=== PATIENT | male | born 1950 | race Caucasian/White ===

== ENCOUNTER → 2016-05-02 | Outpatient (CLI) | payer MEDICARE ==
[2016-05-02 10:46] LABS: CH 28.4; CHCM 31.8; HDW 2.62; HGB 13.3 gm/dL (13.0-17.5); MCH 27.7 pg (25.0-35.0); MCHC 30.9 g/dL (31.0-37.0); MCV 89.7 fL (80.0-100.0); Mean Platelet Volume 7.4; RDW 13.1 % (11.5-15.5)
[2016-05-02 10:57] LABS: Anion Gap 12 mmol/L; Blood Urea Nitrogen 21 mg/dL (9-20); Carbon Dioxide 30 mmol/L (22-30); Chloride 101 mmol/L (98-107); Cholesterol 244 mg/dL (<200); HDL Cholesterol 49 mg/dL (40-60); Non-African American GFR(MDRD) >60 (>60 ml/min/1.73 sqM); Potassium 5.3 mmol/L (3.5-5.1); Sodium 143 mmol/L (137-145); Triglycerides 217 mg/dL (<150)
== END | disposition home or self-care (01) ==
LOC: LABPAT 10:11
PROVIDERS: ATTEND Internal Medicine Interventional Cardiology
DX: Z01.812 Encounter for preprocedural laboratory examination (principal); I73.9 Peripheral vascular disease, unspecified; E78.2 Mixed hyperlipidemia
CPT/HCPCS: 80051; 80061; 82565; 84520; 85027

== ENCOUNTER 2016-05-07 08:46 | Day surgery (SDC) | payer MEDICARE ==
[2016-05-05 14:40] VITALS: BMI 31.5
[~2016-05-07 08:46] MED LIST: ALPRAZolam 0.25 MG TAB PO PRN; ASPIRIN 325 MG TAB PO STA; SODIUM CHLORIDE 0.9% 1,000 ML in EMPTY BAG 1 BAG IV ONE
[2016-05-07 09:48] VITALS: RESP 16
[2016-05-07 10:21] LABS: Glucose,Whole Blood 156 mg/dL (75-99)
[2016-05-07] MEDS: LIDOCAINE 2% INJ 20 MG/ML SQ ONE ×2 (10:45→12:17)
[2016-05-07] MEDS: fentaNYL (PF) 50 MCG/ML 2 ML AMP IV ONE ×2 (10:47→12:59)
[2016-05-07] MEDS ORDERED: MIDAZOLAM 2 MG/2 ML VIAL IV ONE (10:47)
[2016-05-07] MEDS ORDERED: HEPARIN SODIUM 1,000 UNIT/ML VIAL IV ONE (10:50)
[2016-05-07] MEDS: HYDROmorphone 2 MG/ML 1 ML SYRINGE IV ONE ×2 (11:02→11:43)
[2016-05-07] MEDS: HEPARIN SODIUM 1,000 UNIT/ML VIAL IV ONE ×2 (11:23→12:24)
[2016-05-07] MEDS ORDERED: MIDAZOLAM 2 MG/2 ML VIAL IVP ONE (11:27)
[2016-05-07] MEDS ORDERED: SODIUM CHLORIDE 0.9% 500 ML with niCARdipine 6.25 MG, NITROGLYCERIN-D5W PMX 0.05 MG, HE... IV ONE ×4 (12:06)
[2016-05-07] MEDS ORDERED: SODIUM CHLORIDE 0.9% 1,000 ML IV SCH (13:30)
--- NOTE | 2016-05-07 14:00 | IR ---
EXAMINATION TYPE: IR mine captain femoral popliteal DATE OF EXAM: 05/07/2016 1:57 PM COMPARISON: NONE HISTORY: Peripheral vascular occlusive disease. Fluoroscopy was applied to the referring clinician. See dictated report from cardiology.
[2016-05-07 14:20] LABS: Glucose,Whole Blood 133 mg/dL (75-99)
[2016-05-07] MEDS ORDERED: HYDROcodone/APAP 10-325MG 1 EACH TAB PO PRN (16:13)
[2016-05-07 20:13] VITALS: BP 140/59; PULSE 69; TEMP 98.2
--- NOTE | 2016-05-08 05:45 | PCN ---
DATE OF PROCEDURE: 05/07/2016 PERFORMING PHYSICIAN: Umesh Timmons MD, chemistry specialist. PROCEDURE PERFORMED: 1. Selective right common femoral artery angiogram. 2. Selective right profunda femoris angiogram. 3. Selective right posterior tibial artery angiogram. 4. An attempted percutaneous peripheral intervention of the right superficial femoral artery. INDICATION: This is a pleasant 66-year-old gentleman who is known to have coronary artery disease and prior coronary artery bypass grafting, peripheral arterial disease and prior aortobifem surgery, as well as carotid disease who was experiencing severe right leg discomfort consistent with intermittent claudications with almost critical limb ischemia and resting right leg discomfort. He underwent a peripheral angiogram a few weeks ago and that showed occluded right SFA. He was brought today to undergo percutaneous peripheral intervention. APPROACH: 1. Right brachial artery. 2. Right posterior tibial artery. COMPLICATIONS: None. LEVEL OF SEDATION: Moderate with a length of sedation of 3 hours. PROCEDURE DESCRIPTION: After obtaining an informed consent, the patient was brought to the cardiac laborer electroplating. The right brachial artery was cannulated using micropuncture technique under ultrasound guidance. The micropuncture wire passed easily, then I placed an 11 cm 6-Scottish sheath in the right brachial artery. Subsequently anticoagulation was initiated using heparin and the patient initially given a bolus of 10,000 units of heparin IV and subsequently 3 boluses of 3000 during the procedure with continuous ACT measurement during the procedure. After that, I did exchange my 11 cm 6-Scottish sheath into 110 cm 6-Scottish sheath using an 0.035 advantage wire. The tip of the sheath was positioned in the right common femoral artery. After that, I did multiple peripheral angiogram where I did ( ). Subsequently, I tried to advance 0.035 an 0.014 wire in what seems to be stumped right superficial femoral artery, but the wire would not go through at that point. After multiple attempts of finding the true stumped SFA, I decided to come from below. At that point, I decided to approach the lesion in a retrograde fashion. Subsequently I did access the right posterior tibial artery using a micropuncture technique under ultrasound guidance and I placed a 4-Scottish sheath. At that point, continuous infusion of heparin was initiated along with nitroglycerin and verapamil. I did advance an 0.035 Glidewire with the back-up support of 0.035 CXI catheter. I get all my way in the SFA in the ( ) to the proximal portion by the profunda bifurcation. I was unable to enter the profunda using multiple kinds of wire including 0.014, 0.018, 0.035 wire. At that point, I decided to stop. I did exchange my 110 cm 6-Scottish sheath into 11 cm 6-Scottish sheath in the right radial artery. Then I pulled the right posterior tibial sheath. The procedure was completed without any complication. POSTPROCEDURE MANAGEMENT: 1. I will discuss with the patient the need for right fem to popliteal bypass. 2. Discharged home later on today. 3. Follow up with the patient.
== END 2016-05-07 21:10 | disposition home or self-care (01) ==
LOC: CATHCVL 08:46 → 3OBS 13:23 → CATHCVL 21:10
PROVIDERS: ATTEND Internal Medicine Interventional Cardiology
DX: I70.221 Atherosclerosis of native arteries of extremities with rest pain, right leg (principal); I25.10 Atherosclerotic heart disease of native coronary artery without angina pectoris; I10 Essential (primary) hypertension; Z87.891 Personal history of nicotine dependence; E78.5 Hyperlipidemia, unspecified; Z79.82 Long term (current) use of aspirin; Z79.899 Other long term (current) drug therapy; E11.9 Type 2 diabetes mellitus without complications; Z79.84 Long term (current) use of oral hypoglycemic drugs; Z79.02 Long term (current) use of antithrombotics/antiplatelets
CPT/HCPCS: 37224; 85347; 84132; 99152; 99153 ×9; C1769 ×9; C1894 ×3; C1887; J2001; J2250; J1170; J1644 ×2; J3010

== ENCOUNTER 2016-06-07 15:49 | Inpatient (IN) | payer MEDICARE ==
[2016-06-07] MEDS ORDERED: HYDROmorphone 1 MG/ML 1 ML SYRINGE IVP STA (16:18)
[2016-06-07] MEDS ORDERED: SODIUM CHLORIDE 0.9% 1,000 ML IV ONE (16:21)
[2016-06-07] MEDS ORDERED: ONDANSETRON 4 MG/2 ML VIAL IVP STA (16:21)
--- NOTE | 2016-06-07 16:43 | ED ---
Abdominal Pain HPI - General Chief Complaint: Abdominal Pain Stated Complaint: abd pain Time Seen by Provider: 06/07/16 16:12 Source: patient Mode of arrival: ambulatory Limitations: no limitations - History of Present Illness Initial Comments: 66-year-old male patient presents to emergency department today for complaints of abdominal distention, abdominal pain, and diarrhea. Patient states that symptoms started around 9 PM last evening. He had multiple episodes of diarrhea throughout the night. Patient states that his abdomen is becoming more firm and the pain is worsening. Patient has been nauseated but has not vomited. Patient states he also had an episode of chest tightness, and had some wheezing. Patient denies any dark, bloody, or black stools. Patient denies any dysuria, hematuria, urinary retention, urinary frequency, or urinary urgency. He denies any fever, chills, sweats, or back pain. Patient denies any history of bowel surgeries, but has had an abdominal aortic bypass. Patient is also has history significant for myocardial infarction and CABG procedure. - Related Data Home Medications Medication Instructions Recorded Confirmed Chlorzoxazone [Parafon Forte Dsc] 1,000 mg PO TID 07/05/14 06/07/16 Hydrocodone/Acetaminophen [Lortab 2 tab PO Q8H PRN 07/05/14 06/07/16 10-325 mg Tablet] Nitroglycerin Sl Tabs [Nitrostat] 0.4 mg SUBLINGUAL Q5M PRN 07/05/14 06/07/16 Temazepam [Restoril] 30 mg PO HS PRN 07/05/14 06/07/16 Amitriptyline HCl [Elavil] 100 mg PO HS 08/11/14 06/07/16 Multivit-Min/FA/Lycopene/Lut 1 tab PO DAILY 10/04/15 06/07/16 [Centrum Silver Tablet] Sertraline [Zoloft] 50 mg PO HS 10/04/15 06/07/16 Gabapentin 600 mg PO BID 10/08/15 06/07/16 PARoxetine HCL [Paxil] 20 mg PO DAILY 10/09/15 06/07/16 Aspirin 81 mg PO QAM 11/19/15 06/07/16 Fluticasone/Salmeterol [Advair 1 puff INHALATION RT-BID 12/19/15 06/07/16 250-50 Diskus] Spironolactone-Hctz 25-25Mg 1 tab PO DAILY 12/19/15 06/07/16 [Aldactazide 25-25 MG] Atorvastatin [Lipitor] 80 mg PO HS 06/07/16 06/07/16 Fenofibrate Nanocrystallized 145 mg PO DAILY 06/07/16 06/07/16 [Fenofibrate] Gabapentin [Neurontin] 300 mg PO DAILY@1200 06/07/16 06/07/16 Glimepiride [Amaryl] 2 mg PO BID 06/07/16 06/07/16 Insulin Glargine,Hum.rec.anlog 30 units SQ HS 06/07/16 06/07/16 [Toujeo Solostar] Metoprolol Tartrate [Lopressor] 50 mg PO BID 06/07/16 06/07/16 cloNIDine HCL [Catapres] 0.05 mg PO BID 06/07/16 06/07/16 predniSONE See Taper PO DAILY 06/07/16 06/07/16 sitaGLIPtin [Januvia] 50 mg PO DAILY 06/07/16 06/07/16 Previous Rx's Medication Instructions Recorded Clopidogrel [Plavix] 75 mg PO DAILY #30 tab 10/14/15 Lisinopril [Zestril] 10 mg PO BID #60 tab 10/14/15 Pantoprazole [Protonix] 40 mg PO DAILY #30 tablet. 10/14/15 amLODIPine [Norvasc] 5 mg PO BID #60 tab 10/14/15 Carvedilol [Coreg] 3.125 mg PO BID-W/MEALS #60 tab 12/20/15 Allergies Allergy/AdvReac Type Severity Reaction Status Date / Time atorvastatin calcium Allergy Unknown Verified 06/07/16 15:53 [From Lipitor] fenofibrate nanocrystallized Allergy Unknown Verified 06/07/16 15:53 [From Tricor] fenofibrate,micronized Allergy Unknown Verified 06/07/16 15:53 [From Tricor] rosuvastatin calcium Allergy Unknown Verified 06/07/16 15:53 [From Crestor] sulfamethoxazole Allergy Unknown Verified 06/07/16 15:53 [From Bactrim] metformin AdvReac Nausea & Verified 06/07/16 15:53 Vomiting trimethoprim [From Bactrim] AdvReac Unknown Verified 06/07/16 15:53 rynatan Allergy Unknown Uncoded 06/07/16 15:53 Review of Systems ROS Statement: Those systems with pertinent positive or pertinent negative responses have been documented in the HPI. ROS Other: All systems not noted in ROS Statement are negative. Past Medical History Past Medical History: Coronary Artery Disease (CAD), COPD, Diabetes Mellitus, Hyperlipidemia, Hypertension, Osteoarthritis (OA) Additional Past Medical History / Comment(s): no cpap,sores venkata legs-scrapes History of Any Multi-Drug Resistant Organisms: None Reported Past Surgical History: Back Surgery, Coronary Bypass/CABG, Heart Catheterization With Stent, Hernia Repair Additional Past Surgical History / Comment(s): aortic bypass, chronic back pain , back surgery x3 Past Anesthesia/Blood Transfusion Reactions: No Reported Reaction Additional Past Anesthesia/Blood Transfusion Reaction / Comment(s): states "feels like he has ants crawling on his face with anesthesia" Date of Last Stent Placement:: 1994 Past Psychological History: Anxiety, Depression Smoking Status: Former smoker Past Alcohol Use History: None Reported Additional Past Alcohol Use History / Comment(s): quit smoking 2009,smoked approx 30 yrs 2ppd Past Drug Use History: None Reported - Past Family History Father Additional Family Medical History / Comment(s): in MVA Sister(s) Family Medical History: Cancer Additional Family Medical History / Comment(s): BONE Mother Family Medical History: Myocardial Infarction ([place]) General Exam Limitations: no limitations General appearance: alert, in no apparent distress Head exam: Present: atraumatic, normocephalic, normal inspection Eye exam: Present: normal appearance, PERRL, EOMI. Absent: scleral icterus, conjunctival injection, periorbital swelling ENT exam: Present: normal exam, normal oropharynx, mucous membranes moist Neck exam: Present: normal inspection. Absent: tenderness, meningismus, lymphadenopathy Respiratory exam: Present: normal lung sounds bilaterally. Absent: respiratory distress, wheezes, rales, rhonchi, stridor Cardiovascular Exam: Present: regular rate, normal rhythm, normal heart sounds. Absent: systolic murmur, diastolic murmur, rubs, gallop, clicks GI/Abdominal exam: Present: soft, distended, tenderness (Mid epigastric, right lower quadrant), normal bowel sounds, hyperactive bowel sounds. Absent: guarding, rebound, rigid Back exam: Present: normal inspection. Absent: tenderness, CVA tenderness (R), CVA tenderness (L) Neurological exam: Present: alert, oriented X3, CN II-XII intact Psychiatric exam: Present: normal affect, normal mood Skin exam: Present: warm, dry, intact, normal color. Absent: rash Course Vital Signs 06/07/16 06/07/16 15:50 16:56 Temperature 98.0 F 98.0 F Pulse Rate 76 65 Respiratory 16 18 Rate Blood Pressure 121/58 167/76 O2 Sat by Pulse 96 98 Oximetry Medical Decision Making - Medical Decision Making 66-year-old male patient presented today for complaints of abdominal pain, distention, and diarrhea. X-ray and CT findings are consistent with ileus, with no evidence is obstruction. It is also a new pancreatic tail mass noted on CT. She's been discussed with Missael Hitchcock MANAGER [employer]. Patient will be admitted for further evaluation of ileus and abdominal pain. - Lab Data Result diagrams: 06/07/16 16:53 06/07/16 16:53 Lab Results 06/07/16 06/07/16 06/07/16 Range/Units 16:53 16:53 16:53 WBC 14.7 H (3.8-10.6) k/uL RBC 4.48 (4.30-5.90) m/uL Hgb 12.5 L (13.0-17.5) gm/dL Hct 39.5 (39.0-53.0) % MCV 88.1 (80.0-100.0) fL MCH 28.0 (25.0-35.0) pg MCHC 31.8 (31.0-37.0) g/dL RDW 13.2 (11.5-15.5) % Plt Count 317 (150-450) k/uL Neutrophils % 71 % Lymphocytes % 19 % Monocytes % 6 % Eosinophils % 1 % Basophils % 1 % Neutrophils # 10.4 H (1.3-7.7) k/uL Lymphocytes # 2.7 (1.0-4.8) k/uL Monocytes # 0.8 (0-1.0) k/uL Eosinophils # 0.1 (0-0.7) k/uL Basophils # 0.1 (0-0.2) k/uL PT (9.0-12.0) sec INR (<1.1) APTT (22.0-30.0) sec Sodium 137 (137-145) mmol/L Potassium 4.9 (3.5-5.1) mmol/L Chloride 103 (98-107) mmol/L Carbon Dioxide 21 L (22-30) mmol/L Anion Gap 13 mmol/L BUN 27 H (9-20) mg/dL Creatinine 0.88 (0.66-1.25) mg/dL Est GFR (MDRD) Af Amer >60 (>60 ml/min/1.73 sqM) Est GFR (MDRD) Non-Af >60 (>60 ml/min/1.73 sqM) Glucose 290 H (74-99) mg/dL Plasma Lactic Acid Sai 1.5 (0.7-2.0) mmol/L Calcium 10.2 (8.4-10.2) mg/dL Total Bilirubin 0.6 (0.2-1.3) mg/dL AST 41 (17-59) U/L ALT 65 (21-72) U/L Alkaline Phosphatase 47 (38-126) U/L Total Creatine Kinase (55-170) U/L CK-MB (CK-2) (0.0-2.4) ng/mL CK-MB (CK-2) Rel Index Troponin I (0.000-0.034) ng/mL Total Protein 6.8 (6.3-8.2) g/dL Albumin 4.1 (3.5-5.0) g/dL Amylase 36 (30-110) U/L Lipase 65 (23-300) U/L Urine Color Urine Appearance (Clear) Urine pH (5.0-8.0) Ur Specific [place] (1.001-1.035) Urine Protein (Negative) Urine Glucose (UA) (Negative) Urine Ketones (Negative) Urine Blood (Negative) Urine Nitrite (Negative) Urine Bilirubin (Negative) Urine Urobilinogen (<2.0) mg/dL Ur Leukocyte Esterase (Negative) 06/07/16 06/07/16 06/07/16 Range/Units 16:53 16:53 17:50 WBC (3.8-10.6) k/uL RBC (4.30-5.90) m/uL Hgb (13.0-17.5) gm/dL Hct (39.0-53.0) % MCV (80.0-100.0) fL MCH (25.0-35.0) pg MCHC (31.0-37.0) g/dL RDW (11.5-15.5) % Plt Count (150-450) k/uL Neutrophils % % Lymphocytes % % Monocytes % % Eosinophils % % Basophils % % Neutrophils # (1.3-7.7) k/uL Lymphocytes # (1.0-4.8) k/uL Monocytes # (0-1.0) k/uL Eosinophils # (0-0.7) k/uL Basophils # (0-0.2) k/uL PT 10.0 (9.0-12.0) sec INR 1.0 (<1.1) APTT 20.6 L (22.0-30.0) sec Sodium (137-145) mmol/L Potassium (3.5-5.1) mmol/L Chloride (98-107) mmol/L Carbon Dioxide (22-30) mmol/L Anion Gap mmol/L BUN (9-20) mg/dL Creatinine (0.66-1.25) mg/dL Est GFR (MDRD) Af Amer (>60 ml/min/1.73 sqM) Est GFR (MDRD) Non-Af (>60 ml/min/1.73 sqM) Glucose (74-99) mg/dL Plasma Lactic Acid Sai (0.7-2.0) mmol/L Calcium (8.4-10.2) mg/dL Total Bilirubin (0.2-1.3) mg/dL AST (17-59) U/L ALT (21-72) U/L Alkaline Phosphatase (38-126) U/L Total Creatine Kinase 102 (55-170) U/L CK-MB (CK-2) 2.8 H* (0.0-2.4) ng/mL CK-MB (CK-2) Rel Index 2.7 Troponin I <0.012 (0.000-0.034) ng/mL Total Protein (6.3-8.2) g/dL Albumin (3.5-5.0) g/dL Amylase (30-110) U/L Lipase (23-300) U/L Urine Color Yellow Urine Appearance Clear (Clear) Urine pH 5.5 (5.0-8.0) Ur Specific [place] 1.019 (1.001-1.035) Urine Protein Negative (Negative) Urine Glucose (UA) 4+ H (Negative) Urine Ketones Negative (Negative) Urine Blood Negative (Negative) Urine Nitrite Negative (Negative) Urine Bilirubin Negative (Negative) Urine Urobilinogen <2.0 (<2.0) mg/dL Ur Leukocyte Esterase Negative (Negative) - EKG Data -: EKG Interpreted by Nc 06/07/16 17:25 EKG obtained at 1716 reveals normal sinus rhythm with a ventricular rate of 60, CA interval 134, QRS duration 104, QT 426, QTC 426. ST elevation or depression noted. 06/07/16 18:58 - Radiology Data Radiology results: report reviewed, image reviewed X-ray KUB reveals single mildly dilated loop of small bowel on the mild midline abdomen. Otherwise air and stool are noted throughout the colon and the findings likely related to mild ileus. Dictated by Dr. Gonzales. CT abdomen and pelvis with IV contrast reveals previously noted mildly dilated loop of small bowel on the abdominal radiograph the same day. Has decreased in caliber. Scattered air-fluid levels are noted within nondilated small bowel. Again findings are likely related to ileus with no evidence of obstruction. Pancreatic tail mass incompletely characterized on this examination. No associated ductal dilation. Mild retrolisthesis of L5 on S1, likely degenerative in nature. Hepatic steatosis. Two-view chest x-ray reveals no acute cardiopulmonary process. Disposition Clinical Impression: Abdominal pain, Ileus, Pancreatic mass Disposition: ADMITTED IP TO THIS HOSP Condition: Stable Decision Date: 06/07/16 Decision Time: 18:59
[2016-06-07] MEDS ORDERED: RX INFO: IV CONTRAST WAS GIVEN 1 EACH MISC MISCELLANE PRN (16:54)
[2016-06-07 17:11] LABS: Basophils # (A) 0.1 k/uL (0-0.2); Basophils % (A) 1 %; CH 28.5; CHCM 32.5; Eosinophils # (A) 0.1 k/uL (0-0.7); Eosinophils % (A) 1 %; HCT 39.5 % (39.0-53.0); HGB 12.5 gm/dL (13.0-17.5); Luc % (Auto) 3; Lymphocytes # (A) 2.7 k/uL (1.0-4.8); Lymphocytes % (A) 19 %; MCHC 31.8 g/dL (31.0-37.0); MCV 88.1 fL (80.0-100.0); Mean Platelet Volume 8.1; Monocytes # (A) 0.8 k/uL (0-1.0); Monocytes % (A) 6 %; Neutrophils # (A) 10.4 k/uL (1.3-7.7); Neutrophils % (A) 71 %; RBC 4.48 m/uL (4.30-5.90); RDW 13.2 % (11.5-15.5); WBC 14.7 k/uL (3.8-10.6); WBC (Perox) 15.33
[2016-06-07 17:16] LABS: ALT 65 U/L (21-72); AST 41 U/L (17-59); Alkaline Phosphatase 47 U/L (38-126); Amylase 36 U/L (30-110); Anion Gap 13 mmol/L; Blood Urea Nitrogen 27 mg/dL (9-20); Calcium 10.2 mg/dL (8.4-10.2); Carbon Dioxide 21 mmol/L (22-30); Chloride 103 mmol/L (98-107); Glucose 290 mg/dL (74-99); Non-African American GFR(MDRD) >60 (>60 ml/min/1.73 sqM); Potassium 4.9 mmol/L (3.5-5.1); Sodium 137 mmol/L (137-145); Total Bilirubin 0.6 mg/dL (0.2-1.3); Total Protein 6.8 g/dL (6.3-8.2)
[2016-06-07 17:31] LABS: Creatine Kinase 102 U/L (55-170)
[2016-06-07 17:34] LABS: Partial Thromboplastin Time 20.6 sec (22.0-30.0)
[2016-06-07 17:45] LABS: Troponin I <0.012 ng/mL (0.000-0.034)
[2016-06-07 17:47] LABS: Creatine Kinase MB 2.8 ng/mL (0.0-2.4)
[2016-06-07 17:59] LABS: Appearance,Urine Clear (Clear); Bilirubin,Urine Negative (Negative); Glucose,Urine (UA) 4+ (Negative); Ketones,Urine Negative (Negative); Leukocyte Esterase,Urine Negative (Negative); Nitrite,Urine Negative (Negative); PH, Urine 5.5 (5.0-8.0); Protein,Urine Negative (Negative); Specific Gravity,Urine 1.019 (1.001-1.035); UA Billing (MACRO vs. MICRO) CHEM; Urobilinogen,Urine <2.0 mg/dL (<2.0)
--- NOTE | 2016-06-07 17:59 | XR ---
EXAMINATION TYPE: XR chest 2V DATE OF EXAM: 06/07/2016 4:46 PM COMPARISON: 12/19/2015 HISTORY: Abdominal pain and bloating with history of COPD. TECHNIQUE: Frontal and lateral views of the chest are obtained. FINDINGS: Intact midline sternotomy wires are evident with postsurgical clips of the mediastinum. Th ere is no evidence of focal consolidation, pleural effusion, or pneumothorax. Cardia mediastinal silh ouette is within normal limits. Chronic prominent interstitial lung markings are noted. Degenerative changes are seen of the visualized thoracic spine. No radiographic sequela of COPD. IMPRESSION: No acute cardiopulmonary process, unchanged from the prior exam.
--- NOTE | 2016-06-07 18:02 | XR ---
EXAMINATION TYPE: XR KUB DATE OF EXAM: 06/07/2016 4:46 PM COMPARISON: NONE HISTORY: Abdominal pain, bloating, and gaseous distention TECHNIQUE: Single view upright abdominal radiograph was obtained. FINDINGS: The bowel gas pattern is nonspecific. The colon contains air and fecal material scattered t hroughout. Few air-fluid levels are seen within the abdomen and a single loop of prominent small anuel l is present in the central upper abdomen. Postsurgical changes are seen in the left inguinal region and midline abdomen. Degenerative changes are present of the thoracolumbar spine and lumbosacral spin e. There is redemonstration of postsurgical changes of the mediastinum. No abnormal calcifications or organomegaly are appreciated. IMPRESSION: Single mildly dilated loop of small bowel in the midline abdomen. Otherwise air and stool are noted throughout the colon and thus findings likely relate to mild ileus.
--- NOTE | 2016-06-07 18:39 | CT ---
EXAMINATION TYPE: CT abdomen pelvis w con DATE OF EXAM: 06/07/2016 6:10 PM COMPARISON: NONE HISTORY: Generalized abdominal pain and bloating. CT DLP: 2126.00 mGycm Automated exposure control for dose reduction was used. TECHNIQUE: Helical acquisition of images was performed from the lung bases through the pelvis. CONTRAST: Performed without Oral Contrast and with IV Contrast, patient injected with 100 mL of Omnipaque 300. FINDINGS: LUNG BASES: Respiratory motion partially obscures visualization, however there is evidence of bilater al subsegmental atelectasis and no focal consolidation. LIVER/GB: There is diffuse hypoattenuation of the hepatic parenchyma related to underlying hepatic st eatosis, which limits evaluation for hepatic masses. There is focal fatty sparing near the gallbladde r fundus and segment IVb. A trace amount of perihepatic fluid lies at the inferior margin of the righ t hepatic lobe along the right lateral conal fascia. PANCREAS: There is a hypoattenuated pancreatic tail mass measuring 2.4 x 2.5 cm. There is no associat ed ductal dilatation. Mild pancreatic atrophy is noted. No evidence of chronic pancreatitis is identi fied. SPLEEN: Spleen is of normal size and morphology. ADRENALS: Normal morphology without adrenal lesion. KIDNEYS: No evidence of hydronephrosis or obstructive uropathy. The kidneys enhance symmetrically wit hout focal lesion RETROPERITONEAL ADENOPATHY: No evidence of retroperitoneal adenopathy. REPRODUCTIVE ORGANS: No significant abnormality is seen URINARY BLADDER: No significant abnormality is seen. PELVIC ADENOPATHY: None visualized. OSSEOUS STRUCTURES: Mild retrolisthesis is seen of L5 on S1, likely degenerative in nature as degene rative changes are seen of the visualized thoracolumbar and lumbosacral spine. BOWEL: The previously described single loop of prominent small bowel in the midline abdomen has decr eased in size in the interim and is nondilated. No evidence of bowel dilation is noted. Stool and air are seen within the nondistended large bowel. Appendix is visualized without periappendiceal fat str anding or enlargement. No evidence of pneumoperitoneum. No evidence of small bowel wall thickening. A gain few air-fluid levels are noted. OTHER: Postsurgical changes are seen of the abdominal aorta and common iliac vasculature with patency of the anterior vessels which contain minimal calcific atheromatous changes. IMPRESSION: 1. PREVIOUSLY NOTED MILDLY DILATED LOOP OF SMALL BOWEL ON THE ABDOMINAL RADIOGRAPH THE SAME DAY HAS D ECREASED IN CALIBER. SCATTERED AIR-FLUID LEVELS ARE NOTED WITHIN NONDILATED SMALL BOWEL. AGAIN FINDIN GS ARE LIKELY RELATE TO ILEUS WITH NO EVIDENCE OF OBSTRUCTION. 2. PANCREATIC TAIL MASS INCOMPLETELY CHARACTERIZED ON THIS EXAMINATION. THERE IS NO ASSOCIATED DUCTAL DILATATION. FURTHER CHARACTERIZATION WITH DEDICATED DYNAMIC ENHANCED ABDOMINAL CT (PANCREATIC MASS P ROTOCOL) OR MRI IS RECOMMENDED FOR FURTHER CHARACTERIZATION. 3. MILD RETROLISTHESIS OF L5 ON S1, LIKELY DEGENERATIVE IN NATURE. 4. HEPATIC STEATOSIS.
[2016-06-07] MEDS ORDERED: ONDANSETRON 4 MG/2 ML VIAL IVP PRN (18:59)
[2016-06-07] MEDS ORDERED: ACETAMINOPHEN TAB 325 MG TAB PO PRN (18:59)
[2016-06-07] MEDS ORDERED: NALOXONE 0.4 MG/ML 1 ML VIAL IV PRN (18:59)
[2016-06-07 19:00] VITALS: RESP 16
[2016-06-07] MEDS: HYDROmorphone 1 MG/ML 1 ML SYRINGE IV PRN ×2 (19:49→22:20)
[2016-06-07 20:15] LABS: Hemoglobin A1C 8.6 % (4.2-6.1)
[2016-06-07] MEDS ORDERED: TEMAZEPAM 30 MG CAP PO PRN (20:41)
[2016-06-07 21:42] LABS: Glucose,Whole Blood 233 mg/dL (75-99)
[2016-06-07] MEDS: amLODIPine 5 MG TAB PO SCH (22:14)
[2016-06-07] MEDS: ATORVASTATIN 80 MG TAB PO SCH (22:14)
[2016-06-07] MEDS: AMITRIPTYLINE HCL 50 MG TAB PO SCH (22:14)
[2016-06-07] MEDS: GLIMEPIRIDE 2 MG TAB PO SCH (22:15)
[2016-06-07] MEDS: GABAPENTIN 300 MG CAP PO SCH (22:15)
[2016-06-07] MEDS: INSULIN GLARGINE 100 UNIT/ML 10 ML VIAL SQ SCH (22:15)
[2016-06-07] MEDS: LISINOPRIL 10 MG TAB PO SCH (22:16)
[2016-06-07] MEDS: INSULIN LISPRO (humaLOG) 300 UNIT/3 ML VIAL SQ SCH (22:16)
[2016-06-07] MEDS: CYCLOBENZAPRINE 10 MG TAB PO SCH (22:17)
[2016-06-07] MEDS: METOPROLOL TARTRATE 50 MG TAB PO SCH (22:17)
[2016-06-07] MEDS: SERTRALINE 50 MG TAB PO SCH (22:17)
[2016-06-07] MEDS: SODIUM CHLORIDE 0.9% 1,000 ML IV SCH (22:20)
[2016-06-08] MEDS: cloNIDine HCL 0.1 MG TAB PO SCH ×2 (00:35→08:41)
[2016-06-08 05:18] VITALS: BMI 30.7
[2016-06-08] MEDS: SYMBICORT 80-4.5 MCG INHALER INHALATION SCH ×2 (07:07→19:33)
[2016-06-08] MEDS: HYDROmorphone 1 MG/ML 1 ML SYRINGE IV PRN ×5 (07:28→21:01)
[2016-06-08 07:30] LABS: Glucose,Whole Blood 98 mg/dL (75-99)
[2016-06-08] MEDS ORDERED: CARVEDILOL 3.125 MG TAB PO SCH (07:30)
[2016-06-08 08:24] LABS: Aty Lym Flag Slight; CH 28.2; CHCM 32.1; HCT 36.9 % (39.0-53.0); HDW 2.44; HGB 11.9 gm/dL (13.0-17.5); MCH 28.3 pg (25.0-35.0); MCHC 32.2 g/dL (31.0-37.0); MCV 88.1 fL (80.0-100.0); Mean Platelet Volume 7.2; RBC 4.19 m/uL (4.30-5.90); RDW 12.8 % (11.5-15.5); WBC 9.4 k/uL (3.8-10.6)
[2016-06-08 08:38] LABS: Anion Gap 8 mmol/L; Blood Urea Nitrogen 20 mg/dL (9-20); Calcium 9.8 mg/dL (8.4-10.2); Carbon Dioxide 31 mmol/L (22-30); Chloride 102 mmol/L (98-107); Glucose 96 mg/dL (74-99); Non-African American GFR(MDRD) >60 (>60 ml/min/1.73 sqM); Potassium 4.5 mmol/L (3.5-5.1); Sodium 141 mmol/L (137-145)
[2016-06-08] MEDS: PANTOPRAZOLE 40 MG/10 ML VIAL IVP SCH ×2 (08:39→21:02)
[2016-06-08] MEDS: PARoxetine 20 MG TAB PO SCH (08:39)
[2016-06-08] MEDS: METOPROLOL TARTRATE 50 MG TAB PO SCH (08:39)
[2016-06-08] MEDS: LISINOPRIL 10 MG TAB PO SCH ×2 (08:39→21:06)
[2016-06-08] MEDS: CLOPIDOGREL 75 MG TAB PO SCH (08:40)
[2016-06-08] MEDS: GABAPENTIN 300 MG CAP PO SCH ×3 (08:40→21:07)
[2016-06-08] MEDS: GLIMEPIRIDE 2 MG TAB PO SCH (08:40)
[2016-06-08] MEDS: CYCLOBENZAPRINE 10 MG TAB PO SCH ×3 (08:40→21:07)
[2016-06-08] MEDS: ASPIRIN 81 MG CHEW PO SCH (08:41)
[2016-06-08] MEDS: amLODIPine 5 MG TAB PO SCH (08:41)
[2016-06-08] MEDS: SODIUM CHLORIDE 0.9% 1,000 ML IV SCH (08:42)
[2016-06-08] MEDS: INSULIN LISPRO (humaLOG) 300 UNIT/3 ML VIAL SQ SCH ×4 (08:42→21:03)
[2016-06-08] MEDS ORDERED: LINAGLIPTIN 5 MG TABLET PO SCH (09:00)
[2016-06-08] MEDS ORDERED: SPIRONOLACTONE-HCTZ 25-25MG 1 EACH TAB PO SCH (09:00)
[2016-06-08 10:00] LABS: Add Differential Manual Differential
[2016-06-08 10:04] LABS: Nucleated Red Blood Cells 0 /100 WBC (0-0); Total Cells Counted 100
[2016-06-08 10:05] LABS: Manual Review Performed
[2016-06-08] MEDS ORDERED: CARVEDILOL 3.125 MG TAB PO ONE (11:15)
[2016-06-08 11:33] LABS: Glucose,Whole Blood 194 mg/dL (75-99)
--- NOTE | 2016-06-08 13:58 | P.PN ---
Progress Note - Text Patient seen and evaluated. Please see full dictated consult. At the time of my evaluation, the patient tolerated a regular diet with roast beef. He reports passing flatus. He denies any moderate abdominal pain at this time. He is long overdue for colonoscopy with history of polyps. His last was over 5 years ago. Agree with MRI with additional views of the pancreas. Otherwise, patient is stable from a surgical standpoint for discharge for follow -up in the office for additional surgical workup.
--- NOTE | 2016-06-08 14:30 | P.GSCN ---
History of Present Illness Consult date: 06/08/16 Reason for Consult: Abnormal computed tomography scan with history of abdominal pain Requesting physician: Myah Doherty History of present illness: The patient is a 66-year-old gentleman who presents with history of abdominal pain. He reports epigastric including right lower quadrant abdominal pain initially of moderate severity over the last 2 days. He denies any previous history of this type of pain before. He has a history of a colonoscopy done over 5 years ago and has history of polyps. Denies any family history of pancreatic cancer or colon cancer. He has a sister of questionable leukemia. At the time of my evaluation, he was tolerating a roast beef dinner. He is passing flatus. He does report some change in bowel habits. Otherwise his abdominal pain has improved. As a result of his abnormal computed tomography scan including pancreatic lesion, Gen. surgery is consulted Review of Systems CONSTITUTIONAL: Denies any fever or chills. HEENT: Denies any trouble with vision, hearing or nosebleeds. No difficulty swallowing. LYMPHATIC: The patient denies any lumps and bumps around the neck. ENDOCRINE: Denies any thyroid disorders. Has blood sugar glucose intolerance. RESPIRATORY: Has history of chronic structure pulmonary disease. Has mild dyspnea on exertion. CARDIOVASCULAR: Past history of heart attacks. None recent. History of prior chest pain. GASTROINTESTINAL: Has change in bowel habits. Last colonoscopy over 5 years ago multiple polyps removed. GENITOURINARY: Denies any blood in urine or increased urinary frequency. MUSCULOSKELETAL: Has back pain, stiffness, joint arthritis. NEUROLOGIC: Denies any numbness or tingling along the distal extremities. No seizure disorders or headaches. PSYCHIATRIC: Has anxiety. No suicidal ideation. HEMATOLOGIC: Denies any abnormal bleeding or bruising. BREASTS: Denies any breast lumps, pain or nipple discharge. Past Medical History Past Medical History: Coronary Artery Disease (CAD), COPD, Diabetes Mellitus, Hyperlipidemia, Hypertension, Osteoarthritis (OA) Additional Past Medical History / Comment(s): no cpap,sores venkata legs-scrapes History of Any Multi-Drug Resistant Organisms: None Reported Past Surgical History: Back Surgery, Coronary Bypass/CABG, Heart Catheterization With Stent, Hernia Repair Additional Past Surgical History / Comment(s): aortic bypass, chronic back pain , back surgery x3 Past Anesthesia/Blood Transfusion Reactions: No Reported Reaction Additional Past Anesthesia/Blood Transfusion Reaction / Comm: states " feels like he has ants crawling on his face with anesthesia" Date of Last Stent Placement:: 1994 Past Psychological History: Anxiety, Depression Smoking Status: Former smoker Past Alcohol Use History: None Reported Additional Past Alcohol Use History / Comment(s): quit smoking 2009,smoked approx 30 yrs 2ppd Past Drug Use History: None Reported - Past Family History Father Additional Family Medical History / Comment(s): in MVA Sister(s) Family Medical History: Cancer Additional Family Medical History / Comment(s): BONE Mother Family Medical History: Myocardial Infarction (ND) Medications and Allergies Home Medications Medication Instructions Recorded Confirmed Type Chlorzoxazone [Parafon Forte Dsc] 1,000 mg PO TID 07/05/14 06/07/16 History Hydrocodone/Acetaminophen [Lortab 2 tab PO Q8H PRN 07/05/14 06/07/16 History 10-325 mg Tablet] Nitroglycerin Sl Tabs [Nitrostat] 0.4 mg SUBLINGUAL Q5M PRN 07/05/14 06/07/16 History Temazepam [Restoril] 30 mg PO HS PRN 07/05/14 06/07/16 History Amitriptyline HCl [Elavil] 100 mg PO HS 08/11/14 06/07/16 History Multivit-Min/FA/Lycopene/Lut 1 tab PO DAILY 10/04/15 06/07/16 History [Centrum Silver Tablet] Sertraline [Zoloft] 50 mg PO HS 10/04/15 06/07/16 History Gabapentin 600 mg PO BID 10/08/15 06/07/16 History PARoxetine HCL [Paxil] 20 mg PO DAILY 10/09/15 06/07/16 History Aspirin 81 mg PO QAM 11/19/15 06/07/16 History Fluticasone/Salmeterol [Advair 1 puff INHALATION RT-BID 12/19/15 06/07/16 History 250-50 Diskus] Spironolactone-Hctz 25-25Mg 1 tab PO DAILY 12/19/15 06/07/16 History [Aldactazide 25-25 MG] Atorvastatin [Lipitor] 80 mg PO HS 06/07/16 06/07/16 History Fenofibrate Nanocrystallized 145 mg PO DAILY 06/07/16 06/07/16 History [Fenofibrate] Gabapentin [Neurontin] 300 mg PO DAILY@1200 06/07/16 06/07/16 History Glimepiride [Amaryl] 2 mg PO BID 06/07/16 06/07/16 History Insulin Glargine,Hum.rec.anlog 30 units SQ HS 06/07/16 06/07/16 History [Toujonao Solostar] predniSONE See Taper PO DAILY 06/07/16 06/07/16 History sitaGLIPtin [Januvia] 50 mg PO DAILY 06/07/16 06/07/16 History Allergies Allergy/AdvReac Type Severity Reaction Status Date / Time atorvastatin calcium Allergy Unknown Verified 06/07/16 15:53 [From Lipitor] fenofibrate nanocrystallized Allergy Unknown Verified 06/07/16 15:53 [From Tricor] fenofibrate,micronized Allergy Unknown Verified 06/07/16 15:53 [From Tricor] rosuvastatin calcium Allergy Unknown Verified 06/07/16 15:53 [From Crestor] sulfamethoxazole Allergy Unknown Verified 06/07/16 15:53 [From Bactrim] metformin AdvReac Nausea & Verified 06/07/16 15:53 Vomiting trimethoprim [From Bactrim] AdvReac Unknown Verified 06/07/16 15:53 rynatan Allergy Unknown Uncoded 06/07/16 15:53 Surgical - Exam Vital Signs Temp Pulse Resp BP Pulse Ox 98.0 F 76 16 121/58 96 06/07/16 15:50 06/07/16 15:50 06/07/16 15:50 06/07/16 15:50 06/07/16 15:50 GENERAL: Well developed and in no acute distress. Pleasant. HEENT: No sclera icterus. Extraocular movements grossly intact. Moist buccal mucosa. Head is atraumatic, normocephalic. Hears conversational speech. No nasal drainage. NECK: Supple without lymphadenopathy. CHEST: Non-labored respirations and equal bilateral excursions. CARDIOVASCULAR: Regular rate and rhythm. Palpable 2+ radial pulses. ABDOMEN: Soft. Nondistended. Minimal tenderness along the epigastrium and right lower quadrant. No peritonitis. MUSCULOSKELETAL: No clubbing, cyanosis or edema. NEUROLOGIC: No focal or lateralizing signs. PSYCH: Appropriate affect. Alert and oriented to person, place and time. Results - Labs 06/08/16 07:36 06/08/16 07:36 Abnormal Lab Results - Last 24 Hours (Table) 06/07/16 06/08/16 06/08/16 Range/Units 21:40 07:36 07:36 RBC 4.19 L (4.30-5.90) m/uL Hgb 11.9 L (13.0-17.5) gm/dL Hct 36.9 L (39.0-53.0) % Carbon Dioxide 31 H (22-30) mmol/L POC Glucose (mg/dL) 233 H (75-99) mg/dL 06/08/16 Range/Units 11:25 RBC (4.30-5.90) m/uL Hgb (13.0-17.5) gm/dL Hct (39.0-53.0) % Carbon Dioxide (22-30) mmol/L POC Glucose (mg/dL) 194 H (75-99) mg/dL Diabetes panel 06/08/16 Range/Units 07:36 Sodium 141 (137-145) mmol/L Potassium 4.5 (3.5-5.1) mmol/L Chloride 102 (98-107) mmol/L Carbon Dioxide 31 H (22-30) mmol/L BUN 20 (9-20) mg/dL Creatinine 0.85 (0.66-1.25) mg/dL Glucose 96 (74-99) mg/dL Calcium 9.8 (8.4-10.2) mg/dL Calcium panel 06/08/16 Range/Units 07:36 Calcium 9.8 (8.4-10.2) mg/dL Pituitary panel 06/08/16 Range/Units 07:36 Sodium 141 (137-145) mmol/L Potassium 4.5 (3.5-5.1) mmol/L Chloride 102 (98-107) mmol/L Carbon Dioxide 31 H (22-30) mmol/L BUN 20 (9-20) mg/dL Creatinine 0.85 (0.66-1.25) mg/dL Glucose 96 (74-99) mg/dL Calcium 9.8 (8.4-10.2) mg/dL Adrenal panel 06/08/16 Range/Units 07:36 Sodium 141 (137-145) mmol/L Potassium 4.5 (3.5-5.1) mmol/L Chloride 102 (98-107) mmol/L Carbon Dioxide 31 H (22-30) mmol/L BUN 20 (9-20) mg/dL Creatinine 0.85 (0.66-1.25) mg/dL Glucose 96 (74-99) mg/dL Calcium 9.8 (8.4-10.2) mg/dL - Imaging CT scan - abdomen: report reviewed, image reviewed CT scan - pelvis: report reviewed, image reviewed (No evidence of bowel obstruction identified. Small pancreatic mass along the tail identified. No metastatic lesions identified.) Assessment and Plan (1) Epigastric abdominal pain Status: Acute (2) Right lower quadrant pain Status: Acute (3) Anxiety Status: Acute (4) Family history of heart disease Status: Acute (5) Ileus Status: Acute (6) Pancreatic mass Status: Acute (7) COPD (chronic obstructive pulmonary disease) Status: Acute (8) Hx of CABG Status: Acute (9) Hyperlipidemia Status: Acute (10) Hypertension Status: Acute Plan: 1. At the time of my evaluation, the patient tolerated a regular diet with roast beef. He reports passing flatus. He denies any moderate abdominal pain at this time. He is long overdue for colonoscopy with history of polyps. His last was over 5 years ago. 2. Agree with MRI with additional views of the pancreas. 3. Will need outpatient colonoscopy. Recommend follow-up in the office. 4. Otherwise, patient is stable from a surgical standpoint for discharge for follow-up in the office for additional surgical workup.
--- NOTE | 2016-06-08 14:55 | HP ---
DATE OF ADMISSION: 06/07/2016 This dictation is both H&P and discharge summary. H&P/DISCHARGE SUMMARY: Patient is a 66-year-old gentleman came in with complaints of crampy abdominal pain 6/10 in severity in the epigastric area as well as the right lower quadrant area and multiple episodes of diarrhea started about 2 days ago, which everything started with flulike symptoms. Patient had a CT of the abdomen showed dilated bowels of fluid which is probably due to gastroenteritis. Patient is incidentally found to have a mass in the pancreatic tail for which was not characterized well for which we are obtaining an MRI. Patient denied any nausea, vomiting at this point of time. His symptoms of diarrhea resolved at this time. The patient denied any recent antibiotic use. The patient denied any fever or chills. The patient denied any cough, runny nose. Patient's chest x-ray did not show any significant abnormality. Abdominal CT as mentioned above. Abdominal x-ray and the patient had dilated bowel loops and patient had leukocytosis which resolved. Patient is getting IV fluids. The patient does have history of congestive heart failure because of which I discontinued the fluids. The patient's ejection fraction was 45%. Home medications include: 1. Hydrocodone. 2. Acetaminophen. 3. Nitroglycerine. 4. Temazepam. 5. Amitriptyline. 6. Multivitamins. 7. Sertraline. 8. Gabapentin. 9. Paroxetine. 10. Aspirin. 11. Fluoxetine. 12. Fluticasone. 13. Salmeterol. 14. Spironolactone. 15. Hydrochlorothiazide. 16. Atorvastatin. 17. Fenofibrate. 18. Gabapentin. 19. Glimepiride. 20. Insulin glargine. 21. Metoprolol. 22. Clonidine. 23. Prednisone. 24. Januvia. 25. Plavix. 26. Lisinopril. 27. Pantoprazole. 28. Amlodipine. 29. Coreg. We are awaiting for the patient to bring his cardiac cath stent data so that he can get an MRI. The patient is on two beta blockers, which is not recommended because of which metoprolol will be discontinued. PATIENT IS ALLERGIC TO ATORVASTATIN, BACTRIM AND NYSTATIN. PAST MEDICAL HISTORY: Coronary artery disease, congestive heart failure, systolic dysfunction; ejection fraction of around 40 to 45%, uncontrolled hypertension on multiple antihypertensive medications and dementia. SOCIAL HISTORY: Denied any smoking, alcohol abuse. FAMILY HISTORY: Father had myocardial infarction. Denied any premature coronary artery disease. REVIEW OF SYSTEMS: CONSTITUTIONAL: No fever, no malaise, no fatigue. HEENT: No recent visual problems or hearing problems. Denied any sore throat. CARDIOVASCULAR: No chest pain, orthopnea, PND, no palpitations, no syncope. PULMONARY: No shortness of breath, no cough, no hemoptysis. GASTROINTESTINAL: as mentioned earlier. NEUROLOGICAL: No headaches, no weakness, no numbness. HEMATOLOGICAL: Denies any bleeding or petechiae. GENITOURINARY: Denies any burning micturition, frequency, or urgency. MUSCULOSKELETAL/RHEUMATOLOGICAL: Denies any joint pain, swelling, or any muscle pain. ENDOCRINE: Denies any polyuria or polydipsia. The rest of the 14 point review of systems is negative. PHYSICAL EXAMINATION: VITAL SIGNS: Temperature 97.4, pulse of 64, respiratory rate of 16, blood pressure is 124/64, saturating at 93% on room air. GENERAL: The patient is alert and oriented x3, not in any acute distress. Well developed, well nourished. HEENT: Pupils are round and equally reacting to light. EOMI. No scleral icterus. No conjunctival pallor. Normocephalic, atraumatic. No pharyngeal erythema. No thyromegaly. CARDIOVASCULAR: S1 and S2 present. No murmurs, rubs, or gallops. PULMONARY: Chest is clear to auscultation, no wheezing or crackles. ABDOMEN: Distended. Bowel sounds are present. Very minimal abdominal tenderness in the epigastric area. MUSCULOSKELETAL: No joint swelling or deformity. EXTREMITIES: No cyanosis, clubbing, or pedal edema. NEUROLOGICAL: Gross neurological examination did not reveal any focal deficits. SKIN: No rashes. LABORATORY DATA: CBC, CMP abnormal for mildly elevated WBC count of 14,700 which has come down to 9400. ASSESSMENT AND PLAN: 1. Diarrhea, abdominal pain, related to gastroenteritis which is improving. 2. Incidental finding of the pancreatic mass. We are obtaining an MRI for that. Once we have a plan regarding the pancreatic mass, patient probably can discharged which can happen today or tomorrow morning. 3. Ischemic cardiomyopathy with ejection fraction of 40 to 50%. Continue with LALITA inhibitor. Discontinue IV fluids, continue beta makenzie. 4. Severe peripheral vascular disease. 5. Hypertension. 6. Hyperlipidemia. 7. Type 2 diabetes mellitus. Regarding Type 2 diabetes mellitus, oral hypoglycemics will be discontinued. The rest of the insulin regimen will be continued along with sliding scale. For the above mentioned, other chronic medical problems, patient will be continued on present medications. If we are able to get everything together today including plan for his incidental finding of pancreatic mass, patient can be discharged today. If patient is discharged today, following changes will be made: His Amlodipine dose will be decreased to 5 daily. At the same time, the patient is on two beta blockers, one of the beta blockers will be discontinued that is metoprolol and patient's Coreg dose will be increased to prevent tachycardia. This dictation is both H&P and discharge summary.
[2016-06-08 17:03] LABS: Glucose,Whole Blood 108 mg/dL (75-99)
[2016-06-08] MEDS: CARVEDILOL 6.25 MG TAB PO SCH (17:39)
[2016-06-08 20:18] LABS: Glucose,Whole Blood 219 mg/dL (75-99)
[2016-06-08] MEDS: INSULIN GLARGINE 100 UNIT/ML 10 ML VIAL SQ SCH (21:01)
[2016-06-08] MEDS ORDERED: TEMAZEPAM 15 MG CAP PO PRN (21:01)
[2016-06-08] MEDS: SERTRALINE 50 MG TAB PO SCH (21:06)
[2016-06-08] MEDS: ATORVASTATIN 80 MG TAB PO SCH (21:07)
[2016-06-08] MEDS: AMITRIPTYLINE HCL 50 MG TAB PO SCH (21:07)
[2016-06-09] MEDS: HYDROmorphone 1 MG/ML 1 ML SYRINGE IV PRN ×4 (06:01→17:20)
[2016-06-09 07:33] LABS: Glucose,Whole Blood 138 mg/dL (75-99)
[2016-06-09] MEDS: INSULIN LISPRO (humaLOG) 300 UNIT/3 ML VIAL SQ SCH ×3 (07:41→17:25)
[2016-06-09] MEDS: CARVEDILOL 6.25 MG TAB PO SCH ×2 (07:45→17:25)
[2016-06-09] MEDS: CLOPIDOGREL 75 MG TAB PO SCH (07:46)
[2016-06-09] MEDS: CYCLOBENZAPRINE 10 MG TAB PO SCH ×2 (07:46→17:25)
[2016-06-09] MEDS: LISINOPRIL 10 MG TAB PO SCH (07:46)
[2016-06-09] MEDS: GABAPENTIN 300 MG CAP PO SCH ×2 (07:46→12:27)
[2016-06-09] MEDS: ASPIRIN 81 MG CHEW PO SCH (07:46)
[2016-06-09] MEDS: PARoxetine 20 MG TAB PO SCH (07:46)
[2016-06-09] MEDS: PANTOPRAZOLE 40 MG/10 ML VIAL IVP SCH (07:47)
[2016-06-09] MEDS: SYMBICORT 80-4.5 MCG INHALER INHALATION SCH (07:54)
[2016-06-09] MEDS ORDERED: amLODIPine 5 MG TAB PO SCH (09:00)
[2016-06-09 11:55] LABS: Glucose,Whole Blood 151 mg/dL (75-99)
[2016-06-09] MEDS ORDERED: LORazepam 0.5 MG TAB PO STA (13:37)
[2016-06-09 15:50] VITALS: BP 111/54; PULSE 72; TEMP 97.6
[2016-06-09 17:07] LABS: Glucose,Whole Blood 175 mg/dL (75-99)
--- NOTE | 2016-06-09 17:32 | P.DS ---
Providers Date of admission: 06/07/16 19:27 Expected date of discharge: 06/09/16 Attending physician: Myah Baum. Consults: Dr. Barrera, general surgery Primary care physician: Nedra Leonard Hospital Course: Final Diagnoses: 1. [Abdominal pain, diarrhea that has subsided, related to gastroenteritis, improving]. 2. Pancreatic mass, incidental finding, outpatient open MRI pending 3. [Ischemic cardiomyopathy, EF 4045%]. 4. [Severe peripheral vascular disease]. 5. [Hypertension]. 6. [Hyperlipidemia]. 7. [Diabetes mellitus type 2]. Hospital course: This is a 66-year-old gentleman admitted with abdominal pain, diarrhea, gastroenteritis and multiple other medical issues. Received cautious IV fluid hydration secondary to patient's history of CHF. Diarrhea resolved. CT of the abdomen showed dilated bowels of fluid, and incidental find of mass in the pancreatic tail. Evaluated by surgery and oncology. Attempted MRI, patient unable to fit. Presented with leukocytosis, resolved. Chest x-ray without significant abnormality. Significant clinical improvement in GI symptoms, now complaining of mild constipation. Patient has been cleared for discharge by surgery, outpatient open MRI ordered, potential biopsy at [facility] pending results of MRI, CA 19-9 pending. Oncology follow-up also ordered. patient is being discharged home in a stable condition with guarded prognosis. The impression and plan of care has been dictated as directed. : I performed a H&P examination of this patient and discussed the same with the dictator. I agree with the dictator's note. Any additional findings/opinions/ etc. will be noted. Patient Condition at Discharge: Stable Plan - Discharge Summary New Discharge Prescriptions: Atorvastatin [Lipitor] 80 mg PO HS #1 tab Sennosides-Docusate Sodium [Senokot-S] 2 tab PO BID #30 tablet traMADol HCl [Ultram] 50 mg PO Q6H PRN #20 tab PRN Reason: Pain Discharge Medication List Chlorzoxazone [Parafon Forte Dsc] 1,000 mg PO TID 07/05/14 [History] Hydrocodone/Acetaminophen [Lortab 10-325 mg Tablet] 2 tab PO Q8H PRN 07/05/14 [ History] Nitroglycerin Sl Tabs [Nitrostat] 0.4 mg SUBLINGUAL Q5M PRN 07/05/14 [History] Temazepam [Restoril] 30 mg PO HS PRN 07/05/14 [History] Amitriptyline HCl [Elavil] 100 mg PO HS 08/11/14 [History] Multivit-Min/FA/Lycopene/Lut [Centrum Silver Tablet] 1 tab PO DAILY 10/04/15 [ History] Sertraline [Zoloft] 50 mg PO HS 10/04/15 [History] Gabapentin 600 mg PO BID 10/08/15 [History] PARoxetine HCL [Paxil] 20 mg PO DAILY 10/09/15 [History] Clopidogrel [Plavix] 75 mg PO DAILY #30 tab 10/14/15 [Rx] Lisinopril [Zestril] 10 mg PO BID #60 tab 10/14/15 [Rx] Pantoprazole [Protonix] 40 mg PO DAILY #30 tablet. 10/14/15 [Rx] amLODIPine [Norvasc] 5 mg PO BID #60 tab 10/14/15 [Rx] Aspirin 81 mg PO QAM 11/19/15 [History] Fluticasone/Salmeterol [Advair 250-50 Diskus] 1 puff INHALATION RT-BID 12/19/15 [History] Spironolactone-Hctz 25-25Mg [Aldactazide 25-25 MG] 1 tab PO DAILY 12/19/15 [ History] Carvedilol [Coreg] 3.125 mg PO BID-W/MEALS #60 tab 12/20/15 [Rx] Gabapentin [Neurontin] 300 mg PO DAILY@1200 06/07/16 [History] Insulin Glargine,Hum.rec.anlog [Toujeo Solostar] 30 units SQ HS 06/07/16 [ History] predniSONE See Taper PO DAILY 06/07/16 [History] Atorvastatin [Lipitor] 80 mg PO HS #1 tab 06/09/16 [Rx] Sennosides-Docusate Sodium [Senokot-S] 2 tab PO BID #30 tablet 06/09/16 [Rx] traMADol HCl [Ultram] 50 mg PO Q6H PRN #20 tab 06/09/16 [Rx] Follow up Appointment(s)/Referral(s): Kenyon Thorpe MD [STAFF PHYSICIAN] - 1 Week Nedra Leonard DO [Primary Care Provider] - 06/12/16 3:00 pm Leslie Forbes MD [STAFF PHYSICIAN] - 06/17/16 (Will need follow-up in the office after discharge from hospital) Activity/Diet/Wound Care/Special Instructions: Diet as tolerated Please call [facility] to arrange your outpatient open MRI #[phone] OP MRI with pancreatic protocol regarding pancreatic mass Outpatient colonoscopy recommended as per surgery Discharge Disposition: HOME WITH HOME HEALTH SERVICES
--- NOTE | 2016-06-09 17:43 | P.CONS ---
History of Present Illness - Reason for Consult Consult date: 06/09/16 pancreatic mass Requesting physician: Carly Hitchcock - Chief Complaint abd pain - History of Present Illness Mr. Alex is a very pleasant 66-year-old male patient of primary care physician Dr. Bowers. Patient states that about a month ago he noticed profuse sweating at night. He has had progressive abdominal distention and abdominal discomfort for the last week Patient has had some nausea but denies any vomiting, no early satiety or unintentional weight loss, patient states he is actually gaining some weight. He has had some new onset diarrhea, denies any bloody, mucoid, black stools. Patient has cardiac history including stenting, peripheral vascular disease and peripheral neuropathy. He states his father of pancreatic cancer when he was about 46 years old. Review of Systems All systems: negative Constitutional: Reports as per HPI Past Medical History Past Medical History: Coronary Artery Disease (CAD), COPD, Diabetes Mellitus, Hyperlipidemia, Hypertension, Osteoarthritis (OA) Additional Past Medical History / Comment(s): no cpap,sores venkata legs-scrapes History of Any Multi-Drug Resistant Organisms: None Reported Past Surgical History: Back Surgery, Coronary Bypass/CABG, Heart Catheterization With Stent, Hernia Repair Additional Past Surgical History / Comment(s): aortic bypass, chronic back pain , back surgery x3 Past Anesthesia/Blood Transfusion Reactions: No Reported Reaction Additional Past Anesthesia/Blood Transfusion Reaction / Comm: states " feels like he has ants crawling on his face with anesthesia" Date of Last Stent Placement:: 1994 Past Psychological History: Anxiety, Depression Smoking Status: Former smoker Past Alcohol Use History: None Reported Additional Past Alcohol Use History / Comment(s): quit smoking 2009,smoked approx 30 yrs 2ppd Past Drug Use History: None Reported - Past Family History Father Family Medical History: Cancer (pancreatic) Additional Family Medical History / Comment(s): in MVA Sister(s) Family Medical History: Cancer Additional Family Medical History / Comment(s): BONE Mother Family Medical History: Myocardial Infarction ([place]) Medications and Allergies Home Medications Medication Instructions Recorded Confirmed Type Chlorzoxazone [Parafon Forte Dsc] 1,000 mg PO TID 07/05/14 06/07/16 History Hydrocodone/Acetaminophen [Lortab 2 tab PO Q8H PRN 07/05/14 06/07/16 History 10-325 mg Tablet] Nitroglycerin Sl Tabs [Nitrostat] 0.4 mg SUBLINGUAL Q5M PRN 07/05/14 06/07/16 History Temazepam [Restoril] 30 mg PO HS PRN 07/05/14 06/07/16 History Amitriptyline HCl [Elavil] 100 mg PO HS 08/11/14 06/07/16 History Multivit-Min/FA/Lycopene/Lut 1 tab PO DAILY 10/04/15 06/07/16 History [Centrum Silver Tablet] Sertraline [Zoloft] 50 mg PO HS 10/04/15 06/07/16 History Gabapentin 600 mg PO BID 10/08/15 06/07/16 History PARoxetine HCL [Paxil] 20 mg PO DAILY 10/09/15 06/07/16 History Aspirin 81 mg PO QAM 11/19/15 06/07/16 History Fluticasone/Salmeterol [Advair 1 puff INHALATION RT-BID 12/19/15 06/07/16 History 250-50 Diskus] Spironolactone-Hctz 25-25Mg 1 tab PO DAILY 12/19/15 06/07/16 History [Aldactazide 25-25 MG] Gabapentin [Neurontin] 300 mg PO DAILY@1200 06/07/16 06/07/16 History Insulin Glargine,Hum.rec.anlog 30 units SQ HS 06/07/16 06/07/16 History [Tothierry Solostar] predniSONE See Taper PO DAILY 06/07/16 06/07/16 History Allergies Allergy/AdvReac Type Severity Reaction Status Date / Time atorvastatin calcium Allergy Unknown Verified 06/07/16 15:53 [From Lipitor] fenofibrate nanocrystallized Allergy Unknown Verified 06/07/16 15:53 [From Tricor] fenofibrate,micronized Allergy Unknown Verified 06/07/16 15:53 [From Tricor] rosuvastatin calcium Allergy Unknown Verified 06/07/16 15:53 [From Crestor] sulfamethoxazole Allergy Unknown Verified 06/07/16 15:53 [From Bactrim] metformin AdvReac Nausea & Verified 06/07/16 15:53 Vomiting trimethoprim [From Bactrim] AdvReac Unknown Verified 06/07/16 15:53 rynatan Allergy Unknown Uncoded 06/07/16 15:53 Physical Exam Vitals: Vital Signs Temp Pulse Resp BP Pulse Ox 06/09/16 15:00 97.6 F 72 16 111/54 93 L 06/09/16 07:00 97.9 F 65 16 127/56 93 L 06/09/16 00:00 16 06/08/16 23:00 98.0 F 63 16 117/53 94 L Intake and Output 06/09/16 06/09/16 06/09/16 06:59 14:59 22:59 Intake Total 240 Balance 240 Intake: Oral 240 Other: Voiding Method Toilet # Voids 1 Weight 105.687 kg - Constitutional General appearance: average body habitus, cooperative, no acute distress - EENT Eyes: anicteric sclerae, EOMI, PERRLA, normal appearance ENT: hearing grossly normal, normal oropharynx - Neck Neck: no lymphadenopathy - Respiratory Respiratory: bilateral: CTA - Cardiovascular Rhythm: regular Heart sounds: normal: S1, S2 leg Peripheral Edema: bilateral: Trace - Gastrointestinal General gastrointestinal: no absent bowel sounds, no decreased bowel sounds, distended, no hepatomegaly, no hyperactive bowel sounds, normal bowel sounds, no organomegaly, no rigid, no scaphoid, no soft, no splenomegaly, tenderness, no umbilical hernia, no ventral hernia Localized gastrointestinal: tender: epigastric periumbilical - Integumentary Integumentary: normal - Neurologic Neurologic: CNII-XII intact - Musculoskeletal uses cane Musculoskeletal: strength equal bilaterally - Psychiatric Psychiatric: A&O x's 3, appropriate affect, intact judgment & insight Results CBC & Chem 7: 06/08/16 07:36 06/08/16 07:36 Labs: Abnormal Lab Results - Last 24 Hours (Table) 06/08/16 06/09/16 06/09/16 Range/Units 20:17 07:24 11:42 POC Glucose (mg/dL) 219 H 138 H 151 H (75-99) mg/dL 06/09/16 Range/Units 16:47 POC Glucose (mg/dL) 175 H (75-99) mg/dL Chest x-ray: report reviewed CT scan - abdomen: report reviewed CT scan - pelvis: report reviewed Assessment and Plan (1) Pancreatic mass Narrative/Plan: patient was unable to fit in the MRI machine here so he is being scheduled for an open MRI at an outside location. We will wait results of MRI and if appropriate, additional testing will be ordered. Patient's contact information has been taken and verified. CA-[id number] has been requested Status: Acute
== END 2016-06-09 18:30 | disposition home health service (06) | DRG 392 ==
LOC: EC 15:49 → 5ONC 19:27
PROVIDERS: ADMIT Hospitalist; ATTEND Hospitalist
DX: K52.9 Noninfective gastroenteritis and colitis, unspecified (principal); I50.22 Chronic systolic (congestive) heart failure; K56.7 Ileus, unspecified; E11.42 Type 2 diabetes mellitus with diabetic polyneuropathy; I11.0 Hypertensive heart disease with heart failure; E11.51 Type 2 diabetes mellitus with diabetic peripheral angiopathy without gangrene; F03.90 Unspecified dementia, unspecified severity, without behavioral disturbance, psychotic disturbance, mood disturbance, and anxiety; K86.9 Disease of pancreas, unspecified; E78.5 Hyperlipidemia, unspecified; I25.10 Atherosclerotic heart disease of native coronary artery without angina pectoris; I25.5 Ischemic cardiomyopathy; F41.9 Anxiety disorder, unspecified; F32.9 Major depressive disorder, single episode, unspecified; G89.29 Other chronic pain; M54.9 Dorsalgia, unspecified; M19.91 Primary osteoarthritis, unspecified site; I25.2 Old myocardial infarction; Z95.1 Presence of aortocoronary bypass graft; Z95.5 Presence of coronary angioplasty implant and graft; Z88.1 Allergy status to other antibiotic agents; Z88.8 Allergy status to other drugs, medicaments and biological substances; Z79.82 Long term (current) use of aspirin; Z79.02 Long term (current) use of antithrombotics/antiplatelets; Z79.84 Long term (current) use of oral hypoglycemic drugs; Z79.51 Long term (current) use of inhaled steroids; Z79.52 Long term (current) use of systemic steroids; Z79.899 Other long term (current) drug therapy; J44.9 Chronic obstructive pulmonary disease, unspecified; Z86.010 Personal history of colon polyps; Z87.891 Personal history of nicotine dependence
CPT/HCPCS: 36415; 71020; 74000; 74177; 80048; 80053; 81003; 82150; 82550; 82553; 83036; 83605; 83690; 84484; 85025; 85610; 85730; 86301; 93005; 94640; 96361; 96374; 96375; 96376; 99285

== ENCOUNTER 2016-07-12 17:52 | Inpatient (IN) | payer MEDICARE ==
[2016-07-12] MEDS ORDERED: RX INFO: IV CONTRAST WAS GIVEN 1 EACH MISC MISCELLANE PRN (18:59)
[2016-07-12] MEDS ORDERED: MORPHINE SULFATE 4 MG/ML SYRINGE IVP STA (18:59)
[2016-07-12] MEDS ORDERED: SODIUM CHLORIDE 0.9% 1,000 ML IV ONE (18:59)
--- NOTE | 2016-07-12 19:10 | ED ---
GI Bleed HPI - General Chief complaint: GI Bleed Stated complaint: blood in stool Source: patient Mode of arrival: wheelchair Limitations: no limitations - History of Present Illness Initial comments: 66-year-old male with past medical history of CAD, COPD, DM, HIV, HTN , OA, CABG, heart cath with stent, and aortic bypass presented for evaluation of rectal bleeding that started this morning. Patient states that around 8:00 this morning he had an episode of bright red blood per rectum. He then had 2-3 more episodes after which he had no further bleeding. However he had associated nausea, lightheadedness, dizziness and abdominal discomfort. Nothing made his symptoms better and nothing made his symptoms worse. After discussing with his they decided that it would be best for him to come to the ED for further evaluation. He was diagnosed with a pancreatic mass about a month ago and there are plans for her to be reevaluated as an outpatient. His aortic bypass graft was found to be patent on the left side but already stenosing on the right. This is established and there is no right lower extremity symptoms. - Related Data Home Medications Medication Instructions Recorded Confirmed Chlorzoxazone [Parafon Forte Dsc] 1,000 mg PO TID 07/05/14 07/12/16 Hydrocodone/Acetaminophen [Lortab 2 tab PO Q8H PRN 07/05/14 07/12/16 10-325 mg Tablet] Nitroglycerin Sl Tabs [Nitrostat] 0.4 mg SUBLINGUAL Q5M PRN 07/05/14 07/12/16 Temazepam [Restoril] 30 mg PO HS PRN 07/05/14 07/12/16 Multivit-Min/FA/Lycopene/Lut 1 tab PO DAILY 10/04/15 07/12/16 [Centrum Silver Tablet] Gabapentin 600 mg PO BID 10/08/15 07/12/16 PARoxetine HCL [Paxil] 20 mg PO DAILY 10/09/15 07/12/16 Aspirin 81 mg PO QAM 11/19/15 07/12/16 Fluticasone/Salmeterol [Advair 1 puff INHALATION RT-BID 12/19/15 07/12/16 250-50 Diskus] Spironolactone-Hctz 25-25Mg 1 tab PO DAILY 12/19/15 07/12/16 [Aldactazide 25-25 MG] Gabapentin [Neurontin] 300 mg PO DAILY@1200 06/07/16 07/12/16 Fenofibrate Nanocrystallized 145 mg PO HS 07/12/16 07/12/16 [Fenofibrate] Glimepiride [Amaryl] 2 mg PO BID 07/12/16 07/12/16 sitaGLIPtin [Januvia] 50 mg PO DAILY 07/12/16 07/12/16 Previous Rx's Medication Instructions Recorded Clopidogrel [Plavix] 75 mg PO DAILY #30 tab 10/14/15 Lisinopril [Zestril] 10 mg PO BID #60 tab 10/14/15 Pantoprazole [Protonix] 40 mg PO DAILY #30 tablet. 10/14/15 amLODIPine [Norvasc] 5 mg PO BID #60 tab 10/14/15 Atorvastatin [Lipitor] 80 mg PO HS #1 tab 06/09/16 Allergies Allergy/AdvReac Type Severity Reaction Status Date / Time atorvastatin calcium Allergy Unknown Verified 07/12/16 18:38 [From Lipitor] fenofibrate nanocrystallized Allergy Unknown Verified 07/12/16 18:38 [From Tricor] fenofibrate,micronized Allergy Unknown Verified 07/12/16 18:38 [From Tricor] rosuvastatin calcium Allergy Unknown Verified 07/12/16 18:38 [From Crestor] sulfamethoxazole Allergy Unknown Verified 07/12/16 18:38 [From Bactrim] metformin AdvReac Nausea & Verified 07/12/16 18:38 Vomiting trimethoprim [From Bactrim] AdvReac Unknown Verified 07/12/16 18:38 rynatan Allergy Unknown Uncoded 07/12/16 18:01 Review of Systems ROS Statement: Those systems with pertinent positive or pertinent negative responses have been documented in the HPI. ROS Other: All systems not noted in ROS Statement are negative. Constitutional: Denies: fever, chills, weakness, weight change Eyes: Denies: eye pain, vision change ENT: Denies: ear pain, throat pain, dental pain, hearing loss Respiratory: Denies: cough, dyspnea Cardiovascular: Denies: chest pain, palpitations, dyspnea on exertion, orthopnea Endocrine: Denies: fatigue, polydipsia, polyuria Gastrointestinal: Reports: abdominal pain, nausea, hematochezia. Denies: diarrhea, constipation, hematemesis, melena Genitourinary: Denies: urgency, dysuria, frequency, hematuria, discharge Musculoskeletal: Reports: back pain (chronic). Denies: arthralgia, myalgia Skin: Denies: rash, lesions Neurological: Denies: headache, weakness, numbness, paresthesias Psychiatric: Denies: anxiety, depression Hematological/Lymphatic: Denies: easy bleeding, easy bruising Past Medical History Past Medical History: Coronary Artery Disease (CAD), Cancer, COPD, Diabetes Mellitus, Hyperlipidemia, Hypertension, Osteoarthritis (OA) Additional Past Medical History / Comment(s): no cpap,sores venkata legs-scrapes History of Any Multi-Drug Resistant Organisms: None Reported Past Surgical History: Back Surgery, Coronary Bypass/CABG, Heart Catheterization With Stent, Hernia Repair Additional Past Surgical History / Comment(s): aortic bypass, chronic back pain , back surgery x3 Past Anesthesia/Blood Transfusion Reactions: No Reported Reaction Additional Past Anesthesia/Blood Transfusion Reaction / Comment(s): states "feels like he has ants crawling on his face with anesthesia" Date of Last Stent Placement:: 1994 Past Psychological History: Anxiety, Depression Smoking Status: Former smoker Past Alcohol Use History: None Reported Additional Past Alcohol Use History / Comment(s): quit smoking 2009,smoked approx 30 yrs 2ppd Past Drug Use History: None Reported - Past Family History Father Family Medical History: Cancer (pancreatic) Additional Family Medical History / Comment(s): in MVA Sister(s) Family Medical History: Cancer Additional Family Medical History / Comment(s): BONE Mother Family Medical History: Myocardial Infarction ([place]) General Exam Limitations: no limitations General appearance: alert, in no apparent distress Head exam: Present: atraumatic, normocephalic, normal inspection Eye exam: Present: normal appearance, PERRL, EOMI. Absent: scleral icterus, conjunctival injection, periorbital swelling ENT exam: Present: normal exam, mucous membranes moist Neck exam: Present: normal inspection. Absent: tenderness, meningismus, lymphadenopathy Respiratory exam: Present: normal lung sounds bilaterally. Absent: respiratory distress, wheezes, rales, rhonchi, stridor Cardiovascular Exam: Present: regular rate, normal rhythm, normal heart sounds. Absent: systolic murmur, diastolic murmur, rubs, gallop, clicks GI/Abdominal exam: Present: soft, tenderness, normal bowel sounds. Absent: distended, guarding, rebound, rigid Rectal exam: Present: heme (+) stool. Absent: hemorrhoids Extremities exam: Present: normal inspection, full ROM, normal capillary refill. Absent: tenderness, pedal edema, joint swelling, calf tenderness Back exam: Present: normal inspection Neurological exam: Present: alert, oriented X3, CN II-XII intact Psychiatric exam: Present: normal affect, normal mood Skin exam: Present: warm, dry, intact, normal color. Absent: rash Course Vital Signs 07/12/16 07/12/16 07/12/16 17:57 20:02 21:29 Temperature 98.1 F Pulse Rate 70 60 62 Respiratory 20 20 18 Rate Blood Pressure 132/60 146/65 137/63 O2 Sat by Pulse 96 95 94 L Oximetry 07/12/16 07/13/16 22:23 01:04 Temperature 97.0 F L Pulse Rate 52 L 62 Respiratory 16 18 Rate Blood Pressure 112/57 154/71 O2 Sat by Pulse 93 L 95 Oximetry Medical Decision Making - Medical Decision Making 66-year-old male with past medical history of aortic bypass presented for evaluation of bright red blood per rectum states this started this morning at 8:00 and he has had associated dizziness and associated abdominal pain. He states there were a couple episodes of this bleeding after which it resolved without return. Due to the continued symptoms his convinced him to come to the ED. He further states that one month ago he had a mass on his pancreas diagnosed on CT. On PE he has mild abdominal tenderness without peritoneal signs of guarding, rigidity, rebound. His rectal exam was positive for gross hematochezia although was not active. He has bilateral palpable pedal pulses although his right groin pulses weaker than the left. There is no pulsatile abdominal mass. We'll obtain CT abdomen with IV contrast, labs, EKG, chest x- ray, and provide IV fluids and pain control. Labs significant for a mild leukocytosis of 13.8. Hemoccult is positive for blood however the remainder of his labs no significant abnormalities. Chest x- ray shows no acute process. CT abdomen with IV contrast shows a pancreatic tail mass with previous imaging. There is also moderate fatty infiltration of the enlarged liver and bypass aortoiliac graft appears patent without evidence of extravasation of contrast. Given this presentation of GI bleed will admit for further treatment and evaluation. Dr. Manjarrez accepted the admission and requested consult with general surgery. Dr. Kee is updated on the status of the patient and had no further requests. Admission order placed and bed request submitted. Patient reevaluated and continued to have pain and was given more pain control. - Lab Data Result diagrams: 07/12/16 18:21 07/12/16 18:21 Lab Results 07/12/16 07/12/16 07/12/16 Range/Units 18:21 18:21 18:21 WBC 13.8 H (3.8-10.6) k/uL RBC 4.02 L (4.30-5.90) m/uL Hgb 11.2 L (13.0-17.5) gm/dL Hct 35.0 L (39.0-53.0) % MCV 86.9 (80.0-100.0) fL MCH 28.0 (25.0-35.0) pg MCHC 32.2 (31.0-37.0) g/dL RDW 13.8 (11.5-15.5) % Plt Count 245 (150-450) k/uL Neutrophils % 75 % Lymphocytes % 16 % Monocytes % 4 % Eosinophils % 2 % Basophils % 1 % Neutrophils # 10.4 H (1.3-7.7) k/uL Lymphocytes # 2.2 (1.0-4.8) k/uL Monocytes # 0.6 (0-1.0) k/uL Eosinophils # 0.2 (0-0.7) k/uL Basophils # 0.1 (0-0.2) k/uL Sodium 142 (137-145) mmol/L Potassium 4.2 (3.5-5.1) mmol/L Chloride 107 (98-107) mmol/L Carbon Dioxide 27 (22-30) mmol/L Anion Gap 8 mmol/L BUN 19 (9-20) mg/dL Creatinine 0.77 (0.66-1.25) mg/dL Est GFR (MDRD) Af Amer >60 (>60 ml/min/1.73 sqM) Est GFR (MDRD) Non-Af >60 (>60 ml/min/1.73 sqM) Glucose 101 H (74-99) mg/dL Plasma Lactic Acid Sai (0.7-2.0) mmol/L Calcium 9.3 (8.4-10.2) mg/dL Total Bilirubin 0.4 (0.2-1.3) mg/dL AST 45 (17-59) U/L ALT 72 (21-72) U/L Alkaline Phosphatase 52 (38-126) U/L Troponin I (0.000-0.034) ng/mL NT-Pro-B Natriuret Pep pg/mL Total Protein 6.7 (6.3-8.2) g/dL Albumin 3.8 (3.5-5.0) g/dL Lipase 67 (23-300) U/L Stool Occult Blood (Negative) Blood Type A Positive Blood Type Recheck No Antibody Screen NEGATIVE Spec Expiration Date 07/15/2016232007/12/16 07/12/16 07/12/16 Range/Units 18:21 18:21 18:21 WBC (3.8-10.6) k/uL RBC (4.30-5.90) m/uL Hgb (13.0-17.5) gm/dL Hct (39.0-53.0) % MCV (80.0-100.0) fL MCH (25.0-35.0) pg MCHC (31.0-37.0) g/dL RDW (11.5-15.5) % Plt Count (150-450) k/uL Neutrophils % % Lymphocytes % % Monocytes % % Eosinophils % % Basophils % % Neutrophils # (1.3-7.7) k/uL Lymphocytes # (1.0-4.8) k/uL Monocytes # (0-1.0) k/uL Eosinophils # (0-0.7) k/uL Basophils # (0-0.2) k/uL Sodium (137-145) mmol/L Potassium (3.5-5.1) mmol/L Chloride (98-107) mmol/L Carbon Dioxide (22-30) mmol/L Anion Gap mmol/L BUN (9-20) mg/dL Creatinine (0.66-1.25) mg/dL Est GFR (MDRD) Af Amer (>60 ml/min/1.73 sqM) Est GFR (MDRD) Non-Af (>60 ml/min/1.73 sqM) Glucose (74-99) mg/dL Plasma Lactic Acid Sai 1.1 (0.7-2.0) mmol/L Calcium (8.4-10.2) mg/dL Total Bilirubin (0.2-1.3) mg/dL AST (17-59) U/L ALT (21-72) U/L Alkaline Phosphatase (38-126) U/L Troponin I <0.012 (0.000-0.034) ng/mL NT-Pro-B Natriuret Pep 273 pg/mL Total Protein (6.3-8.2) g/dL Albumin (3.5-5.0) g/dL Lipase (23-300) U/L Stool Occult Blood (Negative) Blood Type Blood Type Recheck Antibody Screen Spec Expiration Date 07/12/16 Range/Units 20:35 WBC (3.8-10.6) k/uL RBC (4.30-5.90) m/uL Hgb (13.0-17.5) gm/dL Hct (39.0-53.0) % MCV (80.0-100.0) fL MCH (25.0-35.0) pg MCHC (31.0-37.0) g/dL RDW (11.5-15.5) % Plt Count (150-450) k/uL Neutrophils % % Lymphocytes % % Monocytes % % Eosinophils % % Basophils % % Neutrophils # (1.3-7.7) k/uL Lymphocytes # (1.0-4.8) k/uL Monocytes # (0-1.0) k/uL Eosinophils # (0-0.7) k/uL Basophils # (0-0.2) k/uL Sodium (137-145) mmol/L Potassium (3.5-5.1) mmol/L Chloride (98-107) mmol/L Carbon Dioxide (22-30) mmol/L Anion Gap mmol/L BUN (9-20) mg/dL Creatinine (0.66-1.25) mg/dL Est GFR (MDRD) Af Amer (>60 ml/min/1.73 sqM) Est GFR (MDRD) Non-Af (>60 ml/min/1.73 sqM) Glucose (74-99) mg/dL Plasma Lactic Acid Sai (0.7-2.0) mmol/L Calcium (8.4-10.2) mg/dL Total Bilirubin (0.2-1.3) mg/dL AST (17-59) U/L ALT (21-72) U/L Alkaline Phosphatase (38-126) U/L Troponin I (0.000-0.034) ng/mL NT-Pro-B Natriuret Pep pg/mL Total Protein (6.3-8.2) g/dL Albumin (3.5-5.0) g/dL Lipase (23-300) U/L Stool Occult Blood Positive (Negative) Blood Type Blood Type Recheck Antibody Screen Spec Expiration Date 07/13/16 01:05 Sinus bradycardia with a rate of 58, FERNANDO 144, QRS 112, QT/QTc 462/453. Disposition Clinical Impression: GI bleed, Leukocytosis Disposition: ADMITTED IP TO THIS [facility] Decision to Admit Reason: Admit from EC Decision Date: 07/12/16 Decision Time: 23:35
[2016-07-12 19:38] LABS: Basophils # (A) 0.1 k/uL (0-0.2); Basophils % (A) 1 %; CH 28.1; CHCM 32.5; Eosinophils # (A) 0.2 k/uL (0-0.7); Eosinophils % (A) 2 %; HDW 2.57; HGB 11.2 gm/dL (13.0-17.5); Luc # (Auto) 0.35; Luc % (Auto) 3; Lymphocytes # (A) 2.2 k/uL (1.0-4.8); Lymphocytes % (A) 16 %; MCHC 32.2 g/dL (31.0-37.0); MCV 86.9 fL (80.0-100.0); Mean Platelet Volume 7.4; Monocytes # (A) 0.6 k/uL (0-1.0); Monocytes % (A) 4 %; Neutrophils # (A) 10.4 k/uL (1.3-7.7); Neutrophils % (A) 75 %; RBC 4.02 m/uL (4.30-5.90); RDW 13.8 % (11.5-15.5); WBC 13.8 k/uL (3.8-10.6); WBC (Perox) 13.89
[2016-07-12 19:53] LABS: ALT 72 U/L (21-72); AST 45 U/L (17-59); Alkaline Phosphatase 52 U/L (38-126); Anion Gap 8 mmol/L; Blood Urea Nitrogen 19 mg/dL (9-20); Calcium 9.3 mg/dL (8.4-10.2); Carbon Dioxide 27 mmol/L (22-30); Chloride 107 mmol/L (98-107); Glucose 101 mg/dL (74-99); Non-African American GFR(MDRD) >60 (>60 ml/min/1.73 sqM); Potassium 4.2 mmol/L (3.5-5.1); Sodium 142 mmol/L (137-145); Total Bilirubin 0.4 mg/dL (0.2-1.3); Total Protein 6.7 g/dL (6.3-8.2)
--- NOTE | 2016-07-12 20:42 | XR ---
EXAMINATION TYPE: XR chest 2V DATE OF EXAM: 07/12/2016 8:18 PM COMPARISON: NONE INDICATION: GI bleed lower abdominal pain altered mental status, severely short of breath TECHNIQUE: 2 view chest FINDINGS: The heart size is normal. The pulmonary vasculature is normal. The lungs are clear. Sternotomy wires are present. EKG leads overlie the chest. IMPRESSION: 1. No acute pulmonary process.
[2016-07-12] MEDS ORDERED: HYDROmorphone 1 MG/ML 1 ML SYRINGE IVP STA ×2 (20:57→23:51)
--- NOTE | 2016-07-12 21:13 | CT ---
EXAMINATION TYPE: CT abdomen pelvis w con DATE OF EXAM: 07/12/2016 9:00 PM COMPARISON: NONE INDICATION: Rectal bleeding and generalized pain DLP: 1724.1 mGycm, Automated exposure control for dose reduction was used. CONTRAST: 100 mL of Omnipaque 300. Study performed without Oral Contrast TECHNIQUE: Axial images were obtained from above the diaphragm to the pubic rami in the axial plane a t 5 mm thick sections. Reconstructed images are reviewed on the computer in the coronal plane. FINDINGS: Limited CT sections are obtained the lung bases. The lung bases are clear. Coronary artery calcific ation is present. CT ABDOMEN: Liver: Is moderate fatty infiltration liver. No discrete masses or cysts are evident. Hepatomegaly at 22.2 cm is present. Spleen: Normal Pancreas: There is a 1.8 cm hypodensity at the tail of the pancreas. Underlying mass should be consid ered. Neoplasm should be evaluated. MRI with contrast could further evaluate this finding. Adrenal glands: The adrenal glands are normal. Gallbladder: Normal Kidneys: No masses are evident. No hydronephrosis is present. No cysts are present. Delayed images were obtained through the kidneys, which remain unremarkable. Aorta: Vascular calcification is within the aorta. Iliac bypass grafts are evident. Inferior vena cava: Normal. CT PELVIS: Loops of bowel within the abdomen and pelvis are normal. Study is performed without oral contrast limiting the evaluation. Appendix: Normal as visualized. Urinary bladder: Normal. Genitourinary structures: Prostate is prominent. Osseous structures: No suspicious lytic or sclerotic lesions. There is disc bulging and facet hypertr ophy contributing to spinal canal stenosis L4-5. Facet hypertrophy is also present within the mid lum bar spine. IMPRESSIONS: 1. Pancreatic tail mass again evident. MRI recommended for additional evaluation. 2. Moderate fatty infiltration of the enlarged liver. 3. Bypass aortoiliac graft appears patent without evidence of extravasation of contrast
[2016-07-12] MEDS ORDERED: ONDANSETRON 4 MG/2 ML VIAL IVP PRN (23:35)
[2016-07-12] MEDS ORDERED: NALOXONE 0.4 MG/ML 1 ML VIAL IV PRN (23:35)
[2016-07-13] MEDS: SODIUM CHLORIDE 0.9% 1,000 ML IV SCH ×2 (01:05→23:39)
[2016-07-13] MEDS ORDERED: SODIUM CHLORIDE 0.9% 1,000 ML IV ONE (01:16)
[2016-07-13] MEDS ORDERED: HYDROmorphone 1 MG/ML 1 ML SYRINGE IVP STA (01:16)
[2016-07-13 02:16] LABS: Glucose,Whole Blood 95 mg/dL (75-99)
[2016-07-13 02:39] VITALS: BMI 32.3
[2016-07-13] MEDS: MORPHINE SULFATE 4 MG/ML SYRINGE IV PRN ×5 (06:39→22:36)
[2016-07-13 07:25] LABS: Glucose,Whole Blood 91 mg/dL (75-99)
[2016-07-13 09:37] LABS: Basophils # (A) 0.1 k/uL (0-0.2); Basophils % (A) 1 %; CH 27.7; CHCM 31.9; Eosinophils # (A) 0.3 k/uL (0-0.7); Eosinophils % (A) 4 %; HCT 34.8 % (39.0-53.0); HDW 2.54; HGB 11.1 gm/dL (13.0-17.5); Luc # (Auto) 0.32; Luc % (Auto) 3; Lymphocytes # (A) 2.2 k/uL (1.0-4.8); Lymphocytes % (A) 23 %; MCH 27.9 pg (25.0-35.0); MCV 87.3 fL (80.0-100.0); Mean Platelet Volume 7.4; Monocytes # (A) 0.5 k/uL (0-1.0); Monocytes % (A) 5 %; Neutrophils # (A) 6.4 k/uL (1.3-7.7); Neutrophils % (A) 65 %; RBC 3.99 m/uL (4.30-5.90); RDW 13.5 % (11.5-15.5); WBC 9.8 k/uL (3.8-10.6); WBC (Perox) 10.49
[2016-07-13 09:56] LABS: Anion Gap 8 mmol/L; Blood Urea Nitrogen 10 mg/dL (9-20); Calcium 9.3 mg/dL (8.4-10.2); Carbon Dioxide 28 mmol/L (22-30); Chloride 108 mmol/L (98-107); Glucose 97 mg/dL (74-99); Magnesium 1.7 mg/dL (1.6-2.3); Non-African American GFR(MDRD) >60 (>60 ml/min/1.73 sqM); Phosphorous 3.6 mg/dL (2.5-4.5); Potassium 4.6 mmol/L (3.5-5.1); Sodium 144 mmol/L (137-145)
[2016-07-13 11:53] LABS: Glucose,Whole Blood 118 mg/dL (75-99)
[2016-07-13 17:36] LABS: Glucose,Whole Blood 120 mg/dL (75-99)
[2016-07-13] MEDS: GLIMEPIRIDE 2 MG TAB PO SCH (17:37)
--- NOTE | 2016-07-13 17:44 | P.GSCN ---
History of Present Illness Consult date: 07/13/16 Reason for Consult: REctal bleed History of present illness: Patient has had an episode of bleding and after 2-3 bloody bowel movements, it has stopped. Had nausea and light headeness but hat has resolved. Extensive history of CAD, and peripheral vascualr disease with aortoilic bypass. No bloody bowel movements since admitted.reduced appetite. No fever sai h ills. No further diarrhea. Review of Systems - Constitutional Reports anorexia, Reports malaise, Denies chills, Denies fever, Denies lethargy - Cardiovascular Reports claudication, Denies chest pain - Respiratory Denies cough, Denies 7 - Gastrointestinal Reports as per HPI - Integumentary Denies rash, Denies unusual bruising Past Medical History Past Medical History: Coronary Artery Disease (CAD), COPD, Diabetes Mellitus, Hyperlipidemia, Hypertension, Osteoarthritis (OA) Additional Past Medical History / Comment(s): no cpap,sores venkata legs-scrapes History of Any Multi-Drug Resistant Organisms: None Reported Past Surgical History: Back Surgery, Coronary Bypass/CABG, Heart Catheterization With Stent, Hernia Repair Additional Past Surgical History / Comment(s): aortic bypass, chronic back pain , back surgery x3 Past Anesthesia/Blood Transfusion Reactions: No Reported Reaction Additional Past Anesthesia/Blood Transfusion Reaction / Comm: states " feels like he has ants crawling on his face with anesthesia" Date of Last Stent Placement:: 1994 Past Psychological History: Anxiety, Depression Smoking Status: Former smoker Past Alcohol Use History: None Reported Additional Past Alcohol Use History / Comment(s): quit smoking 2009 Past Drug Use History: None Reported - Past Family History Father Family Medical History: Cancer (pancreatic) Additional Family Medical History / Comment(s): in MVA Sister(s) Family Medical History: Cancer Additional Family Medical History / Comment(s): BONE Mother Family Medical History: Myocardial Infarction ([place]) Medications and Allergies Home Medications Medication Instructions Recorded Confirmed Type Chlorzoxazone [Parafon Forte Dsc] 1,000 mg PO TID 07/05/14 07/12/16 History Hydrocodone/Acetaminophen [Lortab 2 tab PO Q8H PRN 07/05/14 07/12/16 History 10-325 mg Tablet] Nitroglycerin Sl Tabs [Nitrostat] 0.4 mg SUBLINGUAL Q5M PRN 07/05/14 07/12/16 History Temazepam [Restoril] 30 mg PO HS PRN 07/05/14 07/12/16 History Multivit-Min/FA/Lycopene/Lut 1 tab PO DAILY 10/04/15 07/12/16 History [Centrum Silver Tablet] Gabapentin 600 mg PO BID 10/08/15 07/12/16 History PARoxetine HCL [Paxil] 20 mg PO DAILY 10/09/15 07/12/16 History Aspirin 81 mg PO QAM 11/19/15 07/12/16 History Fluticasone/Salmeterol [Advair 1 puff INHALATION RT-BID 12/19/15 07/12/16 History 250-50 Diskus] Spironolactone-Hctz 25-25Mg 1 tab PO DAILY 12/19/15 07/12/16 History [Aldactazide 25-25 MG] Gabapentin [Neurontin] 300 mg PO DAILY@1200 06/07/16 07/12/16 History Fenofibrate Nanocrystallized 145 mg PO HS 07/12/16 07/12/16 History [Fenofibrate] Glimepiride [Amaryl] 2 mg PO BID 07/12/16 07/12/16 History sitaGLIPtin [Januvia] 50 mg PO DAILY 07/12/16 07/12/16 History Pen Needle, Diabetic [Bd 07/13/16 History Ultra-Fine Pen Needle 8mm 31G] Allergies Allergy/AdvReac Type Severity Reaction Status Date / Time atorvastatin calcium Allergy Unknown Verified 07/12/16 18:38 [From Lipitor] fenofibrate nanocrystallized Allergy Unknown Verified 07/12/16 18:38 [From Tricor] fenofibrate,micronized Allergy Unknown Verified 07/12/16 18:38 [From Tricor] rosuvastatin calcium Allergy Unknown Verified 07/12/16 18:38 [From Crestor] sulfamethoxazole Allergy Unknown Verified 07/12/16 18:38 [From Bactrim] metformin AdvReac Nausea & Verified 07/12/16 18:38 Vomiting trimethoprim [From Bactrim] AdvReac Unknown Verified 07/12/16 18:38 rynatan Allergy Unknown Uncoded 07/12/16 18:01 Surgical - Exam Vital Signs Temp Pulse Resp BP Pulse Ox 98.1 F 70 20 132/60 96 07/12/16 17:57 07/12/16 17:57 07/12/16 17:57 07/12/16 17:57 07/12/16 17:57 - General well developed, well nourished, moderate pain - Eyes no icteric - ENT normal pinna, normal nares - Respiratory normal expansion, normal respiratory effort - Cardiovascular Rhythm: regular - Abdomen Abdomen: soft, non tender - Integumentary no rash, no growths Results - Labs 07/13/16 08:30 07/13/16 08:30 Abnormal Lab Results - Last 24 Hours (Table) 07/13/16 07/13/16 07/13/16 Range/Units 08:30 08:30 11:50 RBC 3.99 L (4.30-5.90) m/uL Hgb 11.1 L (13.0-17.5) gm/dL Hct 34.8 L (39.0-53.0) % Chloride 108 H (98-107) mmol/L POC Glucose (mg/dL) 118 H (75-99) mg/dL 07/13/16 Range/Units 17:31 RBC (4.30-5.90) m/uL Hgb (13.0-17.5) gm/dL Hct (39.0-53.0) % Chloride (98-107) mmol/L POC Glucose (mg/dL) 120 H (75-99) mg/dL Diabetes panel 07/13/16 Range/Units 08:30 Sodium 144 (137-145) mmol/L Potassium 4.6 (3.5-5.1) mmol/L Chloride 108 H (98-107) mmol/L Carbon Dioxide 28 (22-30) mmol/L BUN 10 (9-20) mg/dL Creatinine 0.68 (0.66-1.25) mg/dL Glucose 97 (74-99) mg/dL Calcium 9.3 (8.4-10.2) mg/dL Calcium panel 07/13/16 Range/Units 08:30 Calcium 9.3 (8.4-10.2) mg/dL Phosphorus 3.6 (2.5-4.5) mg/dL Pituitary panel 07/13/16 Range/Units 08:30 Sodium 144 (137-145) mmol/L Potassium 4.6 (3.5-5.1) mmol/L Chloride 108 H (98-107) mmol/L Carbon Dioxide 28 (22-30) mmol/L BUN 10 (9-20) mg/dL Creatinine 0.68 (0.66-1.25) mg/dL Glucose 97 (74-99) mg/dL Calcium 9.3 (8.4-10.2) mg/dL Adrenal panel 07/13/16 Range/Units 08:30 Sodium 144 (137-145) mmol/L Potassium 4.6 (3.5-5.1) mmol/L Chloride 108 H (98-107) mmol/L Carbon Dioxide 28 (22-30) mmol/L BUN 10 (9-20) mg/dL Creatinine 0.68 (0.66-1.25) mg/dL Glucose 97 (74-99) mg/dL Calcium 9.3 (8.4-10.2) mg/dL - Imaging CT scan - abdomen: image reviewed (normal aorotilica graft , no signs of infection or extrvasation) Assessment and Plan (1) GI bleed Status: Acute Plan: Patient has not had any bloody bowel movments. His last 2 hemoglobins are stable. No involvement of the graft. He is having an extesive GI workup for pancreatic mass and scaheduled for a colonosopy etc. At this time he is stable. REcommend restart diet. Colonscopy as an outpatient is scheduled.
--- NOTE | 2016-07-13 19:54 | PN ---
DATE OF SERVICE: 07/13/2016 CHIEF COMPLAINT: Lower GI bleed. HISTORY OF PRESENT ILLNESS: This gentleman is doing well and he is not having any pain. He feels stable. He has had no bleeding. PHYSICAL EXAMINATION: ABDOMEN: Soft, nontender. No masses. EXTREMITIES: Normal. NEUROLOGICALLY: He is intact. IMPRESSION: Lower gastrointestinal bleed, etiology unknown. PLAN: Continue to follow vital signs, hemoglobin and he should have an endoscopy.
--- NOTE | 2016-07-13 19:54 | HP ---
DATE OF ADMISSION: CHIEF COMPLAINT: Lower GI bleed. HISTORY OF PRESENT ILLNESS: This is the first known admission for this 66-year-old white male. He suddenly had some mild abdominal discomfort and then passed quite a bit of bright red blood. He came to the emergency room. He has had no history of diverticulosis. He apparently has had a work-up before and nothing was found. He did have an upper GI endoscopy at some time in the recent past. REVIEW OF SYSTEMS: He has had no syncope, chest pain, heart disease, indigestion, hematemesis, melena, jaundice, hematuria, frequency, urgency, arthralgias, diabetes, etc. Past medical history, family history, personal and social histories were unremarkable. He is ALLERGIC TO SULFA, METFORMIN AND LIPITOR. Surgically he has had a CABG and an aortic bypass, surgery for peripheral vascular occlusive disease and upper GI endoscopy. His medicines included aspirin, Lipitor (and he states he is allergic to it), clopidogrel, fenofibrate, Advair, gabapentin, Amaryl, Vicodin 10 mg 6 a day, lisinopril, Paxil, Protonix, Aldactazide and amlodipine. He denies drinking alcohol and smoking. PHYSICAL EXAMINATION: VITAL SIGNS: Blood pressure 144/70 with a pulse of 78, respirations 30, and he is afebrile. In general, he appeared to be well-developed, well-nourished and in no acute distress. Skin color is normal. Skin is warm and dry. Lymph nodes are not enlarged. Head, ears, eyes, nose, mouth, and throat are normal. Neck veins not distended. The carotids were normal. Chest is clear. Cardiac exam is normal sinus rhythm. The abdomen is soft and nontender without visceromegaly or masses. Bowel sounds present. Extremities are normal. Neurologically, he is intact. IMPRESSION: 1. Lower gastrointestinal bleed, source unknown. 2. Status post aortofemoral bypass. 3. Rule out vesicoenteric fistula. 4. Atherosclerotic cardiovascular disease. 5. Coronary artery disease. 6. Hyperlipidemia. 7. Type 2 noninsulin dependent diabetes mellitus. 8. Depression. 9. Hypertension. PLAN: 1. Bed rest. 2. IV fluids. 3. Serial hemoglobins. 4. Consult with Surgery for follow and endoscopy.
[2016-07-13 20:36] LABS: Glucose,Whole Blood 169 mg/dL (75-99)
[2016-07-13] MEDS: amLODIPine 5 MG TAB PO SCH (20:59)
[2016-07-13] MEDS: GABAPENTIN 300 MG CAP PO SCH (20:59)
[2016-07-13] MEDS ORDERED: FENOFIBRATE 160 MG TAB PO SCH (21:00)
[2016-07-13] MEDS: LISINOPRIL 10 MG TAB PO SCH (21:00)
[2016-07-14] MEDS: MORPHINE SULFATE 4 MG/ML SYRINGE IV PRN ×3 (02:34→11:08)
[2016-07-14] MEDS: GLIMEPIRIDE 2 MG TAB PO SCH (07:18)
[2016-07-14] MEDS ORDERED: PANTOPRAZOLE 40 MG TABLET PO SCH (07:30)
[2016-07-14 07:37] LABS: Glucose,Whole Blood 128 mg/dL (75-99)
[2016-07-14 08:02] VITALS: BP 151/70; PULSE 59; RESP 18; TEMP 97
[2016-07-14] MEDS: amLODIPine 5 MG TAB PO SCH (08:18)
[2016-07-14] MEDS: GABAPENTIN 300 MG CAP PO SCH (08:18)
[2016-07-14] MEDS: LISINOPRIL 10 MG TAB PO SCH (08:18)
[2016-07-14] MEDS ORDERED: PARoxetine 20 MG TAB PO SCH (09:00)
[2016-07-14] MEDS ORDERED: SPIRONOLACTONE-HCTZ 25-25MG 1 EACH TAB PO SCH (09:00)
--- NOTE | 2016-07-14 11:01 | P.DS ---
Providers Date of admission: 07/12/16 23:35 Expected date of discharge: 07/14/16 Attending physician: Gamal Manjarrez Consults: dr brar Primary care physician: Nedra Leonard [facility] Course: 66-year-old male admitted to the emergency room after the patient stated he had an episode of rectal bleeding 2-3 bloody stools painless bowel movements. Patient had nausea and lightheadedness. Patient was seen in the emergency room and admitted to the services of the attending. Patient states he follows up with a physician in [facility] patient was seen in the emergency room admitted to the services of the attending. Patient was seen by surgical service. Patient had no further episodes of rectal bleeding hemoglobin was stable and patient was anxious to be discharged home did been no bloody bowel movement since admission. The been no reduced appetite no fever chills. Third been no further dizziness or lightheadedness. Recommendations were the patient did have a colonoscopy done in the outpatient setting. Patient has an extensive GI workup for a pancreatic mass and has been scheduled in the outpatient setting with his primary GI doctor. Subsequent the patient was discharged home. Computed tomography scan of the abdomen pelvis shows a pancreatic tail mass Impression discharge diagnosis. Present on admission several episodes of bloody bowel movements suspect a GI bleed stabilized Known coronary artery disease Dyslipidemia Known pancreatic mass with the prior GI workup follows with the GI service at [facility] per patient report Hypertension Type 2 diabetes non-insulin controlled Depressive disorder Status post aortic femoral bypass surgery The above dictated assessment and findings were discussed with dr kristina Woo and the plan of care have been dictated as directed. Trista Egan nurse practitioner acting as a scribe for dr manjarrez Plan - Discharge Summary Discharge Medication List Chlorzoxazone [Parafon Forte Dsc] 1,000 mg PO TID 07/05/14 [History] Hydrocodone/Acetaminophen [Lortab 10-325 mg Tablet] 2 tab PO Q8H PRN 07/05/14 [ History] Nitroglycerin Sl Tabs [Nitrostat] 0.4 mg SUBLINGUAL Q5M PRN 07/05/14 [History] Temazepam [Restoril] 30 mg PO HS PRN 07/05/14 [History] Multivit-Min/FA/Lycopene/Lut [Centrum Silver Tablet] 1 tab PO DAILY 10/04/15 [ History] Gabapentin 600 mg PO BID 10/08/15 [History] PARoxetine HCL [Paxil] 20 mg PO DAILY 10/09/15 [History] Clopidogrel [Plavix] 75 mg PO DAILY #30 tab 10/14/15 [Rx] Lisinopril [Zestril] 10 mg PO BID #60 tab 10/14/15 [Rx] Pantoprazole [Protonix] 40 mg PO DAILY #30 tablet.dr 10/14/15 [Rx] amLODIPine [Norvasc] 5 mg PO BID #60 tab 10/14/15 [Rx] Aspirin 81 mg PO QAM 11/19/15 [History] Fluticasone/Salmeterol [Advair 250-50 Diskus] 1 puff INHALATION RT-BID 12/19/15 [History] Spironolactone-Hctz 25-25Mg [Aldactazide 25-25 MG] 1 tab PO DAILY 12/19/15 [ History] Gabapentin [Neurontin] 300 mg PO DAILY@1200 06/07/16 [History] Atorvastatin [Lipitor] 80 mg PO HS #1 tab 06/09/16 [Rx] Fenofibrate Nanocrystallized [Fenofibrate] 145 mg PO HS 07/12/16 [History] Glimepiride [Amaryl] 2 mg PO BID 07/12/16 [History] sitaGLIPtin [Januvia] 50 mg PO DAILY 07/12/16 [History] Pen Needle, Diabetic [Bd Ultra-Fine Pen Needle 8mm 31G] 07/13/16 [History] Follow up Appointment(s)/Referral(s): Nedra Leonard DO [Primary Care Provider] - 1-2 days Patient Instructions/Handouts: Gastrointestinal Bleeding (DC) Discharge Disposition: HOME SELF-CARE
[2016-07-14] MEDS ORDERED: GABAPENTIN 300 MG CAP PO SCH (12:00)
--- NOTE | 2016-07-15 18:33 | PN ---
CHIEF COMPLAINT: Lower GI bleed. HISTORY OF PRESENT ILLNESS: This gentleman is doing well and he has had no bleeding since admission. Hemoglobin has been stable. He is eating a regular diet, up and about. We will let him go home today. PHYSICAL EXAMINATION: ABDOMEN: Soft, nontender. CHEST: Clear. CARDIAC: Normal. IMPRESSION: Lower gastrointestinal bleed. PLAN: Home today. This will be arranged by the nurse practitioner.
== END 2016-07-14 12:02 | disposition home or self-care (01) | DRG 379 ==
LOC: EC 17:52 → 4MS4W 23:35
PROVIDERS: ADMIT Family Medicine; ATTEND Family Medicine
DX: K92.2 Gastrointestinal hemorrhage, unspecified (principal); E11.51 Type 2 diabetes mellitus with diabetic peripheral angiopathy without gangrene; K76.0 Fatty (change of) liver, not elsewhere classified; I10 Essential (primary) hypertension; I25.10 Atherosclerotic heart disease of native coronary artery without angina pectoris; K86.9 Disease of pancreas, unspecified; J44.9 Chronic obstructive pulmonary disease, unspecified; M54.9 Dorsalgia, unspecified; D72.829 Elevated white blood cell count, unspecified; E78.5 Hyperlipidemia, unspecified; R93.2 Abnormal findings on diagnostic imaging of liver and biliary tract; R00.1 Bradycardia, unspecified; R42 Dizziness and giddiness; G89.29 Other chronic pain; F41.9 Anxiety disorder, unspecified; M19.90 Unspecified osteoarthritis, unspecified site; F32.9 Major depressive disorder, single episode, unspecified; Z95.1 Presence of aortocoronary bypass graft; Z79.82 Long term (current) use of aspirin; Z79.02 Long term (current) use of antithrombotics/antiplatelets; Z79.899 Other long term (current) drug therapy; Z82.49 Family history of ischemic heart disease and other diseases of the circulatory system; Z87.891 Personal history of nicotine dependence; Z79.84 Long term (current) use of oral hypoglycemic drugs; Z79.891 Long term (current) use of opiate analgesic; Z79.51 Long term (current) use of inhaled steroids; Z88.2 Allergy status to sulfonamides; Z88.8 Allergy status to other drugs, medicaments and biological substances; Z80.8 Family history of malignant neoplasm of other organs or systems; Z80.0 Family history of malignant neoplasm of digestive organs; Z95.5 Presence of coronary angioplasty implant and graft
CPT/HCPCS: 36415; 71020; 74177; 80048; 80053; 82272; 83605; 83690; 83735; 83880; 84100; 84484; 85025; 86850; 86900; 86901; 87040; 93005; 96361; 96374; 96375; 96376; 99285

== ENCOUNTER 2016-07-17 08:51 | Day surgery (SDC) | payer MEDICARE ==
[2016-07-16 08:48] VITALS: BMI 29.7
[2016-07-17] MEDS ORDERED: LIDOCAINE 1% 20 ML VIAL (10MG/ML) FOR IV START INTRADERMA ONE (09:25)
[2016-07-17 09:26] VITALS: RESP 16; TEMP 97.8
[2016-07-17] MEDS ORDERED: LACTATED RINGERS 1,000 ML IV ONE (09:26)
[2016-07-17 09:48] LABS: Glucose,Whole Blood 157 mg/dL (75-99)
[2016-07-17] MEDS ORDERED: LIDOCAINE 1% INJ 10MG/ML (20 ML MDV) ONE (10:09)
[2016-07-17] MEDS ORDERED: PROPOFOL 10 MG/ML 20 ML VIAL IV ONE (10:09)
[2016-07-17] MEDS ORDERED: MIDAZOLAM 2 MG/2 ML VIAL ONE (10:09)
--- NOTE | 2016-07-17 10:58 | P.PCN ---
Date of Procedure: 07/17/16 Procedure(s) Performed: Procedure: 1. Esophagogastroduodenoscopy and biopsy. 2. Total colonoscopy and biopsy. Preoperative diagnosis: Abdominal pain and abnormal CT of the abdomen. Postoperative diagnosis: 1. Mild gastritis. 2. Small hiatal hernia. 3. Mild diverticulosis with mild nonspecific mucosal changes in the sigmoid, biopsy obtained. 4. No polyps, cancer or active bleeding. Preparation: HalfLytely prep. Sedation: Was provided by anesthesia. Brief clinical history: The patient is a 66-year-old male who has been having abdominal discomfort and bloating. He had a CT of the abdomen that showed pancreatic tail mass and fatty infiltration of the liver. Since the patient was scheduled for this evaluation, he had to be hospitalized for a few days last week and for lower GI bleeding. This spontaneously resolved. He dropped his hemoglobin by around 2.5 mg. The patient has extensive atherosclerotic heart and peripheral vascular disease. Procedure: With the patient on his left lateral decubitus position and after informed consent and adequate sedation, I passed the Olympus-GIF 160 video upper endoscope cricopharyngeus down the esophagus. GE junction was around 43- 44 cm from the incisors and there was a small sliding hiatal hernia. The esophagus did not show any obvious abnormalities. The stomach was insufflated with air and inspected in detail including the retroflex view in the cardia. There was some mottling and erythema in the antrum but no ulcers or erosions. Pyloric channel did not show any ulcers. Duodenal bulb, post bulbar area and descending duodenum showed minimal erythema but no ulcers or erosions. I obtained biopsies from the the antrum then the endoscope was withdrawn and I proceeded to do colonoscopy. Perianal area did not show any fissures or fistulas. There were no masses felt on digital rectal examination. The Olympus CFQ 160L video colonoscope was then inserted in the rectum in the usual fashion and advanced to the cecum. There was occasional small diverticular orifices noted, and in the sigmoid, there was nonspecific faint mucosal changes that raises the possibility of recent resolving colitis. One biopsy was obtained. Low-grade internal hemorrhoids were noted but there was no bleeding. The patient tolerated the procedure well. Plan: The patient was reassured. Will await biopsy results. Further workup for his pancreatic mass as planned including MRI and possible endoscopic ultrasound.
[2016-07-17 11:01] LABS: Glucose,Whole Blood 135 mg/dL (75-99)
[2016-07-17 11:13] VITALS: PULSE 56
[2016-07-17 11:27] VITALS: BP 171/76
== END 2016-07-17 11:39 | disposition home or self-care (01) ==
LOC: ORWHC2ENDO 08:51
DX: K29.50 Unspecified chronic gastritis without bleeding (principal); K44.9 Diaphragmatic hernia without obstruction or gangrene; K57.30 Diverticulosis of large intestine without perforation or abscess without bleeding; K64.8 Other hemorrhoids; K86.9 Disease of pancreas, unspecified; I25.10 Atherosclerotic heart disease of native coronary artery without angina pectoris; I10 Essential (primary) hypertension; E78.5 Hyperlipidemia, unspecified; Z95.1 Presence of aortocoronary bypass graft; J44.9 Chronic obstructive pulmonary disease, unspecified; Z87.891 Personal history of nicotine dependence; G47.33 Obstructive sleep apnea (adult) (pediatric); E11.9 Type 2 diabetes mellitus without complications; Z79.4 Long term (current) use of insulin; Z79.84 Long term (current) use of oral hypoglycemic drugs; Z79.02 Long term (current) use of antithrombotics/antiplatelets; Z79.82 Long term (current) use of aspirin; Z79.899 Other long term (current) drug therapy; Z88.2 Allergy status to sulfonamides; Z88.8 Allergy status to other drugs, medicaments and biological substances
CPT/HCPCS: 88305; 88342; 45380; 43239; J2250; J2001; J2704

== ENCOUNTER 2016-08-14 16:10 | Emergency (ER) | payer MEDICARE ==
[2016-08-14] MEDS ORDERED: PANTOPRAZOLE 40 MG/10 ML VIAL IVP STA (17:00)
[2016-08-14] MEDS ORDERED: SODIUM CHLORIDE 0.9% 1,000 ML IV STA (17:00)
[2016-08-14] MEDS ORDERED: RX INFO: IV CONTRAST WAS GIVEN 1 EACH MISC MISCELLANE PRN (17:00)
[2016-08-14] MEDS ORDERED: HYDROmorphone 1 MG/ML 1 ML SYRINGE IVP STA ×2 (17:00→18:59)
--- NOTE | 2016-08-14 17:03 | ED ---
General Adult HPI - General Source: patient, family, RN notes reviewed Mode of arrival: wheelchair Limitations: no limitations <Armando Moya - Last Filed: 08/14/16 17:01> <Leonidas Hamm - Last Filed: 08/14/16 20:57> - General Chief complaint: Abdominal Pain Stated complaint: swollen stomach Time Seen by Provider: 08/14/16 16:50 - History of Present Illness Initial comments: Patient is a pleasant 66-year-old male presenting to the emergency department with abdominal pain and distention. 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 Patient had a recent biopsy. Patient has not started any treatment for this. Patient has been having intermittent abdominal symptoms for a few months. Patient has pain. Occasionally he has nausea, none at this time. No constipation or diarrhea. Patient feels his abdomen is distended from baseline. (Armando Moya) - Related Data Home Medications Medication Instructions Recorded Confirmed Chlorzoxazone [Parafon Forte Dsc] 1,000 mg PO TID 07/05/14 08/14/16 Hydrocodone/Acetaminophen [Lortab 2 tab PO Q8H PRN 07/05/14 08/14/16 10-325 mg Tablet] Nitroglycerin Sl Tabs [Nitrostat] 0.4 mg SUBLINGUAL Q5M PRN 07/05/14 08/14/16 Temazepam [Restoril] 30 mg PO HS PRN 07/05/14 08/14/16 Multivit-Min/FA/Lycopen/Lutein 1 tab PO DAILY 10/04/15 08/14/16 [Centrum Silver Tablet] Gabapentin 600 mg PO BID 10/08/15 08/14/16 PARoxetine HCL [Paxil] 20 mg PO DAILY 10/09/15 08/14/16 Fluticasone/Salmeterol [Advair 1 puff INHALATION BID PRN 12/19/15 08/14/16 250-50 Diskus] Spironolactone-Hctz 25-25Mg 1 tab PO DAILY 12/19/15 08/14/16 [Aldactazide 25-25 MG] Gabapentin [Neurontin] 300 mg PO DAILY@1200 06/07/16 08/14/16 Glimepiride [Amaryl] 2 mg PO BID 07/12/16 08/14/16 Insulin Glargine,Hum.rec.anlog 30 units SQ HS 07/16/16 08/14/16 [Tothierry Villagomez] traMADol HCL [Ultram] 50 - 100 mg PO Q8H PRN 08/14/16 08/14/16 Previous Rx's Medication Instructions Recorded Lisinopril [Zestril] 10 mg PO BID #60 tab 10/14/15 Pantoprazole [Protonix] 40 mg PO DAILY #30 tablet. 10/14/15 amLODIPine [Norvasc] 5 mg PO BID #60 tab 10/14/15 Atorvastatin [Lipitor] 80 mg PO HS #1 tab 06/09/16 Allergies Allergy/AdvReac Type Severity Reaction Status Date / Time atorvastatin calcium Allergy Unknown Verified 08/14/16 17:49 [From Lipitor] fenofibrate nanocrystallized Allergy Unknown Verified 08/14/16 17:49 [From Tricor] fenofibrate,micronized Allergy Unknown Verified 08/14/16 17:49 [From Tricor] rosuvastatin calcium Allergy Unknown Verified 08/14/16 17:49 [From Crestor] sulfamethoxazole Allergy Unknown Verified 08/14/16 17:49 [From Bactrim] metformin AdvReac Nausea & Verified 08/14/16 17:49 Vomiting trimethoprim [From Bactrim] AdvReac Unknown Verified 08/14/16 17:49 rynatan Allergy Unknown Uncoded 08/14/16 16:18 Review of Systems ROS Other: All systems not noted in ROS Statement are negative. Constitutional: Denies: fever Eyes: Denies: eye pain ENT: Denies: ear pain Respiratory: Denies: cough Cardiovascular: Denies: chest pain Endocrine: Denies: fatigue Gastrointestinal: Reports: abdominal pain, nausea Genitourinary: Denies: urgency Musculoskeletal: Denies: back pain Skin: Denies: rash Neurological: Denies: headache <Armando Moya - Last Filed: 08/14/16 17:01> ROS Other: All systems not noted in ROS Statement are negative. <Leonidas Hamm - Last Filed: 08/14/16 20:57> ROS Statement: Those systems with pertinent positive or pertinent negative responses have been documented in the HPI. Past Medical History Past Medical History: Coronary Artery Disease (CAD), Cancer, COPD, Diabetes Mellitus, Hyperlipidemia, Hypertension, Osteoarthritis (OA), Sleep Apnea/CPAP/ BIPAP, Vascular Disorder Additional Past Medical History / Comment(s): chronic back pain, no cpap, recent episodes of bloody stools-now resolved, pancreatic mass-dr monitoring History of Any Multi-Drug Resistant Organisms: None Reported Past Surgical History: Back Surgery, Coronary Bypass/CABG, Heart Catheterization With Stent, Hernia Repair Additional Past Surgical History / Comment(s): aortic bypass, CABG x3, back surgery x3 Past Anesthesia/Blood Transfusion Reactions: No Reported Reaction Additional Past Anesthesia/Blood Transfusion Reaction / Comment(s): states "feels like he has ants crawling on his face with anesthesia" Date of Last Stent Placement:: 1994 Past Psychological History: Anxiety, Depression Smoking Status: Former smoker Past Alcohol Use History: None Reported Additional Past Alcohol Use History / Comment(s): quit smoking 2009 Past Drug Use History: None Reported - Past Family History Father Family Medical History: Cancer (pancreatic) Additional Family Medical History / Comment(s): in MVA Sister(s) Family Medical History: Cancer Additional Family Medical History / Comment(s): BONE Mother Family Medical History: Myocardial Infarction ([place]) <Armando Moya - Last Filed: 08/14/16 17:01> General Exam Limitations: no limitations General appearance: alert, in no apparent distress Head exam: Present: atraumatic Eye exam: Present: normal appearance Neck exam: Present: normal inspection Respiratory exam: Present: normal lung sounds bilaterally Cardiovascular Exam: Present: regular rate, normal rhythm GI/Abdominal exam: Present: soft, distended, tenderness (Umbilical), normal bowel sounds. Absent: guarding, rebound, rigid, pulsatile mass Extremities exam: Present: normal inspection. Absent: pedal edema, calf tenderness Neurological exam: Present: alert Psychiatric exam: Present: normal affect, normal mood Skin exam: Present: normal color <Armando Moya - Last Filed: 08/14/16 17:01> Medical Decision Making <Armando Moya - Last Filed: 08/14/16 17:01> - Lab Data Result diagrams: 08/14/16 17:20 08/14/16 17:20 <Leonidas Hamm - Last Filed: 08/14/16 20:57> - Medical Decision Making Computed tomography scan shows no acute abnormality. I went back into the room to reevaluate the patient patient stated his pain was gone at this time. He will follow up as previously scheduled. (Leonidas Hamm) - Lab Data Lab Results 08/14/16 08/14/16 08/14/16 Range/Units 17:20 17:20 17:20 WBC 11.2 H (3.8-10.6) k/uL RBC 4.61 (4.30-5.90) m/uL Hgb 12.9 L (13.0-17.5) gm/dL Hct 40.7 (39.0-53.0) % MCV 88.3 (80.0-100.0) fL MCH 27.9 (25.0-35.0) pg MCHC 31.7 (31.0-37.0) g/dL RDW 14.1 (11.5-15.5) % Plt Count 247 (150-450) k/uL Neutrophils % 70 % Lymphocytes % 21 % Monocytes % 5 % Eosinophils % 1 % Basophils % 1 % Neutrophils # 7.9 H (1.3-7.7) k/uL Lymphocytes # 2.3 (1.0-4.8) k/uL Monocytes # 0.5 (0-1.0) k/uL Eosinophils # 0.2 (0-0.7) k/uL Basophils # 0.1 (0-0.2) k/uL PT 10.0 (9.0-12.0) sec INR 1.0 (<1.1) APTT 19.9 L (22.0-30.0) sec Sodium 139 (137-145) mmol/L Potassium 4.7 (3.5-5.1) mmol/L Chloride 101 (98-107) mmol/L Carbon Dioxide 28 (22-30) mmol/L Anion Gap 10 mmol/L BUN 20 (9-20) mg/dL Creatinine 0.69 (0.66-1.25) mg/dL Est GFR (MDRD) Af Amer >60 (>60 ml/min/1.73 sqM) Est GFR (MDRD) Non-Af >60 (>60 ml/min/1.73 sqM) Glucose 301 H (74-99) mg/dL Calcium 10.1 (8.4-10.2) mg/dL Total Bilirubin 0.7 (0.2-1.3) mg/dL AST 34 (17-59) U/L ALT 43 (21-72) U/L Alkaline Phosphatase 69 (38-126) U/L Total Protein 6.9 (6.3-8.2) g/dL Albumin 4.1 (3.5-5.0) g/dL Amylase 46 (30-110) U/L Lipase 82 (23-300) U/L Urine Color Urine Appearance (Clear) Urine pH (5.0-8.0) Ur Specific [place] (1.001-1.035) Urine Protein (Negative) Urine Glucose (UA) (Negative) Urine Ketones (Negative) Urine Blood (Negative) Urine Nitrite (Negative) Urine Bilirubin (Negative) Urine Urobilinogen (<2.0) mg/dL Ur Leukocyte Esterase (Negative) 08/14/16 Range/Units 17:20 WBC (3.8-10.6) k/uL RBC (4.30-5.90) m/uL Hgb (13.0-17.5) gm/dL Hct (39.0-53.0) % MCV (80.0-100.0) fL MCH (25.0-35.0) pg MCHC (31.0-37.0) g/dL RDW (11.5-15.5) % Plt Count (150-450) k/uL Neutrophils % % Lymphocytes % % Monocytes % % Eosinophils % % Basophils % % Neutrophils # (1.3-7.7) k/uL Lymphocytes # (1.0-4.8) k/uL Monocytes # (0-1.0) k/uL Eosinophils # (0-0.7) k/uL Basophils # (0-0.2) k/uL PT (9.0-12.0) sec INR (<1.1) APTT (22.0-30.0) sec Sodium (137-145) mmol/L Potassium (3.5-5.1) mmol/L Chloride (98-107) mmol/L Carbon Dioxide (22-30) mmol/L Anion Gap mmol/L BUN (9-20) mg/dL Creatinine (0.66-1.25) mg/dL Est GFR (MDRD) Af Amer (>60 ml/min/1.73 sqM) Est GFR (MDRD) Non-Af (>60 ml/min/1.73 sqM) Glucose (74-99) mg/dL Calcium (8.4-10.2) mg/dL Total Bilirubin (0.2-1.3) mg/dL AST (17-59) U/L ALT (21-72) U/L Alkaline Phosphatase (38-126) U/L Total Protein (6.3-8.2) g/dL Albumin (3.5-5.0) g/dL Amylase (30-110) U/L Lipase (23-300) U/L Urine Color Yellow Urine Appearance Clear (Clear) Urine pH 5.5 (5.0-8.0) Ur Specific [place] 1.025 (1.001-1.035) Urine Protein Negative (Negative) Urine Glucose (UA) 3+ H (Negative) Urine Ketones Negative (Negative) Urine Blood Negative (Negative) Urine Nitrite Negative (Negative) Urine Bilirubin Negative (Negative) Urine Urobilinogen <2.0 (<2.0) mg/dL Ur Leukocyte Esterase Negative (Negative) Disposition <Armando Moya - Last Filed: 08/14/16 17:01> Time of Disposition: 20:57 <Leonidas Hamm - Last Filed: 08/14/16 20:57> Clinical Impression: Abdominal pain Disposition: HOME SELF-CARE Instructions: Abdominal Pain (ED) Referrals: Nedra Leonard DO [Primary Care Provider] - 1-2 days
[2016-08-14 17:43] LABS: Basophils # (A) 0.1 k/uL (0-0.2); Basophils % (A) 1 %; CH 28.1; Eosinophils # (A) 0.2 k/uL (0-0.7); Eosinophils % (A) 1 %; HCT 40.7 % (39.0-53.0); HDW 2.59; HGB 12.9 gm/dL (13.0-17.5); Luc # (Auto) 0.27; Luc % (Auto) 2; Lymphocytes # (A) 2.3 k/uL (1.0-4.8); Lymphocytes % (A) 21 %; MCH 27.9 pg (25.0-35.0); MCHC 31.7 g/dL (31.0-37.0); MCV 88.3 fL (80.0-100.0); Monocytes # (A) 0.5 k/uL (0-1.0); Monocytes % (A) 5 %; Neutrophils # (A) 7.9 k/uL (1.3-7.7); Neutrophils % (A) 70 %; RBC 4.61 m/uL (4.30-5.90); RDW 14.1 % (11.5-15.5); WBC 11.2 k/uL (3.8-10.6)
[2016-08-14 17:44] LABS: Appearance,Urine Clear (Clear); Bilirubin,Urine Negative (Negative); Glucose,Urine (UA) 3+ (Negative); Ketones,Urine Negative (Negative); Leukocyte Esterase,Urine Negative (Negative); Nitrite,Urine Negative (Negative); PH, Urine 5.5 (5.0-8.0); Protein,Urine Negative (Negative); Specific Gravity,Urine 1.025 (1.001-1.035); UA Billing (MACRO vs. MICRO) CHEM; Urobilinogen,Urine <2.0 mg/dL (<2.0)
[2016-08-14 17:52] LABS: Partial Thromboplastin Time 19.9 sec (22.0-30.0)
[2016-08-14 17:55] LABS: ALT 43 U/L (21-72); AST 34 U/L (17-59); Alkaline Phosphatase 69 U/L (38-126); Amylase 46 U/L (30-110); Anion Gap 10 mmol/L; Blood Urea Nitrogen 20 mg/dL (9-20); Calcium 10.1 mg/dL (8.4-10.2); Carbon Dioxide 28 mmol/L (22-30); Chloride 101 mmol/L (98-107); Glucose 301 mg/dL (74-99); Non-African American GFR(MDRD) >60 (>60 ml/min/1.73 sqM); Potassium 4.7 mmol/L (3.5-5.1); Sodium 139 mmol/L (137-145); Total Bilirubin 0.7 mg/dL (0.2-1.3); Total Protein 6.9 g/dL (6.3-8.2)
--- NOTE | 2016-08-14 19:53 | CT ---
EXAMINATION TYPE: CT abdomen pelvis w con DATE OF EXAM: 08/14/2016 COMPARISON: NONE HISTORY: Abdominal pain and bloating CT DLP: 1563.6 mGycm Automated exposure control for dose reduction was used. TECHNIQUE: Helical acquisition of images was performed from the lung bases through the pelvis. CONTRAST: Performed without Oral Contrast and with IV Contrast, patient injected with 100 mL of Omnipaque 300. FINDINGS: Lung bases are clear of consolidation. There is no pleural effusion. Liver shows no focal defect. Gume e ducts are not dilated. Gallbladder is contracted. Spleen appears normal. There is a 2.4 cm relative ly low density area in the tail of the pancreas. There is no adrenal mass. Kidneys show satisfactory contrast opacification. There is no hydronephrosi s. Abdominal aorta is atheromatous. There is no retroperitoneal adenopathy. There is significant athe rosclerotic plaque at the aortic bifurcation in the common iliac arteries. There is aortoiliac bypass graft noted. There is no ascites. Appendix appears normal. Bladder distends smoothly. There is no sign of a pelvic mass. I see no intestinal wall thickening. There are no dilated loops. I see no bony destructive pro cess. There is degenerative disc space narrowing at L5-S1. There is some spinal stenosis at multiple levels in the lumbar spine. IMPRESSION: THERE IS A 2.4 CM SOMEWHAT ROUNDED MASS IN THE TAIL OF THE PANCREAS. THIS IS UNCHANGED COMPARED TO CT SCAN OF 06/07/2016. THIS IS ALSO PRESENT ON OLD CT SCAN OF 08/12/2014 AND APPEARS NOT SIGNIFICANTLY CLARK GED IN SIZE. THIS SUGGESTS A MORE BENIGN ETIOLOGY. ATHEROSCLEROTIC VASCULAR DISEASE. NO SIGN OF ACUTE ABDOMEN AND PELVIS. I DO NOT SEE A CAUSE FOR THE P ATIENT'S SYMPTOMS. MULTILEVEL LUMBAR SPINAL STENOSIS..
[2016-08-14 21:18] VITALS: BP 115/68; PULSE 106; RESP 18; TEMP 97.8
== END 2016-08-14 21:18 | disposition home or self-care (01) ==
LOC: EC 16:10
DX: R10.9 Unspecified abdominal pain (principal); R19.00 Intra-abdominal and pelvic swelling, mass and lump, unspecified site; R14.0 Abdominal distension (gaseous); I10 Essential (primary) hypertension; E11.9 Type 2 diabetes mellitus without complications; F32.9 Major depressive disorder, single episode, unspecified; G89.29 Other chronic pain; F41.9 Anxiety disorder, unspecified; Z87.891 Personal history of nicotine dependence; Z79.4 Long term (current) use of insulin; Z79.84 Long term (current) use of oral hypoglycemic drugs; Z79.899 Other long term (current) drug therapy; Z88.1 Allergy status to other antibiotic agents; Z88.8 Allergy status to other drugs, medicaments and biological substances
CPT/HCPCS: 36415; 80053; 82150; 83690; 85025; 85610; 85730; 81003; 74177; 99284; 96374; 96375 ×2; 96361 ×4; J1170; Q9967; C9113

== ENCOUNTER → 2016-09-24 | Outpatient (CLI) | payer MEDICARE ==
[2016-09-24 18:23] LABS: Blood Urea Nitrogen 20 mg/dL (9-20); Non-African American GFR(MDRD) >60 (>60 ml/min/1.73 sqM)
--- NOTE | 2016-09-24 19:24 | CT ---
EXAMINATION TYPE: CT angio abd aorta wo/w con DATE OF EXAM: 09/24/2016 COMPARISON: 08/12/2014 and 08/14/2016 HISTORY: Per patient abdominal mass and pain CT DLP: 1718.5 mGycm, Automated Exposure Control for Dose Reduction was Utilized. CONTRAST: CT scan of the abdomen and pelvis is performed with oral and with IV Contrast, patient injected with 100 mL of Omnipaque 350. There are 3-D post processed images. FINDINGS: There is subsegmental atelectasis at the lung bases. There is no pleural effusion. Heart is enlarged. Liver spleen pancreas gallbladder appear normal. Bile ducts are not dilated. There is no adrenal mass . Kidneys show satisfactory contrast opacification. There is no hydronephrosis. Abdominal aorta is at heromatous. There is no evidence of aneurysm. There is aorto iliac bypass graft that is patent. There is no evidence of dissection. There is no contrast extravasation. Bladder distends smoothly. There i s no ascites. Appendix appears normal. There is significant stenosis of the tangirnaq common iliac arter ies. There are multiple small bilateral renal calculi that measure up to 3 mm. There is no evidence o f obstruction. There is patency of the superior mesenteric artery and the celiac artery. There is bilateral patency of the renal arteries. IMPRESSION: Aortoiliac bypass graft is patent and unchanged compared to 08/14/2016. Atherosclerotic vas cular disease. There is probably stenosis at the anastomosis of the right iliac artery graft with the right femoral artery. No evidence of aneurysm or dissection.
== END | disposition home or self-care (01) ==
LOC: RADCTMAIN 17:48
PROVIDERS: ATTEND Internal Medicine Interventional Cardiology
DX: I70.90 Unspecified atherosclerosis (principal); I73.9 Peripheral vascular disease, unspecified
CPT/HCPCS: 82565; 84520; 75635; 36415; Q9967

== ENCOUNTER 2016-10-14 07:48 | Day surgery (SDC) | payer MEDICARE ==
[2016-10-13 10:20] VITALS: BMI 32.3
[~2016-10-14 07:48] MED LIST changes: -ALPRAZolam 0.25 MG TAB PO PRN; -ASPIRIN 325 MG TAB PO STA
[2016-10-14 08:35] VITALS: TEMP 97.7
[2016-10-14 08:35] LABS: Glucose,Whole Blood 174 mg/dL (75-99)
[2016-10-14 08:35] LABS: Basophils # (A) 0.1 k/uL (0-0.2); Basophils % (A) 1 %; CH 27.6; Eosinophils # (A) 0.2 k/uL (0-0.7); Eosinophils % (A) 2 %; HCT 40.2 % (39.0-53.0); HDW 2.77; HGB 13.3 gm/dL (13.0-17.5); Luc # (Auto) 0.28; Luc % (Auto) 4; Lymphocytes # (A) 2.3 k/uL (1.0-4.8); Lymphocytes % (A) 28 %; MCH 27.8 pg (25.0-35.0); MCHC 33.1 g/dL (31.0-37.0); Mean Platelet Volume 7.8; Monocytes # (A) 0.5 k/uL (0-1.0); Monocytes % (A) 6 %; Neutrophils # (A) 4.8 k/uL (1.3-7.7); Neutrophils % (A) 60 %; RBC 4.79 m/uL (4.30-5.90); RDW 13.3 % (11.5-15.5); WBC (Perox) 8.32
[2016-10-14 08:53] LABS: Anion Gap 10 mmol/L; Blood Urea Nitrogen 20 mg/dL (9-20); Calcium 9.5 mg/dL (8.4-10.2); Carbon Dioxide 27 mmol/L (22-30); Chloride 104 mmol/L (98-107); Glucose 179 mg/dL (74-99); Non-African American GFR(MDRD) >60 (>60 ml/min/1.73 sqM); Potassium 4.3 mmol/L (3.5-5.1); Sodium 141 mmol/L (137-145)
[2016-10-14] MEDS ORDERED: HYDROmorphone 1 MG/ML 1 ML SYRINGE IVP STA (09:04)
[2016-10-14] MEDS ORDERED: HYDROmorphone 1 MG/ML 1 ML SYRINGE ONE (09:06)
[2016-10-14] MEDS ORDERED: MIDAZOLAM 2 MG/2 ML VIAL IV ONE (09:58)
[2016-10-14] MEDS ORDERED: LIDOCAINE 2% INJ 20 MG/ML SQ ONE ×2 (10:02)
[2016-10-14] MEDS: VERAPAMIL SYRINGE (5 MG/10 ML) INTRAARTER ONE ×2 (10:02→10:25)
[2016-10-14] MEDS ORDERED: HYDROmorphone 2 MG/ML 1 ML SYRINGE IV ONE (10:10)
[2016-10-14] MEDS ORDERED: IODIXANOL 320 MG/ML 100 ML INTRAARTER ONE (10:26)
[2016-10-14] MEDS ORDERED: SODIUM CHLORIDE 0.9% 1,000 ML IV SCH (10:30)
[2016-10-14 10:47] VITALS: RESP 16
--- NOTE | 2016-10-14 10:53 | IR ---
Fluoroscopy HISTORY: Aortic vascular disease, mesenteric vascular disease 2.8 minutes fluoroscopy time supplied to the referring clinician. 41 intraoperative C-arm images doc ument the procedure. See dictated report from cardiology.
[2016-10-14] MEDS ORDERED: HYDROcodone/APAP 10-325MG 1 EACH TAB ONE (12:15)
[2016-10-14 12:31] VITALS: BP 133/63; PULSE 60
--- NOTE | 2016-10-16 08:18 | AN ---
DATE OF SERVICE: October 14, 2016 PERFORMING PHYSICIAN: MICHELLE DAY MD, NEUROPHYSIOLOGY TECH. PROCEDURE PERFORMED: 1. An abdominal aortogram. 2. Selective mesenteric artery angiogram. INDICATION; This is a pleasant 66-year-old gentleman who is known to have severe underlying peripheral arterial disease who was diagnosed recently with mesenteric ischemia. APPROACH: Right radial artery. COMPLICATIONS: None. LEVEL OF SEDATION: Moderate with a sedation length of about 20 minutes. PROCEDURE DESCRIPTION: After obtaining an informed consent, the patient was brought to the [facility]. His right radial artery was cannulated using micropuncture technique. The micropuncture wire passed easily, then I placed a 5 [place] sheath in the right radial artery. At that point, the patient was given 6000 units of heparin IV. I did after that give the patient 2 mg of Verapamil IA. After that, I did an abdominal aortogram and nonselective mesenteric artery angiogram using 5 [place] Pigtail catheter which was placed just below the renal arteries. The procedure was completed without any complication. SELECTIVE PERIPHERAL ANGIOGRAM: 1. The abdominal aorta appears to have mild to moderate disease only. 2. The celiac trunk appeared to have mild disease only. 3. The superior mesenteric artery appeared to have intermediate lesion, seems to be in the range of 60% only. CONCLUSION: 1. Mild to moderate occlusive disease involving the infrarenal aorta. 2. Intermediate disease involving the superior mesenteric artery. [facility]
== END 2016-10-14 15:27 | disposition home or self-care (01) ==
LOC: CATHCVL 07:48
PROVIDERS: ATTEND Internal Medicine Interventional Cardiology
DX: I77.89 Other specified disorders of arteries and arterioles (principal); I77.9 Disorder of arteries and arterioles, unspecified; I25.10 Atherosclerotic heart disease of native coronary artery without angina pectoris; I73.9 Peripheral vascular disease, unspecified; K55.059 Acute (reversible) ischemia of intestine, part and extent unspecified; E78.5 Hyperlipidemia, unspecified; I10 Essential (primary) hypertension; Z95.1 Presence of aortocoronary bypass graft; E11.9 Type 2 diabetes mellitus without complications; Z79.899 Other long term (current) drug therapy; Z79.84 Long term (current) use of oral hypoglycemic drugs; Z88.1 Allergy status to other antibiotic agents; Z88.2 Allergy status to sulfonamides; Z88.8 Allergy status to other drugs, medicaments and biological substances; Z87.891 Personal history of nicotine dependence
CPT/HCPCS: 36200; 75625; 80048; 85025; 99152; 99153; C1769; C1894; J2001; J2250; J1170 ×2; Q9967; J1644

== ENCOUNTER 2016-12-03 17:55 | Emergency (ER) | payer MEDICARE ==
[2016-12-03] MEDS ORDERED: SODIUM CHLORIDE 0.9% 500 ML IV STA (18:22)
[2016-12-03] MEDS ORDERED: SODIUM CHLORIDE 0.9% 1,000 ML IV STA (18:22)
[2016-12-03 18:57] LABS: Basophils # (A) 0.1 k/uL (0-0.2); Basophils % (A) 0 %; CH 27.8; Eosinophils # (A) 0.2 k/uL (0-0.7); Eosinophils % (A) 1 %; HDW 2.44; HGB 11.6 gm/dL (13.0-17.5); Luc # (Auto) 0.27; Luc % (Auto) 2; Lymphocytes # (A) 1.5 k/uL (1.0-4.8); Lymphocytes % (A) 13 %; MCH 27.3 pg (25.0-35.0); MCHC 31.2 g/dL (31.0-37.0); MCV 87.3 fL (80.0-100.0); Mean Platelet Volume 8.1; Monocytes # (A) 0.8 k/uL (0-1.0); Monocytes % (A) 7 %; Neutrophils # (A) 8.6 k/uL (1.3-7.7); Neutrophils % (A) 76 %; RBC 4.24 m/uL (4.30-5.90); RDW 14.4 % (11.5-15.5); WBC 11.4 k/uL (3.8-10.6); WBC (Perox) 12.13
[2016-12-03 19:06] LABS: Partial Thromboplastin Time 22.8 sec (22.0-30.0); Prothrombin Time 9.8 sec (9.0-12.0)
[2016-12-03 19:09] LABS: Calcium 9.4 mg/dL (8.4-10.2); Magnesium 1.7 mg/dL (1.6-2.3); Phosphorous 3.3 mg/dL (2.5-4.5); Potassium 4.1 mmol/L (3.5-5.1); Total Bilirubin 0.3 mg/dL (0.2-1.3); Total Protein 6.1 g/dL (6.3-8.2)
--- NOTE | 2016-12-03 19:16 | CT ---
EXAMINATION TYPE: CT brain wo con DATE OF EXAM: 12/03/2016 COMPARISON: NONE HISTORY: DIZZINESS AND WEAKNESS. CT DLP: 1016.1 mGycm Automated exposure control for dose reduction was used. FINDINGS: Ventricles have normal size. There is no mass effect nor midline shift. There is no sign of intracran ial hemorrhage. The calvarium is intact. IMPRESSION: NEGATIVE CT SCAN OF THE BRAIN.
[2016-12-03 19:17] LABS: Creatine Kinase 183 U/L (55-170)
[2016-12-03 19:30] LABS: Creatine Kinase MB 1.8 ng/mL (0.0-2.4); Troponin I <0.012 ng/mL (0.000-0.034)
[2016-12-03] MEDS ORDERED: HYDROmorphone 0.5 MG/0.5 ML SYRINGE IVP STA (20:12)
--- NOTE | 2016-12-03 20:54 | ED ---
General Adult HPI - General Chief complaint: Neuro Symptoms/Deficit Stated complaint: Poss CVA Time Seen by Provider: 12/03/16 18:11 Source: patient, RN notes reviewed, old records reviewed Mode of arrival: wheelchair Limitations: no limitations - History of Present Illness Initial comments: This is a 66-year-old male to the ER for evaluation. Patient presents today for evaluation regarding neurological complaints dizziness, not feeling well weakness. Patient is of severe vessel past with multiple complaints. Patient has chest pain abdominal pain leg pain neck pain and headache. Patient continues to complain of pain. He had episode of ataxia and numbness, seems to be improved at this time. Patient denies any other complaints, no fevers. - Related Data Home Medications Medication Instructions Recorded Confirmed Chlorzoxazone [Parafon Forte Dsc] 1,000 mg PO TID 07/05/14 12/03/16 Hydrocodone/Acetaminophen [Lortab 2 tab PO Q8H PRN 07/05/14 12/03/16 10-325 mg Tablet] Nitroglycerin Sl Tabs [Nitrostat] 0.4 mg SUBLINGUAL Q5M PRN 07/05/14 12/03/16 Multivit-Min/FA/Lycopen/Lutein 1 tab PO DAILY 10/04/15 12/03/16 [Centrum Silver Tablet] Fluticasone/Salmeterol [Advair 1 puff INHALATION RT-BID PRN 12/19/15 12/03/16 250-50 Diskus] Gabapentin [Neurontin] 900 mg PO AC-BRKFST 06/07/16 12/03/16 Glimepiride [Amaryl] 2 mg PO BID 07/12/16 12/03/16 traMADol HCL [Ultram] 100 mg PO Q8H PRN 08/14/16 12/03/16 Aspirin [Adult Low Dose Aspirin EC] 81 mg PO DAILY 10/13/16 12/03/16 Gabapentin 600 mg PO DAILY@1200 10/13/16 12/03/16 Insulin NPL/Insulin Lispro 15 unit PO BID 10/13/16 12/03/16 [humaLOG MIX 75-25 VIAL] Albuterol Nebulized [Ventolin 2.5 mg INHALATION RT-TID 10/14/16 12/03/16 Nebulized] Fluticasone Nasal [place] [Flonase 2 spr EA NOSTRIL DAILY 12/03/16 12/03/16 Nasal [place]] Gabapentin [Neurontin] 900 mg PO HS 12/03/16 12/03/16 PARoxetine HCL [Paxil] 40 mg PO DAILY 12/03/16 12/03/16 Previous Rx's Medication Instructions Recorded Lisinopril [Zestril] 10 mg PO BID #60 tab 10/14/15 Pantoprazole [Protonix] 40 mg PO DAILY #30 tablet. 10/14/15 amLODIPine [Norvasc] 5 mg PO BID #60 tab 10/14/15 Atorvastatin [Lipitor] 80 mg PO HS #1 tab 06/09/16 Allergies Allergy/AdvReac Type Severity Reaction Status Date / Time atorvastatin calcium Allergy muscle pain Verified 12/03/16 19:31 [From Lipitor] fenofibrate nanocrystallized Allergy muscle pain Verified 12/03/16 19:31 [From Tricor] fenofibrate,micronized Allergy Unknown Verified 12/03/16 19:31 [From Tricor] rosuvastatin calcium Allergy muscle pain Verified 12/03/16 19:31 [From Crestor] sulfamethoxazole Allergy gi upset Verified 12/03/16 19:31 [From Bactrim] metformin AdvReac Nausea & Verified 12/03/16 19:31 Vomiting trimethoprim [From Bactrim] AdvReac Unknown Verified 12/03/16 19:31 [email or web address] Allergy Unknown Uncoded 12/03/16 17:58 Review of Systems ROS Statement: Those systems with pertinent positive or pertinent negative responses have been documented in the HPI. ROS Other: All systems not noted in ROS Statement are negative. Past Medical History Past Medical History: Coronary Artery Disease (CAD), COPD, Diabetes Mellitus, Hyperlipidemia, Hypertension, Myocardial Infarction ([place]), Osteoarthritis (OA), Sleep Apnea/CPAP/BIPAP, Vascular Disorder Additional Past Medical History / Comment(s): chronic back pain, no cpap, HX OF episodes of bloody stools-now resolved, pancreatic mass, was told benign, dr rodriguez, states [place] post carotid sx Last Myocardial Infarction Date:: 2016 History of Any Multi-Drug Resistant Organisms: None Reported Past Surgical History: Back Surgery, Coronary Bypass/CABG, Heart Catheterization With Stent, Hernia Repair Additional Past Surgical History / Comment(s): rt carotid endartectomy, aortic VALVE replacement, CABG x3, back surgery x3, stent x1 Past Anesthesia/Blood Transfusion Reactions: Previous Problems w/ Anesthesia Additional Past Anesthesia/Blood Transfusion Reaction / Comment(s): states "feels like he has ants crawling on his face with anesthesia" Date of Last Stent Placement:: 1994 Past Psychological History: Anxiety, Depression Smoking Status: Former smoker - Past Family History Father Family Medical History: Cancer (pancreatic) Additional Family Medical History / Comment(s): in MVA Sister(s) Family Medical History: Cancer Additional Family Medical History / Comment(s): BONE Mother Family Medical History: Myocardial Infarction ([place]) General Exam Limitations: no limitations General appearance: alert, in no apparent distress Head exam: Present: atraumatic, normocephalic, normal inspection Eye exam: Present: normal appearance, PERRL, EOMI. Absent: scleral icterus, conjunctival injection, periorbital swelling ENT exam: Present: normal exam, mucous membranes moist Neck exam: Present: normal inspection. Absent: tenderness, meningismus, lymphadenopathy Respiratory exam: Present: normal lung sounds bilaterally. Absent: respiratory distress, wheezes, rales, rhonchi, stridor Cardiovascular Exam: Present: regular rate, normal rhythm, normal heart sounds. Absent: systolic murmur, diastolic murmur, rubs, gallop, clicks GI/Abdominal exam: Present: soft, normal bowel sounds. Absent: distended, tenderness, guarding, rebound, rigid Extremities exam: Present: normal inspection, full ROM, normal capillary refill. Absent: tenderness, pedal edema, joint swelling, calf tenderness Back exam: Present: normal inspection Neurological exam: Present: alert, oriented X3, CN II-XII intact Psychiatric exam: Present: normal affect, normal mood Skin exam: Present: warm, dry, intact, normal color. Absent: rash Course Vital Signs 12/03/16 12/03/16 17:58 20:03 Temperature 98.4 F Pulse Rate 76 73 Respiratory 18 20 Rate Blood Pressure 125/63 145/64 O2 Sat by Pulse 96 94 L Oximetry - Reevaluation(s) Reevaluation #1: 12/03/16 20:53 Spoke with patient his pain is now controlled. Patient states he feels improved , would like to coffee, like to be discharged home EKG Findings - EKG Comments: EKG Findings:: EKG shows normal sinus rhythm at 66, HI 140, QRS 106, QTC 425 Medical Decision Making - Medical Decision Making 66-year-old ER for evaluation. Patient's severe vasculopath coming in for neurologic complaints. Patient is taking All medication, has had multiple CEAs no real help. Patient does take Plavix and aspirin. At this time patient states his pain is controlled and he would like to be discharged home he will continue to follow [place] for further treatment - Lab Data Result diagrams: 12/03/16 18:45 12/03/16 18:45 Lab Results 12/03/16 12/03/16 12/03/16 Range/Units 18:45 18:45 18:45 WBC 11.4 H (3.8-10.6) k/uL RBC 4.24 L (4.30-5.90) m/uL Hgb 11.6 L (13.0-17.5) gm/dL Hct 37.0 L (39.0-53.0) % MCV 87.3 (80.0-100.0) fL MCH 27.3 (25.0-35.0) pg MCHC 31.2 (31.0-37.0) g/dL RDW 14.4 (11.5-15.5) % Plt Count 254 (150-450) k/uL Neutrophils % 76 % Lymphocytes % 13 % Monocytes % 7 % Eosinophils % 1 % Basophils % 0 % Neutrophils # 8.6 H (1.3-7.7) k/uL Lymphocytes # 1.5 (1.0-4.8) k/uL Monocytes # 0.8 (0-1.0) k/uL Eosinophils # 0.2 (0-0.7) k/uL Basophils # 0.1 (0-0.2) k/uL PT (9.0-12.0) sec INR (<1.2) APTT (22.0-30.0) sec Sodium 138 (137-145) mmol/L Potassium 4.1 (3.5-5.1) mmol/L Chloride 104 (98-107) mmol/L Carbon Dioxide 23 (22-30) mmol/L Anion Gap 11 mmol/L BUN 24 H (9-20) mg/dL Creatinine 1.45 H (0.66-1.25) mg/dL Est GFR (MDRD) Af Amer 59 (>60 ml/min/1.73 sqM) Est GFR (MDRD) Non-Af 49 (>60 ml/min/1.73 sqM) Glucose 297 H (74-99) mg/dL Calcium 9.4 (8.4-10.2) mg/dL Phosphorus 3.3 (2.5-4.5) mg/dL Magnesium 1.7 (1.6-2.3) mg/dL Total Bilirubin 0.3 (0.2-1.3) mg/dL AST 23 (17-59) U/L ALT 40 (21-72) U/L Alkaline Phosphatase 50 (38-126) U/L Total Creatine Kinase 183 H (55-170) U/L CK-MB (CK-2) 1.8 (0.0-2.4) ng/mL CK-MB (CK-2) Rel Index 1.0 Troponin I <0.012 (0.000-0.034) ng/mL Total Protein 6.1 L (6.3-8.2) g/dL Albumin 3.5 (3.5-5.0) g/dL 12/03/16 Range/Units 18:45 WBC (3.8-10.6) k/uL RBC (4.30-5.90) m/uL Hgb (13.0-17.5) gm/dL Hct (39.0-53.0) % MCV (80.0-100.0) fL MCH (25.0-35.0) pg MCHC (31.0-37.0) g/dL RDW (11.5-15.5) % Plt Count (150-450) k/uL Neutrophils % % Lymphocytes % % Monocytes % % Eosinophils % % Basophils % % Neutrophils # (1.3-7.7) k/uL Lymphocytes # (1.0-4.8) k/uL Monocytes # (0-1.0) k/uL Eosinophils # (0-0.7) k/uL Basophils # (0-0.2) k/uL PT 9.8 (9.0-12.0) sec INR 1.0 (<1.2) APTT 22.8 (22.0-30.0) sec Sodium (137-145) mmol/L Potassium (3.5-5.1) mmol/L Chloride (98-107) mmol/L Carbon Dioxide (22-30) mmol/L Anion Gap mmol/L BUN (9-20) mg/dL Creatinine (0.66-1.25) mg/dL Est GFR (MDRD) Af Amer (>60 ml/min/1.73 sqM) Est GFR (MDRD) Non-Af (>60 ml/min/1.73 sqM) Glucose (74-99) mg/dL Calcium (8.4-10.2) mg/dL Phosphorus (2.5-4.5) mg/dL Magnesium (1.6-2.3) mg/dL Total Bilirubin (0.2-1.3) mg/dL AST (17-59) U/L ALT (21-72) U/L Alkaline Phosphatase (38-126) U/L Total Creatine Kinase (55-170) U/L CK-MB (CK-2) (0.0-2.4) ng/mL CK-MB (CK-2) Rel Index Troponin I (0.000-0.034) ng/mL Total Protein (6.3-8.2) g/dL Albumin (3.5-5.0) g/dL - Radiology Data Radiology results: report reviewed (CT brain is negative), image reviewed Disposition Clinical Impression: Hypertension, Pancreatic mass, Abdominal pain Disposition: HOME SELF-CARE Condition: Good Instructions: Dizziness (ED) Referrals: Nedra Leonard DO [Primary Care Provider] - 1-2 days
[2016-12-03 21:04] VITALS: BP 122/56; PULSE 67; RESP 18; TEMP 98
== END 2016-12-03 21:05 | disposition home or self-care (01) ==
LOC: EC 17:55
DX: I10 Essential (primary) hypertension (principal); K86.9 Disease of pancreas, unspecified; I25.10 Atherosclerotic heart disease of native coronary artery without angina pectoris; J44.9 Chronic obstructive pulmonary disease, unspecified; E11.9 Type 2 diabetes mellitus without complications; I25.2 Old myocardial infarction; F41.9 Anxiety disorder, unspecified; F32.9 Major depressive disorder, single episode, unspecified; G47.30 Sleep apnea, unspecified; Z99.89 Dependence on other enabling machines and devices; Z95.5 Presence of coronary angioplasty implant and graft; Z95.1 Presence of aortocoronary bypass graft; Z87.891 Personal history of nicotine dependence; Z79.4 Long term (current) use of insulin; Z79.82 Long term (current) use of aspirin; Z79.51 Long term (current) use of inhaled steroids; Z79.899 Other long term (current) drug therapy; Z88.2 Allergy status to sulfonamides; Z88.8 Allergy status to other drugs, medicaments and biological substances
CPT/HCPCS: 36415; 93005; 80053; 82550; 82553; 83735; 84100; 84484; 85025; 85610; 85730; 70450; 99285; 96374; 96361 ×2; J1170

== ENCOUNTER 2017-01-12 13:17 | Observation (INO) | payer MEDICARE ==
[2017-01-12] MEDS ORDERED: ASPIRIN 81 MG PO STA (13:41)
[2017-01-12] MEDS ORDERED: NITROGLYCERIN OINT 1 INCH/GM PACKET TOPICAL STA (13:41)
--- NOTE | 2017-01-12 13:45 | ED ---
General Adult HPI - General Chief complaint: Chest Pain Stated complaint: chest pain/high BP Time Seen by Provider: 01/12/17 13:26 Source: patient, family, RN notes reviewed Mode of arrival: wheelchair Limitations: no limitations - History of Present Illness Initial comments: Patient is a pleasant 66-year-old male presenting to the emergency department with concerns for blood pressure and chest discomfort. Patient did check his blood pressure and it was high at 180/80. Chest discomfort started around 3 AM and has been mild and persistent. Discomfort feels like an ache. Discomfort is more the right-sided chest and there is some radiation to the back as well. Symptoms do feel similar to his previous heart attack. Patient did have some mild dyspnea earlier. Patient was also somewhat sweaty earlier. Patient was also somewhat nauseated earlier. 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 No new neurological symptoms. - Related Data Home Medications Medication Instructions Recorded Confirmed Nitroglycerin Sl Tabs [Nitrostat] 0.4 mg SUBLINGUAL Q5M PRN 07/05/14 01/12/17 Multivit-Min/FA/Lycopen/Lutein 1 tab PO DAILY 10/04/15 01/12/17 [Centrum Silver Tablet] Gabapentin [Neurontin] 900 mg PO TID 06/07/16 01/12/17 Glimepiride [Amaryl] 2 mg PO BID 07/12/16 01/12/17 traMADol HCL [Ultram] 50 mg PO DAILY PRN 08/14/16 01/12/17 Aspirin [Adult Low Dose Aspirin EC] 81 mg PO DAILY 10/13/16 01/12/17 Amitriptyline HCl [Elavil] 100 mg PO HS 01/12/17 01/12/17 Carvedilol [Coreg] 3.125 mg PO BID 01/12/17 01/12/17 Chlorzoxazone [Parafon Forte Dsc] 500 mg PO TID 01/12/17 01/12/17 Clopidogrel [Plavix] 75 mg PO DAILY 01/12/17 01/12/17 Fenofibrate Nanocrystallized 145 mg PO DAILY 01/12/17 01/12/17 [Tricor] Insulin Glargine,Hum.rec.anlog 30 units SQ HS 01/12/17 01/12/17 [Toujeo Solostar] Metoprolol Tartrate [Lopressor] 50 mg PO BID 01/12/17 01/12/17 PARoxetine [Paxil] 20 mg PO DAILY 01/12/17 01/12/17 Sennosides [Senna] 8.6 mg PO DAILY 01/12/17 01/12/17 Spironolact/Hydrochlorothiazid 1 tab PO DAILY 01/12/17 01/12/17 [Aldactazide 25-25 MG] Temazepam [Restoril] 30 mg PO HS PRN 01/12/17 01/12/17 cloNIDine HCL [Catapres] 0.05 mg PO BID 01/12/17 01/12/17 Previous Rx's Medication Instructions Recorded Lisinopril [Zestril] 10 mg PO BID #60 tab 10/14/15 Pantoprazole [Protonix] 40 mg PO DAILY #30 tablet. 10/14/15 amLODIPine [Norvasc] 5 mg PO BID #60 tab 10/14/15 Atorvastatin [Lipitor] 80 mg PO HS #1 tab 06/09/16 Allergies Allergy/AdvReac Type Severity Reaction Status Date / Time atorvastatin calcium Allergy muscle pain Verified 01/12/17 15:01 [From Lipitor] fenofibrate nanocrystallized Allergy muscle pain Verified 01/12/17 15:01 [From Tricor] fenofibrate,micronized Allergy Unknown Verified 01/12/17 15:01 [From Tricor] rosuvastatin calcium Allergy muscle pain Verified 01/12/17 15:01 [From Crestor] sulfamethoxazole Allergy gi upset Verified 01/12/17 15:01 [From Bactrim] metformin AdvReac Nausea & Verified 01/12/17 15:01 Vomiting trimethoprim [From Bactrim] AdvReac Unknown Verified 01/12/17 15:01 rynatan Allergy Unknown Uncoded 01/12/17 13:22 Review of Systems ROS Statement: Those systems with pertinent positive or pertinent negative responses have been documented in the HPI. ROS Other: All systems not noted in ROS Statement are negative. Constitutional: Denies: fever Eyes: Denies: eye pain ENT: Denies: ear pain Respiratory: Reports: dyspnea. Denies: cough Cardiovascular: Reports: chest pain Endocrine: Denies: fatigue Gastrointestinal: Denies: abdominal pain Genitourinary: Denies: dysuria Musculoskeletal: Denies: back pain Skin: Denies: rash Neurological: Denies: headache Past Medical History Past Medical History: Coronary Artery Disease (CAD), COPD, Diabetes Mellitus, Hyperlipidemia, Hypertension, Myocardial Infarction ([place]), Osteoarthritis ([place]), Sleep Apnea/CPAP/BIPAP, Vascular Disorder Additional Past Medical History / Comment(s): chronic back pain, no cpap, HX OF episodes of bloody stools-now resolved, pancreatic mass, was told benign, dr rodriguez, states [place] post carotid sx Last Myocardial Infarction Date:: 2016 History of Any Multi-Drug Resistant Organisms: None Reported Past Surgical History: Back Surgery, Coronary Bypass/CABG, Heart Catheterization With Stent, Hernia Repair Additional Past Surgical History / Comment(s): rt carotid endartectomy, aortic VALVE replacement, CABG x3, back surgery x3, stent x1 Past Anesthesia/Blood Transfusion Reactions: Previous Problems w/ Anesthesia Additional Past Anesthesia/Blood Transfusion Reaction / Comment(s): states "feels like he has ants crawling on his face with anesthesia" Date of Last Stent Placement:: 1994 Past Psychological History: Anxiety, Depression Smoking Status: Former smoker Past Alcohol Use History: None Reported Past Drug Use History: None Reported - Past Family History Father Family Medical History: Cancer (pancreatic) Additional Family Medical History / Comment(s): in MVA Sister(s) Family Medical History: Cancer Additional Family Medical History / Comment(s): BONE Mother Family Medical History: Myocardial Infarction ([place]) General Exam Limitations: no limitations General appearance: alert, in no apparent distress Head exam: Present: atraumatic Eye exam: Present: normal appearance, PERRL ENT exam: Present: normal oropharynx Neck exam: Present: normal inspection Respiratory exam: Present: normal lung sounds bilaterally Cardiovascular Exam: Present: regular rate, normal rhythm Expanded Peripheral pulses: 2+: Radial (R), Radial (L), Posterior Tibialis (R), Posterior Tibialis (L) GI/Abdominal exam: Present: soft. Absent: tenderness Extremities exam: Present: normal inspection. Absent: pedal edema, calf tenderness Neurological exam: Present: alert, oriented X3, motor sensory deficit (Minimal left facial droop. No extremity weakness.) Psychiatric exam: Present: normal affect, normal mood Skin exam: Present: normal color Course Vital Signs 01/12/17 01/12/17 13:20 14:30 Temperature 97 F L Pulse Rate 84 68 Respiratory 18 16 Rate Blood Pressure 198/84 135/63 O2 Sat by Pulse 95 96 Oximetry EKG Findings - EKG Comments: EKG Findings:: Normal sinus rhythm 71. GA 134. QRS 100. QT 412. QTC 447. Normal axis. Normal QRS. Nonspecific T waves. Medical Decision Making - Medical Decision Making Patient reexamined and still having some discomfort in his chest. Patient also requests pain medication for his chronic pain. Patient and family updated on results and plan. Case was discussed in detail with Dr. Baum, who will admit for hospital call. - Lab Data Result diagrams: 01/12/17 13:25 01/12/17 13:25 Lab Results 01/12/17 01/12/17 01/12/17 Range/Units 13:25 13:25 13:25 WBC 9.7 (3.8-10.6) k/uL RBC 4.68 (4.30-5.90) m/uL Hgb 12.7 L (13.0-17.5) gm/dL Hct 39.3 (39.0-53.0) % MCV 84.0 (80.0-100.0) fL MCH 27.2 (25.0-35.0) pg MCHC 32.4 (31.0-37.0) g/dL RDW 15.3 (11.5-15.5) % Plt Count 284 (150-450) k/uL Neutrophils % 70 % Lymphocytes % 21 % Monocytes % 6 % Eosinophils % 1 % Basophils % 1 % Neutrophils # 6.8 (1.3-7.7) k/uL Lymphocytes # 2.0 (1.0-4.8) k/uL Monocytes # 0.5 (0-1.0) k/uL Eosinophils # 0.1 (0-0.7) k/uL Basophils # 0.1 (0-0.2) k/uL PT (9.0-12.0) sec INR (<1.2) APTT (22.0-30.0) sec D-Dimer (<0.60) mg/L FEU Sodium 139 (137-145) mmol/L Potassium 4.2 (3.5-5.1) mmol/L Chloride 104 (98-107) mmol/L Carbon Dioxide 27 (22-30) mmol/L Anion Gap 8 mmol/L BUN 14 (9-20) mg/dL Creatinine 0.77 (0.66-1.25) mg/dL Est GFR (MDRD) Af Amer >60 (>60 ml/min/1.73 sqM) Est GFR (MDRD) Non-Af >60 (>60 ml/min/1.73 sqM) Glucose 233 H (74-99) mg/dL Calcium 9.5 (8.4-10.2) mg/dL Magnesium 1.4 L (1.6-2.3) mg/dL Total Bilirubin 0.3 (0.2-1.3) mg/dL AST 60 H (17-59) U/L ALT 104 H (21-72) U/L Alkaline Phosphatase 74 (38-126) U/L Total Creatine Kinase 70 (55-170) U/L CK-MB (CK-2) 1.5 (0.0-2.4) ng/mL CK-MB (CK-2) Rel Index 2.1 Troponin I <0.012 (0.000-0.034) ng/mL NT-Pro-B Natriuret Pep pg/mL Total Protein 6.7 (6.3-8.2) g/dL Albumin 4.0 (3.5-5.0) g/dL 01/12/17 01/12/17 Range/Units 13:25 13:25 WBC (3.8-10.6) k/uL RBC (4.30-5.90) m/uL Hgb (13.0-17.5) gm/dL Hct (39.0-53.0) % MCV (80.0-100.0) fL MCH (25.0-35.0) pg MCHC (31.0-37.0) g/dL RDW (11.5-15.5) % Plt Count (150-450) k/uL Neutrophils % % Lymphocytes % % Monocytes % % Eosinophils % % Basophils % % Neutrophils # (1.3-7.7) k/uL Lymphocytes # (1.0-4.8) k/uL Monocytes # (0-1.0) k/uL Eosinophils # (0-0.7) k/uL Basophils # (0-0.2) k/uL PT 9.7 (9.0-12.0) sec INR 0.9 (<1.2) APTT 22.0 (22.0-30.0) sec D-Dimer 0.66 H (<0.60) mg/L FEU Sodium (137-145) mmol/L Potassium (3.5-5.1) mmol/L Chloride (98-107) mmol/L Carbon Dioxide (22-30) mmol/L Anion Gap mmol/L BUN (9-20) mg/dL Creatinine (0.66-1.25) mg/dL Est GFR (MDRD) Af Amer (>60 ml/min/1.73 sqM) Est GFR (MDRD) Non-Af (>60 ml/min/1.73 sqM) Glucose (74-99) mg/dL Calcium (8.4-10.2) mg/dL Magnesium (1.6-2.3) mg/dL Total Bilirubin (0.2-1.3) mg/dL AST (17-59) U/L ALT (21-72) U/L Alkaline Phosphatase (38-126) U/L Total Creatine Kinase (55-170) U/L CK-MB (CK-2) (0.0-2.4) ng/mL CK-MB (CK-2) Rel Index Troponin I (0.000-0.034) ng/mL NT-Pro-B Natriuret Pep 295 pg/mL Total Protein (6.3-8.2) g/dL Albumin (3.5-5.0) g/dL - Radiology Data Radiology results: report reviewed (Computed tomography scan of the chest shows no pulmonary embolism. Possible pulmonary artery hypertension. Aorta without significant abnormality.), image reviewed (Chest x-ray shows no acute process.) Critical Care Time Critical Care Time: Yes Total Critical Care Time: 31 Disposition Clinical Impression: Unstable angina pectoris Disposition: ADMITTED IP TO THIS HOSP Condition: Serious Referrals: Nedra Leonard DO [Primary Care Provider] - 1-2 days
[2017-01-12 13:57] LABS: Basophils # (A) 0.1 k/uL (0-0.2); Basophils % (A) 1 %; CH 26.3; CHCM 31.5; Eosinophils # (A) 0.1 k/uL (0-0.7); Eosinophils % (A) 1 %; HCT 39.3 % (39.0-53.0); HGB 12.7 gm/dL (13.0-17.5); Luc # (Auto) 0.22; Luc % (Auto) 2; Lymphocytes % (A) 21 %; MCH 27.2 pg (25.0-35.0); MCHC 32.4 g/dL (31.0-37.0); Mean Platelet Volume 8.3; Monocytes # (A) 0.5 k/uL (0-1.0); Monocytes % (A) 6 %; Neutrophils # (A) 6.8 k/uL (1.3-7.7); Neutrophils % (A) 70 %; RBC 4.68 m/uL (4.30-5.90); RDW 15.3 % (11.5-15.5); WBC 9.7 k/uL (3.8-10.6)
[2017-01-12 14:06] LABS: ALT 104 U/L (21-72); AST 60 U/L (17-59); Alkaline Phosphatase 74 U/L (38-126); Anion Gap 8 mmol/L; Blood Urea Nitrogen 14 mg/dL (9-20); Calcium 9.5 mg/dL (8.4-10.2); Carbon Dioxide 27 mmol/L (22-30); Chloride 104 mmol/L (98-107); Glucose 233 mg/dL (74-99); Magnesium 1.4 mg/dL (1.6-2.3); Non-African American GFR(MDRD) >60 (>60 ml/min/1.73 sqM); Potassium 4.2 mmol/L (3.5-5.1); Sodium 139 mmol/L (137-145); Total Bilirubin 0.3 mg/dL (0.2-1.3); Total Protein 6.7 g/dL (6.3-8.2)
[2017-01-12 14:08] LABS: Creatine Kinase 70 U/L (55-170)
[2017-01-12 14:09] LABS: INR 0.9 (<1.2); Prothrombin Time 9.7 sec (9.0-12.0)
--- NOTE | 2017-01-12 14:15 | XR ---
EXAMINATION TYPE: XR chest 2V DATE OF EXAM: 01/12/2017 COMPARISON: Prior chest x-ray 07/12/2016 HISTORY: Chest pain, COPD TECHNIQUE: Frontal and lateral views of the chest are obtained. FINDINGS: There is no focal air space opacity, pleural effusion, or pneumothorax seen. The lungs are stable. There are overlying cardiac leads. Patient is post median sternotomy. The cardiac silhouett e size is stable. The osseous structures are intact. IMPRESSION: No acute cardiopulmonary process.
[2017-01-12 14:19] LABS: Creatine Kinase MB 1.5 ng/mL (0.0-2.4); Troponin I <0.012 ng/mL (0.000-0.034)
[2017-01-12] MEDS ORDERED: RX INFO: IV CONTRAST WAS GIVEN 1 EACH MISC MISCELLANE PRN (14:23)
[2017-01-12] MEDS ORDERED: MAGNESIUM SULFATE-D5W PMX 1 GM in DEXTROSE/WATER 1 100ML.BAG IVPB ONE (14:23)
--- NOTE | 2017-01-12 15:18 | CT ---
EXAMINATION TYPE: CT angio chest DATE OF EXAM: 01/12/2017 COMPARISON: Prior CTA chest 12/19/2015 HISTORY: Chest pain and SOB. CT DLP: 513.9 mGycm Automated exposure control for dose reduction was used. CONTRAST: CTA scan of the thorax is performed with IV Contrast, patient injected with 70 mL of Omnipaque 350, p ulmonary embolism protocol. MIP images are created and reviewed. 3D reconstructed images are create d on an independent workstation and reviewed. FINDINGS: LUNGS: The lungs are grossly clear, there is no concerning parenchymal mass or nodule identified. T here is no pleural effusion or pneumothorax seen. The tracheobronchial tree is patent. AORTA: No additional significant abnormality is seen. MEDIASTINUM: There is satisfactory enhancement of the pulmonary artery and its branches, there is no CT evidence for pulmonary embolism. There are no greater than 1 cm hilar or mediastinal lymph nodes. Coronary artery calcifications are again noted. No pericardial effusion is seen. Pulmonary artery a ppears somewhat prominently, correlate for possible pulmonary artery hypertension, heart size is stab le OTHER: The spleen is stable and enlarged. Findings of hepatomegaly and hepatic steatosis again noted . Posterior extension of endplate disc complex resulting in spinal stenosis again noted in the lower thoracic spine. Patient is post median sternotomy. Nodularity of the thyroid again seen. IMPRESSION: NO EVIDENT PULMONARY EMBOLISM. POSSIBLE PULMONARY ARTERY HYPERTENSION.
[2017-01-12] MEDS ORDERED: NITROGLYCERIN SL TABS 0.4 MG TAB SUBLINGUAL STA (15:45)
[2017-01-12] MEDS ORDERED: HYDROcodone/APAP 5-325MG 1 EACH TAB PO STA (15:45)
[2017-01-12] MEDS ORDERED: NITROGLYCERIN SL TABS 0.4 MG TAB SUBLINGUAL PRN ×2 (15:49→16:09)
[2017-01-12] MEDS ORDERED: HEPARIN SODIUM,PORCINE 5,000 UNIT/ML 1 ML VIAL IV ONE (15:49)
[2017-01-12] MEDS ORDERED: HEPARIN SODIUM,PORCINE 5,000 UNIT/ML 1 ML VIAL IV PRN (15:49)
[2017-01-12] MEDS ORDERED: HEPARIN SODIUM,PORCINE/D5W PMX 25,000 UNIT in DEXTROSE/WATER 1 500ML.BAG IV SCH (16:00)
[2017-01-12] MEDS ORDERED: TEMAZEPAM 30 MG CAP PO PRN (16:09)
[2017-01-12] MEDS ORDERED: traMADol 50 MG TAB PO PRN (16:09)
--- NOTE | 2017-01-12 16:09 | P.HPIM ---
History of Present Illness She is a pleasant 61-year-old gentleman with known history of severe peripheral vascular disease could not disease CABG in the past and a pancreatic mass came in with complaints of chest been restarted at a morning pressure-like sensation about 9 x 10 in severity lasted for 45 minutes radiating to the left arm not associated with the nausea or diaphoresis patient is also complaining of some pain in the right axillary region which is sharp in nature patient had a CT angios the chest which did not show any pulmonary embolism patient's chest pain is in not associated shortness of breath patient is also complaining of generalized body aches and flulike symptoms, patient denied any fever chills cough runny nose, patient has mildly elevated liver enzymes I'll obtain not some of the liver as well as the gallbladder although patient does not have any tenderness in the right upper quadrant will also obtain hepatitis panel. Patient's chest pain is nonpleuritic not associated with food Review of Systems REVIEW OF SYSTEMS: CONSTITUTIONAL: No fever, no malaise, no fatigue. HEENT: No recent visual problems or hearing problems. Denied any sore throat. CARDIOVASCULAR: No orthopnea, PND, no palpitations, no syncope. PULMONARY: No shortness of breath, no cough, no hemoptysis. GASTROINTESTINAL: No diarrhea, no nausea, no vomiting, no abdominal pain. Normoactive bowel sounds. NEUROLOGICAL: No headaches, no weakness, no numbness. HEMATOLOGICAL: Denies any bleeding or petechiae. GENITOURINARY: Denies any burning micturition, frequency, or urgency. MUSCULOSKELETAL/RHEUMATOLOGICAL: Denies any joint pain, swelling, or any muscle pain. ENDOCRINE: Denies any polyuria or polydipsia. The rest of the 14-point review of systems is negative. Past Medical History Past Medical History: Coronary Artery Disease (CAD), COPD, Diabetes Mellitus, Hyperlipidemia, Hypertension, Myocardial Infarction ([place]), Osteoarthritis (OA), Sleep Apnea/CPAP/BIPAP, Vascular Disorder Additional Past Medical History / Comment(s): chronic back pain, no cpap, HX OF episodes of bloody stools-now resolved, pancreatic mass, was told benign, dr rodriguez, states [place] post carotid sx Last Myocardial Infarction Date:: 2016 History of Any Multi-Drug Resistant Organisms: None Reported Past Surgical History: Back Surgery, Coronary Bypass/CABG, Heart Catheterization With Stent, Hernia Repair Additional Past Surgical History / Comment(s): rt carotid endartectomy, aortic VALVE replacement, CABG x3, back surgery x3, stent x1 Past Anesthesia/Blood Transfusion Reactions: Previous Problems w/ Anesthesia Additional Past Anesthesia/Blood Transfusion Reaction / Comment(s): states "feels like he has ants crawling on his face with anesthesia" Date of Last Stent Placement:: 1994 Past Psychological History: Anxiety, Depression Smoking Status: Former smoker Past Alcohol Use History: None Reported Past Drug Use History: None Reported - Past Family History Father Family Medical History: Cancer (pancreatic) Additional Family Medical History / Comment(s): in MVA Sister(s) Family Medical History: Cancer Additional Family Medical History / Comment(s): BONE Mother Family Medical History: Myocardial Infarction ([place]) Medications and Allergies Home Medications Medication Instructions Recorded Confirmed Type Nitroglycerin Sl Tabs [Nitrostat] 0.4 mg SUBLINGUAL Q5M PRN 07/05/14 01/12/17 History Multivit-Min/FA/Lycopen/Lutein 1 tab PO DAILY 10/04/15 01/12/17 History [Centrum Silver Tablet] Lisinopril [Zestril] 10 mg PO BID #60 tab 10/14/15 01/12/17 Rx Pantoprazole [Protonix] 40 mg PO DAILY #30 tablet.dr 10/14/15 01/12/17 Rx amLODIPine [Norvasc] 5 mg PO BID #60 tab 10/14/15 01/12/17 Rx Gabapentin [Neurontin] 900 mg PO TID 06/07/16 01/12/17 History Atorvastatin [Lipitor] 80 mg PO HS #1 tab 06/09/16 01/12/17 Rx Glimepiride [Amaryl] 2 mg PO BID 07/12/16 01/12/17 History traMADol HCL [Ultram] 50 mg PO DAILY PRN 08/14/16 01/12/17 History Aspirin [Adult Low Dose Aspirin EC] 81 mg PO DAILY 10/13/16 01/12/17 History Amitriptyline HCl [Elavil] 100 mg PO HS 01/12/17 01/12/17 History Carvedilol [Coreg] 3.125 mg PO BID 01/12/17 01/12/17 History Chlorzoxazone [Parafon Forte Dsc] 500 mg PO TID 01/12/17 01/12/17 History Clopidogrel [Plavix] 75 mg PO DAILY 01/12/17 01/12/17 History Fenofibrate Nanocrystallized 145 mg PO DAILY 01/12/17 01/12/17 History [Tricor] Insulin Glargine,Hum.rec.anlog 30 units SQ HS 01/12/17 01/12/17 History [Toujeo Solostar] Metoprolol Tartrate [Lopressor] 50 mg PO BID 01/12/17 01/12/17 History PARoxetine [Paxil] 20 mg PO DAILY 01/12/17 01/12/17 History Sennosides [Senna] 8.6 mg PO DAILY 01/12/17 01/12/17 History Spironolact/Hydrochlorothiazid 1 tab PO DAILY 01/12/17 01/12/17 History [Aldactazide 25-25 MG] Temazepam [Restoril] 30 mg PO HS PRN 01/12/17 01/12/17 History cloNIDine HCL [Catapres] 0.05 mg PO BID 01/12/17 01/12/17 History Allergies Allergy/AdvReac Type Severity Reaction Status Date / Time atorvastatin calcium Allergy muscle pain Verified 01/12/17 15:01 [From Lipitor] fenofibrate nanocrystallized Allergy muscle pain Verified 01/12/17 15:01 [From Tricor] fenofibrate,micronized Allergy Unknown Verified 01/12/17 15:01 [From Tricor] rosuvastatin calcium Allergy muscle pain Verified 01/12/17 15:01 [From Crestor] sulfamethoxazole Allergy gi upset Verified 01/12/17 15:01 [From Bactrim] metformin AdvReac Nausea & Verified 01/12/17 15:01 Vomiting trimethoprim [From Bactrim] AdvReac Unknown Verified 01/12/17 15:01 rynatan Allergy Unknown Uncoded 01/12/17 13:22 Physical Exam Vitals: Vital Signs Temp Pulse Resp BP Pulse Ox 01/12/17 14:30 68 16 135/63 96 01/12/17 13:20 97 F L 84 18 198/84 95 Intake and Output 01/12/17 01/12/17 01/12/17 06:59 14:59 22:59 Other: Weight 105.687 kg Patient Weight 01/13/17 06:59 Weight 105.687 kg PHYSICAL EXAMINATION: GENERAL: The patient is alert and oriented x3, not in any acute distress. Obese HEENT: Pupils are round and equally reacting to light. EOMI. No scleral icterus. No conjunctival pallor. Normocephalic, atraumatic. No pharyngeal erythema. No thyromegaly. CARDIOVASCULAR: S1 and S2 present. No murmurs, rubs, or gallops. PULMONARY: Chest is clear to auscultation, no wheezing or crackles. ABDOMEN: Soft, nontender, nondistended, normoactive bowel sounds. No palpable organomegaly. MUSCULOSKELETAL: No joint swelling or deformity. EXTREMITIES: No cyanosis, clubbing, or pedal edema. NEUROLOGICAL: Gross neurological examination did not reveal any focal deficits. SKIN: No rashes. Results CBC & Chem 7: 01/12/17 13:25 01/12/17 13:25 Labs: Abnormal Lab Results - Last 24 Hours (Table) 01/12/17 01/12/17 01/12/17 Range/Units 13:25 13:25 13:25 Hgb 12.7 L (13.0-17.5) gm/dL D-Dimer 0.66 H (<0.60) mg/L FEU Glucose 233 H (74-99) mg/dL Magnesium 1.4 L (1.6-2.3) mg/dL AST 60 H (17-59) U/L ALT 104 H (21-72) U/L Assessment and Plan Plan: 1 chest pain: Atypical chest pain, patient does have significant history of coronary artery disease we'll rule out acute coronary syndromes and unstable angina. EKG showed some flattening of T waves I did not compare the present EKG with older ones troponin is negative #2 carotid disease and CABG in the past. #3 COPD without any acute exacerbation #4 type 2 diabetes mellitus patient will be started on his home regimen patient blood sugars are bit elevated. #5 osteoarthritis #6 sleep apnea uses CPAP machine at home. #7 osteoarthritis #8 hypertension #9 hyperlipidemia #10 severe peripheral vascular disease #11 history of pancreatic mass which was removed #12 elevated liver enzymes further management as mentioned above For above-mentioned chronic medical problems patient will be continued on home medications
--- NOTE | 2017-01-12 17:09 | US ---
EXAMINATION TYPE: US gallbladder DATE OF EXAM: 01/12/2017 COMPARISON: CT 2017 CLINICAL HISTORY: elevated liver enzymes. Chest pain EXAM MEASUREMENTS: Liver Length: 20.1 cm Gallbladder Wall: 0.2 cm CBD: 0.5 cm Right Kidney: 10.9 x 5.7 x 5.8 cm Mild hepatomegaly. Pancreas: obscured by overlying bowel gas Liver: enlarged, increased attenuation, increased echogenicity throughout with 1.9cm hypoechoic area anterior to gallbladder Gallbladder: wnl Evidence for sonographic Edwards's sign: no CBD: visualized portions wnl, limited by overlying bowel gas Right Kidney: 1.8 x 1.5 x 1.6cm hypoechoic area mid pole, inferior pole limited by overlying bowel g as IMPRESSION: No gallstones or dilated ducts. Hypoechoic area in the interpolar right kidney is probabl y related to a column of Tony. No focal liver defect. Mild hepatomegaly.
[2017-01-12 18:09] LABS: Glucose,Whole Blood 153 mg/dL (75-99)
[2017-01-12] MEDS: NITROGLYCERIN OINT 1 INCH/GM PACKET TOPICAL SCH ×2 (19:50→23:28)
[2017-01-12 20:15] LABS: Creatine Kinase 63 U/L (55-170)
[2017-01-12 20:29] LABS: Creatine Kinase MB 1.3 ng/mL (0.0-2.4); Troponin I <0.012 ng/mL (0.000-0.034)
[2017-01-12] MEDS: cloNIDine HCL 0.1 MG TAB PO SCH (20:37)
[2017-01-12] MEDS: CYCLOBENZAPRINE 5 MG TAB PO SCH (20:38)
[2017-01-12] MEDS: GABAPENTIN 300 MG CAP PO SCH (20:38)
[2017-01-12] MEDS: amLODIPine 5 MG TAB PO SCH (20:41)
[2017-01-12] MEDS: LISINOPRIL 10 MG TAB PO SCH (20:41)
[2017-01-12] MEDS: CARVEDILOL 3.125 MG TAB PO SCH (20:42)
[2017-01-12] MEDS: GLIMEPIRIDE 2 MG TAB PO SCH (20:42)
[2017-01-12] MEDS ORDERED: ATORVASTATIN 80 MG TAB PO SCH (21:00)
[2017-01-12] MEDS ORDERED: INSULIN GLARGINE 100 UNIT/ML 10 ML VIAL SQ SCH (21:00)
[2017-01-12] MEDS ORDERED: AMITRIPTYLINE HCL 50 MG TAB PO SCH (21:00)
[2017-01-12 21:05] LABS: Glucose,Whole Blood 189 mg/dL (75-99)
[2017-01-12] MEDS: HYDROcodone/APAP 10-325MG 1 EACH TAB PO PRN (23:30)
[2017-01-13 01:22] LABS: Creatine Kinase 58 U/L (55-170)
[2017-01-13 01:35] LABS: Creatine Kinase MB 1.2 ng/mL (0.0-2.4); Troponin I <0.012 ng/mL (0.000-0.034)
[2017-01-13 04:24] LABS: CH 26.5; HCT 37.7 % (39.0-53.0); HDW 2.46; Hypochromasia Slight; MCH 27.4 pg (25.0-35.0); MCHC 31.9 g/dL (31.0-37.0); MCV 86.1 fL (80.0-100.0); Mean Platelet Volume 8.3; RBC 4.38 m/uL (4.30-5.90); RDW 15.6 % (11.5-15.5); WBC 7.6 k/uL (3.8-10.6)
[2017-01-13 04:40] LABS: ALT 87 U/L (21-72); AST 39 U/L (17-59); Alkaline Phosphatase 73 U/L (38-126); Anion Gap 7 mmol/L; Blood Urea Nitrogen 13 mg/dL (9-20); Calcium 9.5 mg/dL (8.4-10.2); Carbon Dioxide 28 mmol/L (22-30); Chloride 105 mmol/L (98-107); Cholesterol 185 mg/dL (<200); Glucose 202 mg/dL (74-99); HDL Cholesterol 33 mg/dL (40-60); Non-African American GFR(MDRD) >60 (>60 ml/min/1.73 sqM); Potassium 4.5 mmol/L (3.5-5.1); Sodium 140 mmol/L (137-145); Total Bilirubin 0.3 mg/dL (0.2-1.3); Total Protein 5.7 g/dL (6.3-8.2)
[2017-01-13] MEDS: NITROGLYCERIN OINT 1 INCH/GM PACKET TOPICAL SCH (06:05)
[2017-01-13] MEDS ORDERED: PANTOPRAZOLE 40 MG TABLET PO SCH (07:30)
[2017-01-13 07:38] LABS: Glucose,Whole Blood 198 mg/dL (75-99)
[2017-01-13] MEDS: HYDROcodone/APAP 10-325MG 1 EACH TAB PO PRN ×2 (08:32→17:26)
[2017-01-13] MEDS ORDERED: FENOFIBRATE 160 MG TAB PO SCH (09:00)
[2017-01-13] MEDS ORDERED: SPIRONOLACTONE-HCTZ 25-25MG 1 EACH TAB PO SCH (09:00)
[2017-01-13] MEDS ORDERED: ASPIRIN 325 MG TAB PO SCH (09:00)
[2017-01-13] MEDS ORDERED: PARoxetine 20 MG TAB PO SCH (09:00)
[2017-01-13] MEDS ORDERED: CLOPIDOGREL 75 MG TAB PO SCH (09:00)
[2017-01-13] MEDS ORDERED: SENNOSIDES 8.6 MG TAB PO SCH (09:00)
[2017-01-13] MEDS ORDERED: ASPIRIN 81 MG PO SCH (09:57)
[2017-01-13] MEDS: CARVEDILOL 3.125 MG TAB PO SCH (10:34)
[2017-01-13] MEDS: cloNIDine HCL 0.1 MG TAB PO SCH (10:34)
[2017-01-13] MEDS: amLODIPine 5 MG TAB PO SCH (10:34)
[2017-01-13] MEDS: CYCLOBENZAPRINE 5 MG TAB PO SCH ×2 (10:35→15:29)
[2017-01-13] MEDS: GABAPENTIN 300 MG CAP PO SCH ×2 (10:35→15:29)
[2017-01-13] MEDS: LISINOPRIL 10 MG TAB PO SCH (10:36)
[2017-01-13] MEDS: GLIMEPIRIDE 2 MG TAB PO SCH (10:36)
[2017-01-13 12:14] LABS: Glucose,Whole Blood 171 mg/dL (75-99)
--- NOTE | 2017-01-13 13:10 | P.CRDCN ---
History of Present Illness Consult date: 01/13/17 History of present illness: This is a 66-year-old male with past medical history significant for CAD with CABG, diabetes mellitus, hypertension, hyperlipidemia, peripheral vascular disease, sleep apnea, carotid artery disease, COPD and ischemic mesenteric artery. He is also a former smoker. His most recent cath was October 2015 reveals patent ALAN to LAD, SVG to ramus and SVG to RCA. He follows regularly with Dr. Timmons as an outpatient. We have been asked to see Mr. Alex in consultation for complaints of right sided chest pain. He states he woke up around 0300 with generalized body aches and noticed a discomfort in the right axilla and right chest with some radiation to the right upper back and shoulder. He complains of associated nausea and mild shortness of breath. He states the pain subsided on its own but he still feels generalized achiness. He denies palpitations, dizziness or vomiting. He is in no acute distress at the time of my exam. EKG reveals sinus mechanism with nonspecific T-wave abnormality not consistent with an acute coronary event. This is consistent with previous EKG's. Blood pressure 107/55 with a heart rate is 62. Hemoglobin 12.0, platelets 254, potassium 4.5, magnesium 1.4, cardiac enzymes negative 3, BUS and 13, creatinine 0.8. Triglycerides severely elevated at 644. Current cardiac medications include Lipitor 80 mg, fenofibrate, Catapres 0.05 mg twice a day, Norvasc 5 mg twice a day, spironolactone 25 mg daily, hydrochlorothiazide 25 mg daily, Lopressor 50 mg twice a day, lisinopril 10 mg twice a day, Plavix 75 mg daily, carvedilol 3.125 mg twice a day and aspirin 81 mg daily. Review of Systems CONSTITUTIONAL: Denies fever. Denies chills. EYES: Denies blurred vision. Denies vision changes. Denies eye pain. EARS, NOSE, MOUTH & THROAT: Denies headache. Denies sore throat. Denies ear pain. CARDIOVASCULAR: Signs of right-sided chest pain with associated shortness of breath. Denies orthopnea. Denies PND. Denies palpitations. RESPIRATORY: Denies cough. GASTROINTESTINAL: Complains of abdominal pain. Denies diarrhea. Denies constipation. Denies nausea. Denies vomiting. MUSCULOSKELETAL: Denies myalgias. INTEGUMENTARY: Denies pruitis. Denies rash. NEUROLOGIC: Denies numbness. Denies tingling. Denies weakness. PSYCHIATRIC: Denies anxiety. Denies depression. ENDOCRINE: Denies fatigue. Denies weight change. Denies polydipsia. Denies polyurina. GENITOURINARY: Denies burning, hematuria or urgency with micturation. HEMATOLOGIC: Denies history of anemia. Denies bleeding. Past Medical History Past Medical History: Coronary Artery Disease (CAD), COPD, Diabetes Mellitus, Hyperlipidemia, Hypertension, Myocardial Infarction ([place]), Osteoarthritis ([place]), Sleep Apnea/CPAP/BIPAP, Vascular Disorder Additional Past Medical History / Comment(s): chronic back pain, no cpap, HX OF episodes of bloody stools-now resolved, pancreatic mass, was told benign, dr rodriguez, states [place] post carotid sx,"lt carotid artery bkg 85%" Last Myocardial Infarction Date:: 2016 History of Any Multi-Drug Resistant Organisms: None Reported Past Surgical History: Back Surgery, Coronary Bypass/CABG, Heart Catheterization With Stent, Hernia Repair Additional Past Surgical History / Comment(s): rt carotid endartectomy,pt stated hadx2 cabg surguries: first one was 1 vessel and 2nd sx 2 vessels-denies any valve repalcements, , back surgery x3, heart cath stent x1 (1994) Past Anesthesia/Blood Transfusion Reactions: Previous Problems w/ Anesthesia Additional Past Anesthesia/Blood Transfusion Reaction / Comment(s): states "feels like he has ants crawling on his face with anesthesia" Date of Last Stent Placement:: 1994 Smoking Status: Former smoker - Past Family History Father Family Medical History: Cancer (pancreatic) Additional Family Medical History / Comment(s): in MVA Sister(s) Family Medical History: Cancer Additional Family Medical History / Comment(s): BONE Mother Family Medical History: Myocardial Infarction ([place]) Medications and Allergies Home Medications Medication Instructions Recorded Confirmed Type Nitroglycerin Sl Tabs [Nitrostat] 0.4 mg SUBLINGUAL Q5M PRN 07/05/14 01/12/17 History Multivit-Min/FA/Lycopen/Lutein 1 tab PO DAILY 10/04/15 01/12/17 History [Centrum Silver Tablet] Lisinopril [Zestril] 10 mg PO BID #60 tab 10/14/15 01/12/17 Rx Pantoprazole [Protonix] 40 mg PO DAILY #30 tablet. 10/14/15 01/12/17 Rx amLODIPine [Norvasc] 5 mg PO BID #60 tab 10/14/15 01/12/17 Rx Gabapentin [Neurontin] 900 mg PO TID 06/07/16 01/12/17 History Atorvastatin [Lipitor] 80 mg PO HS #1 tab 06/09/16 01/12/17 Rx Glimepiride [Amaryl] 2 mg PO BID 07/12/16 01/12/17 History traMADol HCL [Ultram] 50 mg PO DAILY PRN 08/14/16 01/12/17 History Aspirin [Adult Low Dose Aspirin EC] 81 mg PO DAILY 10/13/16 01/12/17 History Amitriptyline HCl [Elavil] 100 mg PO HS 01/12/17 01/12/17 History Carvedilol [Coreg] 3.125 mg PO BID 01/12/17 01/12/17 History Chlorzoxazone [Parafon Forte Dsc] 500 mg PO TID 01/12/17 01/12/17 History Clopidogrel [Plavix] 75 mg PO DAILY 01/12/17 01/12/17 History Fenofibrate Nanocrystallized 145 mg PO DAILY 01/12/17 01/12/17 History [Tricor] Hydrocodone/Acetaminophen [[place] 2 tab PO Q6H PRN 01/12/17 01/12/17 History 10-325] Insulin Glargine,Hum.rec.anlog 30 units SQ HS 01/12/17 01/12/17 History [Toujeo Solostar] Metoprolol Tartrate [Lopressor] 50 mg PO BID 01/12/17 01/12/17 History PARoxetine [Paxil] 20 mg PO DAILY 01/12/17 01/12/17 History Sennosides [Senna] 8.6 mg PO DAILY 01/12/17 01/12/17 History Spironolact/Hydrochlorothiazid 1 tab PO DAILY 01/12/17 01/12/17 History [Aldactazide 25-25 MG] Temazepam [Restoril] 30 mg PO HS PRN 01/12/17 01/12/17 History cloNIDine HCL [Catapres] 0.05 mg PO BID 01/12/17 01/12/17 History Allergies Allergy/AdvReac Type Severity Reaction Status Date / Time atorvastatin calcium Allergy muscle pain Verified 01/12/17 15:01 [From Lipitor] fenofibrate nanocrystallized Allergy muscle pain Verified 01/12/17 15:01 [From Tricor] fenofibrate,micronized Allergy Unknown Verified 01/12/17 15:01 [From Tricor] rosuvastatin calcium Allergy muscle pain Verified 01/12/17 15:01 [From Crestor] sulfamethoxazole Allergy gi upset Verified 01/12/17 15:01 [From Bactrim] metformin AdvReac Nausea & Verified 01/12/17 15:01 Vomiting trimethoprim [From Bactrim] AdvReac Unknown Verified 01/12/17 15:01 rynatan Allergy Unknown Uncoded 01/12/17 13:22 Physical Exam Vitals: Vital Signs Temp Pulse Pulse Resp BP BP Pulse Ox 01/13/17 08:00 97.6 F 59 L 18 116/59 93 L 01/13/17 04:00 97.6 F 64 16 131/58 94 L 01/12/17 23:44 16 01/12/17 23:37 62 16 120/51 95 01/12/17 20:00 97.7 F 67 18 132/61 95 01/12/17 16:50 64 17 152/67 94 L 01/12/17 15:49 97 01/12/17 14:30 68 16 135/63 96 01/12/17 13:20 97 F L 84 18 198/84 95 Intake and Output 01/12/17 01/13/17 01/13/17 22:59 06:59 14:59 Intake Total 360 194.667 Output Total 600 Balance 360 -405.333 Intake: Intake, IV Titration 194.667 Amount Heparin Sodium,Porcine/ 194.667 D5w Pmx 25,000 unit In Dextrose/Water 1 500ml. bag @ 20 mls/hr IV .Q24H [facility] Rx#:[id number] Oral 360 Output: Urine 600 Other: Weight 105.687 kg GENERAL: This is a 66-year-old -year-old male in no apparent distress at the time of my examination. HEENT: Head is atraumatic, normocephalic. Pupils are equal, round. Sclerae anicteric. Conjunctivae are clear. Mucous membranes of the mouth are moist. Neck is supple. There is no jugular venous distention. Positive bilateral carotid bruit is heard. LUNGS: Clear to auscultation no wheezes, rales or rhonchi. No chest wall tenderness is noted on palpation or with deep breathing. HEART: Regular rate and rhythm without murmurs, rubs or gallops. S1 and S2 heard. ABDOMEN: Soft, tender right upper quadrant, positive Edwards's. Bowel sounds are heard. No organomegaly noted. EXTREMITIES: Faint peripheral pulses with no evidence of peripheral edema and no calf tenderness noted. NEUROLOGIC: Patient is awake, alert and oriented x3. Results 01/13/17 03:29 01/13/17 03:29 Cardiac Enzymes 01/12/17 01/12/17 01/12/17 Range/Units 13:25 13:25 19:30 AST 60 H (17-59) U/L CK-MB (CK-2) 1.5 1.3 (0.0-2.4) ng/mL Troponin I <0.012 <0.012 (0.000-0.034) ng/mL 01/13/17 01/13/17 Range/Units 00:45 03:29 AST 39 (17-59) U/L CK-MB (CK-2) 1.2 (0.0-2.4) ng/mL Troponin I <0.012 (0.000-0.034) ng/mL Coagulation 01/12/17 01/13/17 01/13/17 Range/Units 13:25 00:45 03:29 PT 9.7 (9.0-12.0) sec APTT 22.0 24.8 24.7 (22.0-30.0) sec Lipids 01/13/17 Range/Units 03:29 Triglycerides 644 H (<150) mg/dL Cholesterol 185 (<200) mg/dL HDL Cholesterol 33 L (40-60) mg/dL CBC 01/12/17 01/13/17 Range/Units 13:25 03:29 WBC 9.7 7.6 (3.8-10.6) k/uL RBC 4.68 4.38 (4.30-5.90) m/uL Hgb 12.7 L 12.0 L (13.0-17.5) gm/dL Hct 39.3 37.7 L (39.0-53.0) % Plt Count 284 254 (150-450) k/uL Comprehensive Metabolic Panel 01/12/17 01/13/17 Range/Units 13:25 03:29 Sodium 139 140 (137-145) mmol/L Potassium 4.2 4.5 (3.5-5.1) mmol/L Chloride 104 105 (98-107) mmol/L Carbon Dioxide 27 28 (22-30) mmol/L BUN 14 13 (9-20) mg/dL Creatinine 0.77 0.80 (0.66-1.25) mg/dL Glucose 233 H 202 H (74-99) mg/dL Calcium 9.5 9.5 (8.4-10.2) mg/dL AST 60 H 39 (17-59) U/L ALT 104 H 87 H (21-72) U/L Alkaline Phosphatase 74 73 (38-126) U/L Total Protein 6.7 5.7 L (6.3-8.2) g/dL Albumin 4.0 3.4 L (3.5-5.0) g/dL Current Medications Generic Name Dose Route Start Last Admin Trade Name Freq PRN Reason Stop Dose Admin Hydrocodone Bitart/Acetaminophen 2 each 01/12/17 23:23 01/13/17 08:32 [place] 10 PO 2 each Q8H PRN Administration Pain Amitriptyline HCl 100 mg 01/12/17 21:00 01/12/17 20:41 Elavil PO 100 mg HS [facility] Administration Amlodipine Besylate 5 mg 01/12/17 21:00 01/13/17 10:34 Norvasc PO 5 mg BID [facility] Administration Aspirin 81 mg 01/13/17 09:57 Aspirin PO DAILY [facility] Atorvastatin Calcium 80 mg 01/12/17 21:00 01/12/17 20:38 Lipitor PO 80 mg HS [facility] Administration Carvedilol 3.125 mg 01/12/17 21:00 01/13/17 10:34 Coreg PO 3.125 mg BID [facility] Administration Clonidine 0.05 mg 01/12/17 21:00 01/13/17 10:34 Catapres PO 0.05 mg BID [facility] Administration Clopidogrel Bisulfate 75 mg 01/13/17 09:00 01/13/17 10:35 Plavix PO 75 mg DAILY [facility] Administration Cyclobenzaprine HCl 5 mg 01/12/17 22:00 01/13/17 10:35 Flexeril PO 5 mg TID [facility] Administration Fenofibrate 160 mg 01/13/17 09:00 01/13/17 10:35 Lofibra PO 160 mg DAILY [facility] Administration Gabapentin 900 mg 01/12/17 22:00 01/13/17 10:35 Neurontin PO 900 mg TID [facility] Administration Glimepiride 2 mg 01/12/17 21:00 01/13/17 10:36 Amaryl PO 2 mg BID [facility] Administration HCTZ/Spironolactone 1 each 01/13/17 09:00 01/13/17 10:37 Aldactazide 25-25mg PO 1 each DAILY [facility] Administration Insulin Glargine 30 unit 01/12/17 21:00 01/12/17 21:22 Lantus SQ 30 unit HS [facility] Administration Lisinopril 10 mg 01/12/17 21:00 01/13/17 10:36 Zestril PO 10 mg BID [facility] Administration Miscellaneous Information 1 each 01/12/17 14:23 01/12/17 15:10 Rx Info: Iv Contrast Was Given MISCELLANE 01/14/17 14:23 1 each DAILY PRN Administration Per Protocol Nitroglycerin 0.4 mg 01/12/17 15:49 Nitrostat SUBLINGUAL Q5M PRN Chest Pain Pantoprazole Sodium 40 mg 01/13/17 07:30 01/13/17 10:34 Protonix PO 40 mg [id number] [facility] Administration Paroxetine HCl 20 mg 01/13/17 09:00 01/13/17 10:37 Paxil PO 20 mg DAILY [facility] Administration Senna 8.6 mg 01/13/17 09:00 01/13/17 10:36 Senokot PO 8.6 mg DAILY [facility] Administration Temazepam 30 mg 01/12/17 16:09 Restoril PO HS PRN Insomnia Tramadol HCl 50 mg 01/12/17 16:09 Ultram PO DAILY PRN Pain Intake and Output 01/12/17 01/13/17 01/13/17 22:59 06:59 14:59 Intake Total 360 194.667 Output Total 600 Balance 360 -405.333 Intake: Intake, IV Titration 194.667 Amount Heparin Sodium,Porcine/ 194.667 D5w Pmx 25,000 unit In Dextrose/Water 1 500ml. bag @ 20 mls/hr IV .Q24H [facility] Rx#:[id number] Oral 360 Output: Urine 600 Other: Weight 105.687 kg 01/13/17 03:29 01/13/17 03:29 Assessment and Plan Assessment: ASSESSMENT 1. Right sided chest pain with shortness of breath 2. History of CAD with triple vessel CABG 3. Peripheral vascular disease 4. Carotid artery disease 5. Hypertension 6. Hyperlipidemia 7. Diabetes mellitus PLAN From cardiac perspective we will not pursue further cardiac workup at this time. His presentation is more related to abdominal etiology and may require further evaluation. Fenofibrate was added by Dr. Timmons as an outpatient in October and this should be continued. Nurse Practitioner note has been reviewed, I agree with a documented findings and plan of care. Patient was seen and examined.
[2017-01-13 16:04] VITALS: BP 140/70; PULSE 61; RESP 15; TEMP 98
[2017-01-13 16:52] LABS: Glucose,Whole Blood 196 mg/dL (75-99)
--- NOTE | 2017-01-13 17:32 | P.DS ---
Providers Date of admission: 01/12/17 15:49 01/12/17 15:49 Expected date of discharge: 01/13/17 Attending physician: Vesna Baum Consults: 01/12/17 15:49 Consult Physician Urgent Consulting Provider: Umesh Timmons Consult Reason/Comments: ua Do you want consulting provider notified?: Yes Primary care physician: Nedra Leonard Hospital Course: This is a 66-year-old male with past medical history significant for CAD with CABG, diabetes mellitus, hypertension, hyperlipidemia, peripheral vascular disease, sleep apnea, carotid artery disease, COPD and ischemic mesenteric artery. He is also a former smoker. His most recent cath was October 2015 reveals patent ALAN to LAD, SVG to ramus and SVG to RCA. He presented to the [facility] chief complaint of right-sided chest pain he said he woke up at 3 AM on 11/12/2016 with generalized body aches and discomfort with right-sided chest pain radiating to his back and shoulder associated with nausea and mild shortness of breath he presented to the emergency room where his blood pressures monthly 107/55 with a heart rate of 62 EKG showed nonspecific T-wave abnormalities not consistent with any ACS patient is admitted as observation unit for chest pain ACS workup patient was seen and evaluated by cardiology and which they pursued medical management and no further cardiac workup that his chest pain is actually abdominal etiology in origin as his pain subsided with PPIs. On day of discharge patient's symptoms of all resolved 1 chest pain: Atypical chest pain, patient does have significant history of coronary artery disease clear from cardiac standpoint no further neurological workup at this time patient treated for GERD and which is #2 carotid disease and CABG in the past. #3 COPD without any acute exacerbation #4 type 2 diabetes mellitus patient will be started on his home regimen patient blood sugars are bit elevated. #5 osteoarthritis #6 sleep apnea uses CPAP machine at home. #7 osteoarthritis #8 hypertension #9 hyperlipidemia #10 severe peripheral vascular disease #11 history of pancreatic mass which was removed #12 elevated liver enzymes further management as mentioned above For above-mentioned chronic medical problems patient will be continued on home medications Patient Condition at Discharge: Stable Plan - Discharge Summary Discharge Rx Participant: No New Discharge Prescriptions: New HYDROcodone/APAP 10-325MG [Rozel 10-325] 2 each PO Q8H PRN tab PRN Reason: Pain Continue Nitroglycerin Sl Tabs [Nitrostat] 0.4 mg SUBLINGUAL Q5M PRN PRN Reason: Chest Pain Multivit-Min/FA/Lycopen/Lutein [Centrum Silver Tablet] 1 tab PO DAILY Lisinopril [Zestril] 10 mg PO BID #60 tab Pantoprazole [Protonix] 40 mg PO DAILY #30 tablet. amLODIPine [Norvasc] 5 mg PO BID #60 tab Gabapentin [Neurontin] 900 mg PO TID Atorvastatin [Lipitor] 80 mg PO HS #1 tab Glimepiride [Amaryl] 2 mg PO BID traMADol HCL [Ultram] 50 mg PO DAILY PRN PRN Reason: Pain Aspirin [Adult Low Dose Aspirin EC] 81 mg PO DAILY Sennosides [Senna] 8.6 mg PO DAILY Carvedilol [Coreg] 3.125 mg PO BID cloNIDine HCL [Catapres] 0.05 mg PO BID Insulin Glargine,Hum.rec.anlog [Toujeo Solostar] 30 units SQ HS Temazepam [Restoril] 30 mg PO HS PRN PRN Reason: Insomnia PARoxetine [Paxil] 20 mg PO DAILY Fenofibrate Nanocrystallized [Tricor] 145 mg PO DAILY Chlorzoxazone [Parafon Forte Dsc] 500 mg PO TID Spironolact/Hydrochlorothiazid [Aldactazide 25-25 MG] 1 tab PO DAILY Amitriptyline HCl [Elavil] 100 mg PO HS Metoprolol Tartrate [Lopressor] 50 mg PO BID Clopidogrel [Plavix] 75 mg PO DAILY Hydrocodone/Acetaminophen [Rozel 10-325] 2 tab PO Q6H PRN PRN Reason: Pain Discharge Medication List Nitroglycerin Sl Tabs [Nitrostat] 0.4 mg SUBLINGUAL Q5M PRN 07/05/14 [History] Multivit-Min/FA/Lycopen/Lutein [Centrum Silver Tablet] 1 tab PO DAILY 10/04/15 [ History] Lisinopril [Zestril] 10 mg PO BID #60 tab 10/14/15 [Rx] Pantoprazole [Protonix] 40 mg PO DAILY #30 tablet. 10/14/15 [Rx] amLODIPine [Norvasc] 5 mg PO BID #60 tab 10/14/15 [Rx] Gabapentin [Neurontin] 900 mg PO TID 06/07/16 [History] Atorvastatin [Lipitor] 80 mg PO HS #1 tab 06/09/16 [Rx] Glimepiride [Amaryl] 2 mg PO BID 07/12/16 [History] traMADol HCL [Ultram] 50 mg PO DAILY PRN 08/14/16 [History] Aspirin [Adult Low Dose Aspirin EC] 81 mg PO DAILY 10/13/16 [History] Amitriptyline HCl [Elavil] 100 mg PO HS 01/12/17 [History] Carvedilol [Coreg] 3.125 mg PO BID 01/12/17 [History] Chlorzoxazone [Parafon Forte Dsc] 500 mg PO TID 01/12/17 [History] Clopidogrel [Plavix] 75 mg PO DAILY 01/12/17 [History] Fenofibrate Nanocrystallized [Tricor] 145 mg PO DAILY 01/12/17 [History] Hydrocodone/Acetaminophen [Rozel 10-325] 2 tab PO Q6H PRN 01/12/17 [History] Insulin Glargine,Hum.rec.anlog [Toujeo Solostar] 30 units SQ HS 01/12/17 [ History] Metoprolol Tartrate [Lopressor] 50 mg PO BID 01/12/17 [History] PARoxetine [Paxil] 20 mg PO DAILY 01/12/17 [History] Sennosides [Senna] 8.6 mg PO DAILY 01/12/17 [History] Spironolact/Hydrochlorothiazid [Aldactazide 25-25 MG] 1 tab PO DAILY 01/12/17 [ History] Temazepam [Restoril] 30 mg PO HS PRN 01/12/17 [History] cloNIDine HCL [Catapres] 0.05 mg PO BID 01/12/17 [History] HYDROcodone/APAP 10-325MG [Rozel 10-325] 2 each PO Q8H PRN tab 01/13/17 [Rx] Follow up Appointment(s)/Referral(s): Nedra Leonard DO [Primary Care Provider] - 1-2 days Activity/Diet/Wound Care/Special Instructions: Patient be placed on a low-sodium diet as he is placed on a heart healthy diet as well patient educated on increasing exercise tolerance and left some modification patient was to follow-up with primary care physician for further recommendations and suggestions Discharge Disposition: HOME SELF-CARE
== END 2017-01-13 19:08 | disposition home or self-care (01) ==
LOC: EC 13:17 → 3OBS 15:49
PROVIDERS: ADMIT Internal Medicine; ATTEND Internal Medicine
DX: R07.89 Other chest pain (principal); J44.9 Chronic obstructive pulmonary disease, unspecified; I25.10 Atherosclerotic heart disease of native coronary artery without angina pectoris; I10 Essential (primary) hypertension; E78.5 Hyperlipidemia, unspecified; E11.51 Type 2 diabetes mellitus with diabetic peripheral angiopathy without gangrene; R74.8 Abnormal levels of other serum enzymes; I65.29 Occlusion and stenosis of unspecified carotid artery; F41.9 Anxiety disorder, unspecified; F32.9 Major depressive disorder, single episode, unspecified; M19.90 Unspecified osteoarthritis, unspecified site; I69.392 Facial weakness following cerebral infarction; G47.30 Sleep apnea, unspecified; Z99.89 Dependence on other enabling machines and devices; Z95.5 Presence of coronary angioplasty implant and graft; Z95.2 Presence of prosthetic heart valve; Z95.1 Presence of aortocoronary bypass graft; Z79.84 Long term (current) use of oral hypoglycemic drugs; Z79.4 Long term (current) use of insulin; Z79.899 Other long term (current) drug therapy; Z79.02 Long term (current) use of antithrombotics/antiplatelets; Z79.82 Long term (current) use of aspirin; Z87.891 Personal history of nicotine dependence; Z88.1 Allergy status to other antibiotic agents; Z88.2 Allergy status to sulfonamides; Z88.8 Allergy status to other drugs, medicaments and biological substances
CPT/HCPCS: 99291 ×2; 96365 ×2; 96376 ×2; 96366 ×2; 96367; 36415; 93005; 85379; 83880; 80061; 80053 ×2; 80074; 82550 ×2; 82553 ×2; 83735; 84484 ×2; 85025; 85027; 85049; 85610; 85730 ×2; 83036; 71020; 76705; 71275; G0378 ×2; J1644 ×2; Q9967; J3475

== ENCOUNTER → 2017-11-26 | Outpatient (CLI) | payer MEDICARE ==
[2017-11-26 14:40] LABS: HCT 42.4 % (39.0-53.0); HGB 13.6 gm/dL (13.0-17.5); MCH 27.9 pg (25.0-35.0); MCHC 32.1 g/dL (31.0-37.0); MCV 86.9 fL (80.0-100.0); Mean Platelet Volume 7.6; Platelet Count 271 k/uL (150-450); RBC 4.88 m/uL (4.30-5.90); RDW 13.8 % (11.5-15.5); WBC 13.6 k/uL (3.8-10.6)
[2017-11-26 14:53] LABS: Anion Gap 7 mmol/L; Blood Urea Nitrogen 24 mg/dL (9-20); Carbon Dioxide 30 mmol/L (22-30); Chloride 101 mmol/L (98-107); Sodium 138 mmol/L (137-145)
== END | disposition home or self-care (01) ==
LOC: LABPAT 14:15
PROVIDERS: ATTEND Internal Medicine Interventional Cardiology
DX: Z01.812 Encounter for preprocedural laboratory examination (principal); I25.10 Atherosclerotic heart disease of native coronary artery without angina pectoris; I10 Essential (primary) hypertension; E78.1 Pure hyperglyceridemia; R07.9 Chest pain, unspecified
CPT/HCPCS: 36415; 80051; 82565; 84520; 85027

== ENCOUNTER 2017-12-10 06:05 | Day surgery (SDC) | payer MEDICARE ==
[2017-12-04 15:18] VITALS: BMI 30.9
[2017-12-10] MEDS ORDERED: ALPRAZolam 0.5 MG TAB PO PRN (06:19)
[2017-12-10] MEDS ORDERED: ASPIRIN 325 MG TAB PO ONE (06:19)
[2017-12-10] MEDS ORDERED: SODIUM CHLORIDE 0.9% 1,000 ML in EMPTY BAG 1 BAG IV ONE (06:19)
[2017-12-10] MEDS ORDERED: ALPRAZolam 0.25 MG TAB PO PRN (06:19)
[2017-12-10] MEDS ORDERED: NITROGLYCERIN SL TABS 0.4 MG TAB SUBLINGUAL PRN (06:19)
[2017-12-10] MEDS ORDERED: LIDOCAINE 1% INJ 10MG/ML (20 ML MDV) ONE (07:14)
[2017-12-10] MEDS ORDERED: MIDAZOLAM 2 MG/2 ML VIAL ONE (07:17)
[2017-12-10 07:22] VITALS: PULSE 57; TEMP 98.3
[2017-12-10 07:30] LABS: Glucose,Whole Blood 159 mg/dL (75-99)
[2017-12-10 07:36] LABS: Basophils % (A) 0 %; Eosinophils # (A) 0.2 k/uL (0-0.7); Eosinophils % (A) 2 %; HCT 36.3 % (39.0-53.0); HGB 11.6 gm/dL (13.0-17.5); Lymphocytes # (A) 2.3 k/uL (1.0-4.8); Lymphocytes % (A) 29 %; MCH 27.2 pg (25.0-35.0); Mean Platelet Volume 7.7; Monocytes # (A) 0.4 k/uL (0-1.0); Monocytes % (A) 5 %; Neutrophils # (A) 4.9 k/uL (1.3-7.7); Neutrophils % (A) 62 %; Platelet Count 219 k/uL (150-450); RBC 4.28 m/uL (4.30-5.90); RDW 13.8 % (11.5-15.5); WBC 7.9 k/uL (3.8-10.6)
[2017-12-10] MEDS ORDERED: fentaNYL (PF) 50 MCG/ML 2 ML AMP ONE (07:56)
[2017-12-10] MEDS ORDERED: HEPARIN SODIUM 1,000 UN/ML (10ML VL) ONE (08:03)
[2017-12-10] MEDS ORDERED: VERAPAMIL 2.5 MG/ML 2 ML AMP ONE (08:03)
[2017-12-10] MEDS ORDERED: IV FLUID CONTINUATION 900 ML IV ONE (08:10)
[2017-12-10] MEDS ORDERED: MIDAZOLAM 2 MG/2 ML VIAL IVP ONE (08:10)
[2017-12-10] MEDS: fentaNYL (PF) 50 MCG/ML 2 ML AMP IV ONE ×2 (08:10→08:57)
[2017-12-10] MEDS ORDERED: LIDOCAINE 1% INJ 10MG/ML (20 ML MDV) SQ ONE (08:28)
[2017-12-10] MEDS ORDERED: ENALAPRILAT 1.25 MG/ML 1 ML VIAL ONE (08:39)
[2017-12-10] MEDS ORDERED: hydrALAZINE HCL 20 MG/ML 1 ML VIAL ONE (08:39)
[2017-12-10] MEDS ORDERED: ENALAPRILAT 1.25 MG/ML 1 ML VIAL IVP ONE (08:41)
[2017-12-10] MEDS: hydrALAZINE HCL 20 MG/ML 1 ML VIAL IVP ONE ×2 (08:42→08:49)
[2017-12-10] MEDS ORDERED: IOPAMIDOL-370 125ML BTL INJ ONE (08:49)
[2017-12-10] MEDS ORDERED: RX INFO: IV CONTRAST WAS GIVEN 1 EACH MISC MISCELLANE PRN (08:52)
[2017-12-10] MEDS ORDERED: SODIUM CHLORIDE 0.9% 1,000 ML IV SCH (09:00)
[2017-12-10] MEDS ORDERED: MORPHINE SULFATE ER 30 MG TABLET PO STA (09:31)
--- NOTE | 2017-12-10 10:06 | CC ---
CARDIAC CATHETERIZATION REPORT DATE OF SERVICE: 12/10/2017 PERFORMING PHYSICIAN: Umesh Timmons MD, [employer]. PROCEDURE PERFORMED: 1. Selective left and right coronary angiogram. 2. SVG to RCA angiogram. 3. SVG to left circumflex angiogram. 4. Left internal mammary artery to LAD angiogram. 5. Left heart catheterization. INDICATION: This is a pleasant 67-year-old gentleman with history of coronary artery disease and prior coronary artery bypass grafting with a known ALAN to LAD, SVG to left circumflex, and SVG to RCA, as well as known peripheral arterial disease as well as carotid disease, was experiencing chest discomfort. He underwent a myocardial perfusion imaging stress test and that revealed ischemia. Because of that, a heart catheterization was advised. APPROACH: Right common femoral artery. COMPLICATION: None. LEVEL OF SEDATION: Moderate with sedation length of 21 minutes. PROCEDURE DESCRIPTION: After obtaining an informed consent, the patient was brought to the cardiac dye lab technician. The right common femoral artery was cannulated using micropuncture technique. The micropuncture wire passed easily, then I placed a 6-Faroese sheath in the right common femoral artery. After that, I did selective left and right coronary angiogram using JL4 and JR4 catheters. SVG to RCA angiogram, SVG to left circumflex angiogram, and ALAN to LAD angiogram were performed using the JR4 catheter. Left heart catheterization was performed using JR4 catheter which flipped into the LV, then we did a pullback across the aortic valve. The procedure was completed without any complication. FINDINGS: 1. The left main is a medium to large caliber vessel. Distally appeared to be diseased in the range of 40%. It bifurcates into the circumflex and left anterior descending artery. 2. The left circumflex,. the proximal circumflex appeared to have mild disease only. The mid circumflex appeared to have intermediate disease only. The left circumflex gives rise into an OM branch in the midportion which seems to be occluded. Distally appeared to have mild disease only. 3. The LAD is 100% occluded in the proximal portion. 4. The right coronary artery is 100% occluded in the midportion. CORONARY BYPASS ANGIOGRAM: 1. The ALAN to LAD is patent. 2. The SVG to left circumflex or ramus intermedius is patent. 3. The SVG to right coronary artery is patent as well. HEMODYNAMICS: The left ventricular end-diastolic pressure was 12 mmHg without significant gradient across the aortic valve. CONCLUSION: 1. Severe triple-vessel coronary artery disease. 2. Patent ALAN to LAD. 3. Patent SVG to left circumflex. 4. Patent SVG to right coronary artery. POSTPROCEDURE MANAGEMENT: 1. Giving the patency of all grafts, I did recommend maximized medical treatment. The anatomy seems to be the same and unchanged compared to before. 2. I will continue following up with the patient and the patient is going to be discharged home later on today. MMODL / IJN: [id number] /
--- NOTE | 2017-12-10 10:07 | LTR ---
December 10, 2017 Re: Carroll Alex Dear Dr. Leonard: Mr. Carroll Alex was seen in my office a couple of weeks ago complaining of chest discomfort. He underwent a myocardial perfusion imaging stress test and that revealed ischemia. Because of that, a heart catheterization was advised. Mr. Alex underwent a heart catheterization and that revealed the patency of all grafts. I did recommend maximized medical treatment and follow up with him. I want to thank you for allowing us to participate in his care and please do not hesitate to call if you have any question or concern. Sincerely, MD ADAN King / KANDI: [id number] /
[2017-12-10] MEDS ORDERED: INSULIN ASPART 100 UNIT/ML 1 ML 10 ML VIAL SQ ONE (12:41)
[2017-12-10 13:21] LABS: Glucose,Whole Blood 243 mg/dL (75-99)
[2017-12-10] MEDS ORDERED: CYCLOBENZAPRINE 10 MG TAB PO STA (15:06)
[2017-12-10 15:41] VITALS: RESP 18
[2017-12-10 16:35] VITALS: BP 149/70
[2017-12-10] MEDS ORDERED: HYDROcodone/APAP 10-325MG 1 EACH TAB PO SCH (21:00)
== END 2017-12-10 16:15 | disposition home or self-care (01) ==
LOC: CATHCVL 06:05
PROVIDERS: ATTEND Internal Medicine Interventional Cardiology
DX: I25.110 Atherosclerotic heart disease of native coronary artery with unstable angina pectoris (principal); R94.39 Abnormal result of other cardiovascular function study; Z95.1 Presence of aortocoronary bypass graft; R94.31 Abnormal electrocardiogram [ECG] [EKG]; E11.9 Type 2 diabetes mellitus without complications; I10 Essential (primary) hypertension; E78.00 Pure hypercholesterolemia, unspecified; I77.9 Disorder of arteries and arterioles, unspecified; I70.213 Atherosclerosis of native arteries of extremities with intermittent claudication, bilateral legs; Z79.84 Long term (current) use of oral hypoglycemic drugs; Z79.82 Long term (current) use of aspirin; Z79.891 Long term (current) use of opiate analgesic; Z79.51 Long term (current) use of inhaled steroids; Z79.02 Long term (current) use of antithrombotics/antiplatelets; Z79.899 Other long term (current) drug therapy; Z88.1 Allergy status to other antibiotic agents; Z88.2 Allergy status to sulfonamides; Z88.8 Allergy status to other drugs, medicaments and biological substances
CPT/HCPCS: 93459; 85025; C1769 ×3; C1894 ×2; J2250; J0360; J2001; J3010; Q9967

== ENCOUNTER 2018-03-13 03:26 | Observation (INO) | payer MEDICARE ==
[2018-03-13 04:08] LABS: Basophils # (A) 0.1 k/uL (0-0.2); Basophils % (A) 1 %; Eosinophils # (A) 0.2 k/uL (0-0.7); Eosinophils % (A) 2 %; HCT 36.8 % (39.0-53.0); HGB 11.9 gm/dL (13.0-17.5); Lymphocytes # (A) 2.7 k/uL (1.0-4.8); Lymphocytes % (A) 27 %; MCH 28.1 pg (25.0-35.0); MCHC 32.3 g/dL (31.0-37.0); MCV 86.9 fL (80.0-100.0); Mean Platelet Volume 8.3; Monocytes # (A) 0.5 k/uL (0-1.0); Monocytes % (A) 5 %; Neutrophils # (A) 6.3 k/uL (1.3-7.7); Neutrophils % (A) 62 %; Platelet Count 225 k/uL (150-450); RBC 4.23 m/uL (4.30-5.90); RDW 14.7 % (11.5-15.5); WBC 10.2 k/uL (3.8-10.6)
[2018-03-13 04:13] LABS: Potassium 4.7 mmol/L (3.5-5.1)
[2018-03-13 04:14] LABS: ALT 41 U/L (21-72); AST 29 U/L (17-59); Albumin 3.7 g/dL (3.5-5.0); Alkaline Phosphatase 50 U/L (38-126); Anion Gap 5 mmol/L; Blood Urea Nitrogen 36 mg/dL (9-20); Calcium 10.1 mg/dL (8.4-10.2); Carbon Dioxide 26 mmol/L (22-30); Chloride 111 mmol/L (98-107); Glucose 132 mg/dL (74-99); Magnesium 1.9 mg/dL (1.6-2.3); Sodium 142 mmol/L (137-145); Total Bilirubin 0.4 mg/dL (0.2-1.3); Total Protein 6.3 g/dL (6.3-8.2)
[2018-03-13 04:17] LABS: Creatine Kinase 86 U/L (55-170)
--- NOTE | 2018-03-13 04:27 | ED ---
Chest Pain HPI - General Chief Complaint: Chest Pain Stated Complaint: Chest Pain Source: patient Mode of arrival: EMS - History of Present Illness Initial Comments: Carroll is a 68 yo male with extensive PMH who presents to the ED today via EMS for evaluation of chest pain. Patient reports he developed sudden onset chest pain. Patient reports he was relaxing when he developed severe chest pain. He called 911 and was given ASA the lingual nitro in route to the hospital. Patient reports that his pain resolved after the nitro however began to make him feel somewhat lightheaded and sweaty. She denies any associated cough, shortness of breath recent fevers, chills, nausea or vomiting. - Related Data Home Medications Medication Instructions Recorded Confirmed Nitroglycerin Sl Tabs [Nitrostat] 0.4 mg SUBLINGUAL Q5M PRN 07/05/14 12/04/17 Multivit-Min/FA/Lycopen/Lutein 1 tab PO DAILY 10/04/15 12/04/17 [Centrum Silver Tablet] Gabapentin [Neurontin] 900 mg PO TID 06/07/16 12/04/17 Glimepiride [Amaryl] 2 mg PO BID 07/12/16 12/10/17 Aspirin [Adult Low Dose Aspirin EC] 81 mg PO DAILY 10/13/16 12/10/17 Carvedilol [Coreg] 3.125 mg PO BID 01/12/17 12/04/17 Chlorzoxazone [Parafon Forte Dsc] 500 mg PO TID 01/12/17 12/10/17 Clopidogrel [Plavix] 75 mg PO DAILY 01/12/17 12/04/17 Fenofibrate Nanocrystallized 145 mg PO DAILY 01/12/17 12/10/17 [Tricor] PARoxetine [Paxil] 20 mg PO DAILY 01/12/17 12/04/17 Temazepam [Restoril] 30 mg PO HS PRN 01/12/17 12/10/17 cloNIDine HCL [Catapres] 0.05 mg PO BID 01/12/17 12/04/17 Fluticasone/Salmeterol [Advair 1 each IH DAILY 12/04/17 12/04/17 500-50 Diskus] Fluticasone/Vilanterol [Breo 1 inhalation INHALATION DAILY 12/04/17 12/04/17 Ellipta 200-25 Mcg INH] HYDROcodone/APAP 10-325MG [Avenue 2 each PO BID 12/04/17 12/10/17 10-325] Insulin Lispro Protamin/Lispro 15 unit SQ BID 12/04/17 12/04/17 [humaLOG Mix 75-25 Kwikpen] Morphine Sulfate [Morphine Sulfate 30 mg PO Q12H 12/04/17 12/10/17 ER] Pioglitazone [Actos] 30 mg PO DAILY 12/04/17 12/04/17 Previous Rx's Medication Instructions Recorded Lisinopril [Zestril] 10 mg PO BID #60 tab 10/14/15 Pantoprazole [Protonix] 40 mg PO DAILY #30 tablet. 10/14/15 amLODIPine [Norvasc] 5 mg PO BID #60 tab 10/14/15 Atorvastatin [Lipitor] 80 mg PO HS #1 tab 06/09/16 Allergies Allergy/AdvReac Type Severity Reaction Status Date / Time atorvastatin calcium Allergy muscle pain Verified 12/04/17 15:06 [From Lipitor] fenofibrate nanocrystallized Allergy muscle pain Verified 12/04/17 15:06 [From Tricor] fenofibrate,micronized Allergy Unknown Verified 12/04/17 15:06 [From Tricor] rosuvastatin calcium Allergy muscle pain Verified 12/04/17 15:06 [From Crestor] sulfamethoxazole Allergy gi upset Verified 12/04/17 15:06 [From Bactrim] metformin AdvReac Nausea & Verified 12/04/17 15:06 Vomiting trimethoprim [From Bactrim] AdvReac Unknown Verified 12/04/17 15:06 rynatan Allergy Unknown Uncoded 12/04/17 15:06 Review of Systems ROS Statement: Those systems with pertinent positive or pertinent negative responses have been documented in the HPI. ROS Other: All systems not noted in ROS Statement are negative. EKG Findings - EKG Comments: EKG Findings:: EKG obtained at 3:40 AM, rate is 69 rhythm is sinus there is a noted PVC. There is a normal axis, there are normal intervals, WA 140, QRS 102 , QTc is 452. There is no acute ST elevations or depressions there is no obvious ischemia or infarction. Past Medical History Past Medical History: Coronary Artery Disease (CAD), COPD, Diabetes Mellitus, Hyperlipidemia, Hypertension, Myocardial Infarction ([place]), Osteoarthritis (OA), Sleep Apnea/CPAP/BIPAP, Vascular Disorder Additional Past Medical History / Comment(s): chronic back pain, no cpap, HX OF episodes of bloody stools-now resolved, pancreatic mass, was told benign, dr rodriguez, states [place] post carotid sx,"lt carotid artery bkg 85%" Last Myocardial Infarction Date:: 2016 History of Any Multi-Drug Resistant Organisms: None Reported Past Surgical History: Back Surgery, Coronary Bypass/CABG, Heart Catheterization With Stent, Hernia Repair Additional Past Surgical History / Comment(s): rt carotid endartectomy,pt stated hadx2 cabg surguries: first one was 1 vessel and 2nd sx 2 vessels-denies any valve repalcements, , back surgery x3, heart cath stent x1 (1994) Past Anesthesia/Blood Transfusion Reactions: Previous Problems w/ Anesthesia Additional Past Anesthesia/Blood Transfusion Reaction / Comment(s): states "feels like he has ants crawling on his face with anesthesia" Date of Last Stent Placement:: 1994 Past Psychological History: Anxiety, Depression Smoking Status: Former smoker - Past Family History Father Family Medical History: Cancer (pancreatic) Additional Family Medical History / Comment(s): in MVA Sister(s) Family Medical History: Cancer Additional Family Medical History / Comment(s): BONE Mother Family Medical History: Myocardial Infarction ([place]) General Exam - General Exam Comments Initial Comments: Physical Exam GENERAL: Patient is well-developed and well-nourished. Patient is diaphoretic HENT: Normocephalic, Atraumatic. EYES: PERRL, EOMI PULMONARY: Unlabored respirations. No audible rales rhonchi or wheezing was noted. CARDIOVASCULAR: There is a regular rate and rhythm without any murmurs gallops or rubs. Well healed mid sternal incision consistent with patient's history of CABG Pulses are present and equal in the bilateral upper extremities ABDOMEN: Soft and nontender with normal bowel sounds. SKIN: Skin is clear with no lesions or rashes and otherwise unremarkable. Diaphoretic : Deferred NEUROLOGIC: Patient is alert and oriented x3. Moving all extremities spontaneously MUSCULOSKELETAL: Normal extremities with adequate strength and full range of motion. No lower extremity swelling or edema. No calf tenderness. PSYCHIATRIC: Normal psychiatric evaluation. Limitations: no limitations Course Vital Signs 03/13/18 03:28 Temperature 97.6 F Pulse Rate 71 Respiratory 23 Rate Blood Pressure 158/83 O2 Sat by Pulse 97 Oximetry Chest Pain MDM - MDM She was seen and evaluated history was obtained from patient This is a very high risk cardiac patient presenting with chest pain which was relieved with nitro after nitro patient is feeling lightheaded and is diaphoretic Repeat blood pressure is stable 139/75 however patient's presenting blood pressure was 195/90 for EMS this is a significant drop which is likely contributing to his lightheadedness diaphoresis Cardiac workup was ordered EKG appears nonischemic Labs are unremarkable Chest x-ray with no acute findings no widened mediastinum and no evidence of pneumonia or pneumothorax Considering the patient's significant history multiple risk factors for cardiac etiology and the resolution of his pain with nitro I do feel he warrants further evaluation by cardiology. Patient's primary care physician Dr. Bowers does not have admitting preference here. Patient will be admitted to the on- call team. Patient care was discussed with [facility] [place] physician Dr. Velasquez who accepts the patient to their service with a consult to cardiology. Disposition Clinical Impression: Chest pain Disposition: ADMITTED IP TO THIS HOSP Referrals: Nedra Leonard DO [Primary Care Provider] - 1-2 days
[2018-03-13 04:30] LABS: Creatine Kinase MB 1.3 ng/mL (0.0-2.4); Troponin I <0.012 ng/mL (0.000-0.034)
[2018-03-13 04:32] LABS: INR 0.9 (<1.2); Partial Thromboplastin Time 21.6 sec (22.0-30.0)
--- NOTE | 2018-03-13 04:56 | XR ---
EXAM: XR Chest, 2 Views CLINICAL HISTORY: ITS.REASON XR Reason: Chest Pain TECHNIQUE: Frontal and lateral views of the chest. COMPARISON: No relevant prior studies available. FINDINGS: Lungs: Unremarkable. No consolidation. Pleural space: Unremarkable. No pneumothorax. Heart: Unremarkable. No cardiomegaly. Mediastinum: Unremarkable. Bones/joints: No acute fracture. IMPRESSION: No acute findings.
[2018-03-13] MEDS ORDERED: NITROGLYCERIN OINT 1 INCH/GM PACKET TOPICAL STA (05:15)
[2018-03-13] MEDS ORDERED: NITROGLYCERIN OINT 1 INCH/GM PACKET TOPICAL SCH (06:00)
[2018-03-13 06:09] VITALS: BMI 30.8
[2018-03-13 06:42] LABS: Glucose,Whole Blood 106 mg/dL (75-99)
[2018-03-13] MEDS ORDERED: ATORVASTATIN 80 MG TAB PO STA (06:51)
[2018-03-13] MEDS ORDERED: HEPARIN SODIUM,PORCINE 5,000 UNIT/ML 1 ML VIAL IV PRN (06:52)
[2018-03-13] MEDS ORDERED: IPRATROPIUM-ALBUTEROL 3 ML NEB INHALATION PRN (06:53)
--- NOTE | 2018-03-13 06:58 | P.HPIM ---
History of Present Illness H&P Date: 03/13/18 The patient is a 68 yo M with a PMH of CAD s/p CABG (most recent LHC [address] Timmons), DM, HTN, HLD, COPD, and PAD was BIBEMS due to sudden onset of chest pain that woke the patient up from sleep. The patient notes that he hasn' t had pain like this for a long time. The pain was 10/10, substernal, burning/ aching in nature, relieved only partially with SL Nitro x 2 self administered by patient. Due to the persistent pain, the patient activated EMS. His pain improved en-route to the ED though he notes he had another episode of chest pain after transfer to the obs unit which resolved spontaneously. At the time of history-taking, the patient denied any active chest pain. He further denied any associated SOB, palpitations, dizziness, cough, fever, chills, recent travel , or sick contacts. The patient had a comprehensive w/u in the ED. CXR was unremarkable. Troponin < 0.02, WBC 10.2, Na 142, K 4.7, BUN 36, and Cr 0.93. Review of Systems Pertinent positives and negatives as discussed in HPI, a complete review of systems was performed and all other systems are negative. Past Medical History Past Medical History: Coronary Artery Disease (CAD), COPD, Diabetes Mellitus, Hyperlipidemia, Hypertension, Myocardial Infarction (CT), Osteoarthritis (OA), Sleep Apnea/CPAP/BIPAP, Vascular Disorder Additional Past Medical History / Comment(s): chronic back pain, no cpap, HX OF episodes of bloody stools-now resolved, pancreatic mass, was told benign, dr rodriguez, states CT post carotid sx,"lt carotid artery bkg 85%" Last Myocardial Infarction Date:: 2016 History of Any Multi-Drug Resistant Organisms: None Reported Past Surgical History: Back Surgery, Coronary Bypass/CABG, Heart Catheterization With Stent, Hernia Repair Additional Past Surgical History / Comment(s): rt carotid endartectomy,pt stated hadx3 cabg surguries: first one was 1 vessel 1999 and 2nd sx 2 2010 3rd bypass in 2014 -denies any valve repalcements, , back surgery x3, heart cath stent x1 (1994) Past Anesthesia/Blood Transfusion Reactions: Previous Problems w/ Anesthesia Additional Past Anesthesia/Blood Transfusion Reaction / Comment(s): states "feels like he has ants crawling on his face with anesthesia" Date of Last Stent Placement:: 1994 Past Psychological History: Anxiety, Depression Smoking Status: Former smoker Past Alcohol Use History: None Reported Additional Past Alcohol Use History / Comment(s): quit smoking 2009, smoked 2- 3ppd from 1964 Past Drug Use History: None Reported - Past Family History Father Family Medical History: Cancer (pancreatic) Additional Family Medical History / Comment(s): in MVA Sister(s) Family Medical History: Cancer Additional Family Medical History / Comment(s): BONE Mother Family Medical History: Myocardial Infarction (CT) Medications and Allergies Home Medications Medication Instructions Recorded Confirmed Type Nitroglycerin Sl Tabs [Nitrostat] 0.4 mg SUBLINGUAL Q5M PRN 07/05/14 12/04/17 History Multivit-Min/FA/Lycopen/Lutein 1 tab PO DAILY 10/04/15 12/04/17 History [Centrum Silver Tablet] Lisinopril [Zestril] 10 mg PO BID #60 tab 10/14/15 12/04/17 Rx Pantoprazole [Protonix] 40 mg PO DAILY #30 tablet. 10/14/15 12/10/17 Rx amLODIPine [Norvasc] 5 mg PO BID #60 tab 10/14/15 12/04/17 Rx Gabapentin [Neurontin] 900 mg PO TID 06/07/16 12/04/17 History Atorvastatin [Lipitor] 80 mg PO HS #1 tab 06/09/16 12/04/17 Rx Glimepiride [Amaryl] 2 mg PO BID 07/12/16 12/10/17 History Aspirin [Adult Low Dose Aspirin EC] 81 mg PO DAILY 10/13/16 12/10/17 History Carvedilol [Coreg] 3.125 mg PO BID 01/12/17 12/04/17 History Chlorzoxazone [Parafon Forte Dsc] 500 mg PO TID 01/12/17 12/10/17 History Clopidogrel [Plavix] 75 mg PO DAILY 01/12/17 12/04/17 History Fenofibrate Nanocrystallized 145 mg PO DAILY 01/12/17 12/10/17 History [Tricor] PARoxetine [Paxil] 20 mg PO DAILY 01/12/17 12/04/17 History Temazepam [Restoril] 30 mg PO HS PRN 01/12/17 12/10/17 History cloNIDine HCL [Catapres] 0.05 mg PO BID 01/12/17 12/04/17 History Fluticasone/Salmeterol [Advair 1 each IH DAILY 12/04/17 12/04/17 History 500-50 Diskus] Fluticasone/Vilanterol [Breo 1 inhalation INHALATION DAILY 12/04/17 12/04/17 History Ellipta 200-25 Mcg INH] HYDROcodone/APAP 10-325MG [[place] 2 each PO BID 12/04/17 12/10/17 History 10-325] Insulin Lispro Protamin/Lispro 15 unit SQ BID 12/04/17 12/04/17 History [humaLOG Mix 75-25 Kwikpen] Morphine Sulfate [Morphine Sulfate 30 mg PO Q12H 12/04/17 12/10/17 History ER] Pioglitazone [Actos] 30 mg PO DAILY 12/04/17 12/04/17 History Allergies Allergy/AdvReac Type Severity Reaction Status Date / Time atorvastatin calcium Allergy muscle pain Verified 12/04/17 15:06 [From Lipitor] fenofibrate nanocrystallized Allergy muscle pain Verified 12/04/17 15:06 [From Tricor] fenofibrate,micronized Allergy Unknown Verified 12/04/17 15:06 [From Tricor] rosuvastatin calcium Allergy muscle pain Verified 12/04/17 15:06 [From Crestor] sulfamethoxazole Allergy gi upset Verified 12/04/17 15:06 [From Bactrim] metformin AdvReac Nausea & Verified 12/04/17 15:06 Vomiting trimethoprim [From Bactrim] AdvReac Unknown Verified 12/04/17 15:06 [email or web address] Allergy Unknown Uncoded 12/04/17 15:06 Physical Exam Vitals: Vital Signs Temp Pulse Pulse Pulse Resp BP BP 03/13/18 06:16 18 03/13/18 06:01 97.7 F 59 L 18 173/79 03/13/18 05:29 65 20 176/80 03/13/18 04:10 75 03/13/18 03:28 97.6 F 71 23 158/83 Pulse Ox 03/13/18 06:16 03/13/18 06:01 94 L 03/13/18 05:29 96 03/13/18 04:10 03/13/18 03:28 97 Intake and Output 03/12/18 03/12/18 03/13/18 14:59 22:59 06:59 Other: Voiding Method Toilet # Voids 1 Weight 106.1 kg General: [non toxic], [no distress], [appears at stated age], [normal weight] Derm: [no unusual rashes/lesions] [no unusual ecchymoses], [warm], [dry] Head: [atraumatic], [normocephalic], [symmetric] Eyes: [EOMI], [no lid lag], [anicteric sclera], [pupils equal round reactive to light] ENT: [Nose and ears atraumatic], [no thrush], [no pharyngeal erythema] Neck: [No thyromegaly], [no cervical lymphadenopathy], [trachea midline], [ supple] Mouth: [no lip lesion], [mucus membranes moist] Cardiovascular: [S1S2 reg], [no murmur], [positive posterior tibial pulse bilateral], [no edema], [capillary refill less than 2 seconds] Lungs: [CTA bilateral], [no rhonchi, no rales] , [no accessory muscle use] Abdominal: [soft], [ nontender to palpation], [no guarding], [no appreciable organomegaly], [normal bowel sounds] Ext: [no gross muscle atrophy], [muscle strength 5 out of 5 in all 4 extremities grossly], [no contractures], Neuro: [ CN II-XI grossly intact], [light touch intact all 4 extremities], [ finger to nose within normal limits], Psych: [Alert], [oriented], [appropriate affect] Results CBC & Chem 7: 03/13/18 03:44 03/13/18 03:44 Labs: Abnormal Lab Results - Last 24 Hours (Table) 03/13/18 03/13/18 03/13/18 Range/Units 03:44 03:44 03:44 RBC 4.23 L (4.30-5.90) m/uL Hgb 11.9 L (13.0-17.5) gm/dL Hct 36.8 L (39.0-53.0) % APTT 21.6 L (22.0-30.0) sec Chloride 111 H (98-107) mmol/L BUN 36 H (9-20) mg/dL Glucose 132 H (74-99) mg/dL Thrombosis Risk Factor Assmnt - Choose All That Apply Each Factor Represents 1 point: Abnormal pulmonary function (COPD), Obesity ( BMI >25) Each Risk Factor Represents 2 Points: Age 61-74 years Thrombosis Risk Factor Assessment Total Risk Factor Score: 4 Thrombosis Risk Factor Assessment Level: Moderate Risk Assessment and Plan Plan: Unstable angina -Heparin infusion -Aspirin, Plavix, Lipitor -Cardiology consult -Telemetry monitoring -Trend troponin and EKG DM -MANUEL with FS HTN/HLD/COPD -Resume home meds DVT//GI prophylaxis - Heparin infusion - No indication for GI prophylaxis The patient is admitted with an anticipated less than 2 midnight stay for evaluation of chest pain CODE STATUS:Full-code Discussed with: Patient Anticipated discharge date: 03/15/[address]: Home A total of 60 minutes was spent on the care of this complex patient more than 50 % of the time was spent in counseling and care coordination.
[2018-03-13] MEDS ORDERED: HEPARIN SOD,PORK IN 0.45% NACL 25,000 UNIT in 0.45% NACL 1 250ML.BAG IV SCH (07:00)
[2018-03-13] MEDS ORDERED: INSULIN ASPART 100 UNIT/ML 1 ML 10 ML VIAL SQ SCH (07:30)
[2018-03-13] MEDS ORDERED: MORPHINE SULFATE ER 30 MG TABLET PO SCH (08:00)
[2018-03-13] MEDS ORDERED: SYMBICORT 160-4.5 MCG INHALER INHALATION SCH (08:00)
[2018-03-13] MEDS: HYDROcodone/APAP 5-325MG 1 EACH TAB PO PRN ×2 (08:38→12:34)
[2018-03-13] MEDS ORDERED: LISINOPRIL 10 MG TAB PO SCH (09:00)
[2018-03-13] MEDS ORDERED: CLOPIDOGREL 75 MG TAB PO SCH (09:00)
[2018-03-13] MEDS ORDERED: PARoxetine 20 MG TAB PO SCH (09:00)
[2018-03-13] MEDS ORDERED: amLODIPine 5 MG TAB PO SCH (09:00)
[2018-03-13] MEDS ORDERED: PANTOPRAZOLE 40 MG TABLET PO SCH (09:00)
[2018-03-13] MEDS ORDERED: NON-FORMULARY DRUG (Fluticasone/Vilanterol [Breo Ellipta 200-25 Mcg Inh] 1 INHALATION) INHALATION SCH (09:00)
[2018-03-13 10:06] LABS: Basophils # (A) 0.1 k/uL (0-0.2); Basophils % (A) 1 %; Eosinophils # (A) 0.2 k/uL (0-0.7); Eosinophils % (A) 2 %; HCT 34.4 % (39.0-53.0); HGB 10.9 gm/dL (13.0-17.5); Lymphocytes # (A) 2.1 k/uL (1.0-4.8); Lymphocytes % (A) 24 %; MCH 27.8 pg (25.0-35.0); MCHC 31.5 g/dL (31.0-37.0); MCV 88.3 fL (80.0-100.0); Mean Platelet Volume 7.8; Monocytes # (A) 0.5 k/uL (0-1.0); Monocytes % (A) 5 %; Neutrophils # (A) 5.4 k/uL (1.3-7.7); Neutrophils % (A) 64 %; Platelet Count 231 k/uL (150-450); RDW 14.4 % (11.5-15.5); WBC 8.4 k/uL (3.8-10.6)
[2018-03-13 10:47] LABS: Creatine Kinase MB 1.1 ng/mL (0.0-2.4); Troponin I 0.013 ng/mL (0.000-0.034)
--- NOTE | 2018-03-13 11:16 | P.CRDCN ---
History of Present Illness Consult date: 03/13/18 Consult reason: chest pain History of present illness: Mr. Alex is a 68-year-old gentleman who is seen for cardiac evaluation. Patient's medical records are reviewed. Patient was having intermittent of back pain yesterday the pain was not related to exertion. Was not associated with any nausea vomiting or sweating. And did not complain of any chest pain. Patient has a past history of coronary artery bypass surgery 2. He had a recent cardiac catheterization done in December which showed patent grafts and the patient has been advised medical treatment is moderately active physically latencies taking his medications regularly patient's EKG does not show any acute ischemic changes BX enzymes are negative. Past Medical History Past Medical History: Coronary Artery Disease (CAD), COPD, Diabetes Mellitus, Hyperlipidemia, Hypertension, Myocardial Infarction (IA), Osteoarthritis (OA), Sleep Apnea/CPAP/BIPAP, Vascular Disorder Additional Past Medical History / Comment(s): chronic back pain, no cpap, HX OF episodes of bloody stools-now resolved, pancreatic mass, was told benign, dr rodriguez, states [place] post carotid sx,"lt carotid artery bkg 85%" Last Myocardial Infarction Date:: 2016 History of Any Multi-Drug Resistant Organisms: None Reported Past Surgical History: Back Surgery, Coronary Bypass/CABG, Heart Catheterization With Stent, Hernia Repair Additional Past Surgical History / Comment(s): rt carotid endartectomy,pt stated hadx3 cabg surguries: first one was 1 vessel 1999 and 2nd sx 2 2010 3rd bypass in 2014 -denies any valve repalcements, , back surgery x3, heart cath stent x1 (1994) Past Anesthesia/Blood Transfusion Reactions: Previous Problems w/ Anesthesia Additional Past Anesthesia/Blood Transfusion Reaction / Comment(s): states "feels like he has ants crawling on his face with anesthesia" Date of Last Stent Placement:: 1994 Past Psychological History: Anxiety, Depression Smoking Status: Former smoker Past Alcohol Use History: None Reported Additional Past Alcohol Use History / Comment(s): quit smoking 2009, smoked 2- 3ppd from 1964 Past Drug Use History: None Reported - Past Family History Father Family Medical History: Cancer (pancreatic) Additional Family Medical History / Comment(s): in MVA Sister(s) Family Medical History: Cancer Additional Family Medical History / Comment(s): BONE Mother Family Medical History: Myocardial Infarction (IA) Medications and Allergies Home Medications Medication Instructions Recorded Confirmed Type Nitroglycerin Sl Tabs [Nitrostat] 0.4 mg SUBLINGUAL Q5M PRN 07/05/14 03/13/18 History Multivit-Min/FA/Lycopen/Lutein 1 tab PO DAILY 10/04/15 03/13/18 History [Centrum Silver Tablet] Lisinopril [Zestril] 10 mg PO BID #60 tab 10/14/15 03/13/18 Rx Pantoprazole [Protonix] 40 mg PO DAILY #30 tablet. 10/14/15 03/13/18 Rx Gabapentin [Neurontin] 900 mg PO TID 06/07/16 03/13/18 History Atorvastatin [Lipitor] 80 mg PO HS #1 tab 06/09/16 03/13/18 Rx Glimepiride [Amaryl] 2 mg PO BID 07/12/16 03/13/18 History Aspirin [Adult Low Dose Aspirin EC] 81 mg PO DAILY 10/13/16 03/13/18 History Carvedilol [Coreg] 3.125 mg PO BID 01/12/17 03/13/18 History Chlorzoxazone [Parafon Forte Dsc] 2 tab PO TID 01/12/17 03/13/18 History Clopidogrel [Plavix] 75 mg PO DAILY 01/12/17 03/13/18 History Fenofibrate Nanocrystallized 145 mg PO DAILY 01/12/17 03/13/18 History [Tricor] PARoxetine [Paxil] 20 mg PO DAILY 01/12/17 03/13/18 History Temazepam [Restoril] 30 mg PO HS PRN 01/12/17 03/13/18 History Fluticasone/Salmeterol [Advair 1 each IH DAILY 12/04/17 03/13/18 History 500-50 Diskus] Insulin Lispro Protamin/Lispro 15 unit SQ BID 12/04/17 03/13/18 History [humaLOG Mix 75-25 Kwikpen] Morphine Sulfate [Morphine Sulfate 30 mg PO Q12H 12/04/17 03/13/18 History ER] Pioglitazone [Actos] 30 mg PO DAILY 12/04/17 03/13/18 History Ipratropium-Albuterol Nebulize 1 dose INHALATION RT-Q4H PRN 03/13/18 03/13/18 History [Duoneb 0.5 mg-3 mg/3 ml Soln] amLODIPine [Norvasc] 1 tab PO BID 03/13/18 03/13/18 History Allergies Allergy/AdvReac Type Severity Reaction Status Date / Time atorvastatin calcium Allergy muscle pain Verified 03/13/18 09:33 [From Lipitor] fenofibrate nanocrystallized Allergy muscle pain Verified 03/13/18 09:33 [From Tricor] fenofibrate,micronized Allergy Unknown Verified 03/13/18 09:33 [From Tricor] rosuvastatin calcium Allergy muscle pain Verified 03/13/18 09:33 [From Crestor] sulfamethoxazole Allergy gi upset Verified 03/13/18 09:33 [From Bactrim] metformin AdvReac Nausea & Verified 03/13/18 09:33 Vomiting trimethoprim [From Bactrim] AdvReac Unknown Verified 03/13/18 09:33 [email or web address] Allergy Unknown Uncoded 12/04/17 15:06 Physical Exam Vitals: Vital Signs Temp Pulse Pulse Pulse Resp BP BP 03/13/18 08:00 59 L 18 03/13/18 06:16 18 03/13/18 06:01 97.7 F 59 L 18 173/79 03/13/18 05:29 65 20 176/80 03/13/18 04:10 75 03/13/18 03:28 97.6 F 71 23 158/83 Pulse Ox 03/13/18 08:00 03/13/18 06:16 03/13/18 06:01 94 L 03/13/18 05:29 96 03/13/18 04:10 03/13/18 03:28 97 Intake and Output 03/12/18 03/13/18 03/13/18 22:59 06:59 14:59 Other: Voiding Method Toilet Toilet # Voids 1 Weight 106.1 kg His since vital signs are reviewed. Patient is sitting comfortably in bed at present Patient's vital signs are reviewed. The patient is alert awake and in no acute distress. HEENT negative. Neck-supple no increase in JVP noted no carotid bruits noted. Chest-symmetrical. Heart-first and second heart sounds are normal. No S3 or S4 is noted. No significant murmurs are noted. Lungs bilateral good at entry is noted. No rales or rhonchi are noted Abdomen-soft. Liver and spleen are not enlarged. The bowel sounds are normal. No tenderness noted Extremities-peripheral pulses since are 2+. No significant leg edema noted. Neuro-no significant gross abnormality noted. Results 03/13/18 09:39 03/13/18 03:44 Cardiac Enzymes 03/13/18 03/13/18 03/13/18 Range/Units 03:44 03:44 09:39 AST 29 (17-59) U/L CK-MB (CK-2) 1.3 1.1 (0.0-2.4) ng/mL Troponin I <0.012 0.013 (0.000-0.034) ng/mL Coagulation 03/13/18 Range/Units 03:44 PT 10.0 (9.0-12.0) sec APTT 21.6 L (22.0-30.0) sec CBC 03/13/18 03/13/18 Range/Units 03:44 09:39 WBC 10.2 8.4 (3.8-10.6) k/uL RBC 4.23 L 3.90 L (4.30-5.90) m/uL Hgb 11.9 L 10.9 L (13.0-17.5) gm/dL Hct 36.8 L 34.4 L (39.0-53.0) % Plt Count 225 231 (150-450) k/uL Comprehensive Metabolic Panel 03/13/18 Range/Units 03:44 Sodium 142 (137-145) mmol/L Potassium 4.7 (3.5-5.1) mmol/L Chloride 111 H (98-107) mmol/L Carbon Dioxide 26 (22-30) mmol/L BUN 36 H (9-20) mg/dL Creatinine 0.93 (0.66-1.25) mg/dL Glucose 132 H (74-99) mg/dL Calcium 10.1 (8.4-10.2) mg/dL AST 29 (17-59) U/L ALT 41 (21-72) U/L Alkaline Phosphatase 50 (38-126) U/L Total Protein 6.3 (6.3-8.2) g/dL Albumin 3.7 (3.5-5.0) g/dL Current Medications Generic Name Dose Route Start Last Admin Trade Name Freq PRN Reason Stop Dose Admin Hydrocodone Bitart/Acetaminophen 1 each 03/13/18 07:40 03/13/18 08:38 [place] 5-325 PO 1 each Q6HR PRN Administration Pain Albuterol/Ipratropium 3 ml 03/13/18 06:53 Duoneb 0.5 Mg-3 Mg/3 Ml Soln INHALATION RT-Q4H PRN Shortness Of Breath Or Wheezing Amlodipine Besylate 5 mg 03/13/18 09:00 03/13/18 08:28 Norvasc PO 5 mg BID [facility] Administration Aspirin 325 mg 03/14/18 09:00 Aspirin PO DAILY [facility] Atorvastatin Calcium 80 mg 03/13/18 23:00 Lipitor PO [facility] Budesonide/Formoterol Fumarate 2 puff 03/13/18 08:00 03/13/18 09:45 Symbicort 160-4.5 Mcg Inhaler INHALATION Not Given RT-BID [facility] Clopidogrel Bisulfate 75 mg 03/13/18 09:00 03/13/18 08:28 Plavix PO 75 mg DAILY [facility] Administration Heparin Sodium (Porcine) 0 unit 03/13/18 06:52 Heparin IV PER PROTOCOL PRN Low PTT Protocol Insulin Aspart 0 unit 03/13/18 07:30 03/13/18 08:18 Novolog SQ Not Given AC-TID [facility] Protocol Lisinopril 10 mg 03/13/18 09:00 03/13/18 08:28 Zestril PO 10 mg BID [facility] Administration Morphine Sulfate 30 mg 03/13/18 08:00 03/13/18 07:45 Ms Contin PO 30 mg Q12H [facility] Administration Multivitamins 1 each 03/13/18 12:00 03/13/18 08:28 Theragran PO 1 each DAILY@1200 [facility] Administration Nitroglycerin 1 inch 03/13/18 06:00 03/13/18 06:16 Nitro-Bid Oint TOPICAL Not Given Q6HR [facility] Pantoprazole Sodium 40 mg 03/13/18 09:00 03/13/18 08:28 Protonix PO 40 mg DAILY [facility] Administration Paroxetine HCl 20 mg 03/13/18 09:00 03/13/18 08:28 Paxil PO 20 mg DAILY [facility] Administration Intake and Output 03/12/18 03/13/18 03/13/18 22:59 06:59 14:59 Other: Voiding Method Toilet Toilet # Voids 1 Weight 106.1 kg 03/13/18 09:39 03/13/18 03:44 EKG Interpretations (text) EKG shows a normal sinus rhythm without any acute ischemic changes. Assessment and Plan Assessment: This patient is primarily having the back pain. EKG and cardiac enzymes are normal. Patient's a recent cardiac catheterization revealed a patent grafts. Would recommend to continue the patient on medical treatment. Patient can be discharged home.
[2018-03-13 11:32] LABS: Glucose,Whole Blood 113 mg/dL (75-99)
[2018-03-13] MEDS ORDERED: MULTIVITAMINS, THERA 1 EACH TAB PO SCH (12:00)
[2018-03-13 12:21] VITALS: BP 171/84; PULSE 53; RESP 16; TEMP 98
--- NOTE | 2018-03-13 19:24 | P.DS ---
Providers Date of admission: 03/13/18 05:16 Expected date of discharge: 03/13/18 Attending physician: Melina Velasquez MD Consults: 03/13/18 05:17 Consult Physician Urgent Consulting Provider: Umesh Timmons Consult Reason/Comments: chest pain, established patient Do you want consulting provider notified?: Yes, Notify in am Primary care physician: Nedra Leonard Hospital Course: Discharge Diagnosis: Acute on chronic back pain DM 2 HTN HLD COPD PAD Hospital Course: Patient is a 68-year-old male past medical history of coronary artery disease status post coronary artery bypass grafting with most recent left heart cath 12/24, diabetes mellitus type 2, hypertension, dyslipidemia, COPD, and chronic back pain who was brought in by EMS due to sudden onset chest pain. On further investigation the patient actually states that he awoke with back pain and then sat forward and the pain transferred to his chest. In the ER he underwent an extensive evaluation. His initial chest x-ray was unremarkable, troponin was normal, and EKG did not show any acute ischemic changes. He was admitted as observation. His troponin remained negative. He was evaluated by cardiology who felt that he was safe for discharge with follow-up in outpatient clinic. He did not have any additional episodes of chest pain and felt that his back pain was consistent with his chronic back pain. He feels that all of this was coming from his back pain. We discussed that should his back pain worsen or change in quality he should read present to the ER for specialized testing of his aorta. I also informed him that if he develops chest pain, shortness of breath, diaphoresis, lightheadedness, or numbness in the arms to re -presented to the hospital. He has no known history of thoracic aortic aneurysm. He was determined stable for discharge. Patient seen and examined at bedside. Chest pain-free. Back pain best baseline. No shortness of breath. No nausea or vomiting. Asking to be discharged as cardiology cleared him. Vital signs reviewed and stable. General: non toxic, no distress, appears at stated age Derm: warm, dry Head: atraumatic, normocephalic, symmetric Eyes: EOMI, no lid lag, anicteric sclera Mouth: no lip lesion, mucus membranes moist Cardiovascular: S1S2 reg, no murmur, positive posterior tibial pulse bilateral, Lungs: decreased bs b/l bases, no rhonchi, no rales , no accessory muscle use Abdominal: soft, nontender to palpation, no guarding, no appreciable organomegaly Ext: no gross muscle atrophy, no edema, no contractures Neuro: CN II-XI grossly intact, no focal neuro deficits Psych: Alert, oriented, appropriate affect A total of 25 minutes of time were spent preparing this complex discharge summary . Pertinent Studies: Chest x-ray-no acute findings Patient Condition at Discharge: Good Plan - Discharge Summary New Discharge Prescriptions: Continue Nitroglycerin Sl Tabs [Nitrostat] 0.4 mg SUBLINGUAL Q5M PRN PRN Reason: Chest Pain Multivit-Min/FA/Lycopen/Lutein [Centrum Silver Tablet] 1 tab PO DAILY Lisinopril [Zestril] 10 mg PO BID #60 tab Pantoprazole [Protonix] 40 mg PO DAILY #30 tablet. Gabapentin [Neurontin] 900 mg PO TID Atorvastatin [Lipitor] 80 mg PO HS #1 tab Glimepiride [Amaryl] 2 mg PO BID Aspirin [Adult Low Dose Aspirin EC] 81 mg PO DAILY Carvedilol [Coreg] 3.125 mg PO BID Temazepam [Restoril] 30 mg PO HS PRN PRN Reason: Insomnia PARoxetine [Paxil] 20 mg PO DAILY Fenofibrate Nanocrystallized [Tricor] 145 mg PO DAILY Chlorzoxazone [Parafon Forte Dsc] 2 tab PO TID Clopidogrel [Plavix] 75 mg PO DAILY Pioglitazone [Actos] 30 mg PO DAILY Morphine Sulfate [Morphine Sulfate ER] 30 mg PO Q12H Insulin Lispro Protamin/Lispro [humaLOG Mix 75-25 Kwikpen] 15 unit SQ BID Fluticasone/Salmeterol [Advair 500-50 Diskus] 1 each IH DAILY Ipratropium-Albuterol Nebulize [Duoneb 0.5 mg-3 mg/3 ml Soln] 1 dose INHALATION RT-Q4H PRN PRN Reason: Shortness Of Breath Or Wheezing amLODIPine [Norvasc] 1 tab PO BID Discharge Medication List Nitroglycerin Sl Tabs [Nitrostat] 0.4 mg SUBLINGUAL Q5M PRN 07/05/14 [History] Multivit-Min/FA/Lycopen/Lutein [Centrum Silver Tablet] 1 tab PO DAILY 10/04/15 [ History] Lisinopril [Zestril] 10 mg PO BID #60 tab 10/14/15 [Rx] Pantoprazole [Protonix] 40 mg PO DAILY #30 tablet. 10/14/15 [Rx] Gabapentin [Neurontin] 900 mg PO TID 06/07/16 [History] Atorvastatin [Lipitor] 80 mg PO HS #1 tab 06/09/16 [Rx] Glimepiride [Amaryl] 2 mg PO BID 07/12/16 [History] Aspirin [Adult Low Dose Aspirin EC] 81 mg PO DAILY 10/13/16 [History] Carvedilol [Coreg] 3.125 mg PO BID 01/12/17 [History] Chlorzoxazone [Parafon Forte Dsc] 2 tab PO TID 01/12/17 [History] Clopidogrel [Plavix] 75 mg PO DAILY 01/12/17 [History] Fenofibrate Nanocrystallized [Tricor] 145 mg PO DAILY 01/12/17 [History] PARoxetine [Paxil] 20 mg PO DAILY 01/12/17 [History] Temazepam [Restoril] 30 mg PO HS PRN 01/12/17 [History] Fluticasone/Salmeterol [Advair 500-50 Diskus] 1 each IH DAILY 12/04/17 [History] Insulin Lispro Protamin/Lispro [humaLOG Mix 75-25 Kwikpen] 15 unit SQ BID [History] Morphine Sulfate [Morphine Sulfate ER] 30 mg PO Q12H 12/04/17 [History] Pioglitazone [Actos] 30 mg PO DAILY 12/04/17 [History] Ipratropium-Albuterol Nebulize [Duoneb 0.5 mg-3 mg/3 ml Soln] 1 dose INHALATION RT-Q4H PRN 03/13/18 [History] amLODIPine [Norvasc] 1 tab PO BID 03/13/18 [History] Follow up Appointment(s)/Referral(s): Umesh Timmons MD [STAFF PHYSICIAN] - 2 Weeks Nedra Leonard DO [Primary Care Provider] - 1-2 days Activity/Diet/Wound Care/Special Instructions: heart healthy, carb consistent acitivity as tolerated Discharge Disposition: HOME SELF-CARE
[2018-03-13] MEDS ORDERED: ATORVASTATIN 80 MG TAB PO SCH (23:00)
[2018-03-14] MEDS ORDERED: ASPIRIN 325 MG TAB PO SCH (09:00)
== END 2018-03-13 13:18 | disposition home or self-care (01) ==
LOC: EC 03:26 → 1SOBS 05:16
PROVIDERS: ADMIT Internal Medicine; ATTEND Internal Medicine
DX: M54.9 Dorsalgia, unspecified (principal); G89.29 Other chronic pain; R07.89 Other chest pain; R42 Dizziness and giddiness; R61 Generalized hyperhidrosis; J44.9 Chronic obstructive pulmonary disease, unspecified; I10 Essential (primary) hypertension; G47.30 Sleep apnea, unspecified; Z99.89 Dependence on other enabling machines and devices; E78.5 Hyperlipidemia, unspecified; I73.9 Peripheral vascular disease, unspecified; E11.9 Type 2 diabetes mellitus without complications; M19.90 Unspecified osteoarthritis, unspecified site; K86.9 Disease of pancreas, unspecified; F41.9 Anxiety disorder, unspecified; E66.9 Obesity, unspecified; Z68.30 Body mass index [BMI] 30.0-30.9, adult; F32.9 Major depressive disorder, single episode, unspecified; Z79.82 Long term (current) use of aspirin; Z79.4 Long term (current) use of insulin; Z79.02 Long term (current) use of antithrombotics/antiplatelets; Z79.891 Long term (current) use of opiate analgesic; Z79.51 Long term (current) use of inhaled steroids; Z79.899 Other long term (current) drug therapy; Z88.1 Allergy status to other antibiotic agents; Z88.2 Allergy status to sulfonamides; Z88.8 Allergy status to other drugs, medicaments and biological substances; I25.2 Old myocardial infarction; Z95.1 Presence of aortocoronary bypass graft; Z95.5 Presence of coronary angioplasty implant and graft; Z87.891 Personal history of nicotine dependence; Z80.0 Family history of malignant neoplasm of digestive organs; Z80.8 Family history of malignant neoplasm of other organs or systems; Z82.49 Family history of ischemic heart disease and other diseases of the circulatory system
CPT/HCPCS: 99285; 36415; 93005; 80053; 82550; 82553; 83735; 84484; 85025; 85610; 85730; 71046; G0378; J1644

== ENCOUNTER → 2018-05-04 | Outpatient (CLI) | payer OTHER ==
[2018-05-04 14:22] LABS: Blood Urea Nitrogen 28 mg/dL (9-20)
--- NOTE | 2018-05-04 15:59 | CT ---
EXAMINATION TYPE: CT abdomen w con DATE OF EXAM: 05/04/2018 COMPARISON: 09/24/2016 and 08/12/2014 HISTORY: 68-year-old male abnormal findings on diagnostic imaging, pancreatic mass TECHNIQUE: Contiguous axial scanning of the abdomen following administration of 100 ml Isovue 300 IV contrast. Delayed images through the kidneys and coronal/sagittal reconstructions performed. CT DLP: 1306.2 mGycm Automated exposure control for dose reduction was used. FINDINGS: Median sternotomy wires. Heart upper limits of normal in size without pericardial effusion. Strandy a telectasis left base without pleural effusion. Mild circumferential wall thickening of the lower esophagus is unchanged and could be secondary to no ndistention or inflammatory process like esophagitis. No focal liver lesion or biliary ductal dilatation. Portal venous system is patent. Gallbladder, adrenal glands, kidneys, and spleen appear within normal limits. Redemonstrated heterogeneous lobulated mass of the pancreatic tail measuring 2.6 x 2.6 cm. This is un changed from 09/24/2016 and even back to 08/12/2014. Lesion may be multilocular cystic lesion with some associated soft tissue component. Continued surveillance is recommended. No dilated small bowel, free fluid, or free air. No mesenteric or retroperitoneal lymphadenopathy. Sc attered mild to moderate stool. No pericolonic inflammatory change. Aorta bifemoral bypass is demonstrated. The visualized portion remains patent. Bones: Degenerative changes mid to lower lumbar spine. Degenerative disc disease lower thoracic spine . Vascular disease lower lumbar spine with facet arthropathy. IMPRESSION: 1. 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 A CYSTIC PANCREATIC NEOPLASM IS IN THE DIFFERENTIAL. CONTINUED ANNUAL SURVEILLANCE I S RECOMMENDED. 2. MILD CIRCUMFERENCE OF WALL THICKENING OF THE DISTAL ESOPHAGUS COULD BE DUE TO NONDISTENTION OR ESO PHAGITIS. CLINICALLY CORRELATE.
== END | disposition home or self-care (01) ==
LOC: RADCTMAIN 13:25
DX: K22.8 Other specified diseases of esophagus (principal); Z88.2 Allergy status to sulfonamides; Z88.8 Allergy status to other drugs, medicaments and biological substances
CPT/HCPCS: 82565; 84520; 74160; 36415; Q9967

== ENCOUNTER 2018-06-21 17:55 | Emergency (ER) | payer OTHER ==
[2018-06-21] MEDS ORDERED: ONDANSETRON 4 MG/2 ML VIAL IVP STA (18:30)
[2018-06-21] MEDS ORDERED: MORPHINE SULFATE 4 MG/ML SYRINGE IV STA (18:30)
[2018-06-21] MEDS ORDERED: SODIUM CHLORIDE 0.9% 500 ML 500 ML IV STA (18:30)
[2018-06-21 18:57] LABS: Basophils # (A) 0.1 k/uL (0-0.2); Basophils % (A) 1 %; Eosinophils # (A) 0.2 k/uL (0-0.7); Eosinophils % (A) 2 %; HCT 37.6 % (39.0-53.0); HGB 12.5 gm/dL (13.0-17.5); Lymphocytes # (A) 2.3 k/uL (1.0-4.8); Lymphocytes % (A) 24 %; MCH 28.1 pg (25.0-35.0); MCHC 33.2 g/dL (31.0-37.0); MCV 84.7 fL (80.0-100.0); Mean Platelet Volume 8.2; Monocytes # (A) 0.5 k/uL (0-1.0); Monocytes % (A) 5 %; Neutrophils # (A) 6.2 k/uL (1.3-7.7); Neutrophils % (A) 65 %; Platelet Count 214 k/uL (150-450); RBC 4.44 m/uL (4.30-5.90); RDW 13.4 % (11.5-15.5); WBC 9.5 k/uL (3.8-10.6)
--- NOTE | 2018-06-21 19:00 | ED ---
General Adult HPI - General Chief complaint: Urogenital Stated complaint: groin pain Time Seen by Provider: 06/21/18 18:11 Source: patient Mode of arrival: wheelchair Limitations: no limitations - History of Present Illness Initial comments: 68-year-old male patient presents to the emergency department today for evaluation of right groin pain. Patient states this is also radiating into his back. Patient states this started around 11:00 this morning. Patient states the pain has been constant but does wax and wane. Worsens with movement. Patient does have chronic back issues. Denies any difficulty with urination or bowel movements. Denies any fevers or chills. States he is tolerating oral intake without difficulty. Patient states he did have right inguinal hernia repair 2 years ago. Patient denies any recent rash, shortness breath, chest pain, nausea, vomiting, diarrhea, constipation, numbness, tingling, dizziness, weakness, hematuria, dysuria, urinary urgency, urinary frequency, headache, visual changes, or any other complaints. - Related Data Home Medications Medication Instructions Recorded Confirmed Nitroglycerin Sl Tabs [Nitrostat] 0.4 mg SUBLINGUAL Q5M PRN 07/05/14 03/13/18 Multivit-Min/FA/Lycopen/Lutein 1 tab PO DAILY 10/04/15 03/13/18 [Centrum Silver Tablet] Gabapentin [Neurontin] 900 mg PO TID 06/07/16 03/13/18 Glimepiride [Amaryl] 2 mg PO BID 07/12/16 03/13/18 Aspirin [Adult Low Dose Aspirin EC] 81 mg PO DAILY 10/13/16 03/13/18 Carvedilol [Coreg] 3.125 mg PO BID 01/12/17 03/13/18 Chlorzoxazone [Parafon Forte Dsc] 2 tab PO TID 01/12/17 03/13/18 Clopidogrel [Plavix] 75 mg PO DAILY 01/12/17 03/13/18 Fenofibrate Nanocrystallized 145 mg PO DAILY 01/12/17 03/13/18 [Tricor] PARoxetine [Paxil] 20 mg PO DAILY 01/12/17 03/13/18 Temazepam [Restoril] 30 mg PO HS PRN 01/12/17 03/13/18 Fluticasone/Salmeterol [Advair 1 each IH DAILY 12/04/17 03/13/18 500-50 Diskus] Insulin Lispro Protamin/Lispro 15 unit SQ BID 12/04/17 03/13/18 [humaLOG Mix 75-25 Kwikpen] Morphine Sulfate [Morphine Sulfate 30 mg PO Q12H 12/04/17 03/13/18 ER] Pioglitazone [Actos] 30 mg PO DAILY 12/04/17 03/13/18 Ipratropium-Albuterol Nebulize 1 dose INHALATION RT-Q4H PRN 03/13/18 03/13/18 [Duoneb 0.5 mg-3 mg/3 ml Soln] amLODIPine [Norvasc] 1 tab PO BID 03/13/18 03/13/18 Previous Rx's Medication Instructions Recorded Lisinopril [Zestril] 10 mg PO BID #60 tab 10/14/15 Pantoprazole [Protonix] 40 mg PO DAILY #30 tablet. 10/14/15 Atorvastatin [Lipitor] 80 mg PO HS #1 tab 06/09/16 Ibuprofen [Motrin] 600 mg PO Q8HR PRN #30 tab 06/21/18 Allergies Allergy/AdvReac Type Severity Reaction Status Date / Time atorvastatin calcium Allergy muscle pain Verified 06/21/18 18:08 [From Lipitor] fenofibrate nanocrystallized Allergy muscle pain Verified 06/21/18 18:08 [From Tricor] fenofibrate,micronized Allergy Unknown Verified 06/21/18 18:08 [From Tricor] rosuvastatin calcium Allergy muscle pain Verified 06/21/18 18:08 [From Crestor] sulfamethoxazole Allergy gi upset Verified 06/21/18 18:08 [From Bactrim] metformin AdvReac Nausea & Verified 06/21/18 18:08 Vomiting trimethoprim [From Bactrim] AdvReac Unknown Verified 06/21/18 18:08 rynatan Allergy Unknown Uncoded 06/21/18 18:08 Review of Systems ROS Statement: Those systems with pertinent positive or pertinent negative responses have been documented in the HPI. ROS Other: All systems not noted in ROS Statement are negative. Past Medical History Past Medical History: Coronary Artery Disease (CAD), COPD, Diabetes Mellitus, Hyperlipidemia, Hypertension, Myocardial Infarction ([place]), Osteoarthritis (OA), Sleep Apnea/CPAP/BIPAP, Vascular Disorder Additional Past Medical History / Comment(s): chronic back pain, no cpap, HX OF episodes of bloody stools-now resolved, pancreatic mass, was told benign, dr rodriguez, states [place] post carotid sx,"lt carotid artery bkg 85%" Last Myocardial Infarction Date:: 2016 History of Any Multi-Drug Resistant Organisms: None Reported Past Surgical History: Back Surgery, Coronary Bypass/CABG, Heart Catheterization With Stent, Hernia Repair Additional Past Surgical History / Comment(s): rt carotid endartectomy,pt stated hadx3 cabg surguries: first one was 1 vessel 1999 and 2nd sx 2 2010 3rd bypass in 2014 -denies any valve repalcements, , back surgery x3, heart cath stent x1 (1994) Past Anesthesia/Blood Transfusion Reactions: Previous Problems w/ Anesthesia Additional Past Anesthesia/Blood Transfusion Reaction / Comment(s): states "feels like he has ants crawling on his face with anesthesia" Date of Last Stent Placement:: 1994 Past Psychological History: Anxiety, Depression Smoking Status: Former smoker Past Alcohol Use History: None Reported Past Drug Use History: None Reported - Past Family History Father Family Medical History: Cancer (pancreatic) Additional Family Medical History / Comment(s): in MVA Sister(s) Family Medical History: Cancer Additional Family Medical History / Comment(s): BONE Mother Family Medical History: Myocardial Infarction ([place]) General Exam Limitations: no limitations General appearance: alert, in no apparent distress, other (Physical well- developed, well-nourished adult male patient in no acute distress. Vital signs upon presentation are temperature 98.3F, pulse 66, respirations 18, blood pressure 196/82, pulse ox 99% on room air.) Eye exam: Present: normal appearance, PERRL, EOMI. Absent: scleral icterus, conjunctival injection, periorbital swelling ENT exam: Present: normal exam, normal oropharynx, mucous membranes moist Respiratory exam: Present: normal lung sounds bilaterally. Absent: respiratory distress, wheezes, rales, rhonchi, stridor Cardiovascular Exam: Present: regular rate, normal rhythm, normal heart sounds. Absent: systolic murmur, diastolic murmur, rubs, gallop, clicks GI/Abdominal exam: Present: soft, tenderness (Right groin tenderness), normal bowel sounds. Absent: distended, guarding, rebound, rigid Neurological exam: Present: alert, oriented X3, CN II-XII intact Psychiatric exam: Present: normal affect, normal mood Skin exam: Present: warm, dry, intact, normal color. Absent: rash Course Vital Signs 06/21/18 06/21/18 06/21/18 18:05 20:08 21:53 Temperature 98.3 F 98 F 97.8 F Pulse Rate 66 63 59 L Respiratory 18 16 16 Rate Blood Pressure 196/82 152/87 149/80 O2 Sat by Pulse 99 94 L 95 Oximetry Medical Decision Making - Medical Decision Making 68-year-old male patient presents to the emergency department today for evaluation of right groin pain. Patient is also reporting right low back pain. Physical examination did reveal some tenderness over the right groin. Skin to the lower extremities is pink, warm, dry. Cap refills less than 3 seconds. Remainder of abdomen is nontender and soft. Labs reviewed and were unremarkable. Urinalysis negative for any evidence of infection or hematuria. CT abdomen and pelvis was obtained with contrast and showed no acute abnormalities to account for right groin pain. Patient does have history of chronic low back pain, symptoms could be related to a lumbar radiculopathy so we will treat for this. He is instructed to follow-up with his primary care physician for recheck however and his surgeon if necessary. Return parameters were discussed in detail. He verbalizes understanding and agrees this plan. - Lab Data Result diagrams: 06/21/18 18:45 06/21/18 18:45 Lab Results 06/21/18 06/21/18 06/21/18 Range/Units 18:45 18:45 18:45 WBC 9.5 (3.8-10.6) k/uL RBC 4.44 (4.30-5.90) m/uL Hgb 12.5 L (13.0-17.5) gm/dL Hct 37.6 L (39.0-53.0) % MCV 84.7 (80.0-100.0) fL MCH 28.1 (25.0-35.0) pg MCHC 33.2 (31.0-37.0) g/dL RDW 13.4 (11.5-15.5) % Plt Count 214 (150-450) k/uL Neutrophils % 65 % Lymphocytes % 24 % Monocytes % 5 % Eosinophils % 2 % Basophils % 1 % Neutrophils # 6.2 (1.3-7.7) k/uL Lymphocytes # 2.3 (1.0-4.8) k/uL Monocytes # 0.5 (0-1.0) k/uL Eosinophils # 0.2 (0-0.7) k/uL Basophils # 0.1 (0-0.2) k/uL Sodium 137 (137-145) mmol/L Potassium 3.7 (3.5-5.1) mmol/L Chloride 103 (98-107) mmol/L Carbon Dioxide 27 (22-30) mmol/L Anion Gap 7 mmol/L BUN 14 (9-20) mg/dL Creatinine 0.61 L (0.66-1.25) mg/dL Est GFR (CKD-EPI)AfAm >90 (>60 ml/min/1.73 sqM) Est GFR (CKD-EPI)NonAf >90 (>60 ml/min/1.73 sqM) Glucose 261 H (74-99) mg/dL Plasma Lactic Acid Sai 1.5 (0.7-2.0) mmol/L Calcium 9.2 (8.4-10.2) mg/dL Total Bilirubin 0.5 (0.2-1.3) mg/dL AST 28 (17-59) U/L ALT 36 (21-72) U/L Alkaline Phosphatase 76 (38-126) U/L Total Protein 6.2 L (6.3-8.2) g/dL Albumin 3.8 (3.5-5.0) g/dL Amylase <30 L (30-110) U/L Lipase 72 (23-300) U/L Urine Color Urine Appearance (Clear) Urine pH (5.0-8.0) Ur Specific Hiram (1.001-1.035) Urine Protein (Negative) Urine Glucose (UA) (Negative) Urine Ketones (Negative) Urine Blood (Negative) Urine Nitrite (Negative) Urine Bilirubin (Negative) Urine Urobilinogen (<2.0) mg/dL Ur Leukocyte Esterase (Negative) 06/21/18 Range/Units 19:30 WBC (3.8-10.6) k/uL RBC (4.30-5.90) m/uL Hgb (13.0-17.5) gm/dL Hct (39.0-53.0) % MCV (80.0-100.0) fL MCH (25.0-35.0) pg MCHC (31.0-37.0) g/dL RDW (11.5-15.5) % Plt Count (150-450) k/uL Neutrophils % % Lymphocytes % % Monocytes % % Eosinophils % % Basophils % % Neutrophils # (1.3-7.7) k/uL Lymphocytes # (1.0-4.8) k/uL Monocytes # (0-1.0) k/uL Eosinophils # (0-0.7) k/uL Basophils # (0-0.2) k/uL Sodium (137-145) mmol/L Potassium (3.5-5.1) mmol/L Chloride (98-107) mmol/L Carbon Dioxide (22-30) mmol/L Anion Gap mmol/L BUN (9-20) mg/dL Creatinine (0.66-1.25) mg/dL Est GFR (CKD-EPI)AfAm (>60 ml/min/1.73 sqM) Est GFR (CKD-EPI)NonAf (>60 ml/min/1.73 sqM) Glucose (74-99) mg/dL Plasma Lactic Acid Sai (0.7-2.0) mmol/L Calcium (8.4-10.2) mg/dL Total Bilirubin (0.2-1.3) mg/dL AST (17-59) U/L ALT (21-72) U/L Alkaline Phosphatase (38-126) U/L Total Protein (6.3-8.2) g/dL Albumin (3.5-5.0) g/dL Amylase (30-110) U/L Lipase (23-300) U/L Urine Color Yellow Urine Appearance Clear (Clear) Urine pH 6.5 (5.0-8.0) Ur Specific Hiram 1.031 (1.001-1.035) Urine Protein Trace H (Negative) Urine Glucose (UA) 4+ H (Negative) Urine Ketones Negative (Negative) Urine Blood Negative (Negative) Urine Nitrite Negative (Negative) Urine Bilirubin Negative (Negative) Urine Urobilinogen <2.0 (<2.0) mg/dL Ur Leukocyte Esterase Negative (Negative) - Radiology Data Radiology results: report reviewed, image reviewed CT abdomen and pelvis with contrast was obtained. Report was reviewed in its entirety. Impression by Dr. Holt shows no significant acute findings seen 2, patient's clinical symptoms of right groin pain. Disposition Clinical Impression: Right groin pain, Lumbar radiculopathy Disposition: HOME SELF-CARE Condition: Good Instructions (If sedation given, give patient instructions): Lumbar Radiculopathy (ED), Groin Pain (ED) Additional Instructions: Follow-up with your primary care physician or surgeon for recheck as soon as possible. Return to the emergency department immediately for any new, worsening, or concerning symptoms. Prescriptions: Ibuprofen [Motrin] 600 mg PO Q8HR PRN #30 tab PRN Reason: Pain Is patient prescribed a controlled substance at d/c from ED?: No Referrals: [facility],Clinic [Primary Care Provider] - 1-2 days Time of Disposition: 21:28
[2018-06-21 19:05] LABS: ALT 36 U/L (21-72); AST 28 U/L (17-59); Albumin 3.8 g/dL (3.5-5.0); Alkaline Phosphatase 76 U/L (38-126); Amylase <30 U/L (30-110); Anion Gap 7 mmol/L; Blood Urea Nitrogen 14 mg/dL (9-20); Calcium 9.2 mg/dL (8.4-10.2); Carbon Dioxide 27 mmol/L (22-30); Chloride 103 mmol/L (98-107); Glucose 261 mg/dL (74-99); Lipase 72 U/L (23-300); Potassium 3.7 mmol/L (3.5-5.1); Sodium 137 mmol/L (137-145); Total Bilirubin 0.5 mg/dL (0.2-1.3); Total Protein 6.2 g/dL (6.3-8.2)
[2018-06-21 19:42] LABS: Appearance,Urine Clear (Clear); Bilirubin,Urine Negative (Negative); Blood,Urine Negative (Negative); Color,Urine Yellow; Glucose,Urine (UA) 4+ (Negative); Ketones,Urine Negative (Negative); Leukocyte Esterase,Urine Negative (Negative); Nitrite,Urine Negative (Negative); PH, Urine 6.5 (5.0-8.0); Protein,Urine Trace (Negative); Specific Gravity,Urine 1.031 (1.001-1.035); Urobilinogen,Urine <2.0 mg/dL (<2.0)
[2018-06-21 20:58] VITALS: RESP 16
--- NOTE | 2018-06-21 21:21 | CT ---
EXAMINATION TYPE: CT abdomen pelvis w con DATE OF EXAM: 06/21/2018 COMPARISON: CT abdomen May 04, 2018. CT abdomen and pelvis August 14, 2016 HISTORY: Rt side groin pain, sx one year ago CT DLP: 1306.8 mGycm, Automated Exposure Control for Dose Reduction was Utilized. CONTRAST: CT scan of the abdomen and pelvis is performed with oral and with IV Contrast, patient injected with 100 mL of Isovue 300. FINDINGS: LUNG BASES: Patchy bibasilar scarring and/or atelectasis is seen. Partial visualization of sternal wi res. LIVER/GB: The liver is diffusely low-density consistent with fatty infiltration. PANCREAS: Stable suspicious hypodense oval pancreatic tail mass measuring 2.8 x 1.7 cm image 24. SPLEEN: No significant abnormality is seen. ADRENALS: No significant abnormality is seen. KIDNEYS: No significant abnormality is seen. BOWEL: Normal appearing appendix is seen from cecum in the right lower quadrant. No suspicious small or large bowel dilatation. PROSTATE/SEMINAL VESICLES: Heterogeneous enlarged prostate gland consistent with BPH. LYMPH NODES: No greater than 1cm abdominal or pelvic lymph nodes are appreciated. OSSEOUS STRUCTURES: Advanced disc space narrowing lumbosacral junction with vacuum disc phenomenon is redemonstrated. Calcified disc herniation effaces the anterior thecal sac T11-T12 level sagittal hasmukh ge 72 is present. OTHER: No suspicious right groin fat or bowel containing hernia. No suspicious groin adenopathy. Pat ent Aortobifemoral graft is redemonstrated. Overlying vertical scar is seen. IMPRESSION: No significant new or acute finding is seen to account for patient's clinical symptoms o f right groin pain.
[2018-06-21] MEDS ORDERED: DEXAMETHASONE SOD PHOSPHATE 10 MG/ML 1 ML VIAL IV STA (21:46)
[2018-06-21 21:54] VITALS: BP 149/80; PULSE 59; TEMP 97.8
== END 2018-06-21 22:12 | disposition home or self-care (01) ==
LOC: EC 17:55
DX: M54.16 Radiculopathy, lumbar region (principal); R10.31 Right lower quadrant pain; I25.10 Atherosclerotic heart disease of native coronary artery without angina pectoris; J44.9 Chronic obstructive pulmonary disease, unspecified; E11.9 Type 2 diabetes mellitus without complications; E78.5 Hyperlipidemia, unspecified; I10 Essential (primary) hypertension; I25.2 Old myocardial infarction; M19.90 Unspecified osteoarthritis, unspecified site; F32.9 Major depressive disorder, single episode, unspecified; F41.9 Anxiety disorder, unspecified; Z87.891 Personal history of nicotine dependence; Z88.2 Allergy status to sulfonamides; Z88.8 Allergy status to other drugs, medicaments and biological substances; Z79.4 Long term (current) use of insulin; Z79.02 Long term (current) use of antithrombotics/antiplatelets; Z79.82 Long term (current) use of aspirin; Z79.891 Long term (current) use of opiate analgesic; Z79.899 Other long term (current) drug therapy; Z95.1 Presence of aortocoronary bypass graft; Z95.5 Presence of coronary angioplasty implant and graft; Z98.890 Other specified postprocedural states; Z80.8 Family history of malignant neoplasm of other organs or systems; Z80.0 Family history of malignant neoplasm of digestive organs
CPT/HCPCS: 36415; 80053; 82150; 83605; 83690; 85025; 81003; 74177; 99284; 96374; 96375 ×2; 96361 ×3; J2270; J1100; J2405; Q9967

== ENCOUNTER 2018-06-22 13:26 | Observation (INO) | payer OTHER, MEDICARE ==
[2018-06-22] MEDS ORDERED: NITROGLYCERIN OINT 1 INCH/GM PACKET TOPICAL STA (13:48)
[2018-06-22] MEDS ORDERED: HEPARIN SODIUM,PORCINE 5,000 UNIT/ML 1 ML VIAL IV STA (13:48)
--- NOTE | 2018-06-22 13:53 | ED ---
Chest Pain HPI - General Chief Complaint: Chest Pain Stated Complaint: Chest pain Time Seen by Provider: 06/22/18 13:26 Source: patient, EMS, RN notes reviewed Mode of arrival: EMS Limitations: no limitations - History of Present Illness Initial Comments: This a 68-year-old male with history of coronary artery disease bypass surgery who had the onset of chest pain this afternoon of a partially 12:15 PM 10 severity sharp in nature midsternal nonradiating. He took a nitroglycerin with resolution of the pain was shortly returned. EMS was called he was given 324 of aspirin and other nitroglycerin the pain had gone away. Also does blood glucose was 553. His blood pressure got from 220 systolic and 153 systolic after treatment. He currently is asymptomatic at this time. Of note patient was seen here yesterday for abdominal pain. MD Complaint: chest pain - Related Data Home Medications Medication Instructions Recorded Confirmed Nitroglycerin Sl Tabs [Nitrostat] 0.4 mg SUBLINGUAL Q5M PRN 07/05/14 03/13/18 Multivit-Min/FA/Lycopen/Lutein 1 tab PO DAILY 10/04/15 03/13/18 [Centrum Silver Tablet] Gabapentin [Neurontin] 900 mg PO TID 06/07/16 03/13/18 Glimepiride [Amaryl] 2 mg PO BID 07/12/16 03/13/18 Aspirin [Adult Low Dose Aspirin EC] 81 mg PO DAILY 10/13/16 03/13/18 Carvedilol [Coreg] 3.125 mg PO BID 01/12/17 03/13/18 Chlorzoxazone [Parafon Forte Dsc] 2 tab PO TID 01/12/17 03/13/18 Clopidogrel [Plavix] 75 mg PO DAILY 01/12/17 03/13/18 Fenofibrate Nanocrystallized 145 mg PO DAILY 01/12/17 03/13/18 [Tricor] PARoxetine [Paxil] 20 mg PO DAILY 01/12/17 03/13/18 Temazepam [Restoril] 30 mg PO HS PRN 01/12/17 03/13/18 Fluticasone/Salmeterol [Advair 1 each IH DAILY 12/04/17 03/13/18 500-50 Diskus] Insulin Lispro Protamin/Lispro 15 unit SQ BID 12/04/17 03/13/18 [humaLOG Mix 75-25 Kwikpen] Morphine Sulfate [Morphine Sulfate 30 mg PO Q12H 12/04/17 03/13/18 ER] Pioglitazone [Actos] 30 mg PO DAILY 12/04/17 03/13/18 Ipratropium-Albuterol Nebulize 1 dose INHALATION RT-Q4H PRN 03/13/18 03/13/18 [Duoneb 0.5 mg-3 mg/3 ml Soln] amLODIPine [Norvasc] 1 tab PO BID 03/13/18 03/13/18 Previous Rx's Medication Instructions Recorded Lisinopril [Zestril] 10 mg PO BID #60 tab 10/14/15 Pantoprazole [Protonix] 40 mg PO DAILY #30 tablet. 10/14/15 Atorvastatin [Lipitor] 80 mg PO HS #1 tab 06/09/16 Ibuprofen [Motrin] 600 mg PO Q8HR PRN #30 tab 06/21/18 Allergies Allergy/AdvReac Type Severity Reaction Status Date / Time atorvastatin calcium Allergy muscle pain Verified 06/22/18 13:39 [From Lipitor] fenofibrate nanocrystallized Allergy muscle pain Verified 06/22/18 13:39 [From Tricor] fenofibrate,micronized Allergy Unknown Verified 06/22/18 13:39 [From Tricor] rosuvastatin calcium Allergy muscle pain Verified 06/22/18 13:39 [From Crestor] sulfamethoxazole Allergy gi upset Verified 06/22/18 13:39 [From Bactrim] metformin AdvReac Nausea & Verified 06/22/18 13:39 Vomiting trimethoprim [From Bactrim] AdvReac Unknown Verified 06/22/18 13:39 rynatan Allergy Unknown Uncoded 06/22/18 13:39 Review of Systems ROS Statement: Those systems with pertinent positive or pertinent negative responses have been documented in the HPI. ROS Other: All systems not noted in ROS Statement are negative. EKG Findings - EKG Results: EKG: interpreted by LARON, sinus rhythm (Sinus rhythm with occasional PVCs rate was 86. Interval 138 QRS duration 102 QT since QTC 380/454 nonspecific T-wave configuration) Past Medical History Past Medical History: Coronary Artery Disease (CAD), COPD, Diabetes Mellitus, Hyperlipidemia, Hypertension, Myocardial Infarction ([place]), Osteoarthritis ([place]), Sleep Apnea/CPAP/BIPAP, Vascular Disorder Additional Past Medical History / Comment(s): chronic back pain, no cpap, HX OF episodes of bloody stools-now resolved, pancreatic mass, was told benign, dr rodriguez, states [place] post carotid sx,"lt carotid artery bkg 85%" Last Myocardial Infarction Date:: 2016 History of Any Multi-Drug Resistant Organisms: None Reported Past Surgical History: Back Surgery, Coronary Bypass/CABG, Heart Catheterization With Stent, Hernia Repair Additional Past Surgical History / Comment(s): rt carotid endartectomy,pt stated hadx3 cabg surguries: first one was 1 vessel 1999 and 2nd sx 2 2010 3rd bypass in 2014 -denies any valve repalcements, , back surgery x3, heart cath stent x1 (1994) Past Anesthesia/Blood Transfusion Reactions: Previous Problems w/ Anesthesia Additional Past Anesthesia/Blood Transfusion Reaction / Comment(s): states "feels like he has ants crawling on his face with anesthesia" Date of Last Stent Placement:: 1994 Past Psychological History: Anxiety, Depression Smoking Status: Former smoker Past Alcohol Use History: None Reported Past Drug Use History: None Reported - Past Family History Father Family Medical History: Cancer (pancreatic) Additional Family Medical History / Comment(s): in MVA Sister(s) Family Medical History: Cancer Additional Family Medical History / Comment(s): BONE Mother Family Medical History: Myocardial Infarction ([place]) General Exam - General Exam Comments Initial Comments: This is a well-developed well-nourished awake alert oriented 3 male Limitations: no limitations General appearance: alert, in no apparent distress Head exam: Present: atraumatic, normocephalic, normal inspection Eye exam: Present: normal appearance, PERRL, EOMI. Absent: scleral icterus, conjunctival injection, periorbital swelling ENT exam: Present: normal exam, mucous membranes moist Neck exam: Present: normal inspection. Absent: tenderness, meningismus, lymphadenopathy Respiratory exam: Present: normal lung sounds bilaterally. Absent: respiratory distress, wheezes, rales, rhonchi, stridor Cardiovascular Exam: Present: regular rate, normal rhythm, normal heart sounds. Absent: systolic murmur, diastolic murmur, rubs, gallop, clicks GI/Abdominal exam: Present: soft, normal bowel sounds. Absent: distended, tenderness, guarding, rebound, rigid Extremities exam: Present: normal inspection, full ROM, normal capillary refill. Absent: tenderness, pedal edema, joint swelling, calf tenderness Back exam: Present: normal inspection Neurological exam: Present: alert, oriented X3, CN II-XII intact Psychiatric exam: Present: normal affect, normal mood Skin exam: Present: warm, dry, intact, normal color. Absent: rash Course Vital Signs 06/22/18 06/22/18 06/22/18 13:35 14:13 15:23 Temperature 98.6 F Pulse Rate 91 90 84 Respiratory 20 18 18 Rate Blood Pressure 154/82 125/73 143/70 O2 Sat by Pulse 97 96 98 Oximetry - Reevaluation(s) Reevaluation #1: 06/22/18 15:13 Patient is a recurrence of his chest pain in spite of the treatment that was rendered thus far. Repeat EKG showed ventricular rate of 90 PA interval 132 QRS duration 100 daily since QTC 386/472 occasional PVCs no change from the previous EKG however Reevaluation #2: 06/22/18 15:46 CT imaging shows no definitive evidence of pulmonary embolism. I did contact Dr. Esquivel regarding this. Patient is still demonstrated intermittent episodes of chest pain Chest Pain [facility] Patient did have recurrence of chest pain he was seen by Dr. Esquivel in the emergency department. EKG showed no acute changes. Due to the elevated d-dimer a CT angios chest was ordered. Critical Care Time Critical Care Time: Yes Critical Care Time: 47 minutes of critical care time which includes initial presenting with history physical labs x-rays reevaluation patient responsive therapy discuss with Dr. Esquivel. Patient will be going to the [facility]. Patient is normal for recurrences of chest pain. This also included review of old charting discussed with the paramedics brought the patient discussed with family members on several occasions documentation above and orders. Disposition Clinical Impression: Acute coronary syndrome, Unstable angina, Chest pain Disposition: ADMITTED IP TO THIS HOSP Condition: Serious Referrals: [facility],Clinic [Primary Care Provider] - 1-2 days
[2018-06-22] MEDS ORDERED: HEPARIN SOD,PORK IN 0.45% NACL 25,000 UNIT in 0.45% NACL 1 250ML.BAG IV SCH (14:00)
[2018-06-22 14:10] LABS: Basophils % (A) 0 %; Eosinophils % (A) 0 %; HCT 39.2 % (39.0-53.0); HGB 12.7 gm/dL (13.0-17.5); Lymphocytes # (A) 1.2 k/uL (1.0-4.8); Lymphocytes % (A) 9 %; MCH 28.3 pg (25.0-35.0); MCHC 32.4 g/dL (31.0-37.0); MCV 87.3 fL (80.0-100.0); Monocytes # (A) 0.5 k/uL (0-1.0); Monocytes % (A) 4 %; Neutrophils # (A) 11.9 k/uL (1.3-7.7); Neutrophils % (A) 87 %; Platelet Count 235 k/uL (150-450); RBC 4.49 m/uL (4.30-5.90); RDW 13.4 % (11.5-15.5); WBC 13.7 k/uL (3.8-10.6)
[2018-06-22 14:12] LABS: Glucose,Whole Blood 514 mg/dL (75-99)
[2018-06-22 14:14] VITALS: RESP 18
[2018-06-22 14:18] LABS: ALT 35 U/L (21-72); AST 23 U/L (17-59); Alkaline Phosphatase 80 U/L (38-126); Amylase <30 U/L (30-110); Anion Gap 11 mmol/L; Blood Urea Nitrogen 16 mg/dL (9-20); Carbon Dioxide 23 mmol/L (22-30); Chloride 102 mmol/L (98-107); Creatine Kinase 73 U/L (55-170); Lipase 57 U/L (23-300); Magnesium 1.3 mg/dL (1.6-2.3); Potassium 4.3 mmol/L (3.5-5.1); Sodium 136 mmol/L (137-145); Total Bilirubin 0.5 mg/dL (0.2-1.3); Total Protein 6.3 g/dL (6.3-8.2)
--- NOTE | 2018-06-22 14:20 | XR ---
EXAMINATION TYPE: XR chest 2V DATE OF EXAM: 06/22/2018 COMPARISON: 03/13/2018 TECHNIQUE: PA and lateral views submitted. HISTORY: Chest pain FINDINGS: The lungs are clear and there is no pneumothorax, pleural effusion, or focal pneumonia. Postsurgica l changes and mild cardiomegaly. Biapical pleural thickening. Hypertrophic and degenerative changes. Subsegmental changes at both lung bases. Sternotomy wires are noted with a couple of which appear to be disrupted. Appears to be chronic. IMPRESSION: 1. Basilar atelectasis favored over pneumonia correlate clinically for confirmation..
[2018-06-22 14:29] LABS: INR 0.9 (<1.2)
[2018-06-22 14:40] LABS: D-Dimer 0.81 mg/L FEU (<0.60)
[2018-06-22 14:41] LABS: Partial Thromboplastin Time 20.2 sec (22.0-30.0)
[2018-06-22] MEDS ORDERED: INSULIN REGULAR 100 UNIT/ML VIAL IV ONE (14:43)
[2018-06-22 14:44] LABS: Glucose 505 mg/dL (74-99)
[2018-06-22] MEDS ORDERED: NITROGLYCERIN SL TABS 0.4 MG TAB SUBLINGUAL PRN ×2 (14:50→20:50)
[2018-06-22 15:23] LABS: Glucose,Whole Blood 422 mg/dL (75-99)
--- NOTE | 2018-06-22 15:39 | CT ---
EXAMINATION TYPE: CT angio chest DATE OF EXAM: 06/22/2018 COMPARISON: 01/12/2017 HISTORY: Chest pain CT DLP: 462.7 mGycm. Automated Exposure Control for Dose Reduction was Utilized. CONTRAST: CTA scan of the thorax is performed with IV Contrast, patient injected with 100 mL of Isovue 370, pul monary embolism protocol. MIP Images are created on CT scanner and reviewed. FINDINGS: LUNGS: Multifocal subsegmental atelectasis is seen. Some subpleural reticulation is noted of the lung bases. The lungs are grossly clear, there is no concerning parenchymal mass or nodule identified. There is no pleural effusion or pneumothorax seen. The tracheobronchial tree is patent. MEDIASTINUM: There is suboptimal enhancement of the pulmonary artery and its branches, there is no CT evidence for pulmonary embolism. There are no greater than 1 cm hilar or mediastinal lymph nodes. T he heart is enlarged with post CABG changes. No pericardial effusion The right thyroid nodules incide ntally noted measuring 1.3 cm. Thyroid ultrasound could further assess this finding. Main pulmonary a rtery is slightly enlarged and may clinically correlate with underlying pulmonary hypertension. This measures 3.2 cm. OTHER: Moderate multilevel degenerative changes of the spine are noted. IMPRESSION: 1. Although there is slightly suboptimal bolus timing there is no evidence of central or segmental pu lmonary embolus and no findings to suspect subsegmental pulmonary embolus. 2. Again the main pulmonary artery is slightly enlarged and may clinically correlate with pulmonary a rtery hypertension.
[2018-06-22] MEDS ORDERED: SODIUM CHLORIDE 0.9% 1,000 ML IV STA (15:50)
--- NOTE | 2018-06-22 15:50 | ED ---
Medical Decision Making - Lab Data Result diagrams: 06/22/18 13:12 06/22/18 13:12 Lab Results 06/22/18 06/22/18 06/22/18 Range/Units 13:12 13:12 13:12 WBC 13.7 H (3.8-10.6) k/uL RBC 4.49 (4.30-5.90) m/uL Hgb 12.7 L (13.0-17.5) gm/dL Hct 39.2 (39.0-53.0) % MCV 87.3 (80.0-100.0) fL MCH 28.3 (25.0-35.0) pg MCHC 32.4 (31.0-37.0) g/dL RDW 13.4 (11.5-15.5) % Plt Count 235 (150-450) k/uL Neutrophils % 87 % Lymphocytes % 9 % Monocytes % 4 % Eosinophils % 0 % Basophils % 0 % Neutrophils # 11.9 H (1.3-7.7) k/uL Lymphocytes # 1.2 (1.0-4.8) k/uL Monocytes # 0.5 (0-1.0) k/uL Eosinophils # 0.0 (0-0.7) k/uL Basophils # 0.0 (0-0.2) k/uL PT 10.0 (9.0-12.0) sec INR 0.9 (<1.2) APTT 20.2 L (22.0-30.0) sec D-Dimer 0.81 H (<0.60) mg/L FEU Sodium 136 L (137-145) mmol/L Potassium 4.3 (3.5-5.1) mmol/L Chloride 102 (98-107) mmol/L Carbon Dioxide 23 (22-30) mmol/L Anion Gap 11 mmol/L BUN 16 (9-20) mg/dL Creatinine 0.65 L (0.66-1.25) mg/dL Est GFR (CKD-EPI)AfAm >90 (>60 ml/min/1.73 sqM) Est GFR (CKD-EPI)NonAf >90 (>60 ml/min/1.73 sqM) Glucose 505 H* (74-99) mg/dL POC Glucose (mg/dL) (75-99) mg/dL POC Glu Tax Form Preparer ID Calcium 10.0 (8.4-10.2) mg/dL Magnesium 1.3 L (1.6-2.3) mg/dL Total Bilirubin 0.5 (0.2-1.3) mg/dL AST 23 (17-59) U/L ALT 35 (21-72) U/L Alkaline Phosphatase 80 (38-126) U/L Creatine Kinase 73 (55-170) U/L Troponin I (0.000-0.034) ng/mL NT-Pro-B Natriuret Pep pg/mL Total Protein 6.3 (6.3-8.2) g/dL Albumin 4.0 (3.5-5.0) g/dL Amylase <30 L (30-110) U/L Lipase 57 (23-300) U/L Acetone, Qual (Negative) 06/22/18 06/22/18 06/22/18 Range/Units 13:12 13:12 13:12 WBC (3.8-10.6) k/uL RBC (4.30-5.90) m/uL Hgb (13.0-17.5) gm/dL Hct (39.0-53.0) % MCV (80.0-100.0) fL MCH (25.0-35.0) pg MCHC (31.0-37.0) g/dL RDW (11.5-15.5) % Plt Count (150-450) k/uL Neutrophils % % Lymphocytes % % Monocytes % % Eosinophils % % Basophils % % Neutrophils # (1.3-7.7) k/uL Lymphocytes # (1.0-4.8) k/uL Monocytes # (0-1.0) k/uL Eosinophils # (0-0.7) k/uL Basophils # (0-0.2) k/uL PT (9.0-12.0) sec INR (<1.2) APTT (22.0-30.0) sec D-Dimer (<0.60) mg/L FEU Sodium (137-145) mmol/L Potassium (3.5-5.1) mmol/L Chloride (98-107) mmol/L Carbon Dioxide (22-30) mmol/L Anion Gap mmol/L BUN (9-20) mg/dL Creatinine (0.66-1.25) mg/dL Est GFR (CKD-EPI)AfAm (>60 ml/min/1.73 sqM) Est GFR (CKD-EPI)NonAf (>60 ml/min/1.73 sqM) Glucose (74-99) mg/dL POC Glucose (mg/dL) (75-99) mg/dL POC Glu Tax Form Preparer ID Calcium (8.4-10.2) mg/dL Magnesium (1.6-2.3) mg/dL Total Bilirubin (0.2-1.3) mg/dL AST (17-59) U/L ALT (21-72) U/L Alkaline Phosphatase (38-126) U/L Creatine Kinase (55-170) U/L Troponin I <0.012 (0.000-0.034) ng/mL NT-Pro-B Natriuret Pep 814 pg/mL Total Protein (6.3-8.2) g/dL Albumin (3.5-5.0) g/dL Amylase (30-110) U/L Lipase (23-300) U/L Acetone, Qual Negative (Negative) 06/22/18 06/22/18 Range/Units 13:52 15:21 WBC (3.8-10.6) k/uL RBC (4.30-5.90) m/uL Hgb (13.0-17.5) gm/dL Hct (39.0-53.0) % MCV (80.0-100.0) fL MCH (25.0-35.0) pg MCHC (31.0-37.0) g/dL RDW (11.5-15.5) % Plt Count (150-450) k/uL Neutrophils % % Lymphocytes % % Monocytes % % Eosinophils % % Basophils % % Neutrophils # (1.3-7.7) k/uL Lymphocytes # (1.0-4.8) k/uL Monocytes # (0-1.0) k/uL Eosinophils # (0-0.7) k/uL Basophils # (0-0.2) k/uL PT (9.0-12.0) sec INR (<1.2) APTT (22.0-30.0) sec D-Dimer (<0.60) mg/L FEU Sodium (137-145) mmol/L Potassium (3.5-5.1) mmol/L Chloride (98-107) mmol/L Carbon Dioxide (22-30) mmol/L Anion Gap mmol/L BUN (9-20) mg/dL Creatinine (0.66-1.25) mg/dL Est GFR (CKD-EPI)AfAm (>60 ml/min/1.73 sqM) Est GFR (CKD-EPI)NonAf (>60 ml/min/1.73 sqM) Glucose (74-99) mg/dL POC Glucose (mg/dL) 514 H 422 H (75-99) mg/dL POC Glu Tax Form Preparer ID Sanjeev Rodriguez Calcium (8.4-10.2) mg/dL Magnesium (1.6-2.3) mg/dL Total Bilirubin (0.2-1.3) mg/dL AST (17-59) U/L ALT (21-72) U/L Alkaline Phosphatase (38-126) U/L Creatine Kinase (55-170) U/L Troponin I (0.000-0.034) ng/mL NT-Pro-B Natriuret Pep pg/mL Total Protein (6.3-8.2) g/dL Albumin (3.5-5.0) g/dL Amylase (30-110) U/L Lipase (23-300) U/L Acetone, Qual (Negative) Disposition Clinical Impression: Acute coronary syndrome, Unstable angina, Chest pain, Hyperglycemia Disposition: ADMITTED IP TO THIS HOSP Condition: Serious Referrals: [facility],Clinic [Primary Care Provider] - 1-2 days
[2018-06-22 15:59] LABS: Glucose,Whole Blood 313 mg/dL (75-99)
[2018-06-22] MEDS ORDERED: IV FLUID CONTINUATION 450 ML IV ONE (16:40)
[2018-06-22] MEDS ORDERED: IV FLUID CONTINUATION 600 ML IV ONE (16:40)
[2018-06-22] MEDS ORDERED: fentaNYL (PF) 50 MCG/ML 2 ML AMP ONE (16:56)
[2018-06-22] MEDS ORDERED: fentaNYL (PF) 50 MCG/ML 2 ML AMP IV ONE (17:13)
[2018-06-22] MEDS ORDERED: MIDAZOLAM 2 MG/2 ML VIAL IV ONE (17:14)
[2018-06-22] MEDS ORDERED: LIDOCAINE 1% INJ 10MG/ML (20 ML MDV) SQ ONE (17:14)
[2018-06-22] MEDS ORDERED: RX INFO: IV CONTRAST WAS GIVEN 1 EACH MISC MISCELLANE PRN (17:37)
[2018-06-22] MEDS ORDERED: HYDROmorphone 2 MG/ML 1 ML SYRINGE IVP ONE (17:42)
[2018-06-22] MEDS ORDERED: IOPAMIDOL-370 100ML BTL INJ ONE (17:42)
[2018-06-22] MEDS ORDERED: SODIUM CHLORIDE 0.9% 1,000 ML IV SCH (17:45)
--- NOTE | 2018-06-22 17:57 | CONS ---
CONSULTATION CHIEF COMPLAINT: Chest pain. Carroll Alex is a 68-year-old gentleman with history of coronary artery disease, status post CABG x2, aortic aneurysm, status post aortobifemoral surgery, hypertension, dyslipidemia, insulin-requiring diabetes, who presented to the hospital complaining of chest pain. He describes it as a precordial chest pressure, mild to moderate intensity associated with diaphoresis with some radiation to left arm. He describes it as a pressure-like sensation, moderate intensity. At the time of my evaluation, patient is having chest discomfort. His D-dimer had come back elevated. The emergency room doctor is in the process of getting a CTA of the pulmonary artery. If the CT angiogram is negative, he may need emergent cardiac catheterization. His blood sugars are elevated at 505. Hemoglobin is normal at 12.7. He is being treated with intravenous heparin and nitro paste. PAST MEDICAL HISTORY: Significant for coronary artery disease, status post CABG, diabetes, hypertension, dyslipidemia, sleep apnea, and peripheral vascular disease. PAST SURGICAL HISTORY: Significant for right carotid endarterectomy, bypass surgery x2, stent in his coronary, hernia surgery, it is unclear if the patient had an abdominal aortic aneurysm surgery or had surgery for peripheral vascular disease. The details are unclear to me at this time. FAMILY HISTORY: Negative for premature coronary artery disease. SOCIAL HISTORY: Negative for smoking, history of ETOH or drug abuse. REVIEW OF SYSTEMS: HEENT is unremarkable. Cardiac as described above. Respiratory as described above. GI negative. negative. Allergy: Negative. Skin negative. Musculoskeletal: Significant for arthritis. Psychosocial negative. Endocrine: None. Derm negative. Constitutional negative. Oncological negative. CARBIDE DIE MAKER negative. Rest of the system review is not relevant. EXAM: Patient is comfortable at rest. Afebrile. Heart rate is 90 with a blood pressure 120/70, respiratory rate is 18, O2 sat is 96% on 2 L. There is no jugular venous distention. Carotid upstroke is normal. There is no bruit. Chest exam reveals good air entry bilaterally. Heart exam reveals first and second heart sounds. No gallop. No murmur. Abdomen is soft, nontender. Exam of extremities did not reveal any edema. Peripheral pulses are felt. CARBIDE DIE MAKER exam did not reveal focal neurological deficits. LABS: Show a hemoglobin of 12.7, creatinine is 0.6, AST ALT are within normal limits. EKG shows sinus rhythm with PVCs without acute ST-T wave changes. Patient had a cardiac catheterization in December of last year that revealed [place] 3-vessel coronary artery disease with patent ALAN to LAD, venous graft to the circumflex and RCA. ASSESSMENT: 1. Unstable angina. 2. Coronary artery disease, status post coronary artery bypass grafting. 3. History of peripheral vascular disease. 4. Hypertension. 5. Diabetes. 6. Dyslipidemia. 7. Elevated D-dimer. PLAN: Patient is going to have a CT of the pulmonary arteries. If this is negative, he needs to undergo cardiac catheterization with a view to performing angioplasty. Dr. Quijano is going to call me once the CTA is done. MMODL / IJN: [id number] /
--- NOTE | 2018-06-22 18:05 | CC ---
CARDIAC CATHETERIZATION REPORT DATE OF SERVICE: June 22, 2018 PERFORMING PHYSICIAN: Umesh Timmons MD, facilities director. PROCEDURE PERFORMED: 1. Selective left and right coronary angiogram. 2. ALAN to LAD angiogram. 3. SVG to OM angiogram. 4. SVG to left circumflex angiogram. 5. Left heart catheterization. 6. Selective right common femoral artery angiogram. INDICATION: This is a pleasant 68-year-old gentleman with known history of coronary artery disease and peripheral arterial disease who underwent in the past coronary artery bypass grafting with ALAN to LAD, SVG to OM, and SVG to RCA. He presented to the emergency room with chest discomfort concerning for angina. He was seen and evaluated by Dr. Esquivel who recommended proceeding with a heart catheterization. APPROACH: Right common femoral artery. COMPLICATION: None. LEVEL OF SEDATION: Moderate with sedation length of 20 minutes. PROCEDURE DESCRIPTION: After obtaining an informed consent, the patient was brought to cardiac nitriles lab technician. The right common femoral artery was cannulated using micropuncture technique, the micropuncture wire passed easily. Then I placed a 6-Japanese sheath in the right common femoral artery. I did after that 2 selective left and right coronary angiogram using JL4 and JR4 catheters. Left heart catheterization was performed using 6-Japanese pigtail catheter. ALAN to LAD angiogram, SVG to RCA and SVG to left circumflex angiogram was performed using the JR4 catheter. The procedure was completed without any complication. SELECTIVE CORONARY ANGIOGRAM: LEFT MAIN: The left main appeared to have disease in the range of 50%. It bifurcates into the circumflex and left anterior descending artery. LEFT CIRCUMFLEX: The left circumflex appeared to have mild to moderate diffuse disease only. LEFT ANTERIOR DESCENDING CORONARY ARTERY: The LAD is occluded by the proximal portion by the ostium. RIGHT CORONARY ARTERY: The RCA is occluded in the midportion. CORONARY BYPASS ANGIOGRAM: 1. The ALAN to LAD is patent. 2. The SVG to the left circumflex is patent. 3. The SVG to RCA is patent as well. CONCLUSION: 1. Severe triple-vessel coronary artery disease. 2. Patent ALAN to LAD. 3. Patent SVG to left circumflex. 4. Patent SVG to RCA. POSTPROCEDURE MANAGEMENT: Given the above anatomy, I did recommend maximize medical treatment and follow up with the patient. MMODL / IJN: [id number] /
[2018-06-22] MEDS ORDERED: IPRATROPIUM-ALBUTEROL 3 ML NEB INHALATION PRN (20:50)
[2018-06-22] MEDS ORDERED: ATORVASTATIN 80 MG TAB PO SCH (21:00)
[2018-06-22] MEDS ORDERED: HYDROmorphone 0.5 MG/0.5 ML SYRINGE IVP ONE (21:30)
[2018-06-22 22:22] LABS: Glucose,Whole Blood 274 mg/dL (75-99)
[2018-06-22] MEDS: GABAPENTIN 300 MG CAP PO SCH (22:23)
[2018-06-22] MEDS: LISINOPRIL 10 MG TAB PO SCH (22:23)
[2018-06-22] MEDS: METHOCARBAMOL 500 MG TAB PO SCH (22:23)
[2018-06-22] MEDS: INSULIN ASPART (NovoLOG) 100 UNIT/ML VIAL SQ SCH (22:26)
[2018-06-22] MEDS ORDERED: Magnesium Replacement Protocol 1 EACH MISC MISCELLANE PRN (22:36)
[2018-06-22 23:04] VITALS: BMI 31.1
[2018-06-22] MEDS: HYDROcodone/APAP 10-325MG 1 EACH TAB PO PRN (23:33)
[2018-06-23] MEDS: MAGNESIUM SULFATE-D5W PMX 1 GM in DEXTROSE/WATER 1 100ML.BAG IVPB SCH ×3 (01:13→04:06)
[2018-06-23 04:57] VITALS: TEMP 97.4
[2018-06-23] MEDS: HYDROcodone/APAP 10-325MG 1 EACH TAB PO PRN ×2 (05:40→11:38)
[2018-06-23 06:10] LABS: Glucose,Whole Blood 161 mg/dL (75-99)
[2018-06-23] MEDS: INSULIN ASPART (NovoLOG) 100 UNIT/ML VIAL SQ SCH ×2 (06:47→11:38)
[2018-06-23 07:14] LABS: Magnesium 2.1 mg/dL (1.6-2.3)
[2018-06-23] MEDS ORDERED: PANTOPRAZOLE 40 MG TABLET PO SCH (07:30)
[2018-06-23] MEDS ORDERED: CARVEDILOL 3.125 MG TAB PO SCH (07:30)
[2018-06-23] MEDS ORDERED: SYMBICORT 160-4.5 MCG INHALER INHALATION SCH (08:00)
[2018-06-23] MEDS: METHOCARBAMOL 500 MG TAB PO SCH (08:23)
[2018-06-23] MEDS: GABAPENTIN 300 MG CAP PO SCH (08:23)
[2018-06-23] MEDS: LISINOPRIL 10 MG TAB PO SCH (08:23)
[2018-06-23] MEDS ORDERED: PARoxetine 10 MG TAB PO SCH (09:00)
[2018-06-23] MEDS ORDERED: amLODIPine 5 MG TAB PO SCH (09:00)
[2018-06-23] MEDS ORDERED: FUROSEMIDE 20 MG TAB PO SCH (09:00)
[2018-06-23] MEDS ORDERED: INSULIN DETEMIR (LEVEMIR) 100 UNIT/ML SYR SQ SCH (09:00)
[2018-06-23] MEDS ORDERED: LIDOCAINE 5% PATCH TOPICAL PRN (09:00)
[2018-06-23] MEDS ORDERED: CLOPIDOGREL 75 MG TAB PO SCH (09:00)
[2018-06-23] MEDS ORDERED: ASPIRIN 325 MG TAB PO SCH (09:00)
[2018-06-23 10:25] LABS: Anion Gap 5 mmol/L; Blood Urea Nitrogen 15 mg/dL (9-20); Calcium 9.6 mg/dL (8.4-10.2); Carbon Dioxide 31 mmol/L (22-30); Chloride 106 mmol/L (98-107); Glucose 165 mg/dL (74-99); Potassium 4.2 mmol/L (3.5-5.1); Sodium 142 mmol/L (137-145)
[2018-06-23 11:34] LABS: Glucose,Whole Blood 215 mg/dL (75-99)
--- NOTE | 2018-06-23 14:55 | P.HPIM ---
History of Present Illness Chief Complaint: Chest pain This very pleasant 68-year-old gentleman with a past medical history significant for CABG 2, cardiac aneurysm, status post hard of bifemoral surgery, hypertension, diabetes, dyslipidemia comes in with chest pain. Patient was complaining of precordial chest pain radiating to his left arm with pressure- like sensation. He was not complaining of any shortness of breath no cough, he otherwise did not complain of any abdominal pain, nausea and vomiting, or diarrhea constipation, no tingling numbness of his extremities, no itch or rash ER course. Patient had workup in the ER which showed WBC 13.7 hemoglobin 12.7 sodium 142 potassium 4.2 B1 15 creatinine 0.60. His troponins were normal Patient had a CT of the chest done which showed no PE. Patient was taken for a cardiac cath which showed no significant blockage. And medical therapy was recommended. 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, dr rodriguez, states CA post carotid sx,"lt carotid artery bkg 85%" Last Myocardial Infarction Date:: 2016 History of Any Multi-Drug Resistant Organisms: None Reported Past Surgical History: Back Surgery, Coronary Bypass/CABG, Heart Catheterization With Stent, Hernia Repair Additional Past Surgical History / Comment(s): rt carotid endartectomy,pt stated hadx3 cabg surguries: first one was 1 vessel 1999 and 2nd sx 2 2010 3rd bypass in 2014 -denies any valve repalcements, , back surgery x3, heart cath stent x1 (1994) Past Anesthesia/Blood Transfusion Reactions: Previous Problems w/ Anesthesia Additional Past Anesthesia/Blood Transfusion Reaction / Comment(s): states "feels like he has ants crawling on his face with anesthesia" Date of Last Stent Placement:: 1994 Past Psychological History: Anxiety, Depression Smoking Status: Former smoker Past Alcohol Use History: None Reported Additional Past Alcohol Use History / Comment(s): quit smoking 2009, smoked 2- 3ppd from 1964 Past Drug Use History: None Reported - Past Family History Father Family Medical History: Cancer (pancreatic) Additional Family Medical History / Comment(s): in MVA Sister(s) Family Medical History: Cancer Additional Family Medical History / Comment(s): BONE Mother Family Medical History: Myocardial Infarction (CA) Medications and Allergies Home Medications Medication Instructions Recorded Confirmed Type Nitroglycerin Sl Tabs [Nitrostat] 0.4 mg SUBLINGUAL Q5M PRN 07/05/14 06/22/18 History Lisinopril [Zestril] 10 mg PO BID #60 tab 10/14/15 06/22/18 Rx Pantoprazole [Protonix] 40 mg PO DAILY #30 tablet. 10/14/15 06/22/18 Rx Gabapentin [Neurontin] 900 mg PO TID 06/07/16 06/22/18 History Atorvastatin [Lipitor] 80 mg PO HS #1 tab 06/09/16 06/22/18 Rx Carvedilol [Coreg] 3.125 mg PO BID 01/12/17 06/22/18 History Clopidogrel [Plavix] 75 mg PO DAILY 01/12/17 06/22/18 History Ipratropium-Albuterol Nebulize 1 dose INHALATION RT-Q4H PRN 03/13/18 06/22/18 History [Duoneb 0.5 mg-3 mg/3 ml Soln] Budesonide/Formoterol Fumarate 2 puff INHALATION BID 06/22/18 06/22/18 History [Symbicort 160-4.5 Mcg Inhaler] Furosemide [Lasix] 20 mg PO DAILY 06/22/18 06/22/18 History HYDROcodone/APAP 10-325MG [Lopeno 1 tab PO QID PRN 06/22/18 06/22/18 History 10-325] Insulin Glargine [Lantus] 20 units SQ DAILY 06/22/18 06/22/18 History Lidocaine [Lidoderm 5% Patch] 1 patch TRANSDERM DAILY PRN 06/22/18 06/22/18 History Methocarbamol [Robaxin] 500 mg PO TID 06/22/18 06/22/18 History PARoxetine HCL [Paxil] 30 mg PO DAILY 06/22/18 06/22/18 History amLODIPine [Norvasc] 5 mg PO DAILY 06/22/18 06/22/18 History Allergies Allergy/AdvReac Type Severity Reaction Status Date / Time atorvastatin calcium Allergy muscle pain Verified 06/22/18 16:03 [From Lipitor] fenofibrate nanocrystallized Allergy muscle pain Verified 06/22/18 16:03 [From Tricor] fenofibrate,micronized Allergy Unknown Verified 06/22/18 16:03 [From Tricor] rosuvastatin calcium Allergy muscle pain Verified 06/22/18 16:03 [From Crestor] sulfamethoxazole Allergy gi upset Verified 06/22/18 16:03 [From Bactrim] metformin AdvReac Nausea & Verified 06/22/18 16:03 Vomiting trimethoprim [From Bactrim] AdvReac Unknown Verified 06/22/18 16:03 rynatan Allergy Unknown Uncoded 06/22/18 13:39 Physical Exam Vitals: Vital Signs Temp Pulse Pulse Resp BP BP Pulse Ox 06/23/18 12:00 65 18 140/69 94 L 06/23/18 08:00 64 18 130/61 95 06/23/18 04:00 97.4 F L 53 L 18 157/72 95 06/23/18 00:00 97.8 F 62 18 167/81 95 06/22/18 21:22 67 18 168/78 96 06/22/18 20:22 68 18 163/72 95 06/22/18 20:00 18 06/22/18 19:22 68 18 150/69 96 06/22/18 18:22 98.1 F 58 L 18 154/71 95 06/22/18 16:39 72 18 149/75 96 06/22/18 16:00 82 18 161/77 98 06/22/18 15:23 84 18 143/70 98 Intake and Output 06/22/18 06/23/18 06/23/18 22:59 06:59 14:59 Intake Total 150 Output Total 900 350 Balance 150 -900 -350 Intake: IV 150 Output: Urine 900 350 Other: Voiding Method Urinal Urinal Weight 106.3 kg On exam, alert and oriented x3. HEENT: Conjunctivae normal. eyes normal. NECK: No JVD. No thyroid enlargement. No LNs CARDIOVASCULAR: S1-S2 positive RESPIRATION: Breath sounds diminished in the bases. No rhonchi or crackles. No bronchial breathing. ABDOMEN: Soft, nontender . No guarding. no masses palpable. No ascites, No hepatosplenomegaly.Bowel sounds heard. LEGS: No edema. no swelling NERVOUS SYSTEM: Cranial N 2-12 grossly normal. Moves all 4 limbs. No focal deficits. No sensory deficit. No signs of cerebellar dysfucntion. Skin: no ulcer no rash Results CBC & Chem 7: 06/22/18 13:12 06/23/18 06:31 Labs: Abnormal Lab Results - Last 24 Hours (Table) 06/22/18 06/22/18 06/22/18 Range/Units 15:21 15:56 22:21 Carbon Dioxide (22-30) mmol/L Creatinine (0.66-1.25) mg/dL Glucose (74-99) mg/dL POC Glucose (mg/dL) 422 H 313 H 274 H (75-99) mg/dL 06/23/18 06/23/18 06/23/18 Range/Units 06:08 06:31 11:21 Carbon Dioxide 31 H (22-30) mmol/L Creatinine 0.63 L (0.66-1.25) mg/dL Glucose 165 H (74-99) mg/dL POC Glucose (mg/dL) 161 H 215 H (75-99) mg/dL Thrombosis Risk Factor Assmnt - Choose All That Apply Each Factor Represents 1 point: Obesity (BMI >25) Each Risk Factor Represents 2 Points: Age 61-74 years Thrombosis Risk Factor Assessment Total Risk Factor Score: 3 Thrombosis Risk Factor Assessment Level: Moderate Risk Assessment and Plan Assessment: - Angina - CAD status post CABG previously - Hypertension - Diabetes mellitus - Hyperlipidemia - Sleep apnea - History of PVD Plan - We'll admit the patient MedSurg with telemetry - Cardiology on board for further recommendations regarding medical management - We'll continue rest of the medications as for now - DVT and GI prophylaxis - We'll also order for lab work in the morning - Expected length of stay more than 2 midnights - Patient is full code
--- NOTE | 2018-06-23 14:58 | P.PN ---
Subjective Progress Note Date: 06/23/18 This is a 68-year-old gentleman with history of coronary artery disease and prior bypass surgery, aortic aneurysm, status post aortofemoral bypass, hypertension, hyperlipidemia, diabetes, who presented to the hospital with symptoms of chest discomfort. The patient was advised to undergo cardiac catheterization, this was performed yesterday by Dr. Rees and revealed severe triple-vessel coronary artery disease with a patent ALAN to the LAD, patent SVG to the circumflex and patent SVG to the RCA, medical therapy was advised. Patient was seen and examined this morning, overall feels well, denied any chest pain or difficulty in breathing. Blood pressure 130/60 with a heart rate in the 60s, 95% on room air. Sodium 142, potassium 4.2, BUN 15 and creatinine 0.6. Objective - Vital Signs Vital signs: Vital Signs Temp 97.4 F L 06/23/18 04:00 Pulse 65 06/23/18 12:00 Resp 18 06/23/18 12:00 BP 140/69 06/23/18 12:00 Pulse Ox 94 L 06/23/18 12:00 Intake & Output 06/22/18 06/23/18 06/23/18 18:59 06:59 18:59 Intake Total 150 Output Total 620 900 350 Balance -470 -900 -350 Weight 106.957 kg 106.3 kg Intake: IV 150 Output: Urine 620 900 350 Other: Voiding Method Urinal Urinal - Exam PHYSICAL EXAMINATION: GENERAL: 68-year-old gentleman in no acute distress at the time of my examination HEENT: Head is atraumatic, normocephalic. Pupils equal, round. Sclera anicteric. Conjunctiva are clear. Mucous membranes of the mouth are moist. Neck is supple. There is no elevated jugular venous pressure. No carotid bruit is heard. HEART EXAMINATION: Heart S1, S2 normal. No murmur or gallop heard. CHEST EXAMINATION: Lungs are clear to auscultation and precussion. No chest wall tenderness is noted on palpation or with deep breathing. ABDOMEN: Soft, nontender. Bowel sounds are heard. No organomegaly noted. EXTREMITIES: 2+ peripheral pulses with no evidence of peripheral edema and no calf tenderness noted. Right groin soft, no hematoma. NEUROLOGIC [patient is awake, alert and oriented X3 . - Labs CBC & Chem 7: 06/22/18 13:12 06/23/18 06:31 Labs: Abnormal Lab Results - Last 24 Hours (Table) 06/22/18 06/22/18 06/22/18 Range/Units 15:21 15:56 22:21 Carbon Dioxide (22-30) mmol/L Creatinine (0.66-1.25) mg/dL Glucose (74-99) mg/dL POC Glucose (mg/dL) 422 H 313 H 274 H (75-99) mg/dL 06/23/18 06/23/18 06/23/18 Range/Units 06:08 06:31 11:21 Carbon Dioxide 31 H (22-30) mmol/L Creatinine 0.63 L (0.66-1.25) mg/dL Glucose 165 H (74-99) mg/dL POC Glucose (mg/dL) 161 H 215 H (75-99) mg/dL Assessment and Plan Plan: Assessment and plan #1 chest pain, status post cardiac catheterization, medical therapy advised #2 coronary artery disease with prior bypass #3 peripheral vascular disease #4 hypertension #5 diabetes #6 hyperlipidemia Plan From cardiology's perspective, patient may be able to be discharged home today. We will make him a follow-up appointment to see Dr. Rees in the office post discharge. DNP note has been reviewed, I agree with a documented findings and plan of care. Patient was seen and examined.
--- NOTE | 2018-06-23 15:02 | P.DS ---
Providers Date of admission: 06/22/18 15:49 Attending physician: Riley Oliveira MD Consults: 06/22/18 14:44 Consult Physician Stat Consulting Provider: Tawanda Esquivel Consult Reason/Comments: Chest pain, ACS Do you want consulting provider notified?: Already Contacted Primary care physician: [facility] Hospital Course: Discharge diagnosis - Angina status post cardiac cath which showed no significant blockage. Recommend medical management - History of CAD status post CABG - History of hypertension - History of diabetes - History of hyperlipidemia - History of sleep apnea Hospital course Very pleasant 68-year-old gentleman with a past medical history stated above comes in for chest pain. Patient had workup done which showed EKG which was negative Trousseau negative. Patient was taken for cath for angina-like symptoms. His catch shows no significant blockage. Medical management recommended. Patient remained chest pain-free and was deemed stable for discharge. His sugars were uncontrolled during his hospital stay he was started on sliding scale which controlled sugars. He will be discharged and sliding scale along with the long acting insulin. Patient is to follow with his primary care doctor within 1 week Patient is to follow with rn production in a week. Patient Condition at Discharge: Serious Plan - Discharge Summary Discharge Rx Participant: Yes New Discharge Prescriptions: New INSULIN ASPART (NovoLOG) [NovoLOG (formulary)] 0 unit SQ ACHS #2 vial Aspirin [Adult Low Dose Aspirin EC] 81 mg PO DAILY #30 tab Continue Nitroglycerin Sl Tabs [Nitrostat] 0.4 mg SUBLINGUAL Q5M PRN PRN Reason: Chest Pain Lisinopril [Zestril] 10 mg PO BID #60 tab Pantoprazole [Protonix] 40 mg PO DAILY #30 tablet. Gabapentin [Neurontin] 900 mg PO TID Atorvastatin [Lipitor] 80 mg PO HS #1 tab Carvedilol [Coreg] 3.125 mg PO BID Clopidogrel [Plavix] 75 mg PO DAILY Ipratropium-Albuterol Nebulize [Duoneb 0.5 mg-3 mg/3 ml Soln] 1 dose INHALATION RT-Q4H PRN PRN Reason: Shortness Of Breath Or Wheezing HYDROcodone/APAP 10-325MG [[place] 10-325] 1 tab PO QID PRN PRN Reason: Pain Lidocaine [Lidoderm 5% Patch] 1 patch TRANSDERM DAILY PRN PRN Reason: Pain Insulin Glargine [Lantus] 20 units SQ DAILY Methocarbamol [Robaxin] 500 mg PO TID Furosemide [Lasix] 20 mg PO DAILY PARoxetine HCL [Paxil] 30 mg PO DAILY amLODIPine [Norvasc] 5 mg PO DAILY Budesonide/Formoterol Fumarate [Symbicort 160-4.5 Mcg Inhaler] 2 puff INHALATION BID Discharge Medication List Nitroglycerin Sl Tabs [Nitrostat] 0.4 mg SUBLINGUAL Q5M PRN 07/05/14 [History] Lisinopril [Zestril] 10 mg PO BID #60 tab 10/14/15 [Rx] Pantoprazole [Protonix] 40 mg PO DAILY #30 tablet. 10/14/15 [Rx] Gabapentin [Neurontin] 900 mg PO TID 06/07/16 [History] Atorvastatin [Lipitor] 80 mg PO HS #1 tab 06/09/16 [Rx] Carvedilol [Coreg] 3.125 mg PO BID 01/12/17 [History] Clopidogrel [Plavix] 75 mg PO DAILY 01/12/17 [History] Ipratropium-Albuterol Nebulize [Duoneb 0.5 mg-3 mg/3 ml Soln] 1 dose INHALATION RT-Q4H PRN 03/13/18 [History] Budesonide/Formoterol Fumarate [Symbicort 160-4.5 Mcg Inhaler] 2 puff INHALATION BID 06/22/18 [History] Furosemide [Lasix] 20 mg PO DAILY 06/22/18 [History] HYDROcodone/APAP 10-325MG [[place] 10-325] 1 tab PO QID PRN 06/22/18 [History] Insulin Glargine [Lantus] 20 units SQ DAILY 06/22/18 [History] Lidocaine [Lidoderm 5% Patch] 1 patch TRANSDERM DAILY PRN 06/22/18 [History] Methocarbamol [Robaxin] 500 mg PO TID 06/22/18 [History] PARoxetine HCL [Paxil] 30 mg PO DAILY 06/22/18 [History] amLODIPine [Norvasc] 5 mg PO DAILY 06/22/18 [History] Aspirin [Adult Low Dose Aspirin EC] 81 mg PO DAILY #30 tab 06/23/18 [Rx] INSULIN ASPART (NovoLOG) [NovoLOG (formulary)] 0 unit SQ ACHS #2 vial 06/23/18 [Rx] Follow up Appointment(s)/Referral(s): Umesh Timmons MD [STAFF PHYSICIAN] - 06/29/18 2:30 pm (Previous appointment still in place for July 20. ) [facility],Clinic [Primary Care Provider] - 1-2 days Patient Instructions/Handouts: *Surgery [facility] - After Heart Catheterization - Control Operator Instructions, Hypomagnesemia (DC)
[2018-06-23 16:09] VITALS: BP 147/71; PULSE 63
== END 2018-06-23 17:11 | disposition home or self-care (01) ==
LOC: EC 13:26 → 3SCARD 14:43 → INTOOBSV 14:43 → UNDOADMIN 15:49 → 3SCARD 15:49 → UNDODISIN 06-23 17:11
PROVIDERS: ADMIT Internal Medicine; ATTEND Internal Medicine
PROC: B2111ZZ Fluoroscopy of Multiple Coronary Arteries using Low Osmolar Contrast (ICD-10-PCS; 2018-06-22)
PROC: 4A023N7 Measurement of Cardiac Sampling and Pressure, Left Heart, Percutaneous Approach (ICD-10-PCS; principal; 2018-06-22 16:00)
DX: I25.110 Atherosclerotic heart disease of native coronary artery with unstable angina pectoris (principal); E11.51 Type 2 diabetes mellitus with diabetic peripheral angiopathy without gangrene; E11.65 Type 2 diabetes mellitus with hyperglycemia; J44.9 Chronic obstructive pulmonary disease, unspecified; E78.5 Hyperlipidemia, unspecified; F32.9 Major depressive disorder, single episode, unspecified; F41.9 Anxiety disorder, unspecified; G47.30 Sleep apnea, unspecified; I10 Essential (primary) hypertension; I25.2 Old myocardial infarction; R79.89 Other specified abnormal findings of blood chemistry; I49.3 Ventricular premature depolarization; K86.89 Other specified diseases of pancreas; E66.9 Obesity, unspecified; Z68.30 Body mass index [BMI] 30.0-30.9, adult; I71.9 Aortic aneurysm of unspecified site, without rupture; M19.90 Unspecified osteoarthritis, unspecified site; G89.29 Other chronic pain; M54.9 Dorsalgia, unspecified; Z99.89 Dependence on other enabling machines and devices; Z79.02 Long term (current) use of antithrombotics/antiplatelets; Z79.4 Long term (current) use of insulin; Z79.51 Long term (current) use of inhaled steroids; Z79.82 Long term (current) use of aspirin; Z79.899 Other long term (current) drug therapy; Z88.1 Allergy status to other antibiotic agents; Z88.2 Allergy status to sulfonamides; Z88.8 Allergy status to other drugs, medicaments and biological substances; Z95.1 Presence of aortocoronary bypass graft; Z95.5 Presence of coronary angioplasty implant and graft; Z87.891 Personal history of nicotine dependence; Z82.49 Family history of ischemic heart disease and other diseases of the circulatory system; Z80.0 Family history of malignant neoplasm of digestive organs; Z80.8 Family history of malignant neoplasm of other organs or systems
CPT/HCPCS: 96376; 96365; 96366; 99291; 36415; 94640; 93005; 93459; 85347; 85379; 83880; 80061; 80053; 80048; 82150; 82550; 82009; 83690; 83735 ×2; 84484 ×2; 85025; 85610; 85730; 71046; 71275; 99152; G0378 ×2; C1894; C1769 ×2; J2250; J1170 ×2; J1644 ×2; J2001; J3010; J3475; Q9967

== ENCOUNTER 2018-07-13 23:03 | Emergency (ER) | payer OTHER, MEDICARE ==
[2018-07-13 23:19] VITALS: BP 149/69; PULSE 64; RESP 18; TEMP 98.1
[2018-07-13] MEDS ORDERED: PENICILLIN VK 500MG STARTER 4 TAB BTL PO STA (23:41)
[2018-07-13] MEDS ORDERED: KETOROLAC 30 MG/ML 1 ML VIAL IM STA (23:41)
--- NOTE | 2018-07-13 23:43 | ED ---
General Adult HPI - General Chief complaint: Dental/Oral Stated complaint: Dental Abscess Time Seen by Provider: 07/13/18 23:24 Source: patient, family, RN notes reviewed Mode of arrival: wheelchair Limitations: physical limitation - History of Present Illness Initial comments: 68-year-old male presents to the emergency department for a chief complaint of dental pain 2 months. Patient states he has had pain in the left lower jaw from a broken tooth on and off for 2 months. However in the past 2 days states this has worsened and now it is swelling. Patient denies any neck stiffness. Denies any difficulty opening the jaw. Denies any sublingual melena or pain. No fevers or chills.Patient has no other complaints at this time including shortness of breath, chest pain, abdominal pain, nausea or vomiting, headache, or visual changes. - Related Data Home Medications Medication Instructions Recorded Confirmed Nitroglycerin Sl Tabs [Nitrostat] 0.4 mg SUBLINGUAL Q5M PRN 07/05/14 06/22/18 Gabapentin [Neurontin] 900 mg PO TID 06/07/16 06/22/18 Carvedilol [Coreg] 3.125 mg PO BID 01/12/17 06/22/18 Clopidogrel [Plavix] 75 mg PO DAILY 01/12/17 06/22/18 Ipratropium-Albuterol Nebulize 1 dose INHALATION RT-Q4H PRN 03/13/18 06/22/18 [Duoneb 0.5 mg-3 mg/3 ml Soln] Budesonide/Formoterol Fumarate 2 puff INHALATION BID 06/22/18 06/22/18 [Symbicort 160-4.5 Mcg Inhaler] Furosemide [Lasix] 20 mg PO DAILY 06/22/18 06/22/18 HYDROcodone/APAP 10-325MG [[place] 1 tab PO QID PRN 06/22/18 06/22/18 10-325] Insulin Glargine [Lantus] 20 units SQ DAILY 06/22/18 06/22/18 Lidocaine [Lidoderm 5% Patch] 1 patch TRANSDERM DAILY PRN 06/22/18 06/22/18 Methocarbamol [Robaxin] 500 mg PO TID 06/22/18 06/22/18 PARoxetine HCL [Paxil] 30 mg PO DAILY 06/22/18 06/22/18 amLODIPine [Norvasc] 5 mg PO DAILY 06/22/18 06/22/18 Previous Rx's Medication Instructions Recorded Lisinopril [Zestril] 10 mg PO BID #60 tab 10/14/15 Pantoprazole [Protonix] 40 mg PO DAILY #30 tablet. 10/14/15 Atorvastatin [Lipitor] 80 mg PO HS #1 tab 06/09/16 Aspirin [Adult Low Dose Aspirin EC] 81 mg PO DAILY #30 tab 06/23/18 INSULIN ASPART (NovoLOG) [NovoLOG 0 unit SQ ACHS #2 vial 06/23/18 (formulary)] Allergies Allergy/AdvReac Type Severity Reaction Status Date / Time atorvastatin calcium Allergy muscle pain Verified 07/13/18 23:20 [From Lipitor] fenofibrate nanocrystallized Allergy muscle pain Verified 07/13/18 23:20 [From Tricor] fenofibrate,micronized Allergy Unknown Verified 07/13/18 23:20 [From Tricor] rosuvastatin calcium Allergy muscle pain Verified 07/13/18 23:20 [From Crestor] sulfamethoxazole Allergy gi upset Verified 07/13/18 23:20 [From Bactrim] metformin AdvReac Nausea & Verified 07/13/18 23:20 Vomiting trimethoprim [From Bactrim] AdvReac Unknown Verified 07/13/18 23:20 rynatan Allergy Unknown Uncoded 07/13/18 23:20 Review of Systems ROS Statement: Those systems with pertinent positive or pertinent negative responses have been documented in the HPI. ROS Other: All systems not noted in ROS Statement are negative. Past Medical History Past Medical History: Coronary Artery Disease (CAD), COPD, Diabetes Mellitus, Hyperlipidemia, Hypertension, Myocardial Infarction ([place]), Osteoarthritis (OA), Sleep Apnea/CPAP/BIPAP, Vascular Disorder Additional Past Medical History / Comment(s): chronic back pain, no cpap, HX OF episodes of bloody stools-now resolved, pancreatic mass, was told benign, dr rodriguez, states [place] post carotid sx,"lt carotid artery bkg 85%" Last Myocardial Infarction Date:: 2016 History of Any Multi-Drug Resistant Organisms: None Reported Past Surgical History: Back Surgery, Coronary Bypass/CABG, Heart Catheterization With Stent, Hernia Repair Additional Past Surgical History / Comment(s): rt carotid endartectomy,pt stated hadx3 cabg surguries: first one was 1 vessel 1999 and 2nd sx 2 2010 3rd bypass in 2015 -denies any valve repalcements, , back surgery x3, heart cath stent x1 (1994) Past Anesthesia/Blood Transfusion Reactions: Previous Problems w/ Anesthesia Additional Past Anesthesia/Blood Transfusion Reaction / Comment(s): states "feels like he has ants crawling on his face with anesthesia" Date of Last Stent Placement:: 1994 Past Psychological History: Anxiety, Depression Smoking Status: Former smoker Past Alcohol Use History: None Reported Past Drug Use History: None Reported - Past Family History Father Family Medical History: Cancer (pancreatic) Additional Family Medical History / Comment(s): in MVA Sister(s) Family Medical History: Cancer Additional Family Medical History / Comment(s): BONE Mother Family Medical History: Myocardial Infarction ([place]) General Exam Limitations: physical limitation General appearance: alert, in no apparent distress Head exam: Present: atraumatic, normocephalic, normal inspection Eye exam: Present: normal appearance, PERRL, EOMI. Absent: scleral icterus, conjunctival injection, periorbital swelling ENT exam: Present: normal exam, mucous membranes moist, TM's normal bilaterally, normal external ear exam. Absent: normal oropharynx (Poor dentition noted. Tooth 22 is chipped. No abscess noted. This is where patient's pain is.), other (No sublingual edema or pain.) Neck exam: Present: normal inspection, full ROM. Absent: tenderness, meningismus, lymphadenopathy Respiratory exam: Present: normal lung sounds bilaterally. Absent: respiratory distress, wheezes, rales, rhonchi, stridor Cardiovascular Exam: Present: regular rate, normal rhythm, normal heart sounds. Absent: systolic murmur, diastolic murmur, rubs, gallop, clicks GI/Abdominal exam: Present: soft, normal bowel sounds. Absent: distended, tenderness, guarding, rebound, rigid Neurological exam: Present: alert, oriented X3, CN II-XII intact Psychiatric exam: Present: normal affect, normal mood Course Vital Signs 07/13/18 23:15 Temperature 98.1 F Pulse Rate 64 Respiratory 18 Rate Blood Pressure 149/69 O2 Sat by Pulse 96 Oximetry Medical Decision Making - Medical Decision Making 68-year-old male presents to the emergency department for chief landed dental pain. States this has been going on for 2 months but has worsened in the past 2 days. Denies fevers or chills. Denies neck stiffness or pain. No sublingual edema or pain. On exam patient does have poor dentition. Tooth 22 is cracked. No abscess is noted. Patient will be started on penicillin. He is directed to follow up with a dentist or community dental clinic. He will return here if he has any worsening symptoms. Disposition Clinical Impression: Tooth pain Disposition: HOME SELF-CARE Condition: Good Instructions (If sedation given, give patient instructions): Toothache (ED) Additional Instructions: Please take penicillin as directed. Take Tylenol and Motrin for pain. Follow- up with an test in 1-2 days. Return here to the emergency department if you have any worsening symptoms. [facility] dental clinic Address [address] [place] [address] phone Is patient prescribed a controlled substance at d/c from ED?: No Referrals: [facility],Clinic [Primary Care Provider] - 1-2 days Time of Disposition: 23:42
== END 2018-07-14 00:49 | disposition home or self-care (01) ==
LOC: EC 23:03
DX: K08.89 Other specified disorders of teeth and supporting structures (principal); K03.81 Cracked tooth; J44.9 Chronic obstructive pulmonary disease, unspecified; I25.10 Atherosclerotic heart disease of native coronary artery without angina pectoris; E11.9 Type 2 diabetes mellitus without complications; F41.9 Anxiety disorder, unspecified; I10 Essential (primary) hypertension; F32.9 Major depressive disorder, single episode, unspecified; I25.2 Old myocardial infarction; G47.30 Sleep apnea, unspecified; Z87.891 Personal history of nicotine dependence; Z79.899 Other long term (current) drug therapy; Z79.4 Long term (current) use of insulin; Z79.02 Long term (current) use of antithrombotics/antiplatelets; Z88.8 Allergy status to other drugs, medicaments and biological substances; Z88.2 Allergy status to sulfonamides; Z99.89 Dependence on other enabling machines and devices; Z95.5 Presence of coronary angioplasty implant and graft
CPT/HCPCS: 99283; 96372; J1885

== ENCOUNTER 2018-07-30 15:46 | Emergency (ER) | payer MEDICARE, OTHER ==
[2018-07-30 16:00] VITALS: RESP 18
[2018-07-30] MEDS ORDERED: SODIUM CHLORIDE 0.9% 1,000 ML IV STA ×2 (16:11)
[2018-07-30] MEDS ORDERED: SODIUM CHLORIDE 0.9% 500 ML 500 ML IV STA (16:11)
--- NOTE | 2018-07-30 16:15 | ED ---
Recheck HPI - General Chief Complaint: Recheck/Abnormal Lab/Rx Stated Complaint: HTN Time Seen by Provider: 07/30/18 16:02 Source: patient, RN notes reviewed, old records reviewed Mode of arrival: wheelchair Limitations: no limitations - History of Present Illness Initial Comments: This is a 68-year-old male the ER for evaluation. Presents today for recheck of pain, elevated blood sugar, elevated blood pressure. Similar symptoms a week ago. Patient has complicated history of medical comorbidities that her extensive. He denies headache chest pain shortness breath or abdominal pain. Does feel a little weak and does have chronic pain. Again denies fevers. MD Complaint: abnormal lab (Elevated blood sugar), other (Elevated blood pressure) -: days(s) Returns Today for: Called Because of Abnormal Lab/Test Symptoms Since Prior Visit: no new symptoms Context: called for abnormal lab result Associated Symptoms: other (Generalized pain) - Related Data Home Medications Medication Instructions Recorded Confirmed Nitroglycerin Sl Tabs [Nitrostat] 0.4 mg SUBLINGUAL Q5M PRN 07/05/14 07/30/18 Gabapentin [Neurontin] 900 mg PO TID 06/07/16 07/30/18 Carvedilol [Coreg] 3.125 mg PO BID 01/12/17 07/30/18 Clopidogrel [Plavix] 75 mg PO DAILY 01/12/17 07/30/18 Ipratropium-Albuterol Nebulize 1 dose INHALATION RT-Q4H PRN 03/13/18 07/30/18 [Duoneb 0.5 mg-3 mg/3 ml Soln] Budesonide/Formoterol Fumarate 2 puff INHALATION RT-BID 06/22/18 07/30/18 [Symbicort 160-4.5 Mcg Inhaler] Furosemide [Lasix] 20 mg PO DAILY 06/22/18 07/30/18 HYDROcodone/APAP 10-325MG [[place] 1 tab PO QID PRN 06/22/18 07/30/18 10-325] Insulin Glargine [Lantus] 20 units SQ DAILY 06/22/18 07/30/18 Lidocaine [Lidoderm 5% Patch] 1 patch TRANSDERM DAILY PRN 06/22/18 07/30/18 Methocarbamol [Robaxin] 500 mg PO TID 06/22/18 07/30/18 PARoxetine HCL [Paxil] 30 mg PO DAILY 06/22/18 07/30/18 amLODIPine [Norvasc] 5 mg PO DAILY 06/22/18 07/30/18 Atorvastatin [Lipitor] 80 mg PO HS 07/30/18 07/30/18 Isosorbide Mononitrate ER [Imdur] 60 mg PO DAILY 07/30/18 07/30/18 Previous Rx's Medication Instructions Recorded Lisinopril [Zestril] 10 mg PO BID #60 tab 10/14/15 Aspirin [Adult Low Dose Aspirin EC] 81 mg PO DAILY #30 tab 06/23/18 INSULIN ASPART (NovoLOG) [NovoLOG 0 unit SQ ACHS #2 vial 06/23/18 (formulary)] Allergies Allergy/AdvReac Type Severity Reaction Status Date / Time atorvastatin calcium Allergy muscle pain Verified 07/30/18 16:35 [From Lipitor] baclofen Allergy Verified 07/30/18 16:26 fenofibrate nanocrystallized Allergy muscle pain Verified 07/13/18 23:20 [From Tricor] fenofibrate,micronized Allergy Unknown Verified 07/13/18 23:20 [From Tricor] morphine Allergy Confusion Verified 07/30/18 16:26 rosuvastatin calcium Allergy muscle pain Verified 07/13/18 23:20 [From Crestor] sulfamethoxazole Allergy gi upset Verified 07/13/18 23:20 [From Bactrim] metformin AdvReac Nausea & Verified 07/13/18 23:20 Vomiting trimethoprim [From Bactrim] AdvReac Unknown Verified 07/13/18 23:20 rynatan Allergy Unknown Uncoded 07/13/18 23:20 Review of Systems ROS Statement: Those systems with pertinent positive or pertinent negative responses have been documented in the HPI. ROS Other: All systems not noted in ROS Statement are negative. Past Medical History Past Medical History: Coronary Artery Disease (CAD), COPD, Diabetes Mellitus, Hyperlipidemia, Hypertension, Myocardial Infarction ([place]), Osteoarthritis (OA), Sleep Apnea/CPAP/BIPAP, Vascular Disorder Additional Past Medical History / Comment(s): chronic back pain, no cpap, HX OF episodes of bloody stools-now resolved, pancreatic mass, was told benign, dr rodriguez, states [place] post carotid sx,"lt carotid artery bkg 85%" Last Myocardial Infarction Date:: 2016 History of Any Multi-Drug Resistant Organisms: None Reported Past Surgical History: Back Surgery, Coronary Bypass/CABG, Heart Catheterization With Stent, Hernia Repair Additional Past Surgical History / Comment(s): rt carotid endartectomy,pt stated hadx3 cabg surguries: first one was 1 vessel 1999 and 2nd sx 2 2010 3rd bypass in 2015 -denies any valve repalcements, , back surgery x3, heart cath stent x1 (1994) Past Anesthesia/Blood Transfusion Reactions: Previous Problems w/ Anesthesia Additional Past Anesthesia/Blood Transfusion Reaction / Comment(s): states "feels like he has ants crawling on his face with anesthesia" Date of Last Stent Placement:: 1994 Past Psychological History: Anxiety, Depression Smoking Status: Former smoker Past Alcohol Use History: None Reported Past Drug Use History: None Reported - Past Family History Father Family Medical History: Cancer (pancreatic) Additional Family Medical History / Comment(s): in MVA Sister(s) Family Medical History: Cancer Additional Family Medical History / Comment(s): BONE Mother Family Medical History: Myocardial Infarction ([place]) General Exam Limitations: no limitations General appearance: alert, in no apparent distress Head exam: Present: atraumatic, normocephalic, normal inspection Eye exam: Present: normal appearance, PERRL, EOMI. Absent: scleral icterus, conjunctival injection, periorbital swelling ENT exam: Present: normal exam, mucous membranes moist Neck exam: Present: normal inspection. Absent: tenderness, meningismus, lymphadenopathy Respiratory exam: Present: normal lung sounds bilaterally. Absent: respiratory distress, wheezes, rales, rhonchi, stridor Cardiovascular Exam: Present: regular rate, normal rhythm, normal heart sounds. Absent: systolic murmur, diastolic murmur, rubs, gallop, clicks GI/Abdominal exam: Present: soft, normal bowel sounds. Absent: distended, t enderness, guarding, rebound, rigid Extremities exam: Present: normal inspection, full ROM, normal capillary refill. Absent: tenderness, pedal edema, joint swelling, calf tenderness Back exam: Present: normal inspection Neurological exam: Present: alert, oriented X3, CN II-XII intact Psychiatric exam: Present: normal affect, normal mood Skin exam: Present: warm, dry, intact, normal color. Absent: rash Course Vital Signs 0507/30/18 07/30/18 15:58 16:59 17:00 Temperature 97.9 F Pulse Rate 65 64 60 Respiratory 18 18 18 Rate Blood Pressure 212/86 194/82 179/84 O2 Sat by Pulse 97 97 99 Oximetry 07/30/18 18:16 Temperature Pulse Rate 60 Respiratory 18 Rate Blood Pressure 189/101 O2 Sat by Pulse 97 Oximetry - Reevaluation(s) Reevaluation #1: 07/30/18 17:04 Medical record and prior ER visit is reviewed Reevaluation #2: 07/30/18 17:04 For pressure improved here without treatment Medical Decision Making - Medical Decision Making 68 male the ER for hyperglycemia and hypertension and chronic pain evaluation, all 3 of the above are improved and patient can be discharged home no distress labwork is normal - Lab Data Result diagrams: 07/30/18 16:43 07/30/18 16:43 Lab Results 07/30/18 07/30/18 07/30/18 Range/Units 16:43 16:43 16:43 WBC 9.1 (3.8-10.6) k/uL RBC 4.69 (4.30-5.90) m/uL Hgb 13.0 (13.0-17.5) gm/dL Hct 39.5 (39.0-53.0) % MCV 84.2 (80.0-100.0) fL MCH 27.7 (25.0-35.0) pg MCHC 32.9 (31.0-37.0) g/dL RDW 14.1 (11.5-15.5) % Plt Count 203 (150-450) k/uL Neutrophils % 65 % Lymphocytes % 24 % Monocytes % 6 % Eosinophils % 2 % Basophils % 1 % Neutrophils # 5.9 (1.3-7.7) k/uL Lymphocytes # 2.2 (1.0-4.8) k/uL Monocytes # 0.6 (0-1.0) k/uL Eosinophils # 0.2 (0-0.7) k/uL Basophils # 0.1 (0-0.2) k/uL PT (9.0-12.0) sec INR (<1.2) APTT (22.0-30.0) sec Sodium 138 (137-145) mmol/L Potassium 4.3 (3.5-5.1) mmol/L Chloride 106 (98-107) mmol/L Carbon Dioxide 27 (22-30) mmol/L Anion Gap 5 mmol/L BUN 16 (9-20) mg/dL Creatinine 0.51 L (0.66-1.25) mg/dL Est GFR (CKD-EPI)AfAm >90 (>60 ml/min/1.73 sqM) Est GFR (CKD-EPI)NonAf >90 (>60 ml/min/1.73 sqM) Glucose 211 H (74-99) mg/dL Plasma Lactic Acid Sai 1.2 (0.7-2.0) mmol/L Calcium 9.7 (8.4-10.2) mg/dL Phosphorus 2.8 (2.5-4.5) mg/dL Magnesium 1.6 (1.6-2.3) mg/dL Total Bilirubin 0.4 (0.2-1.3) mg/dL AST 17 (17-59) U/L ALT 20 L (21-72) U/L Alkaline Phosphatase 74 (38-126) U/L Troponin I (0.000-0.034) ng/mL NT-Pro-B Natriuret Pep pg/mL Total Protein 6.4 (6.3-8.2) g/dL Albumin 4.0 (3.5-5.0) g/dL TSH 0.841 (0.465-4.680) mIU/L Urine Color Urine Appearance (Clear) Urine pH (5.0-8.0) Ur Specific [place] (1.001-1.035) Urine Protein (Negative) Urine Glucose (UA) (Negative) Urine Ketones (Negative) Urine Blood (Negative) Urine Nitrite (Negative) Urine Bilirubin (Negative) Urine Urobilinogen (<2.0) mg/dL Ur Leukocyte Esterase (Negative) Acetone, Qual Negative (Negative) 07/30/18 07/30/18 07/30/18 Range/Units 16:43 16:43 16:43 WBC (3.8-10.6) k/uL RBC (4.30-5.90) m/uL Hgb (13.0-17.5) gm/dL Hct (39.0-53.0) % MCV (80.0-100.0) fL MCH (25.0-35.0) pg MCHC (31.0-37.0) g/dL RDW (11.5-15.5) % Plt Count (150-450) k/uL Neutrophils % % Lymphocytes % % Monocytes % % Eosinophils % % Basophils % % Neutrophils # (1.3-7.7) k/uL Lymphocytes # (1.0-4.8) k/uL Monocytes # (0-1.0) k/uL Eosinophils # (0-0.7) k/uL Basophils # (0-0.2) k/uL PT 9.7 (9.0-12.0) sec INR 0.9 (<1.2) APTT 21.7 L (22.0-30.0) sec Sodium (137-145) mmol/L Potassium (3.5-5.1) mmol/L Chloride (98-107) mmol/L Carbon Dioxide (22-30) mmol/L Anion Gap mmol/L BUN (9-20) mg/dL Creatinine (0.66-1.25) mg/dL Est GFR (CKD-EPI)AfAm (>60 ml/min/1.73 sqM) Est GFR (CKD-EPI)NonAf (>60 ml/min/1.73 sqM) Glucose (74-99) mg/dL Plasma Lactic Acid Sai (0.7-2.0) mmol/L Calcium (8.4-10.2) mg/dL Phosphorus (2.5-4.5) mg/dL Magnesium (1.6-2.3) mg/dL Total Bilirubin (0.2-1.3) mg/dL AST (17-59) U/L ALT (21-72) U/L Alkaline Phosphatase (38-126) U/L Troponin I 0.013 (0.000-0.034) ng/mL NT-Pro-B Natriuret Pep 751 pg/mL Total Protein (6.3-8.2) g/dL Albumin (3.5-5.0) g/dL TSH (0.465-4.680) mIU/L Urine Color Urine Appearance (Clear) Urine pH (5.0-8.0) Ur Specific [place] (1.001-1.035) Urine Protein (Negative) Urine Glucose (UA) (Negative) Urine Ketones (Negative) Urine Blood (Negative) Urine Nitrite (Negative) Urine Bilirubin (Negative) Urine Urobilinogen (<2.0) mg/dL Ur Leukocyte Esterase (Negative) Acetone, Qual (Negative) 07/30/18 Range/Units 18:16 WBC (3.8-10.6) k/uL RBC (4.30-5.90) m/uL Hgb (13.0-17.5) gm/dL Hct (39.0-53.0) % MCV (80.0-100.0) fL MCH (25.0-35.0) pg MCHC (31.0-37.0) g/dL RDW (11.5-15.5) % Plt Count (150-450) k/uL Neutrophils % % Lymphocytes % % Monocytes % % Eosinophils % % Basophils % % Neutrophils # (1.3-7.7) k/uL Lymphocytes # (1.0-4.8) k/uL Monocytes # (0-1.0) k/uL Eosinophils # (0-0.7) k/uL Basophils # (0-0.2) k/uL PT (9.0-12.0) sec INR (<1.2) APTT (22.0-30.0) sec Sodium (137-145) mmol/L Potassium (3.5-5.1) mmol/L Chloride (98-107) mmol/L Carbon Dioxide (22-30) mmol/L Anion Gap mmol/L BUN (9-20) mg/dL Creatinine (0.66-1.25) mg/dL Est GFR (CKD-EPI)AfAm (>60 ml/min/1.73 sqM) Est GFR (CKD-EPI)NonAf (>60 ml/min/1.73 sqM) Glucose (74-99) mg/dL Plasma Lactic Acid Sai (0.7-2.0) mmol/L Calcium (8.4-10.2) mg/dL Phosphorus (2.5-4.5) mg/dL Magnesium (1.6-2.3) mg/dL Total Bilirubin (0.2-1.3) mg/dL AST (17-59) U/L ALT (21-72) U/L Alkaline Phosphatase (38-126) U/L Troponin I (0.000-0.034) ng/mL NT-Pro-B Natriuret Pep pg/mL Total Protein (6.3-8.2) g/dL Albumin (3.5-5.0) g/dL TSH (0.465-4.680) mIU/L Urine Color Light Yellow Urine Appearance Clear (Clear) Urine pH 7.0 (5.0-8.0) Ur Specific [place] 1.011 (1.001-1.035) Urine Protein Negative (Negative) Urine Glucose (UA) 3+ H (Negative) Urine Ketones Negative (Negative) Urine Blood Negative (Negative) Urine Nitrite Negative (Negative) Urine Bilirubin Negative (Negative) Urine Urobilinogen <2.0 (<2.0) mg/dL Ur Leukocyte Esterase Negative (Negative) Acetone, Qual (Negative) - EKG Data -: EKG Interpreted by Me (EKG shows sinus rhythm rate of 60, RI 1:30, QRS 102, QTc 440) Disposition Clinical Impression: Chronic pain, Hypertension, Hyperglycemia Disposition: HOME SELF-CARE Condition: Good Instructions (If sedation given, give patient instructions): Chronic Pain (ED), Hypertension (ED), Diabetic Hyperglycemia (ED) Is patient prescribed a controlled substance at d/c from ED?: No Referrals: [facility],Clinic [Primary Care Provider] - 1-2 days
[2018-07-30] MEDS ORDERED: LABETALOL SYRINGE 5 MG/ML IVP STA ×2 (16:52→18:42)
[2018-07-30 16:56] LABS: Basophils # (A) 0.1 k/uL (0-0.2); Basophils % (A) 1 %; Eosinophils # (A) 0.2 k/uL (0-0.7); Eosinophils % (A) 2 %; HCT 39.5 % (39.0-53.0); Lymphocytes # (A) 2.2 k/uL (1.0-4.8); Lymphocytes % (A) 24 %; MCH 27.7 pg (25.0-35.0); MCHC 32.9 g/dL (31.0-37.0); MCV 84.2 fL (80.0-100.0); Mean Platelet Volume 8.4; Monocytes # (A) 0.6 k/uL (0-1.0); Monocytes % (A) 6 %; Neutrophils # (A) 5.9 k/uL (1.3-7.7); Neutrophils % (A) 65 %; Platelet Count 203 k/uL (150-450); RBC 4.69 m/uL (4.30-5.90); RDW 14.1 % (11.5-15.5); WBC 9.1 k/uL (3.8-10.6)
[2018-07-30 17:12] LABS: ALT 20 U/L (21-72); AST 17 U/L (17-59); Alkaline Phosphatase 74 U/L (38-126); Anion Gap 5 mmol/L; Blood Urea Nitrogen 16 mg/dL (9-20); Calcium 9.7 mg/dL (8.4-10.2); Carbon Dioxide 27 mmol/L (22-30); Chloride 106 mmol/L (98-107); Glucose 211 mg/dL (74-99); Magnesium 1.6 mg/dL (1.6-2.3); Phosphorus 2.8 mg/dL (2.5-4.5); Potassium 4.3 mmol/L (3.5-5.1); Sodium 138 mmol/L (137-145); Total Bilirubin 0.4 mg/dL (0.2-1.3); Total Protein 6.4 g/dL (6.3-8.2)
[2018-07-30 17:19] LABS: INR 0.9 (<1.2); Prothrombin Time 9.7 sec (9.0-12.0)
[2018-07-30 17:26] LABS: Partial Thromboplastin Time 21.7 sec (22.0-30.0)
[2018-07-30 18:25] LABS: Appearance,Urine Clear (Clear); Bilirubin,Urine Negative (Negative); Blood,Urine Negative (Negative); Color,Urine Light Yellow; Glucose,Urine (UA) 3+ (Negative); Ketones,Urine Negative (Negative); Leukocyte Esterase,Urine Negative (Negative); Nitrite,Urine Negative (Negative); Protein,Urine Negative (Negative); Specific Gravity,Urine 1.011 (1.001-1.035); Urobilinogen,Urine <2.0 mg/dL (<2.0)
[2018-07-30] MEDS ORDERED: HYDROmorphone 0.5 MG/0.5 ML SYRINGE IVP STA (19:01)
[2018-07-30 19:14] VITALS: PULSE 59
[2018-07-30 19:16] VITALS: BP 185/86; TEMP 97.8
== END 2018-07-30 19:31 | disposition home or self-care (01) ==
LOC: EC 15:46
DX: I10 Essential (primary) hypertension (principal); G89.29 Other chronic pain; E11.65 Type 2 diabetes mellitus with hyperglycemia; I25.10 Atherosclerotic heart disease of native coronary artery without angina pectoris; J44.9 Chronic obstructive pulmonary disease, unspecified; E78.5 Hyperlipidemia, unspecified; I25.2 Old myocardial infarction; F32.9 Major depressive disorder, single episode, unspecified; F41.9 Anxiety disorder, unspecified; Z87.891 Personal history of nicotine dependence; Z88.2 Allergy status to sulfonamides; Z88.5 Allergy status to narcotic agent; Z88.8 Allergy status to other drugs, medicaments and biological substances; Z79.02 Long term (current) use of antithrombotics/antiplatelets; Z79.4 Long term (current) use of insulin; Z79.51 Long term (current) use of inhaled steroids; Z79.899 Other long term (current) drug therapy; Z95.1 Presence of aortocoronary bypass graft; Z95.5 Presence of coronary angioplasty implant and graft; Z98.890 Other specified postprocedural states; Z80.8 Family history of malignant neoplasm of other organs or systems; Z82.49 Family history of ischemic heart disease and other diseases of the circulatory system; Z53.8 Procedure and treatment not carried out for other reasons
CPT/HCPCS: 36415; 93005; 83880; 80053; 82009; 83605; 83735; 84100; 84443; 84484; 85025; 85610; 85730; 81003; 87086; 99284; 96374; 96375; 96361 ×3; J1170

== ENCOUNTER → 2018-08-16 | Outpatient (CLI) | payer MEDICARE ==
--- NOTE | 2018-08-16 12:28 | FL ---
MODIFIED SWALLOW / DEGLUTITION STUDY DATE OF EXAM: 08/16/2018 CLINICAL HISTORY: 68-year-old male with food sticking along the back of the tongue, Dysphagia. Total fluoroscopy time: 50 seconds. Total images: None. Real-time fluoroscopy support was provided to speech pathology. TECHNIQUE: Deglutition study is performed utilizing thin liquid barium, honey and nectar thick liqui d barium, barium thick applesauce, and barium coated cracker. COMPARISON: None. FINDINGS: The oral and pharyngeal phases show satisfactory initiation and propagation with all modalities teste d. Normal mastication is seen with solid modalities tested. There is no evidence of penetration or aspiration with any modality tested. No significant pharyngeal residue was appreciated. IMPRESSION: Functional swallow. Please refer to speech therapist notes for further details if necessary.
== END | disposition home or self-care (01) ==
LOC: RADFLMAIN 10:40
DX: R13.12 Dysphagia, oropharyngeal phase (principal)
CPT/HCPCS: 74230

== ENCOUNTER 2018-09-16 20:03 | Emergency (ER) | payer MEDICARE, OTHER ==
[2018-09-16 20:38] VITALS: TEMP 97.9
[2018-09-16] MEDS ORDERED: DIAZEPAM 5 MG/ML 2 ML INJ IM ONE (21:36)
[2018-09-16] MEDS ORDERED: KETOROLAC 30 MG/ML 1 ML VIAL IM STA (21:36)
--- NOTE | 2018-09-16 23:11 | US ---
EXAM: US Duplex Right Upper Extremity Veins CLINICAL HISTORY: Pain TECHNIQUE: Real-time duplex ultrasound scan of the right upper extremity veins integrating B-mode two-dimensional vascular structure, Doppler spectral analysis, color flow Doppler imaging and compression. COMPARISON: No relevant prior studies available. FINDINGS: Deep veins: Unremarkable. Normal compression and normal response to augmentation. Superficial veins: A noncompressible superficial vessel in the right posterior forearm with minimal internal vascular flow. Soft tissues: No acute findings. IMPRESSION: No evidence of deep venous thrombosis in the right upper extremity. Partially thrombosed superficial vessel in the right posterior forearm is favored to represent a superficial vein.
[2018-09-16] MEDS ORDERED: HYDROmorphone 1 MG/ML 1 ML SYRINGE IM STA (23:59)
[2018-09-17 00:25] VITALS: BP 136/78; PULSE 57; RESP 13
--- NOTE | 2018-09-17 00:40 | CT ---
EXAM: CT Lumbar Spine Without Intravenous Contrast CLINICAL HISTORY: ITS.REASON CT Reason: Pain TECHNIQUE: Axial computed tomography images of the lumbar spine without intravenous contrast. DLP is 848.3 mGy-cm. This CT exam was performed using one or more of the following dose reduction techniques: automated exposure control, adjustment of the mA and/or kV according to patient size, and/or use of iterative reconstruction technique. COMPARISON: 05/04/2018 FINDINGS: Vertebrae: No acute fracture or malalignment. Discs/spinal canal/neural foramina: Developmental narrowing of the spinal canal. Degenerative changes worst at T11-T12 where there is a disc bulge and osteophytes that result in stable severe spinal stenosis. Soft tissues: Unremarkable. Kidneys and ureters: A punctate calcification in the lower pole of the left kidney likely represents a nonobstructing calculus. Other renal calcifications are likely vascular. IMPRESSION: No acute findings. Degenerative changes in the lower thoracic and lumbar spine not significantly progressed since 05/04/2018.
--- NOTE | 2018-09-17 01:24 | ED ---
Back Pain HPI - General Chief Complaint: Back Pain/Injury Stated Complaint: [facility] Time Seen by Provider: 09/16/18 20:39 Source: patient Limitations: physical limitation - History of Present Illness Initial Comments: 68-year-old male patient presents to the emergency department today for evaluation of increased low back pain. Patient states that he does have a history of chronic back pain and has had multiple surgeries. Patient states he takes [place] and Robaxin at home. Patient states that over the last week his pain has been worsening. Patient states he is having some tingling and numbness to the right foot which is new for him. Denies any radiation of the pain down the legs. Denies any saddle anesthesia or loss of bowel or bladder control. He denies any fever or chills. Patient denies any dysuria, urinary urgency, urinary frequency. Denies any new injury to the back. He is also reporting her pain and tenderness to the right forearm. Patient states that he has a hard vein to the area. He was seen at the clinic and was sent in for rule out of a blood clot. Patient denies any numbness or tingling to the upper shoulder. Den ies any redness or swelling. Patient denies any recent rash, shortness breath, chest pain, abdominal pain, nausea, vomiting, diarrhea, constipation, dizziness, weakness, headache, visual changes, or any other complaints. - Related Data Home Medications Medication Instructions Recorded Confirmed Nitroglycerin Sl Tabs [Nitrostat] 0.4 mg SUBLINGUAL Q5M PRN 07/05/14 07/30/18 Gabapentin [Neurontin] 900 mg PO TID 06/07/16 07/30/18 Carvedilol [Coreg] 3.125 mg PO BID 01/12/17 07/30/18 Clopidogrel [Plavix] 75 mg PO DAILY 01/12/17 07/30/18 Ipratropium-Albuterol Nebulize 1 dose INHALATION RT-Q4H PRN 03/13/18 07/30/18 [Duoneb 0.5 mg-3 mg/3 ml Soln] Budesonide/Formoterol Fumarate 2 puff INHALATION RT-BID 06/22/18 07/30/18 [Symbicort 160-4.5 Mcg Inhaler] Furosemide [Lasix] 20 mg PO DAILY 06/22/18 07/30/18 HYDROcodone/APAP 10-325MG [[place] 1 tab PO QID PRN 06/22/18 07/30/18 10-325] Insulin Glargine [Lantus] 20 units SQ DAILY 06/22/18 07/30/18 Lidocaine [Lidoderm 5% Patch] 1 patch TRANSDERM DAILY PRN 06/22/18 07/30/18 Methocarbamol [Robaxin] 500 mg PO TID 06/22/18 07/30/18 PARoxetine HCL [Paxil] 30 mg PO DAILY 06/22/18 07/30/18 amLODIPine [Norvasc] 5 mg PO DAILY 06/22/18 07/30/18 Atorvastatin [Lipitor] 80 mg PO HS 07/30/18 07/30/18 Isosorbide Mononitrate ER [Imdur] 60 mg PO DAILY 07/30/18 07/30/18 Previous Rx's Medication Instructions Recorded Lisinopril [Zestril] 10 mg PO BID #60 tab 10/14/15 Aspirin [Adult Low Dose Aspirin EC] 81 mg PO DAILY #30 tab 06/23/18 INSULIN ASPART (NovoLOG) [NovoLOG 0 unit SQ ACHS #2 vial 06/23/18 (formulary)] Diazepam [Valium] 5 mg PO TID PRN 3 Days #9 tab 09/17/18 Ibuprofen [Motrin] 600 mg PO Q8HR PRN #30 tab 09/17/18 Allergies Allergy/AdvReac Type Severity Reaction Status Date / Time atorvastatin calcium Allergy muscle pain Verified 09/16/18 20:38 [From Lipitor] baclofen Allergy Unknown Verified 09/16/18 20:38 fenofibrate nanocrystallized Allergy muscle pain Verified 09/16/18 20:38 [From Tricor] fenofibrate,micronized Allergy Unknown Verified 09/16/18 20:38 [From Tricor] morphine Allergy Confusion Verified 09/16/18 20:38 rosuvastatin calcium Allergy muscle pain Verified 09/16/18 20:38 [From Crestor] sulfamethoxazole Allergy gi upset Verified 09/16/18 20:38 [From Bactrim] metformin AdvReac Nausea & Verified 09/16/18 20:38 Vomiting trimethoprim [From Bactrim] AdvReac Unknown Verified 09/16/18 20:38 rynatan Allergy Unknown Uncoded 09/16/18 20:38 Review of Systems ROS Statement: Those systems with pertinent positive or pertinent negative responses have been documented in the HPI. ROS Other: All systems not noted in ROS Statement are negative. Past Medical History Past Medical History: Coronary Artery Disease (CAD), COPD, Diabetes Mellitus, Hyperlipidemia, Hypertension, Myocardial Infarction ([place]), Osteoarthritis (OA), Sleep Apnea/CPAP/BIPAP, Vascular Disorder Additional Past Medical History / Comment(s): chronic back pain, no cpap, HX OF episodes of bloody stools-now resolved, pancreatic mass, was told benign, monitoring, states [place] post carotid sx,"lt carotid artery bkg 85%" Last Myocardial Infarction Date:: 2016 History of Any Multi-Drug Resistant Organisms: None Reported Past Surgical History: Back Surgery, Coronary Bypass/CABG, Heart Catheterization With Stent, Hernia Repair Additional Past Surgical History / Comment(s): rt carotid endartectomy,pt stated hadx3 cabg surguries: first one was 1 vessel 1999 and 2nd sx 2 2009 3rd bypass in 2014 -denies any valve repalcements, , back surgery x3, heart cath stent x1 (1994) Past Anesthesia/Blood Transfusion Reactions: Previous Problems w/ Anesthesia Additional Past Anesthesia/Blood Transfusion Reaction / Comment(s): states "feels like he has ants crawling on his face with anesthesia" Date of Last Stent Placement:: 1994 Past Psychological History: Anxiety, Depression Smoking Status: Former smoker Past Alcohol Use History: None Reported Past Drug Use History: None Reported - Past Family History Father Family Medical History: Cancer (pancreatic) Additional Family Medical History / Comment(s): in MVA Sister(s) Family Medical History: Cancer Additional Family Medical History / Comment(s): BONE Mother Family Medical History: Myocardial Infarction ([place]) General Exam Limitations: physical limitation General appearance: alert, in no apparent distress, other (Physical well- developed, well-nourished adult male patient in no acute distress. Vital signs upon presentation are temperature 97.9F, pulse 67, respirations 18, blood pressure 150/90, pulse ox 94% on room air.) Eye exam: Present: normal appearance, PERRL, EOMI. Absent: scleral icterus, conjunctival injection, periorbital swelling ENT exam: Present: normal exam, normal oropharynx, mucous membranes moist Respiratory exam: Present: normal lung sounds bilaterally. Absent: respiratory distress, wheezes, rales, rhonchi, stridor Cardiovascular Exam: Present: regular rate, normal rhythm, normal heart sounds. Absent: systolic murmur, diastolic murmur, rubs, gallop, clicks GI/Abdominal exam: Present: soft, normal bowel sounds. Absent: distended, tenderness, guarding, rebound, rigid Back exam: Present: normal inspection. Absent: vertebral tenderness Neurological exam: Present: alert, oriented X3, CN II-XII intact, reflexes normal, other (Strength of lower extremities is 5/5.) Psychiatric exam: Present: normal affect, normal mood Skin exam: Present: warm, dry, intact, normal color. Absent: rash Course Vital Signs 09/16/18 09/16/18 09/17/18 20:36 22:57 00:24 Temperature 97.9 F Pulse Rate 67 56 L 57 L Respiratory 18 16 13 Rate Blood Pressure 150/90 132/75 136/78 O2 Sat by Pulse 94 L 94 L 92 L Oximetry 09/17/18 01:34 Temperature Pulse Rate Respiratory Rate Blood Pressure O2 Sat by Pulse 94 L Oximetry Medical Decision Making - Medical Decision Making 68-year-old male patient presented to the emergency department today for evaluation of increasing lower back pain and numbness to the right foot. Patient is also reporting pain and tenderness to the right forearm. Physical examination is relatively unremarkable. He is neurologically intact with no focal deficits. There is a linear area of tenderness and induration to the right forearm consistent with superficial thrombophlebitis. Continue of the lumbar spine was obtained and did show disc bulging at T11 to 12 consistent with degenerative change of does not significantly progressed since April. Patient had a venous Doppler duplex of the right upper extremity which showed superficial thrombophlebitis, partially occlusive to a superficial vein the right forearm. Did discuss findings and results with the patient. He was given IM medications here in the emergency department, he does report improvement of symptoms. He'll be discharged home with instructions to discontinue his home muscle relaxer and to start to new prescription. He is instructed discuss stronger pain medication with his primary care physician. Return parameters were discussed in detail. He verbalizes understanding and agrees with this plan. - Radiology Data Radiology results: report reviewed, image reviewed CT of the lumbar spine without contrast was obtained. Report was reviewed in its entirety. Impression by Dr. George shows no acute findings. Degenerative changes lower thoracic and lumbar spine not significantly progressed since 05/04/2018. Disposition Clinical Impression: Superficial thrombophlebitis of arm, Acute exacerbation of chronic low back pain Disposition: HOME SELF-CARE Condition: Good Instructions (If sedation given, give patient instructions): Superficial Thrombophlebitis (ED), Acute Low Back Pain (ED) Additional Instructions: Apply warm compresses to the right arm. Continue all medications for your back pain. Stopped taking your muscle relaxer and switch to the new muscle relaxer. Continue ibuprofen for pain control. Follow-up with your primary care physician discuss possible changing it to a stronger pain medication. Return to the emergency department immediately for any new, worsening, or concerning symptoms. Prescriptions: Ibuprofen [Motrin] 600 mg PO Q8HR PRN #30 tab PRN Reason: Pain Diazepam [Valium] 5 mg PO TID PRN 3 Days #9 tab PRN Reason: Muscle Spasm Is patient prescribed a controlled substance at d/c from ED?: No Referrals: [facility],Clinic [Primary Care Provider] - 1-2 days Time of Disposition: 01:24
== END 2018-09-17 01:34 | disposition home or self-care (01) ==
LOC: EC 20:03
DX: I80.8 Phlebitis and thrombophlebitis of other sites (principal); M54.5 Low back pain; G89.29 Other chronic pain; M51.24 Other intervertebral disc displacement, thoracic region; M47.814 Spondylosis without myelopathy or radiculopathy, thoracic region; M47.816 Spondylosis without myelopathy or radiculopathy, lumbar region; R20.0 Anesthesia of skin; R20.2 Paresthesia of skin; I25.10 Atherosclerotic heart disease of native coronary artery without angina pectoris; J44.9 Chronic obstructive pulmonary disease, unspecified; E11.9 Type 2 diabetes mellitus without complications; E78.5 Hyperlipidemia, unspecified; I10 Essential (primary) hypertension; I25.2 Old myocardial infarction; F32.9 Major depressive disorder, single episode, unspecified; F41.9 Anxiety disorder, unspecified; Z87.891 Personal history of nicotine dependence; Z88.2 Allergy status to sulfonamides; Z88.8 Allergy status to other drugs, medicaments and biological substances; Z88.5 Allergy status to narcotic agent; Z79.02 Long term (current) use of antithrombotics/antiplatelets; Z79.4 Long term (current) use of insulin; Z79.51 Long term (current) use of inhaled steroids; Z79.899 Other long term (current) drug therapy; Z95.1 Presence of aortocoronary bypass graft; Z95.5 Presence of coronary angioplasty implant and graft; Z98.890 Other specified postprocedural states; Z82.49 Family history of ischemic heart disease and other diseases of the circulatory system
CPT/HCPCS: 93971; 72131; 99284; 96372 ×3; J3360; J1885; J1170

== ENCOUNTER 2018-10-05 15:26 | Emergency (ER) | payer OTHER ==
[2018-10-05 15:42] VITALS: RESP 18; TEMP 97.9
--- NOTE | 2018-10-05 15:55 | ED ---
General Adult HPI - General Chief complaint: Fall Stated complaint: Fall, hip pain Time Seen by Provider: 10/05/18 15:47 Source: patient Mode of arrival: ambulatory Limitations: no limitations - History of Present Illness Initial comments: Dictation was produced using [employer] dictation software. please excuse any grammatical, word or spelling errors. Chief Complaint: 68-year-old male presents with chief complaint of facial swelling, left hip pain and testicular pain after fall. History of Present Illness: 68-year-old male. 2 days ago he slipped coming out of the bathtub. He states he landed on his left hip. He did report hitting his head. No loss of consciousness. Patient also reports that he struck his right testicle. Since the fall he has been having consistent pain. He noted some swelling around his right eye. States is having difficulty looking down. Denies any eye pain. He does have some mild right maxillary pain. The ROS documented in this emergency department record has been reviewed and con firmed by me. Those systems with pertinent positive or negative responses have been documented in the HPI. All other systems are other negative and/or noncontributory. PHYSICAL EXAM: General Impression: Alert and oriented x3, not in acute distress HEENT: Normocephalic atraumatic, extra-ocular movements intact, pupils equal and reactive to light bilaterally, mucous membranes moist. Cardiovascular: Heart regular rate and rhythm, S1&S2 audible, no murmurs, rubs or gallops Chest: Lungs clear to auscultation bilaterally, no rhonchi, no wheeze, no rales Abdomen: Bowel sounds present, abdomen soft, non-tender, non-distended, no organomegaly Musculoskeletal: Pulses present and equal in all extremities, no peripheral edema Motor: no focal deficits noted Neurological: CN II-XII grossly intact, no focal motor or sensory deficits noted Skin: Intact with no visualized rashes Psych: Normal affect and mood exam: No scrotal rash, no tenderness to the bilateral testicles ED course: 68 yo Male presents with left hip pain, scrotal pain and right facial pain and swelling status post fall 2 days ago. As upon arrival are within acceptable limits. Laboratory evaluation obtained. CBC, metabolic panel is unremarkable. Glucose levels however 423. Patient does have a history of diabetes. Urinalysis shows 4+ glucose no signs of infection. Computed tomography scan of the fissures no injuries. Hip pelvis x-ray is unremarkable. Scrotum ultrasound does not show any traumatic injuries however there is a common of bilateral hydroceles, possible epididymitis and nonspecific 4 mm isoechoic area adjacent to the humeral head. Patient is here because he was expressing pain after a fall. Patient more concerned about his left hip. Information was relayed to patient. He is told that he does not have any injuries from the fall however there is incidental findings on the scrotal ultrasound. Still to follow-up with his primary care physician regarding this. Patient understandable and agreeable. Patient given by mouth analgesia. Patient clear for discharge. - Related Data Home Medications Medication Instructions Recorded Confirmed Nitroglycerin Sl Tabs [Nitrostat] 0.4 mg SUBLINGUAL Q5M PRN 07/05/14 10/05/18 Gabapentin [Neurontin] 900 mg PO TID 06/07/16 10/05/18 Carvedilol [Coreg] 3.125 mg PO BID 01/12/17 10/05/18 Clopidogrel [Plavix] 75 mg PO DAILY 01/12/17 10/05/18 Ipratropium-Albuterol Nebulize 1 dose INHALATION RT-Q4H PRN 03/13/18 10/05/18 [Duoneb 0.5 mg-3 mg/3 ml Soln] Budesonide/Formoterol Fumarate 2 puff INHALATION RT-BID 06/22/18 10/05/18 [Symbicort 160-4.5 Mcg Inhaler] Furosemide [Lasix] 20 mg PO DAILY 06/22/18 10/05/18 HYDROcodone/APAP 10-325MG [[place] 1 tab PO QID PRN 06/22/18 10/05/18 10-325] Insulin Glargine [Lantus] 20 units SQ DAILY 06/22/18 10/05/18 Lidocaine [Lidoderm 5% Patch] 1 patch TRANSDERM DAILY PRN 06/22/18 10/05/18 Methocarbamol [Robaxin] 500 mg PO TID 06/22/18 10/05/18 amLODIPine [Norvasc] 5 mg PO DAILY 06/22/18 10/05/18 Atorvastatin [Lipitor] 80 mg PO HS 07/30/18 10/05/18 Isosorbide Mononitrate ER [Imdur] 60 mg PO DAILY 07/30/18 10/05/18 INSULIN ASPART (NovoLOG) [NovoLOG See Protocol SQ ACHS 10/05/18 10/05/18 (formulary)] Lisinopril [Zestril] 10 mg PO TID 10/05/18 10/05/18 Pantoprazole [Protonix] 40 mg PO DAILY 10/05/18 10/05/18 Previous Rx's Medication Instructions Recorded Aspirin [Adult Low Dose Aspirin EC] 81 mg PO DAILY #30 tab 06/23/18 Ibuprofen [Motrin] 600 mg PO Q8HR PRN #30 tab 09/17/18 Allergies Allergy/AdvReac Type Severity Reaction Status Date / Time atorvastatin calcium Allergy muscle pain Verified 10/05/18 17:12 [From Lipitor] baclofen Allergy Unknown Verified 10/05/18 17:12 fenofibrate nanocrystallized Allergy muscle pain Verified 10/05/18 17:12 [From Tricor] fenofibrate,micronized Allergy Unknown Verified 10/05/18 17:12 [From Tricor] morphine Allergy Confusion Verified 10/05/18 17:12 rosuvastatin calcium Allergy muscle pain Verified 10/05/18 17:12 [From Crestor] sulfamethoxazole Allergy gi upset Verified 10/05/18 17:12 [From Bactrim] metformin AdvReac Nausea & Verified 10/05/18 17:12 Vomiting trimethoprim [From Bactrim] AdvReac Unknown Verified 10/05/18 17:12 rynatan Allergy Unknown Uncoded 09/16/18 20:38 Review of Systems ROS Statement: Those systems with pertinent positive or pertinent negative responses have been documented in the HPI. ROS Other: All systems not noted in ROS Statement are negative. Past Medical History Past Medical History: Coronary Artery Disease (CAD), COPD, Diabetes Mellitus, Hyperlipidemia, Hypertension, Myocardial Infarction ([place]), Osteoarthritis (OA), Sleep Apnea/CPAP/BIPAP, Vascular Disorder Additional Past Medical History / Comment(s): chronic back pain, no cpap, HX OF episodes of bloody stools-now resolved, pancreatic mass, was told benign, dr rodriguez, states [place] post carotid sx,"lt carotid artery bkg 85%" Last Myocardial Infarction Date:: 2016 History of Any Multi-Drug Resistant Organisms: None Reported Past Surgical History: Back Surgery, Coronary Bypass/CABG, Heart Catheterization With Stent, Hernia Repair Additional Past Surgical History / Comment(s): rt carotid endartectomy,pt stated hadx3 cabg surguries: first one was 1 vessel 1999 and 2nd sx 2 2010 3rd bypass in 2014 -denies any valve repalcements, , back surgery x3, heart cath stent x1 (1994) Past Anesthesia/Blood Transfusion Reactions: Previous Problems w/ Anesthesia Additional Past Anesthesia/Blood Transfusion Reaction / Comment(s): states "feels like he has ants crawling on his face with anesthesia" Date of Last Stent Placement:: 1994 Past Psychological History: Anxiety, Depression Smoking Status: Former smoker Past Alcohol Use History: None Reported Past Drug Use History: None Reported - Past Family History Father Family Medical History: Cancer (pancreatic) Additional Family Medical History / Comment(s): in MVA Sister(s) Family Medical History: Cancer Additional Family Medical History / Comment(s): BONE Mother Family Medical History: Myocardial Infarction ([place]) General Exam Limitations: no limitations Course Vital Signs 10/05/18 15:37 Temperature 97.9 F Pulse Rate 68 Respiratory 18 Rate Blood Pressure 123/85 O2 Sat by Pulse 97 Oximetry Medical Decision Making - Lab Data Result diagrams: 10/05/18 16:54 10/05/18 16:54 Lab Results 10/05/18 10/05/18 10/05/18 Range/Units 16:54 16:54 16:56 WBC 9.8 (3.8-10.6) k/uL RBC 4.52 (4.30-5.90) m/uL Hgb 12.9 L (13.0-17.5) gm/dL Hct 40.0 (39.0-53.0) % MCV 88.4 (80.0-100.0) fL MCH 28.5 (25.0-35.0) pg MCHC 32.3 (31.0-37.0) g/dL RDW 15.7 H (11.5-15.5) % Plt Count 193 (150-450) k/uL Neutrophils % 65 % Lymphocytes % 25 % Monocytes % 5 % Eosinophils % 2 % Basophils % 1 % Neutrophils # 6.3 (1.3-7.7) k/uL Lymphocytes # 2.4 (1.0-4.8) k/uL Monocytes # 0.5 (0-1.0) k/uL Eosinophils # 0.2 (0-0.7) k/uL Basophils # 0.1 (0-0.2) k/uL Sodium 134 L (137-145) mmol/L Potassium 4.5 (3.5-5.1) mmol/L Chloride 99 (98-107) mmol/L Carbon Dioxide 27 (22-30) mmol/L Anion Gap 8 mmol/L BUN 25 H (9-20) mg/dL Creatinine 0.81 (0.66-1.25) mg/dL Est GFR (CKD-EPI)AfAm >90 (>60 ml/min/1.73 sqM) Est GFR (CKD-EPI)NonAf >90 (>60 ml/min/1.73 sqM) Glucose 423 H (74-99) mg/dL Calcium 10.3 H (8.4-10.2) mg/dL Urine Color Light Yellow Urine Appearance Clear (Clear) Urine pH 6.0 (5.0-8.0) Ur Specific [place] 1.027 (1.001-1.035) Urine Protein Negative (Negative) Urine Glucose (UA) 4+ H (Negative) Urine Ketones Negative (Negative) Urine Blood Negative (Negative) Urine Nitrite Negative (Negative) Urine Bilirubin Negative (Negative) Urine Urobilinogen <2.0 (<2.0) mg/dL Ur Leukocyte Esterase Negative (Negative) Disposition Clinical Impression: Fall Disposition: HOME SELF-CARE Condition: Good Instructions (If sedation given, give patient instructions): Fall Prevention for Older Adults (ED) Additional Instructions: follow up with primary care physician regarding incidental findings on scrotal ultrasound Is patient prescribed a controlled substance at d/c from ED?: No Referrals: [facility],Clinic [Primary Care Provider] - 1-2 days Time of Disposition: 18:58
--- NOTE | 2018-10-05 16:57 | CT ---
EXAMINATION TYPE: CT facial bones wo con DATE OF EXAM: 10/05/2018 COMPARISON: HISTORY: Fall with right facial injury, infraorbital. CT DLP: 541.3 mGycm Automated exposure control for dose reduction was used. TECHNIQUE: CT scan of the sinuses is performed without contrast, axial images are obtained, coronal r eformatted images are also reviewed. FINDINGS: The paranasal sinuses including the frontal, ethmoid, sphenoid, and maxillary sinuses bila terally are well-aerated without abnormal opacification. Mild mucosal disease present along the left maxillary sinus. Fawn cells are present bilaterally. The ostiomeatal complex is patent bilaterally on the coronal images. There are calcifications present along the pharyngeal soft tissues, tonsillar pillars consistent with chronic infection Visualized portion of mastoid air cells show no abnormal opacification. The globes are intact bilate rally. Facial bones are intact. There is no fracture or dislocation. IMPRESSION: Mild mucosal changes may be indicative of some chronic sinusitis.
--- NOTE | 2018-10-05 17:06 | XR ---
EXAMINATION TYPE: XR Hip LT and AP Pelvis DATE OF EXAM: 10/05/2018 COMPARISON: NONE HISTORY: Pain TECHNIQUE: A single AP view of the pelvis is obtained. Two views of the left hip are obtained. FINDINGS: There is no acute fracture/dislocation evident in the pelvis. The hip and sacroiliac join ts appear symmetric and unremarkable. The overlying soft tissue appears unremarkable. Two views of left hip show no acute fracture or dislocation. There is mild concentric narrowing the j oint space. Vascular calcifications are seen. IMPRESSION: 1. Arthropathy of the hips.
[2018-10-05 17:07] LABS: Appearance,Urine Clear (Clear); Bilirubin,Urine Negative (Negative); Blood,Urine Negative (Negative); Color,Urine Light Yellow; Glucose,Urine (UA) 4+ (Negative); Ketones,Urine Negative (Negative); Leukocyte Esterase,Urine Negative (Negative); Nitrite,Urine Negative (Negative); Protein,Urine Negative (Negative); Specific Gravity,Urine 1.027 (1.001-1.035); Urobilinogen,Urine <2.0 mg/dL (<2.0)
[2018-10-05 17:07] LABS: Basophils # (A) 0.1 k/uL (0-0.2); Basophils % (A) 1 %; Eosinophils # (A) 0.2 k/uL (0-0.7); Eosinophils % (A) 2 %; HGB 12.9 gm/dL (13.0-17.5); Lymphocytes # (A) 2.4 k/uL (1.0-4.8); Lymphocytes % (A) 25 %; MCH 28.5 pg (25.0-35.0); MCHC 32.3 g/dL (31.0-37.0); MCV 88.4 fL (80.0-100.0); Mean Platelet Volume 8.4; Monocytes # (A) 0.5 k/uL (0-1.0); Monocytes % (A) 5 %; Neutrophils # (A) 6.3 k/uL (1.3-7.7); Neutrophils % (A) 65 %; Platelet Count 193 k/uL (150-450); RBC 4.52 m/uL (4.30-5.90); RDW 15.7 % (11.5-15.5); WBC 9.8 k/uL (3.8-10.6)
[2018-10-05 17:23] LABS: African American GFR (CKD) >90 (>60 ml/min/1.73 sqM); Anion Gap 8 mmol/L; Blood Urea Nitrogen 25 mg/dL (9-20); Calcium 10.3 mg/dL (8.4-10.2); Carbon Dioxide 27 mmol/L (22-30); Chloride 99 mmol/L (98-107); Glucose 423 mg/dL (74-99); Potassium 4.5 mmol/L (3.5-5.1); Sodium 134 mmol/L (137-145)
--- NOTE | 2018-10-05 18:15 | US ---
EXAMINATION TYPE: US scrotum with doppler. Grayscale and color Doppler Duplex imaging performed of t fiorella scrotum. DATE OF EXAM: 10/05/2018 COMPARISON: CT CLINICAL HISTORY: Pain. Pain right testicle since fall 2 days ago. Hx hernia surgery right groin 2014 . EXAM MEASUREMENTS: TESTICLES: Right Testicle: 4.9 x 2.8 x 3.2 cm Left Testicle: 4.2 x 3.2 x 3.4 cm Fluid seen bilaterally. Right pocket measures approximately: 4.6 x 4.1 x 1.2 cm. Left pocket measures approximately: 7.8 x 5.3 x 2.7 cm. EPIDIDYMIS HEAD: Right Epididymis: 1.2 x 1.8 x 0.9 cm Hypoechoic area seen measurin.4 x 0.4 x 0.2 cm. Isoechoic area seen adjacent to epididymal head measurin.4 x 0.4 x 0.3 cm. Left Epididymis: 1.4 x x 0.7 cm Hypoechoic area seen measurin.2 x 0.2 x 0.2 cm. Epididymis appears heterogeneous bilaterally. Doppler performed to assess for testicular vascularity; good bilateral color flow and waveforms are s een. There is no evidence of testicular torsion. Presence of hydroceles: Bilateral. Larger on left. Presence of varicoceles: not seen IMPRESSION: 1. Bilateral hydroceles 2. Epididymis appears heterogeneous on the left suggestive of epididymitis. 3. Nonspecific 4 mm isoechoic area adjacent to the epididymal head outside of the testicle is too sma ll to characterize indeterminate and should be correlated clinically.
[2018-10-05] MEDS ORDERED: oxyCODONE-APAP 7.5-325MG 1 EACH TAB PO STA (18:39)
[2018-10-05 19:19] VITALS: BP 123/66; PULSE 66
== END 2018-10-05 19:19 | disposition home or self-care (01) ==
LOC: EC 15:26
DX: M25.552 Pain in left hip (principal); R22.0 Localized swelling, mass and lump, head; N50.811 Right testicular pain; R51 Headache; N50.82 Scrotal pain; N43.3 Hydrocele, unspecified; I25.10 Atherosclerotic heart disease of native coronary artery without angina pectoris; J44.9 Chronic obstructive pulmonary disease, unspecified; E78.5 Hyperlipidemia, unspecified; I10 Essential (primary) hypertension; I25.2 Old myocardial infarction; E11.65 Type 2 diabetes mellitus with hyperglycemia; G47.30 Sleep apnea, unspecified; Z99.89 Dependence on other enabling machines and devices; Z95.1 Presence of aortocoronary bypass graft; Z95.5 Presence of coronary angioplasty implant and graft; Z87.891 Personal history of nicotine dependence; Z79.02 Long term (current) use of antithrombotics/antiplatelets; Z79.51 Long term (current) use of inhaled steroids; Z79.4 Long term (current) use of insulin; Z79.899 Other long term (current) drug therapy; Z88.8 Allergy status to other drugs, medicaments and biological substances; Z88.5 Allergy status to narcotic agent; Z88.2 Allergy status to sulfonamides; W01.0XXA Fall on same level from slipping, tripping and stumbling without subsequent striking against object, initial encounter; Y92.009 Unspecified place in unspecified non-institutional (private) residence as the place of occurrence of the external cause
CPT/HCPCS: 36415; 70486; 73502; 76870; 80048; 81003; 85025; 93975; 99284

== ENCOUNTER 2018-10-08 10:30 | Inpatient (IN) | payer OTHER, MEDICARE ==
[2018-10-08] MEDS ORDERED: HYDROcodone/APAP 10-325MG 1 EACH TAB PO ONE (10:58)
[2018-10-08 11:23] LABS: Basophils # (A) 0.1 k/uL (0-0.2); Basophils % (A) 0 %; Eosinophils # (A) 0.2 k/uL (0-0.7); Eosinophils % (A) 1 %; HCT 41.1 % (39.0-53.0); HGB 13.3 gm/dL (13.0-17.5); Lymphocytes % (A) 14 %; MCH 27.9 pg (25.0-35.0); MCHC 32.5 g/dL (31.0-37.0); MCV 85.8 fL (80.0-100.0); Mean Platelet Volume 8.4; Monocytes # (A) 0.8 k/uL (0-1.0); Monocytes % (A) 6 %; Neutrophils # (A) 10.8 k/uL (1.3-7.7); Neutrophils % (A) 77 %; Platelet Count 216 k/uL (150-450); RBC 4.79 m/uL (4.30-5.90); RDW 15.5 % (11.5-15.5)
[2018-10-08 11:35] LABS: ALT 25 U/L (21-72); AST 16 U/L (17-59); African American GFR (CKD) >90 (>60 ml/min/1.73 sqM); Albumin 4.1 g/dL (3.5-5.0); Alkaline Phosphatase 80 U/L (38-126); Anion Gap 20 mmol/L; Blood Urea Nitrogen 20 mg/dL (9-20); Calcium 9.7 mg/dL (8.4-10.2); Carbon Dioxide 19 mmol/L (22-30); Chloride 105 mmol/L (98-107); Glucose 329 mg/dL (74-99); Potassium 4.4 mmol/L (3.5-5.1); Sodium 144 mmol/L (137-145); Total Bilirubin 0.7 mg/dL (0.2-1.3); Total Protein 6.6 g/dL (6.3-8.2)
[2018-10-08 11:55] LABS: INR 0.9 (<1.2); Prothrombin Time 9.5 sec (9.0-12.0)
[2018-10-08 11:58] LABS: Partial Thromboplastin Time 21.2 sec (22.0-30.0)
--- NOTE | 2018-10-08 12:07 | XR ---
EXAMINATION TYPE: XR chest 2V DATE OF EXAM: 10/08/2018 COMPARISON: 06/22/2018 TECHNIQUE: PA and lateral views submitted. HISTORY: Altered mental status FINDINGS: The lungs are clear and there is no pneumothorax, pleural effusion, or focal pneumonia. Cardiomegal y noted and is postsurgical changes. Biapical pleural thickening. Hypertrophic and degenerative barba e of the spine. No overt failure. Biapical pleural thickening IMPRESSION: 1. No acute process.
--- NOTE | 2018-10-08 12:14 | CT ---
EXAMINATION TYPE: CT brain wo con DATE OF EXAM: 10/08/2018 COMPARISON: CT brain HISTORY: Left facial droop. CT DLP: 1095.8 mGycm Automated exposure control for dose reduction was used. Helical imaging through the brain. FINDINGS: Exam is stable. There is no hemorrhage or hydrocephalus. Calvarium is intact. Orbits show symmetric a ppearance. Paranasal sinuses and mastoid air cells are well aerated. Periventricular white matter nga ws patchy low attenuation. Mild cortical atrophy noted. Cerebral vascular calcifications are present. IMPRESSION: AGE-RELATED ATROPHY AND PROBABLE CHRONIC SMALL VESSEL ISCHEMIA.
[2018-10-08 12:33] LABS: Appearance,Urine Clear (Clear); Bilirubin,Urine Negative (Negative); Blood,Urine Negative (Negative); Color,Urine Light Yellow; Glucose,Urine (UA) 4+ (Negative); Ketones,Urine Negative (Negative); Leukocyte Esterase,Urine Negative (Negative); Nitrite,Urine Negative (Negative); Protein,Urine Trace (Negative); Specific Gravity,Urine 1.025 (1.001-1.035); Urobilinogen,Urine <2.0 mg/dL (<2.0)
--- NOTE | 2018-10-08 12:47 | ED ---
General Adult HPI - General Source: patient, EMS, RN notes reviewed Mode of arrival: EMS Limitations: no limitations <Ryan Talley - Last Filed: 10/08/18 13:30> <Jr Weber - Last Filed: 10/08/18 13:33> - General Chief complaint: Recheck/Abnormal Lab/Rx Stated complaint: hypertension Time Seen by Provider: 10/08/18 10:41 - History of Present Illness Initial comments: This a 68-year-old male presents emergency Department with chief complaint of possible CVA. Patient was at PCPs office today for follow-up. Patient was found to be hypertensive though he states he did not takes medication. Patient was found to have left-sided facial droop and which the patient did not know of this blood primary care physician noticed it. Symptoms unsure when they started. Patient complains of headache, dizziness. Patient has no prior CVA. Patient denies any upper extremity weakness or lower extremity weakness denies any paresthesias. Patient denies chest pain palpitations.Patient does have a history of CAD, COPD, diabetes, hyperlipidemia, hypertension, prior CT with stenting and right carotid endarterectomy (Ryan Talley) - Related Data Home Medications Medication Instructions Recorded Confirmed Nitroglycerin Sl Tabs [Nitrostat] 0.4 mg SUBLINGUAL Q5M PRN 07/05/14 10/05/18 Gabapentin [Neurontin] 900 mg PO TID 06/07/16 10/05/18 Carvedilol [Coreg] 3.125 mg PO BID 01/12/17 10/05/18 Clopidogrel [Plavix] 75 mg PO DAILY 01/12/17 10/05/18 Ipratropium-Albuterol Nebulize 1 dose INHALATION RT-Q4H PRN 03/13/18 10/05/18 [Duoneb 0.5 mg-3 mg/3 ml Soln] Budesonide/Formoterol Fumarate 2 puff INHALATION RT-BID 06/22/18 10/05/18 [Symbicort 160-4.5 Mcg Inhaler] Furosemide [Lasix] 20 mg PO DAILY 06/22/18 10/05/18 HYDROcodone/APAP 10-325MG [[place] 1 tab PO QID PRN 06/22/18 10/05/18 10-325] Insulin Glargine [Lantus] 20 units SQ DAILY 06/22/18 10/05/18 Lidocaine [Lidoderm 5% Patch] 1 patch TRANSDERM DAILY PRN 06/22/18 10/05/18 Methocarbamol [Robaxin] 500 mg PO TID 06/22/18 10/05/18 amLODIPine [Norvasc] 5 mg PO DAILY 06/22/18 10/05/18 Atorvastatin [Lipitor] 80 mg PO HS 07/30/18 10/05/18 Isosorbide Mononitrate ER [Imdur] 60 mg PO DAILY 07/30/18 10/05/18 INSULIN ASPART (NovoLOG) [NovoLOG See Protocol SQ ACHS 10/05/18 10/05/18 (formulary)] Lisinopril [Zestril] 10 mg PO TID 10/05/18 10/05/18 Pantoprazole [Protonix] 40 mg PO DAILY 10/05/18 10/05/18 Previous Rx's Medication Instructions Recorded Aspirin [Adult Low Dose Aspirin EC] 81 mg PO DAILY #30 tab 06/23/18 Ibuprofen [Motrin] 600 mg PO Q8HR PRN #30 tab 09/17/18 Allergies Allergy/AdvReac Type Severity Reaction Status Date / Time atorvastatin calcium Allergy muscle pain Verified 10/05/18 17:12 [From Lipitor] baclofen Allergy Unknown Verified 10/05/18 17:12 fenofibrate nanocrystallized Allergy muscle pain Verified 10/05/18 17:12 [From Tricor] fenofibrate,micronized Allergy Unknown Verified 10/05/18 17:12 [From Tricor] morphine Allergy Confusion Verified 10/05/18 17:12 rosuvastatin calcium Allergy muscle pain Verified 10/05/18 17:12 [From Crestor] sulfamethoxazole Allergy gi upset Verified 10/05/18 17:12 [From Bactrim] metformin AdvReac Nausea & Verified 10/05/18 17:12 Vomiting trimethoprim [From Bactrim] AdvReac Unknown Verified 10/05/18 17:12 rynatan Allergy Unknown Uncoded 09/16/18 20:38 Review of Systems ROS Other: All systems not noted in ROS Statement are negative. <Ryan Talley - Last Filed: 10/08/18 13:30> ROS Other: All systems not noted in ROS Statement are negative. <Jr Weber - Last Filed: 10/08/18 13:33> ROS Statement: Those systems with pertinent positive or pertinent negative responses have been documented in the HPI. Past Medical History Past Medical History: Coronary Artery Disease (CAD), COPD, Diabetes Mellitus, Hyperlipidemia, Hypertension, Myocardial Infarction (CT), Osteoarthritis (OA), Sleep Apnea/CPAP/BIPAP, Vascular Disorder Additional Past Medical History / Comment(s): chronic back pain, no cpap, HX OF episodes of bloody stools-now resolved, pancreatic mass, was told benign, dr rodriguez, states CT post carotid sx,"lt carotid artery bkg 85%" Last Myocardial Infarction Date:: 2016 History of Any Multi-Drug Resistant Organisms: None Reported Past Surgical History: Back Surgery, Coronary Bypass/CABG, Heart Catheterization With Stent, Hernia Repair Additional Past Surgical History / Comment(s): rt carotid endartectomy,pt stated hadx3 cabg surguries: first one was 1 vessel 1999 and 2nd sx 2 2010 3rd bypass in 2014 -denies any valve repalcements, , back surgery x3, heart cath stent x1 (1994) Past Anesthesia/Blood Transfusion Reactions: Previous Problems w/ Anesthesia Additional Past Anesthesia/Blood Transfusion Reaction / Comment(s): states "feels like he has ants crawling on his face with anesthesia" Date of Last Stent Placement:: 1994 Past Psychological History: Anxiety, Depression Smoking Status: Former smoker Past Alcohol Use History: None Reported Past Drug Use History: None Reported - Past Family History Father Family Medical History: Cancer (pancreatic) Additional Family Medical History / Comment(s): in MVA Sister(s) Family Medical History: Cancer Additional Family Medical History / Comment(s): BONE Mother Family Medical History: Myocardial Infarction (CT) <Ryan Talley - Last Filed: 10/08/18 13:30> General Exam Limitations: no limitations General appearance: alert, in no apparent distress Head exam: Present: atraumatic, normocephalic, normal inspection Eye exam: Present: normal appearance, PERRL, EOMI. Absent: scleral icterus, conjunctival injection, periorbital swelling ENT exam: Present: normal exam, normal oropharynx, mucous membranes moist, TM's normal bilaterally, normal external ear exam Neck exam: Present: normal inspection, full ROM. Absent: tenderness, meningismus, lymphadenopathy Respiratory exam: Present: normal lung sounds bilaterally, decreased breath sounds. Absent: respiratory distress, wheezes, rales, rhonchi, stridor Cardiovascular Exam: Present: regular rate, normal rhythm, normal heart sounds. Absent: systolic murmur, diastolic murmur, rubs, gallop, clicks GI/Abdominal exam: Present: soft, normal bowel sounds. Absent: distended, tenderness, guarding, rebound, rigid Extremities exam: Present: normal inspection, full ROM, normal capillary refill. Absent: tenderness, pedal edema, joint swelling, calf tenderness Back exam: Present: full ROM. Absent: tenderness Neurological exam: Present: alert, oriented X3, CN II-XII intact, reflexes normal. Absent: motor sensory deficit Expanded Patient oriented to: Present: person, place, time Speech: Present: fluid speech Cranial nerves: EOM's Intact: Normal, Gag Reflex: Normal, Tongue Deviation: Normal, Nystagmus: Normal, Facial Sensation: Normal, Facial Palsy with Forehead Movement: Abnormal Left Cerebellar function: Finger to Nose: Normal, Heel to [place]: Normal, [place]berg: Normal Upper motor neuron: [place] Neglect: Normal, Pronator Drift: Normal, Babinski Sign: Normal, Sensory Extinction: Normal Sensory exam: Upper Extremity Light Touch: Normal, Upper Extremity Pin Prick: Normal, UE 2 Point Discrimination: Normal, Lower Extremity Light Touch: Normal, Lower Extremity Pin Prick: Normal, LE 2 Point Discrimination: Normal Motor strength exam: RUE: 5, LUE: 5, RLE: 5, LLE: 5 Eye Response: (4) open spontaneously Motor Response: (6) obeys commands Verbal Response: (5) oriented [place] Total: 15 (NIH 1) Skin exam: Present: warm, dry, intact, normal color. Absent: rash <Ryan Talley - Last Filed: 10/08/18 13:30> Course <Jr Weber - Last Filed: 10/08/18 13:33> Vital Signs 10/08/18 10/08/18 10/08/18 10:33 11:00 12:00 Temperature 98.0 F Pulse Rate 71 Respiratory 15 Rate Blood Pressure 182/87 O2 Sat by Pulse 96 98 98 Oximetry - Reevaluation(s) Reevaluation #1: 10/08/18 13:32 PA supervision: I proceeded [id number] evaluation the patient was sent in for evaluation for facial asymmetry with forehead involvement.. Patient apparently had this over the last couple days he did not really notice [facility] and noted. No other deficits reported no headaches no other symptoms. CAT scan does show evidence of stenosis of the left internal carotid artery. The case is discussed with Dr. Baum the patient be admitted with neurology consultation. (Jr Weber) Medical Decision Making - Lab Data Result diagrams: 10/08/18 10:35 10/08/18 10:35 <Ryan Talley - Last Filed: 10/08/18 13:30> - Lab Data Result diagrams: 10/08/18 10:35 10/08/18 10:35 <Jr Weber - Last Filed: 10/08/18 13:33> - Medical Decision Making 68-year-old male presented for left-sided facial droop and hypertension. Patient has very mild symptoms of CVA. CT shows narrowing of the left carotid artery and which she had right carotid artery surgery in the past. Patient will be admitted for neurology evaluation possible MRI (Ryan Talley) - Lab Data Lab Results 10/08/18 10/08/18 10/08/18 Range/Units 10:35 10:35 10:35 WBC 14.0 H (3.8-10.6) k/uL RBC 4.79 (4.30-5.90) m/uL Hgb 13.3 (13.0-17.5) gm/dL Hct 41.1 (39.0-53.0) % MCV 85.8 (80.0-100.0) fL MCH 27.9 (25.0-35.0) pg MCHC 32.5 (31.0-37.0) g/dL RDW 15.5 (11.5-15.5) % Plt Count 216 (150-450) k/uL Neutrophils % 77 % Lymphocytes % 14 % Monocytes % 6 % Eosinophils % 1 % Basophils % 0 % Neutrophils # 10.8 H (1.3-7.7) k/uL Lymphocytes # 2.0 (1.0-4.8) k/uL Monocytes # 0.8 (0-1.0) k/uL Eosinophils # 0.2 (0-0.7) k/uL Basophils # 0.1 (0-0.2) k/uL PT 9.5 (9.0-12.0) sec INR 0.9 (<1.2) APTT 21.2 L (22.0-30.0) sec Sodium 144 (137-145) mmol/L Potassium 4.4 (3.5-5.1) mmol/L Chloride 105 (98-107) mmol/L Carbon Dioxide 19 L (22-30) mmol/L Anion Gap 20 mmol/L BUN 20 (9-20) mg/dL Creatinine 0.62 L (0.66-1.25) mg/dL Est GFR (CKD-EPI)AfAm >90 (>60 ml/min/1.73 sqM) Est GFR (CKD-EPI)NonAf >90 (>60 ml/min/1.73 sqM) Glucose 329 H (74-99) mg/dL Calcium 9.7 (8.4-10.2) mg/dL Total Bilirubin 0.7 (0.2-1.3) mg/dL AST 16 L (17-59) U/L ALT 25 (21-72) U/L Alkaline Phosphatase 80 (38-126) U/L Troponin I (0.000-0.034) ng/mL Total Protein 6.6 (6.3-8.2) g/dL Albumin 4.1 (3.5-5.0) g/dL Urine Color Urine Appearance (Clear) Urine pH (5.0-8.0) Ur Specific [place] (1.001-1.035) Urine Protein (Negative) Urine Glucose (UA) (Negative) Urine Ketones (Negative) Urine Blood (Negative) Urine Nitrite (Negative) Urine Bilirubin (Negative) Urine Urobilinogen (<2.0) mg/dL Ur Leukocyte Esterase (Negative) 10/08/18 10/08/18 Range/Units 10:35 11:13 WBC (3.8-10.6) k/uL RBC (4.30-5.90) m/uL Hgb (13.0-17.5) gm/dL Hct (39.0-53.0) % MCV (80.0-100.0) fL MCH (25.0-35.0) pg MCHC (31.0-37.0) g/dL RDW (11.5-15.5) % Plt Count (150-450) k/uL Neutrophils % % Lymphocytes % % Monocytes % % Eosinophils % % Basophils % % Neutrophils # (1.3-7.7) k/uL Lymphocytes # (1.0-4.8) k/uL Monocytes # (0-1.0) k/uL Eosinophils # (0-0.7) k/uL Basophils # (0-0.2) k/uL PT (9.0-12.0) sec INR (<1.2) APTT (22.0-30.0) sec Sodium (137-145) mmol/L Potassium (3.5-5.1) mmol/L Chloride (98-107) mmol/L Carbon Dioxide (22-30) mmol/L Anion Gap mmol/L BUN (9-20) mg/dL Creatinine (0.66-1.25) mg/dL Est GFR (CKD-EPI)AfAm (>60 ml/min/1.73 sqM) Est GFR (CKD-EPI)NonAf (>60 ml/min/1.73 sqM) Glucose (74-99) mg/dL Calcium (8.4-10.2) mg/dL Total Bilirubin (0.2-1.3) mg/dL AST (17-59) U/L ALT (21-72) U/L Alkaline Phosphatase (38-126) U/L Troponin I 0.018 (0.000-0.034) ng/mL Total Protein (6.3-8.2) g/dL Albumin (3.5-5.0) g/dL Urine Color Light Yellow Urine Appearance Clear (Clear) Urine pH 6.0 (5.0-8.0) Ur Specific [place] 1.025 (1.001-1.035) Urine Protein Trace H (Negative) Urine Glucose (UA) 4+ H (Negative) Urine Ketones Negative (Negative) Urine Blood Negative (Negative) Urine Nitrite Negative (Negative) Urine Bilirubin Negative (Negative) Urine Urobilinogen <2.0 (<2.0) mg/dL Ur Leukocyte Esterase Negative (Negative) Disposition <Ryan Talley - Last Filed: 10/08/18 13:30> <Jr Weber - Last Filed: 10/08/18 13:33> Clinical Impression: CVA (cerebral vascular accident) Disposition: ADMITTED IP TO THIS [facility] Condition: Fair Referrals: [facility],Clinic [Primary Care Provider] - 1-2 days
--- NOTE | 2018-10-08 13:08 | CT ---
EXAMINATION TYPE: CT angio head neck DATE OF EXAM: 10/08/2018 HISTORY: Left facial droop. COMPARISON: CT brain same date CT DLP: 563.5 mGycm. Automated Exposure Control for Dose Reduction was Utilized. TECHNIQUE: CTA scan of the neck is performed with IV Contrast, patient injected with 50 mL of Isovue 370, axial images are obtained, coronal and sagittal reformatted images are reviewed. Three-D recons tructed images are created on an independent workstation and reviewed. FINDINGS: Carotid/Vascular Structures: Right vertebral artery is thought to be occluded proximally, some cross- filling is present at the confluence of the left and right vertebral arteries. Proximal internal bennett tid artery on the left shows hemodynamic significant stenosis corresponding to approximately 60-70 pe rcent diameter reduction, there is atheromatous change at the carotid bifurcation which may limit etrrence luation. There may be common carotid artery stenosis as well. [place] of [place] is patent. The left ve rtebral artery is patent. Basilar artery, internal carotid arteries are patent. No evident aneurysm, dissection, or embolus. Atheromatous changes present at the origins of the super aortic branch vessels. Other: [place] tonsil calcification likely due to chronic infection. Degenerative disc changes are p resent in the visualized spine. Low dense focus associated with the right lobe and left lobe of the t hyroid gland suggests underlying multinodular goiter. IMPRESSION: Hemodynamic significant stenosis of the proximal internal carotid artery on the left debora esponding to what is believed to be 60-70% diameter reduction. Additional findings above.
[2018-10-08] MEDS ORDERED: LISINOPRIL 10 MG TAB PO STA (14:24)
[2018-10-08] MEDS ORDERED: INSULIN ASPART (NovoLOG) 100 UNIT/ML VIAL SQ ONE (14:25)
--- NOTE | 2018-10-08 14:32 | P.CNNES ---
History of Present Illness Consult date: 10/08/18 Requesting physician: Ryan Talley Reason for Consult: CVA Chief complaint: Left facial droop, maybe since this morning History of Present Illness: 68 RH male h/o HTN, DM and HL also h/o tobacco use but quit in 2009 here because of left facial droop. Patient is not sure when it started, perhaps this morning. Speech and swallowing are not affected according to him. He did not even want to come in but EMS was called and he was sent here. Initial NIHSS was 1. CTH did not show ICH or ischemic infarct. CTA Head/Neck did not show LVO but did show LICA 60-70% stenosis. Patient also has h/o CAD on DAPT and statin therapy already. States he has been compliant. [facility] Denies other focal neuro c/o such as changes in taste, tongue numbness, ptosis, difficulty closing left eye, eye dryness/irritation, periauricular pain or sensitivity to hearing on the left. Did have angioplasty and cardiac stenting in 1994 per patient. Review of Systems 14-point ROS performed and as per HPI. Neurologically, patient denies decreased level or loss of consciousness, headache, seizure, changes in vision, diplopia, amaurosis, changes in hearing, facial numbness, ptosis, vertigo, hearing loss, tinnitus, dysarthria, dysphagia, aphasia, other focal numbness/weakness not mentioned above, tremors, bowel/bladder incontinence or ataxia. Past Medical History Past Medical History: Coronary Artery Disease (CAD), COPD, Diabetes Mellitus, Hyperlipidemia, Hypertension, Myocardial Infarction ([place]), Osteoarthritis (OA), Sleep Apnea/CPAP/BIPAP, Vascular Disorder Additional Past Medical History / Comment(s): chronic back pain, no cpap, HX OF episodes of bloody stools-now resolved, pancreatic mass, was told benign, dr rodriguez, states [place] post carotid sx,"lt carotid artery bkg 85%" Last Myocardial Infarction Date:: 2016 History of Any Multi-Drug Resistant Organisms: None Reported Past Surgical History: Back Surgery, Coronary Bypass/CABG, Heart Catheterization With Stent, Hernia Repair Additional Past Surgical History / Comment(s): rt carotid endartectomy,pt stated hadx3 cabg surguries: first one was 1 vessel 1999 and 2nd sx 2 2009 3rd bypass in 2014 -denies any valve repalcements, , back surgery x3, heart cath stent x1 (1994) Past Anesthesia/Blood Transfusion Reactions: Previous Problems w/ Anesthesia Additional Past Anesthesia/Blood Transfusion Reaction / Comment(s): states "feels like he has ants crawling on his face with anesthesia" Date of Last Stent Placement:: 1994 Past Psychological History: Anxiety, Depression Smoking Status: Former smoker Past Alcohol Use History: None Reported Past Drug Use History: None Reported - Past Family History Father Family Medical History: Cancer (pancreatic) Additional Family Medical History / Comment(s): in MVA Sister(s) Family Medical History: Cancer Additional Family Medical History / Comment(s): BONE Mother Family Medical History: Myocardial Infarction ([place]) Medications and Allergies Home Medications Medication Instructions Recorded Confirmed Type Nitroglycerin Sl Tabs [Nitrostat] 0.4 mg SUBLINGUAL Q5M PRN 07/05/14 10/08/18 History Gabapentin [Neurontin] 900 mg PO TID 06/07/16 10/08/18 History Carvedilol [Coreg] 3.125 mg PO BID 01/12/17 10/08/18 History Clopidogrel [Plavix] 75 mg PO DAILY 01/12/17 10/08/18 History Ipratropium-Albuterol Nebulize 3 ml INHALATION RT-Q6H PRN 03/13/18 10/08/18 History [Duoneb 0.5 mg-3 mg/3 ml Soln] Budesonide/Formoterol Fumarate 2 puff INHALATION RT-BID 06/22/18 10/08/18 Histor y [Symbicort 160-4.5 Mcg Inhaler] Furosemide [Lasix] 20 mg PO DAILY 06/22/18 10/08/18 History HYDROcodone/APAP 10-325MG [[place] 1 tab PO QID PRN 06/22/18 10/08/18 History 10-325] Insulin Glargine [Lantus] 20 units SQ DAILY 06/22/18 10/08/18 History Lidocaine [Lidoderm 5% Patch] 1 patch TRANSDERM DAILY PRN 06/22/18 10/08/18 History Methocarbamol [Robaxin] 500 mg PO TID 06/22/18 10/08/18 History amLODIPine [Norvasc] 5 mg PO DAILY 06/22/18 10/08/18 History Aspirin [Adult Low Dose Aspirin EC] 81 mg PO DAILY #30 tab 06/23/18 10/08/18 Rx Atorvastatin [Lipitor] 80 mg PO HS 07/30/18 10/08/18 History Isosorbide Mononitrate ER [Imdur] 60 mg PO DAILY 07/30/18 10/08/18 History INSULIN ASPART (NovoLOG) [NovoLOG See Protocol SQ HS 10/05/18 10/08/18 History (formulary)] Lisinopril [Zestril] 10 mg PO TID 10/05/18 10/08/18 History Pantoprazole [Protonix] 40 mg PO DAILY 10/05/18 10/08/18 History INSULIN ASPART (NovoLOG) [NovoLOG 4 unit SQ AC-TID 10/08/18 10/08/18 History (formulary)] Ibuprofen [Motrin] 800 mg PO Q8H PRN 10/08/18 10/08/18 History Allergies Allergy/AdvReac Type Severity Reaction Status Date / Time atorvastatin calcium Allergy muscle pain Verified 10/08/18 13:54 [From Lipitor] baclofen Allergy Unknown Verified 10/08/18 13:54 fenofibrate nanocrystallized Allergy muscle pain Verified 10/08/18 13:54 [From Tricor] fenofibrate,micronized Allergy Unknown Verified 10/08/18 13:54 [From Tricor] morphine Allergy Confusion Verified 10/08/18 13:54 rosuvastatin calcium Allergy muscle pain Verified 10/08/18 13:54 [From Crestor] sulfamethoxazole Allergy gi upset Verified 10/08/18 13:54 [From Bactrim] metformin AdvReac Nausea & Verified 10/08/18 13:54 Vomiting trimethoprim [From Bactrim] AdvReac Unknown Verified 10/08/18 13:54 rynatan Allergy Unknown Uncoded 10/08/18 13:54 Physical Examination - Vital Signs Vital Signs: Vital Signs Temp Pulse Resp BP Pulse Ox 10/08/18 14:00 74 17 199/89 96 10/08/18 13:00 81 13 168/95 96 10/08/18 12:00 78 13 200/89 96 10/08/18 11:00 80 13 173/93 96 10/08/18 10:39 76 13 96 10/08/18 10:33 98.0 F 71 15 182/87 96 Intake and Output 10/07/18 10/08/18 10/08/18 22:59 06:59 14:59 Other: Weight 104.78 kg Gen NAD Pleasant and cooperative HEENT NCAT Sclera without icterus O/P clear Neck Supple No carotid bruit Cor RRR no m/r/g Lungs CTAB Abd Soft NTND +BS Ext Warm to touch No edema Neuro MS A+Ox4 Normal fluency Able to follow all commands CN PERRL VFF no APD EOMI no nystagmus or KYLE Left decreased NLF Symmetric eyebrow raise and contraction of platysma Strong orbicularis oculi bilaterally Masseter's symmetric Hearing intact to normal voice bilaterally Speech not dysarthric Equal elevation of palate Tongue midline Sym shrug and SCM bila terally Motor Normal bulk/tone No pronator or tremors Strength 5/5 sym throughout Sens Intact to LT x4 No neglect or extinction Coord No dysmetria on FTN bilaterally DTRs 2+/4 sym throughout Toes downgoing bilaterally No clonus at achilles Gait Deferred NIHSS 4.1=1 Results - Laboratory Findings CBC and BMP: 10/08/18 10:35 10/08/18 10:35 Abnormal Lab Findings: Abnormal Labs 10/08/18 10/08/18 10/08/18 10:35 10:35 10:35 WBC 14.0 H Neutrophils # 10.8 H APTT 21.2 L Carbon Dioxide 19 L Creatinine 0.62 L Glucose 329 H AST 16 L Urine Protein Urine Glucose (UA) 10/08/18 11:13 WBC Neutrophils # APTT Carbon Dioxide Creatinine Glucose AST Urine Protein Trace H Urine Glucose (UA) 4+ H - Diagnostic Findings Additional findings: CT Head wo cont 10/08/18. No ICH. Nil acute. CTA Head/Neck 10/08/18. LICA 60-70% stenosis. No LVO. I have reviewed neuroimages myself. Assessment and Plan Assessment: Left UMN facial droop, not intervention candidate, with concerns for small right hemispheric ischemic infarct in the context of copious vascular risk factors, also r/o proximal embolic phenomenon Plan: -MRI Brain -CT Head and CTA Head/Neck results d/w patient in detail -TTE -Telemetry -DAPT and statin therapy -Goals BP <130/80, hga1c <7.0 and LDL <70 -PT/OT/SP per protocol -Stroke education given -DVT prophylaxis -d/w patient in detail. All questions answered. -Neurology will be available again on 10/11/18 at 8am. Please call with ?. Thank you for this consultation. Time with Patient: Greater than 30 (Time spent in direct patient care, greater than 50% of which was spent in [id number] counseling and coordination of care: 70 minutes)
[2018-10-08 14:34] LABS: Glucose,Whole Blood 467 mg/dL (75-99)
[2018-10-08] MEDS ORDERED: NITROGLYCERIN SL TABS 0.4 MG TAB SUBLINGUAL PRN (15:18)
[2018-10-08] MEDS ORDERED: IPRATROPIUM-ALBUTEROL 3 ML NEB INHALATION PRN (15:18)
[2018-10-08] MEDS: METHOCARBAMOL 500 MG TAB PO SCH ×2 (16:02→21:23)
[2018-10-08] MEDS: GABAPENTIN 300 MG CAP PO SCH ×2 (16:02→21:19)
[2018-10-08] MEDS: HEPARIN SODIUM,PORCINE 5,000 UNIT/ML 1 ML VIAL SQ SCH (16:03)
[2018-10-08] MEDS: INSULIN ASPART (NovoLOG) 100 UNIT/ML VIAL SQ SCH ×4 (16:05→21:19)
--- NOTE | 2018-10-08 16:12 | P.HPIM ---
History of Present Illness Patient is a pleasant 68-year-old gentleman is admitted for left facial droop. 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 Patient started having these symptoms today morning patient doesn't have any speech problems no other weakness or tingling or numbness, patient was evaluated by neurology and they believe patient has upper motor neuron lesion in involvement because of which a stroke workup was ordered with CT angios the head and neck did not show any significant abnormality there is around 60-70% stenosis on the left side which doesn't explain patient's symptoms. Patient is already on dual antiplatelet therapy and statin. 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 I'll try and reach the neurologist. As recommended by neurology and GERD in order an MRI without contrast along with the echocardiogram and a lipid panel. Patient doesn't have any hearing problems. Denied any earache. Review of Systems REVIEW OF SYSTEMS: CONSTITUTIONAL: No fever, no malaise, no fatigue. HEENT: No recent visual problems or hearing problems. Denied any sore throat. CARDIOVASCULAR: No chest pain, orthopnea, PND, no palpitations, no syncope. PULMONARY: No shortness of breath, no cough, no hemoptysis. GASTROINTESTINAL: No diarrhea, no nausea, no vomiting, no abdominal pain. NEUROLOGICAL: No headaches, HEMATOLOGICAL: Denies any bleeding or petechiae. GENITOURINARY: Denies any burning micturition, frequency, or urgency. MUSCULOSKELETAL/RHEUMATOLOGICAL: Denies any joint pain, swelling, or any muscle pain. ENDOCRINE: Denies any polyuria or polydipsia. The rest of the 14-point review of systems is negative. Past Medical History Past Medical History: Coronary Artery Disease (CAD), COPD, Diabetes Mellitus, Hyperlipidemia, Hypertension, Myocardial Infarction ([place]), Osteoarthritis (OA), Sleep Apnea/CPAP/BIPAP, Vascular Disorder Additional Past Medical History / Comment(s): chronic back pain, no cpap, HX OF episodes of bloody stools-now resolved, pancreatic mass, was told benign, dr rodriguez, states [place] post carotid sx,"lt carotid artery bkg 85%" Last Myocardial Infarction Date:: 2016 History of Any Multi-Drug Resistant Organisms: None Reported Past Surgical History: Back Surgery, Coronary Bypass/CABG, Heart Catheterization With Stent, Hernia Repair Additional Past Surgical History / Comment(s): rt carotid endartectomy,pt stated hadx3 cabg surguries: first one was 1 vessel 1999 and 2nd sx 2 2010 3rd bypass in 2015 -denies any valve repalcements, , back surgery x3, heart cath stent x1 (1994) Past Anesthesia/Blood Transfusion Reactions: Previous Problems w/ Anesthesia Additional Past Anesthesia/Blood Transfusion Reaction / Comment(s): states "feels like he has ants crawling on his face with anesthesia" Date of Last Stent Placement:: 1994 Smoking Status: Former smoker - Past Family History Father Family Medical History: Cancer (pancreatic) Additional Family Medical History / Comment(s): in MVA Sister(s) Family Medical History: Cancer Additional Family Medical History / Comment(s): BONE Mother Family Medical History: Myocardial Infarction ([place]) Additional Family Medical History / Comment(s): Mother of a staph infection at the age of 82 yrs. Medications and Allergies Home Medications Medication Instructions Recorded Confirmed Type Nitroglycerin Sl Tabs [Nitrostat] 0.4 mg SUBLINGUAL Q5M PRN 07/05/14 10/08/18 History Gabapentin [Neurontin] 900 mg PO TID 06/07/16 10/08/18 History Carvedilol [Coreg] 3.125 mg PO BID 01/12/17 10/08/18 History Clopidogrel [Plavix] 75 mg PO DAILY 01/12/17 10/08/18 History Ipratropium-Albuterol Nebulize 3 ml INHALATION RT-Q6H PRN 03/13/18 10/08/18 History [Duoneb 0.5 mg-3 mg/3 ml Soln] Budesonide/Formoterol Fumarate 2 puff INHALATION RT-BID 06/22/18 10/08/18 History [Symbicort 160-4.5 Mcg Inhaler] Furosemide [Lasix] 20 mg PO DAILY 06/22/18 10/08/18 History HYDROcodone/APAP 10-325MG [[place] 1 tab PO QID PRN 06/22/18 10/08/18 History 10-325] Insulin Glargine [Lantus] 20 units SQ DAILY 06/22/18 10/08/18 History Lidocaine [Lidoderm 5% Patch] 1 patch TRANSDERM DAILY PRN 06/22/18 10/08/18 History Methocarbamol [Robaxin] 500 mg PO TID 06/22/18 10/08/18 History amLODIPine [Norvasc] 5 mg PO DAILY 06/22/18 10/08/18 History Aspirin [Adult Low Dose Aspirin EC] 81 mg PO DAILY #30 tab 06/23/18 10/08/18 Rx Atorvastatin [Lipitor] 80 mg PO HS 07/30/18 10/08/18 History Isosorbide Mononitrate ER [Imdur] 60 mg PO DAILY 07/30/18 10/08/18 History INSULIN ASPART (NovoLOG) [NovoLOG See Protocol SQ HS 10/05/18 10/08/18 History (formulary)] Lisinopril [Zestril] 10 mg PO TID 10/05/18 10/08/18 History Pantoprazole [Protonix] 40 mg PO DAILY 10/05/18 10/08/18 History INSULIN ASPART (NovoLOG) [NovoLOG 4 unit SQ AC-TID 10/08/18 10/08/18 History (formulary)] Ibuprofen [Motrin] 800 mg PO Q8H PRN 10/08/18 10/08/18 History Allergies Allergy/AdvReac Type Severity Reaction Status Date / Time atorvastatin calcium Allergy muscle pain Verified 10/08/18 13:54 [From Lipitor] baclofen Allergy Unknown Verified 10/08/18 13:54 fenofibrate nanocrystallized Allergy muscle pain Verified 10/08/18 13:54 [From Tricor] fenofibrate,micronized Allergy Unknown Verified 10/08/18 13:54 [From Tricor] morphine Allergy Confusion Verified 10/08/18 13:54 rosuvastatin calcium Allergy muscle pain Verified 10/08/18 13:54 [From Crestor] sulfamethoxazole Allergy gi upset Verified 10/08/18 13:54 [From Bactrim] metformin AdvReac Nausea & Verified 10/08/18 13:54 Vomiting trimethoprim [From Bactrim] AdvReac Unknown Verified 10/08/18 13:54 rynatan Allergy Unknown Uncoded 10/08/18 13:54 Physical Exam Vitals: Vital Signs Temp Pulse Resp BP Pulse Ox 10/08/18 15:09 14 131/76 97 10/08/18 15:00 97.6 F 70 14 131/76 94 L 10/08/18 14:00 74 17 199/89 96 10/08/18 13:00 81 13 168/95 96 10/08/18 12:00 78 13 200/89 96 10/08/18 11:00 80 13 173/93 96 10/08/18 10:39 76 13 96 10/08/18 10:33 98.0 F 71 15 182/87 96 Intake and Output 10/08/18 10/08/18 10/08/18 06:59 14:59 22:59 Other: Weight 104.78 kg PHYSICAL EXAMINATION: GENERAL: The patient is alert and oriented x3, not in any acute distress. Well developed, well nourished. HEENT: Pupils are round and equally reacting to light. EOMI. No scleral icterus. No conjunctival pallor. Normocephalic, atraumatic. No pharyngeal erythema. No thyromegaly. CARDIOVASCULAR: S1 and S2 present. No murmurs, rubs, or gallops. PULMONARY: Chest is clear to auscultation, no wheezing or crackles. ABDOMEN: Soft, nontender, nondistended, normoactive bowel sounds. No palpable organomegaly. MUSCULOSKELETAL: No joint swelling or deformity. EXTREMITIES: No cyanosis, clubbing, or pedal edema. NEUROLOGICAL: Gross neurological examination did not reveal any focal deficits except for seventh cranial nerve deficits as mentioned above which is weakness in the left side of the face as well as fore head.. No other cranial involvement was appreciated SKIN: No rashes. Results CBC & Chem 7: 10/08/18 10:35 10/08/18 10:35 Labs: Abnormal Lab Results - Last 24 Hours (Table) 10/08/18 10/08/18 10/08/18 Range/Units 10:35 10:35 10:35 WBC 14.0 H (3.8-10.6) k/uL Neutrophils # 10.8 H (1.3-7.7) k/uL APTT 21.2 L (22.0-30.0) sec Carbon Dioxide 19 L (22-30) mmol/L Creatinine 0.62 L (0.66-1.25) mg/dL Glucose 329 H (74-99) mg/dL POC Glucose (mg/dL) (75-99) mg/dL AST 16 L (17-59) U/L Urine Protein (Negative) Urine Glucose (UA) (Negative) 10/08/18 10/08/18 Range/Units 11:13 14:24 WBC (3.8-10.6) k/uL Neutrophils # (1.3-7.7) k/uL APTT (22.0-30.0) sec Carbon Dioxide (22-30) mmol/L Creatinine (0.66-1.25) mg/dL Glucose (74-99) mg/dL POC Glucose (mg/dL) 467 H (75-99) mg/dL AST (17-59) U/L Urine Protein Trace H (Negative) Urine Glucose (UA) 4+ H (Negative) Thrombosis Risk Factor Assmnt - Choose All That Apply Any of the Below Risk Factors Present?: Yes Each Factor Represents 1 point: Abnormal pulmonary function (COPD), Obesity (BMI >25) Other Risk Factors: Yes Each Risk Factor Represents 2 Points: Age 61-74 years Other congenital or acquired thrombophilia - If yes, enter type in comment: Yes Each Risk Factor Represents 5 Points: Stroke (< 1 month) Thrombosis Risk Factor Assessment Total Risk Factor Score: 9 Thrombosis Risk Factor Assessment Level: High Risk Assessment and Plan Plan: Left Sided facial weakness I believe it's mostly was falsely but since the neurology evaluated the patient they believe patient has upper motor neuron facial droop. Patient will be continued on Dilantin therapy and a statin patient is already in his medications at home. Will be obtained LDL will be obtained -Type 2 diabetes mellitus with highly elevated blood sugars patient will be re sumed on his home regimen will monitor and titrate accordingly. -Leukocytosis reactive in nature -Hypertension patient will be resumed on his home medications -Carotid disease -Hyperlipidemia - sleep apnea uses CPAP machine at home -Peripheral vascular disease
[2018-10-08] MEDS: HYDROcodone/APAP 10-325MG 1 EACH TAB PO PRN ×2 (16:18→22:32)
[2018-10-08] MEDS: IBUPROFEN 800 MG TAB PO PRN ×2 (16:18→22:32)
[2018-10-08 16:47] LABS: Glucose,Whole Blood 337 mg/dL (75-99)
[2018-10-08] MEDS ORDERED: LORazepam 1 MG TAB PO STA (17:11)
[2018-10-08] MEDS: CARVEDILOL 3.125 MG TAB PO SCH (17:20)
[2018-10-08] MEDS: LISINOPRIL 10 MG TAB PO SCH ×2 (17:27→21:18)
[2018-10-08] MEDS ORDERED: INSULIN ASPART (NovoLOG) 100 UNIT/ML VIAL SQ SCH (17:30)
--- NOTE | 2018-10-08 19:24 | MR ---
EXAMINATION TYPE: MR brain wo con DATE OF EXAM: 10/08/2018 COMPARISON: CT brain of the same date HISTORY: Lt facial drooping, CVA TECHNIQUE: Multiplanar, multisequence images of the brain and brainstem is performed without intravenous contras t. FINDINGS: Diffusion weighted images demonstrate no evidence of a recent infarct or other diffusion ab normality. There is no extra-axial fluid collection. Mild burden nonspecific white matter change is seen predominantly in the periventricular/pericallosal white matter with the most confluent right par ietal periventricular white matter focus seen as FLAIR/T2 hyperintensity measuring 0.8 x 0.7 cm on FL AIR and axial fat sat sequence image 22. The ventricular system and cisternal spaces are normal in si ze and appearance. The brain volume is age appropriate. Midline structures demonstrate normal morphology. The craniocervical junction appears within normal limits. Right vertebral artery flow void is extremely diminutive and as discussed on the prior CTA moreno d and neck of the same date the right vertebral artery is thought to be occluded proximally. The visu alized sinuses are clear and the globes are intact. There is leftward nasal septal deviation. IMPRESSION: 1. No acute infarct, midline shift, or mass effect. 2. 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 3. Mild burden nonspecific white matter change has a periventricular/pericallosal predominance. Consi derations are for demyelinating disease given the distribution or sequela of microangiopathy.
[2018-10-08 20:41] LABS: Glucose,Whole Blood 211 mg/dL (75-99)
[2018-10-08] MEDS ORDERED: ATORVASTATIN 80 MG TAB PO SCH (21:00)
[2018-10-08] MEDS ORDERED: MAGNESIUM OXIDE 400 MG TAB PO STA (21:03)
[2018-10-08] MEDS: SYMBICORT 160-4.5 MCG INHALER INHALATION SCH (21:24)
[2018-10-09] MEDS: HEPARIN SODIUM,PORCINE 5,000 UNIT/ML 1 ML VIAL SQ SCH ×2 (00:30→09:12)
[2018-10-09 03:05] LABS: Cholesterol 151 mg/dL (<200); HDL Cholesterol 37 mg/dL (40-60); LDL Cholesterol,Calculated 58 mg/dL (0-99); Triglycerides 279 mg/dL (<150)
[2018-10-09] MEDS: IBUPROFEN 800 MG TAB PO PRN ×2 (05:22→10:55)
[2018-10-09] MEDS: HYDROcodone/APAP 10-325MG 1 EACH TAB PO PRN ×2 (05:22→10:54)
[2018-10-09 06:19] LABS: Glucose,Whole Blood 419 mg/dL (75-99)
[2018-10-09] MEDS: INSULIN ASPART (NovoLOG) 100 UNIT/ML VIAL SQ SCH ×2 (06:45)
[2018-10-09] MEDS: CARVEDILOL 3.125 MG TAB PO SCH (06:46)
[2018-10-09] MEDS ORDERED: INSULIN DETEMIR (LEVEMIR) 100 UNIT/ML SYR SQ SCH (07:00)
[2018-10-09] MEDS: SYMBICORT 160-4.5 MCG INHALER INHALATION SCH (07:11)
[2018-10-09 07:21] LABS: Glucose,Whole Blood 325 mg/dL (75-99)
[2018-10-09] MEDS ORDERED: PANTOPRAZOLE 40 MG TABLET PO SCH (07:30)
[2018-10-09] MEDS ORDERED: CLOPIDOGREL 75 MG TAB PO SCH (09:00)
[2018-10-09] MEDS ORDERED: FUROSEMIDE 20 MG TAB PO SCH (09:00)
[2018-10-09] MEDS ORDERED: ASPIRIN 325 MG TAB PO SCH (09:00)
[2018-10-09] MEDS ORDERED: ISOSORBIDE MONONITRATE ER 60 MG TAB.ER.24H PO SCH (09:00)
[2018-10-09] MEDS ORDERED: amLODIPine 5 MG TAB PO SCH (09:00)
[2018-10-09] MEDS: GABAPENTIN 300 MG CAP PO SCH (09:11)
[2018-10-09] MEDS: METHOCARBAMOL 500 MG TAB PO SCH (09:12)
[2018-10-09] MEDS: LISINOPRIL 10 MG TAB PO SCH (09:12)
[2018-10-09 09:17] VITALS: BP 188/85; PULSE 63; RESP 16; TEMP 98
[2018-10-09 11:36] LABS: Glucose,Whole Blood 298 mg/dL (75-99)
--- NOTE | 2018-10-09 12:49 | P.DS ---
Providers Date of admission: 10/08/18 13:31 Attending physician: Vesna Baum Consults: 10/08/18 13:31 Consult Physician Urgent Consulting Provider: Kelli Wilson Consult Reason/Comments: CVA Do you want consulting provider notified?: Yes Primary care physician: [facility] Course: Patient is a pleasant 68-year-old gentleman is admitted for left facial droop. 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 Patient started having these symptoms today morning patient doesn't have any speech problems no other weakness or tingling or numbness, patient was evaluated by neurology and they believe patient has upper motor neuron lesion in involvement because of which a stroke workup was ordered with CT angios the head and neck did not show any significant abnormality there is around 60-70% stenosis on the left side which doesn't explain patient's symptoms. Patient is already on dual antiplatelet therapy and statin. 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 I'll try and reach the neurologist. As recommended by neurology and GERD in order an MRI without contrast along with the echocardiogram and a lipid panel. Patient doesn't have any hearing problems. Denied any earache. 10/09/2018 Patient had an MRI which didn't show any acute stroke. All the workup Stroke was negative except for an occlusive atherosclerotic plaque in the left internal carotid. 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 PHYSICAL EXAMINATION: GENERAL: The patient is alert and oriented x3, not in any acute distress. Well developed, well nourished. HEENT: Pupils are round and equally reacting to light. EOMI. No scleral icterus. No conjunctival pallor. Normocephalic, atraumatic. No pharyngeal erythema. No thyromegaly. CARDIOVASCULAR: S1 and S2 present. No murmurs, rubs, or gallops. PULMONARY: Chest is clear to auscultation, no wheezing or crackles. ABDOMEN: Soft, nontender, nondistended, normoactive bowel sounds. No palpable organomegaly. MUSCULOSKELETAL: No joint swelling or deformity. EXTREMITIES: No cyanosis, clubbing, or pedal edema. NEUROLOGICAL: Facial weakness in the left side appears to have improved SKIN: No rashes. Assessment and Plan Plan: Left Sided facial weakness I believe it's mostly Arriaga's Palsy -CVA workup as mentioned above -Type 2 diabetes mellitus with highly elevated blood sugars his insulin regimen was changed -Leukocytosis reactive in nature -Hypertension patient will be resumed on his home medications -Carotid disease -Hyperlipidemia - sleep apnea uses CPAP machine at home -Peripheral vascular disease Patient Condition at Discharge: Fair Plan - Discharge Summary Discharge Rx Participant: No New Discharge Prescriptions: New valACYclovir HCL [Valtrex] 500 mg PO Q8HR #30 tab Continue Nitroglycerin Sl Tabs [Nitrostat] 0.4 mg SUBLINGUAL Q5M PRN PRN Reason: Chest Pain Gabapentin [Neurontin] 900 mg PO TID Carvedilol [Coreg] 3.125 mg PO BID Clopidogrel [Plavix] 75 mg PO DAILY Ipratropium-Albuterol Nebulize [Duoneb 0.5 mg-3 mg/3 ml Soln] 3 ml INHALATION RT-Q6H PRN PRN Reason: Shortness Of Breath Or Wheezing HYDROcodone/APAP 10-325MG [[place] 10-325] 1 tab PO QID PRN PRN Reason: Pain Lidocaine [Lidoderm 5% Patch] 1 patch TRANSDERM DAILY PRN PRN Reason: Pain Methocarbamol [Robaxin] 500 mg PO TID Furosemide [Lasix] 20 mg PO DAILY amLODIPine [Norvasc] 5 mg PO DAILY Budesonide/Formoterol Fumarate [Symbicort 160-4.5 Mcg Inhaler] 2 puff INHALATION RT-BID Aspirin [Adult Low Dose Aspirin EC] 81 mg PO DAILY #30 tab Isosorbide Mononitrate ER [Imdur] 60 mg PO DAILY Atorvastatin [Lipitor] 80 mg PO HS Lisinopril [Zestril] 10 mg PO TID INSULIN ASPART (NovoLOG) [NovoLOG (formulary)] See Protocol SQ HS Pantoprazole [Protonix] 40 mg PO DAILY Ibuprofen [Motrin] 800 mg PO Q8H PRN PRN Reason: Pain OR INFLAMMATION Changed Insulin Glargine [Lantus] 24 units SQ DAILY #0 INSULIN ASPART (NovoLOG) [NovoLOG (formulary)] 6 unit SQ AC-TID #0 Discharge Medication List Nitroglycerin Sl Tabs [Nitrostat] 0.4 mg SUBLINGUAL Q5M PRN 07/05/14 [History] Gabapentin [Neurontin] 900 mg PO TID 06/07/16 [History] Carvedilol [Coreg] 3.125 mg PO BID 01/12/17 [History] Clopidogrel [Plavix] 75 mg PO DAILY 01/12/17 [History] Ipratropium-Albuterol Nebulize [Duoneb 0.5 mg-3 mg/3 ml Soln] 3 ml INHALATION RT-Q6H PRN 03/13/18 [History] Budesonide/Formoterol Fumarate [Symbicort 160-4.5 Mcg Inhaler] 2 puff INHALATION RT-BID 06/22/18 [History] Furosemide [Lasix] 20 mg PO DAILY 06/22/18 [History] HYDROcodone/APAP 10-325MG [[place] 10-325] 1 tab PO QID PRN 06/22/18 [History] Lidocaine [Lidoderm 5% Patch] 1 patch TRANSDERM DAILY PRN 06/22/18 [History] Methocarbamol [Robaxin] 500 mg PO TID 06/22/18 [History] amLODIPine [Norvasc] 5 mg PO DAILY 06/22/18 [History] Aspirin [Adult Low Dose Aspirin EC] 81 mg PO DAILY #30 tab 06/23/18 [Rx] Atorvastatin [Lipitor] 80 mg PO HS 07/30/18 [History] Isosorbide Mononitrate ER [Imdur] 60 mg PO DAILY 07/30/18 [History] INSULIN ASPART (NovoLOG) [NovoLOG (formulary)] See Protocol SQ HS 10/05/18 [History] Lisinopril [Zestril] 10 mg PO TID 10/05/18 [History] Pantoprazole [Protonix] 40 mg PO DAILY 10/05/18 [History] Ibuprofen [Motrin] 800 mg PO Q8H PRN 10/08/18 [History] INSULIN ASPART (NovoLOG) [NovoLOG (formulary)] 6 unit SQ AC-TID #0 10/09/18 [Rx] Insulin Glargine [Lantus] 24 units SQ DAILY #0 10/09/18 [Rx] valACYclovir HCL [Valtrex] 500 mg PO Q8HR #30 tab 10/09/18 [Rx] Follow up Appointment(s)/Referral(s): [facility],Clinic [Primary Care Provider] - 3 Days Patient Instructions/Handouts: Arriaga Palsy (DC), Hypertension (DC), Diabetic Hyperglycemia (DC) Discharge Disposition: HOME SELF-CARE
--- NOTE | 2018-10-09 13:51 | ECHOF ---
Referral Reason:CVA MEASUREMENTS -------- HEIGHT: 182.9 cm WEIGHT: 103.4 kg BP: IVSd: 1.5 cm (0.6 - 1.1) LVIDd: 5.1 cm (3.9 - 5.3) LVPWd: 1.3 cm (0.6 - 1.1) IVSs: 1.8 cm LVIDs: 3.8 cm LVPWs: 1.8 cm LA Diam: 4.8 cm (2.7 - 3.8) RVIDd: 3.2 cm (< 3.3) Ao Diam: 3.5 cm (2.0 - 3.7) LA Diam: 5.0 cm (2.7 - 3.8) AV Cusp: 2.1 cm (1.5 - 2.6) EPSS: 1.0 cm MV E Tacos: 0.39 m/s MV DecT: 309 ms MV A Tacos: 0.77 m/s MV E/A Ratio: 0.51 RAP: 5.00 mmHg RVSP: 12.42 mmHg MV EF SLOPE: 57.25 mm/s (70 - 150) MV EXCURSION: 23.82 mm (> 18.000) FINDINGS -------- Sinus rhythm. This was a techncally difficult study with suboptimal views, , Lumason utilized for enhancement of im ages. The left ventricular size is normal. There is moderate concentric left ventricular hypertrophy. O verall left ventricular systolic function is mildly impaired with, an EF between 45 - 50 %. Basal i nferior LV wall motion is hypokinetic. The right ventricle is normal in size. The left atrium is mildly dilated. The right atrial size is normal. 5.0mg OF Lumason UTLIZED: 2 OR MORE WALL SEGMENTS NOT VISUALIZED. There is mild aortic valve sclerosis. There is no evidence of aortic regurgitation. Mild mitral annular calcification present. Mild mitral regurgitation is present. Mild tricuspid regurgitation present. Right ventricular systolic pressure is normal at < 35 mmHg. The pulmonic valve was not well visualized. The aortic root size is normal. There is no pericardial effusion. CONCLUSIONS -------- 1. This was a techncally difficult study with suboptimal views, , Lumason utilized for enhancement of images. 2. The left ventricular size is normal. 3. There is moderate concentric left ventricular hypertrophy. 4. Overall left ventricular systolic function is mildly impaired with, an EF between 45 - 50 %. 5. Basal inferior LV wall motion is hypokinetic. 6. The right ventricle is normal in size. 7. The left atrium is mildly dilated. 8. The right atrial size is normal. 9. 5.0mg OF Lumason UTLIZED: 2 OR MORE WALL SEGMENTS NOT VISUALIZED. 10. There is mild aortic valve sclerosis. 11. Mild mitral annular calcification present. 12. Mild mitral regurgitation is present. 13. Mild tricuspid regurgitation present. 14. Right ventricular systolic pressure is normal at < 35 mmHg. 15. The pulmonic valve was not well visualized. 16. The aortic root size is normal. 17. There is no pericardial effusion. STATE AUDITOR: Nora Mak RDCS
== END 2018-10-09 12:35 | disposition home or self-care (01) | DRG 74 ==
LOC: EC 10:30 → 3SCARD 13:31
PROVIDERS: ADMIT Internal Medicine; ATTEND Internal Medicine
DX: G51.0 Bell's palsy (principal); I25.10 Atherosclerotic heart disease of native coronary artery without angina pectoris; J44.9 Chronic obstructive pulmonary disease, unspecified; I10 Essential (primary) hypertension; E78.5 Hyperlipidemia, unspecified; E11.51 Type 2 diabetes mellitus with diabetic peripheral angiopathy without gangrene; E11.65 Type 2 diabetes mellitus with hyperglycemia; M19.90 Unspecified osteoarthritis, unspecified site; F32.9 Major depressive disorder, single episode, unspecified; F41.9 Anxiety disorder, unspecified; D72.829 Elevated white blood cell count, unspecified; R29.701 NIHSS score 1; G47.30 Sleep apnea, unspecified; I65.22 Occlusion and stenosis of left carotid artery; Z95.5 Presence of coronary angioplasty implant and graft; Z95.1 Presence of aortocoronary bypass graft; Z79.4 Long term (current) use of insulin; Z79.02 Long term (current) use of antithrombotics/antiplatelets; I25.2 Old myocardial infarction; Z79.51 Long term (current) use of inhaled steroids; Z79.82 Long term (current) use of aspirin; Z79.899 Other long term (current) drug therapy; Z82.49 Family history of ischemic heart disease and other diseases of the circulatory system; Z87.891 Personal history of nicotine dependence; Z88.5 Allergy status to narcotic agent; Z88.2 Allergy status to sulfonamides; Z88.8 Allergy status to other drugs, medicaments and biological substances; Z91.048 Other nonmedicinal substance allergy status; Z80.0 Family history of malignant neoplasm of digestive organs; Z83.1 Family history of other infectious and parasitic diseases; Z99.89 Dependence on other enabling machines and devices
CPT/HCPCS: 36415; 70450; 70496; 70498; 70551; 71046; 80053; 80061; 81003; 82009; 83735; 84484; 85025; 85610; 85730; 93005; 93306; 94640; 99285

== ENCOUNTER 2018-10-11 16:02 | Inpatient (IN) | payer OTHER, MEDICARE ==
[2018-10-11] MEDS ORDERED: SODIUM CHLORIDE 0.9% 1,000 ML IV STA (16:42)
--- NOTE | 2018-10-11 17:02 | ED ---
Neuro HPI - General Chief Complaint: Neuro Symptoms/Deficit Stated Complaint: POSS CVA Time Seen by Provider: 10/11/18 16:28 Source: patient, RN notes reviewed Mode of arrival: wheelchair Limitations: no limitations - History of Present Illness Is the patient presenting with stroke symptoms?: Yes Last Known Well Date: 10/10/18 Last Known Well Time: 02:59 Initial Comments: This is a 68-year-old male with a recent admission for evaluation for CVA who states he was discharged 2 days ago but after being discharged he started developing left upper extremity weakness as well as some left lower extremity weakness and facial numbness on the left. He is here today with these comp laints and hasn't gotten any better or any worse he also reports he is depressed and possibly suicidal. No other modifying factors time no fevers chills nausea vomiting sweats no drugs or alcohol reported. - Related Data Home Medications: Home Medications Medication Instructions Recorded Confirmed Nitroglycerin Sl Tabs [Nitrostat] 0.4 mg SUBLINGUAL Q5M PRN 07/05/14 10/11/18 Gabapentin [Neurontin] 900 mg PO TID 06/07/16 10/11/18 Carvedilol [Coreg] 3.125 mg PO BID 01/12/17 10/11/18 Clopidogrel [Plavix] 75 mg PO DAILY 01/12/17 10/11/18 Ipratropium-Albuterol Nebulize 3 ml INHALATION RT-Q6H PRN 03/13/18 10/11/18 [Duoneb 0.5 mg-3 mg/3 ml Soln] Budesonide/Formoterol Fumarate 2 puff INHALATION RT-BID 06/22/18 10/11/18 [Symbicort 160-4.5 Mcg Inhaler] Furosemide [Lasix] 20 mg PO DAILY 06/22/18 10/11/18 HYDROcodone/APAP 10-325MG [[place] 1 tab PO QID PRN 06/22/18 10/11/18 10-325] Lidocaine [Lidoderm 5% Patch] 1 patch TRANSDERM DAILY PRN 06/22/18 10/11/18 Methocarbamol [Robaxin] 500 mg PO TID 06/22/18 10/11/18 amLODIPine [Norvasc] 5 mg PO DAILY 06/22/18 10/11/18 Atorvastatin [Lipitor] 80 mg PO HS 07/30/18 10/11/18 Isosorbide Mononitrate ER [Imdur] 60 mg PO DAILY 07/30/18 10/11/18 Lisinopril [Zestril] 10 mg PO TID 10/05/18 10/11/18 Pantoprazole [Protonix] 40 mg PO DAILY 10/05/18 10/11/18 Ibuprofen [Motrin] 800 mg PO Q8H PRN 10/08/18 10/11/18 Insulin Glargine [Lantus] 26 units SQ HS 10/11/18 10/11/18 Previous Rx's Medication Instructions Recorded Aspirin [Adult Low Dose Aspirin EC] 81 mg PO DAILY #30 tab 06/23/18 INSULIN ASPART (NovoLOG) [NovoLOG 6 unit SQ AC-TID #0 10/09/18 (formulary)] valACYclovir HCL [Valtrex] 500 mg PO Q8HR #30 tab 10/09/18 Allergies/Adverse Reactions: Allergies Allergy/AdvReac Type Severity Reaction Status Date / Time baclofen Allergy Unknown Verified 10/11/18 16:22 fenofibrate nanocrystallized Allergy muscle pain Verified 10/11/18 16:22 [From Tricor] fenofibrate,micronized Allergy Unknown Verified 10/11/18 16:22 [From Tricor] morphine Allergy Confusion Verified 10/11/18 16:22 rosuvastatin calcium Allergy muscle pain Verified 10/11/18 16:22 [From Crestor] sulfamethoxazole Allergy gi upset Verified 10/11/18 16:22 [From Bactrim] metformin AdvReac Nausea & Verified 10/11/18 16:22 Vomiting trimethoprim [From Bactrim] AdvReac Unknown Verified 10/11/18 16:22 rynatan Allergy Unknown Uncoded 10/08/18 13:54 Review of Systems ROS Statement: Those systems with pertinent positive or pertinent negative responses have been documented in the HPI. ROS Other: All systems not noted in ROS Statement are negative. General Exam - General Exam Comments Initial Comments: this is a well-developed well-nourished awake alert oriented times female Limitations: no limitations General appearance: alert, anxious Head exam: Present: other (Some evidence of left facial asymmetry compared to the right forehead does appear to be spared) Eye exam: Present: normal appearance, PERRL, EOMI. Absent: scleral icterus, conjunctival injection, periorbital swelling ENT exam: Present: normal exam, mucous membranes moist Neck exam: Present: normal inspection, full ROM, other (No stridor JVD or bruits). Absent: tenderness, meningismus, lymphadenopathy Respiratory exam: Present: normal lung sounds bilaterally. Absent: respiratory distress, wheezes, rales, rhonchi, stridor Cardiovascular Exam: Present: regular rate, normal rhythm, normal heart sounds. Absent: systolic murmur, diastolic murmur, rubs, gallop, clicks GI/Abdominal exam: Present: soft, normal bowel sounds. Absent: distended, tenderness, guarding, rebound, rigid Extremities exam: Present: normal inspection, normal capillary refill. Absent: full ROM, tenderness, pedal edema, joint swelling, calf tenderness Back exam: Present: normal inspection Neurological exam: Present: alert, oriented X3, motor sensory deficit (Weakness to the left upper lower extremity is noted) Psychiatric exam: Present: depressed, flat affect Skin exam: Present: warm, dry, intact, normal color. Absent: rash Stroke MDM - Lab Data Result diagrams: 10/11/18 16:50 10/11/18 16:50 Lab Results 10/11/18 10/11/18 10/11/18 Range/Units 16:33 16:50 16:50 WBC 11.4 H (3.8-10.6) k/uL RBC 4.47 (4.30-5.90) m/uL Hgb 13.1 (13.0-17.5) gm/dL Hct 38.2 L (39.0-53.0) % MCV 85.3 (80.0-100.0) fL MCH 29.3 (25.0-35.0) pg MCHC 34.4 (31.0-37.0) g/dL RDW 14.5 (11.5-15.5) % Plt Count 237 (150-450) k/uL Neutrophils % 67 % Lymphocytes % 22 % Monocytes % 6 % Eosinophils % 1 % Basophils % 1 % Neutrophils # 7.6 (1.3-7.7) k/uL Lymphocytes # 2.6 (1.0-4.8) k/uL Monocytes # 0.6 (0-1.0) k/uL Eosinophils # 0.2 (0-0.7) k/uL Basophils # 0.1 (0-0.2) k/uL PT (9.0-12.0) sec INR (<1.2) APTT (22.0-30.0) sec Sodium 135 L (137-145) mmol/L Potassium 4.4 (3.5-5.1) mmol/L Chloride 105 (98-107) mmol/L Carbon Dioxide 20 L (22-30) mmol/L Anion Gap 10 mmol/L BUN 22 H (9-20) mg/dL Creatinine 0.86 (0.66-1.25) mg/dL Est GFR (CKD-EPI)AfAm >90 (>60 ml/min/1.73 sqM) Est GFR (CKD-EPI)NonAf 90 (>60 ml/min/1.73 sqM) Glucose 389 H (74-99) mg/dL Calcium 9.2 (8.4-10.2) mg/dL Magnesium 1.4 L (1.6-2.3) mg/dL Total Bilirubin 0.3 (0.2-1.3) mg/dL AST 19 (17-59) U/L ALT 23 (21-72) U/L Alkaline Phosphatase 87 (38-126) U/L Creatine Kinase 77 (55-170) U/L Troponin I <0.012 (0.000-0.034) ng/mL Total Protein 6.1 L (6.3-8.2) g/dL Albumin 3.5 (3.5-5.0) g/dL Urine Color Urine Appearance (Clear) Urine pH (5.0-8.0) Ur Specific [place] (1.001-1.035) Urine Protein (Negative) Urine Glucose (UA) (Negative) Urine Ketones (Negative) Urine Blood (Negative) Urine Nitrite (Negative) Urine Bilirubin (Negative) Urine Urobilinogen (<2.0) mg/dL Ur Leukocyte Esterase (Negative) Urine Opiates Screen (NotDetected) Ur Oxycodone Screen (NotDetected) Urine Methadone Screen (NotDetected) Ur Propoxyphene Screen (NotDetected) Ur Barbiturates Screen (NotDetected) U Tricyclic Antidepress (NotDetected) Ur Phencyclidine Scrn (NotDetected) Ur Amphetamines Screen (NotDetected) U Methamphetamines Scrn (NotDetected) U Benzodiazepines Scrn (NotDetected) Urine Cocaine Screen (NotDetected) U Marijuana (THC) Screen (NotDetected) Serum Alcohol <10 mg/dL 10/11/18 10/11/18 Range/Units 16:50 19:19 WBC (3.8-10.6) k/uL RBC (4.30-5.90) m/uL Hgb (13.0-17.5) gm/dL Hct (39.0-53.0) % MCV (80.0-100.0) fL MCH (25.0-35.0) pg MCHC (31.0-37.0) g/dL RDW (11.5-15.5) % Plt Count (150-450) k/uL Neutrophils % % Lymphocytes % % Monocytes % % Eosinophils % % Basophils % % Neutrophils # (1.3-7.7) k/uL Lymphocytes # (1.0-4.8) k/uL Monocytes # (0-1.0) k/uL Eosinophils # (0-0.7) k/uL Basophils # (0-0.2) k/uL PT 9.5 (9.0-12.0) sec INR 0.9 (<1.2) APTT 21.4 L (22.0-30.0) sec Sodium (137-145) mmol/L Potassium (3.5-5.1) mmol/L Chloride (98-107) mmol/L Carbon Dioxide (22-30) mmol/L Anion Gap mmol/L BUN (9-20) mg/dL Creatinine (0.66-1.25) mg/dL Est GFR (CKD-EPI)AfAm (>60 ml/min/1.73 sqM) Est GFR (CKD-EPI)NonAf (>60 ml/min/1.73 sqM) Glucose (74-99) mg/dL Calcium (8.4-10.2) mg/dL Magnesium (1.6-2.3) mg/dL Total Bilirubin (0.2-1.3) mg/dL AST (17-59) U/L ALT (21-72) U/L Alkaline Phosphatase (38-126) U/L Creatine Kinase (55-170) U/L Troponin I (0.000-0.034) ng/mL Total Protein (6.3-8.2) g/dL Albumin (3.5-5.0) g/dL Urine Color Yellow Urine Appearance Clear (Clear) Urine pH 5.5 (5.0-8.0) Ur Specific [place] 1.026 (1.001-1.035) Urine Protein Trace H (Negative) Urine Glucose (UA) 4+ H (Negative) Urine Ketones Negative (Negative) Urine Blood Negative (Negative) Urine Nitrite Negative (Negative) Urine Bilirubin Negative (Negative) Urine Urobilinogen <2.0 (<2.0) mg/dL Ur Leukocyte Esterase Negative (Negative) Urine Opiates Screen Detected H (NotDetected) Ur Oxycodone Screen Not Detected (NotDetected) Urine Methadone Screen Not Detected (NotDetected) Ur Propoxyphene Screen Not Detected (NotDetected) Ur Barbiturates Screen Detected H (NotDetected) U Tricyclic Antidepress Not Detected (NotDetected) Ur Phencyclidine Scrn Not Detected (NotDetected) Ur Amphetamines Screen Not Detected (NotDetected) U Methamphetamines Scrn Not Detected (NotDetected) U Benzodiazepines Scrn Not Detected (NotDetected) Urine Cocaine Screen Not Detected (NotDetected) U Marijuana (THC) Screen Not Detected (NotDetected) Serum Alcohol mg/dL - NIH Stroke Scale 1a. Level of Consciousness: (0) alert 1b. LOC Questions: (0) answers correctly 1c. LOC Commands: (0) performs tasks correctly 2. Best Gaze: (0) normal 3. Visual: (0) no visual loss 4. Facial Palsy: (1) minor paralysis 5a. Motor Arm Left: (1) drift 5b. Motor Arm Right: (0) no drift 6a. Motor Leg Left: (0) no drift 6b. Motor Leg Right: (0) no drift 7. Limb Ataxia: (0) absent 8. Sensory: (1) mild/moderate sensory loss 9. Best Language: (0) no aphasia 10. Dysarthria: (0) normal 11. Extinction/Inattention: (0) no abnormality - Thrombolytic Inclusion/Exclusion Thrombolytic Exclusion Criteria: Symptom Onset > 3 Hours - Medical Decision Making Did review the imaging and report no acute findings. Patient remains with the symptoms he presented with. The presentation will be admitted for reevaluation by neurology and did discuss case with Dr. Bustamante the patient is in agreement. 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, dr rodriguez, states [place] post carotid sx,"lt carotid artery bkg 85%" Last Myocardial Infarction Date:: 2016 History of Any Multi-Drug Resistant Organisms: None Reported Past Surgical History: Back Surgery, Coronary Bypass/CABG, Heart Catheterization With Stent, Hernia Repair Additional Past Surgical History / Comment(s): rt carotid endartectomy,pt stated hadx3 cabg surguries: first one was 1 vessel 1999 and 2nd sx 2 2009 3rd bypass in 2014 -denies any valve repalcements, , back surgery x3, heart cath stent x1 (1994) Past Anesthesia/Blood Transfusion Reactions: Previous Problems w/ Anesthesia Additional Past Anesthesia/Blood Transfusion Reaction / Comment(s): states "feels like he has ants crawling on his face with anesthesia" Date of Last Stent Placement:: 1994 Past Psychological History: Anxiety, Depression Smoking Status: Former smoker Past Alcohol Use History: None Reported Past Drug Use History: None Reported - Past Family History Father Family Medical History: Cancer (pancreatic) Additional Family Medical History / Comment(s): in MVA Sister(s) Family Medical History: Cancer Additional Family Medical History / Comment(s): BONE Mother Family Medical History: Myocardial Infarction (SC) Additional Family Medical History / Comment(s): Mother of a staph infection at the age of 82 yrs. Course Vital Signs 10/11/18 10/11/18 10/11/18 16:06 16:38 19:58 Temperature 98.0 F 98.0 F Pulse Rate 85 85 70 Respiratory 18 12 18 Rate Blood Pressure 188/102 188/102 146/62 O2 Sat by Pulse 96 97 98 Oximetry - Reevaluation(s) Reevaluation #1: 10/11/18 20:44 ALLERGIES the patient reveals no change in his symptoms. Disposition Clinical Impression: Cerebrovascular accident, Depression, Hypomagnesemia syndrome, Hyperglycemia, Dehydration Disposition: ADMITTED IP TO THIS HOSP Condition: Fair Referrals: [facility],Clinic [Primary Care Provider] - 1-2 days
[2018-10-11 17:10] LABS: Basophils # (A) 0.1 k/uL (0-0.2); Basophils % (A) 1 %; Eosinophils # (A) 0.2 k/uL (0-0.7); Eosinophils % (A) 1 %; HCT 38.2 % (39.0-53.0); HGB 13.1 gm/dL (13.0-17.5); Lymphocytes # (A) 2.6 k/uL (1.0-4.8); Lymphocytes % (A) 22 %; MCH 29.3 pg (25.0-35.0); MCHC 34.4 g/dL (31.0-37.0); MCV 85.3 fL (80.0-100.0); Mean Platelet Volume 8.1; Monocytes # (A) 0.6 k/uL (0-1.0); Monocytes % (A) 6 %; Neutrophils # (A) 7.6 k/uL (1.3-7.7); Neutrophils % (A) 67 %; Platelet Count 237 k/uL (150-450); RBC 4.47 m/uL (4.30-5.90); RDW 14.5 % (11.5-15.5); WBC 11.4 k/uL (3.8-10.6)
[2018-10-11 17:11] LABS: ALT 23 U/L (21-72); AST 19 U/L (17-59); African American GFR (CKD) >90 (>60 ml/min/1.73 sqM); Albumin 3.5 g/dL (3.5-5.0); Alcohol <10 mg/dL; Alkaline Phosphatase 87 U/L (38-126); Anion Gap 10 mmol/L; Blood Urea Nitrogen 22 mg/dL (9-20); Calcium 9.2 mg/dL (8.4-10.2); Carbon Dioxide 20 mmol/L (22-30); Chloride 105 mmol/L (98-107); Creatine Kinase 77 U/L (55-170); Glucose 389 mg/dL (74-99); Magnesium 1.4 mg/dL (1.6-2.3); Potassium 4.4 mmol/L (3.5-5.1); Sodium 135 mmol/L (137-145); Total Bilirubin 0.3 mg/dL (0.2-1.3); Total Protein 6.1 g/dL (6.3-8.2)
[2018-10-11 17:29] LABS: INR 0.9 (<1.2); Partial Thromboplastin Time 21.4 sec (22.0-30.0); Prothrombin Time 9.5 sec (9.0-12.0)
--- NOTE | 2018-10-11 17:37 | CT ---
EXAMINATION: CT brain wo con DATE AND TIME: 10/11/2018 5:16 PM CLINICAL INDICATION: PHH; Neuro Deficits TECHNIQUE: Department protocol. DLP: 1056.4 mGy-cm COMPARISON: 10/08/2018 FINDINGS: FINDINGS: The calvarium is intact. There is no intracranial hemorrhage. There is no intracranial mass or mass effect. No definite new intra-axial or extra-axial attenuation defect. The paranasal sinuses, middle ear cavities, and mastoid sinus air cells are clear. The orbits are unremarkable. IMPRESSION: NO ACUTE PROCESS; STABLE APPEARANCE.
[2018-10-11] MEDS ORDERED: HYDROmorphone 1 MG/ML 1 ML SYRINGE IVP STA (18:13)
[2018-10-11] MEDS ORDERED: SODIUM CHLORIDE 0.9% 500 ML 500 ML IV STA (18:45)
[2018-10-11 19:27] LABS: Appearance,Urine Clear (Clear); Bilirubin,Urine Negative (Negative); Blood,Urine Negative (Negative); Color,Urine Yellow; Glucose,Urine (UA) 4+ (Negative); Ketones,Urine Negative (Negative); Leukocyte Esterase,Urine Negative (Negative); Nitrite,Urine Negative (Negative); PH, Urine 5.5 (5.0-8.0); Protein,Urine Trace (Negative); Specific Gravity,Urine 1.026 (1.001-1.035); Urobilinogen,Urine <2.0 mg/dL (<2.0)
[2018-10-11] MEDS: MAGNESIUM SULFATE-D5W PMX 1 GM in DEXTROSE/WATER 1 100ML.BAG IVPB SCH ×2 (19:28→21:23)
[2018-10-11 19:39] LABS: Amphetamine Screen,Urine Not Detected (NotDetected); Barbiturate Screen,Urine Detected (NotDetected); Benzodiazepines Screen,Urine Not Detected (NotDetected); Cocaine Screen,Urine Not Detected (NotDetected); Methadone Screen, Urine Not Detected (NotDetected); Opiate Screen,Urine Detected (NotDetected); Oxycodone Screen, Urine Not Detected (NotDetected); Phencyclidine Screen,Urine Not Detected (NotDetected); Tricyclic Antidepressant,Urine Not Detected (NotDetected); Urn Cannabinoid Scrn Not Detected (NotDetected)
[2018-10-11 20:00] VITALS: RESP 18
--- NOTE | 2018-10-11 20:07 | XR ---
EXAMINATION: XR chest 2V DATE AND TIME: 10/11/2018 7:15 PM CLINICAL INDICATION: PHH; altered mental status TECHNIQUE: Departmental protocol COMPARISON: 10/08/2018 FINDINGS: The lungs are clear. The pleural spaces are negative. Sutures and mediastinal clips and EKG leads noted. The cardiac silhouette is mildly enlarged. The rem ainder of the mediastinal silhouette is unremarkable. The skeletal structures and soft tissues are negative for acute findings. IMPRESSION: NO ACUTE PROCESS.
[2018-10-11] MEDS ORDERED: IPRATROPIUM-ALBUTEROL 3 ML NEB INHALATION PRN (21:00)
[2018-10-11] MEDS ORDERED: LIDOCAINE 5% PATCH TOPICAL PRN (23:00)
[2018-10-11] MEDS ORDERED: ATORVASTATIN 80 MG TAB PO SCH (23:00)
[2018-10-11] MEDS ORDERED: INSULIN DETEMIR (LEVEMIR) 100 UNIT/ML SYR SQ SCH (23:00)
[2018-10-11] MEDS: METHOCARBAMOL 500 MG TAB PO SCH (23:18)
[2018-10-11] MEDS: GABAPENTIN 300 MG CAP PO SCH (23:19)
[2018-10-11] MEDS: LISINOPRIL 10 MG TAB PO SCH (23:21)
[2018-10-11] MEDS: CARVEDILOL 3.125 MG TAB PO SCH ×2 (23:22→23:23)
[2018-10-11] MEDS: SODIUM CHLORIDE 0.9% 1,000 ML IV SCH (23:44)
[2018-10-11] MEDS: IBUPROFEN 800 MG TAB PO PRN (23:46)
[2018-10-11] MEDS: HYDROcodone/APAP 10-325MG 1 EACH TAB PO PRN (23:46)
[2018-10-12] MEDS: valACYclovir 500 MG TAB PO SCH ×3 (01:05→17:14)
[2018-10-12 03:26] LABS: Cholesterol 160 mg/dL (<200); HDL Cholesterol 32 mg/dL (40-60)
[2018-10-12 03:32] LABS: Triglycerides 599 mg/dL (<150)
[2018-10-12] MEDS: NITROGLYCERIN SL TABS 0.4 MG TAB SUBLINGUAL PRN ×2 (04:21→04:31)
[2018-10-12] MEDS: SODIUM CHLORIDE 0.9% 1,000 ML IV SCH ×2 (04:25→17:21)
[2018-10-12] MEDS: CARVEDILOL 3.125 MG TAB PO SCH ×2 (04:50→17:14)
[2018-10-12] MEDS: HYDROcodone/APAP 10-325MG 1 EACH TAB PO PRN ×2 (04:50→12:23)
[2018-10-12] MEDS: INSULIN ASPART (NovoLOG) 100 UNIT/ML VIAL SQ SCH ×5 (06:59→17:24)
[2018-10-12 07:00] LABS: Glucose,Whole Blood 258 mg/dL (75-99)
[2018-10-12] MEDS ORDERED: INSULIN ASPART (NovoLOG) 100 UNIT/ML VIAL SQ SCH (07:30)
[2018-10-12] MEDS ORDERED: SYMBICORT 160-4.5 MCG INHALER INHALATION SCH (08:00)
[2018-10-12] MEDS ORDERED: amLODIPine 5 MG TAB PO SCH (09:00)
[2018-10-12] MEDS ORDERED: ASPIRIN 81 MG PO SCH (09:00)
[2018-10-12] MEDS ORDERED: FUROSEMIDE 20 MG TAB PO SCH (09:00)
[2018-10-12] MEDS: METHOCARBAMOL 500 MG TAB PO SCH ×2 (09:00→17:14)
[2018-10-12] MEDS ORDERED: ISOSORBIDE MONONITRATE ER 60 MG TAB.ER.24H PO SCH (09:00)
[2018-10-12] MEDS ORDERED: CLOPIDOGREL 75 MG TAB PO SCH (09:00)
[2018-10-12] MEDS ORDERED: PANTOPRAZOLE 40 MG TABLET PO SCH (09:00)
[2018-10-12] MEDS: GABAPENTIN 300 MG CAP PO SCH (09:00)
[2018-10-12] MEDS: LISINOPRIL 10 MG TAB PO SCH ×2 (09:01→17:15)
[2018-10-12] MEDS: IBUPROFEN 800 MG TAB PO PRN ×2 (09:05→17:24)
[2018-10-12] MEDS: MAGNESIUM SULFATE-D5W PMX 1 GM in DEXTROSE/WATER 1 100ML.BAG IVPB SCH ×2 (11:34→12:25)
[2018-10-12 11:45] VITALS: BMI 30.4
[2018-10-12 11:52] LABS: Glucose,Whole Blood 336 mg/dL (75-99)
--- NOTE | 2018-10-12 12:53 | P.DS ---
Providers Date of admission: 10/11/18 20:57 Attending physician: Jesse Bustamante MD Consults: 10/11/18 20:58 Consult Physician Routine Consulting Provider: Doretha Wright Consult Reason/Comments: CVA over 48 hours old Do you want consulting provider notified?: Yes 10/11/18 20:59 Consult Physician Routine Consulting Provider: Jaciel Giordano Consult Reason/Comments: Depression Do you want consulting provider notified?: Already Contacted Primary care physician: [facility] Hospital Course: Please refer to my HPI Patient Condition at Discharge: Fair Plan - Discharge Summary New Discharge Prescriptions: New Insulin Detemir (Levemir) [Levemir] 30 unit SQ HS syr amLODIPine [Norvasc] 10 mg PO DAILY tab INSULIN ASPART (NovoLOG) [NovoLOG (formulary)] 8 unit SQ AC-TID vial Nortriptyline [Pamelor] 10 mg PO HS #30 capsule Continue Nitroglycerin Sl Tabs [Nitrostat] 0.4 mg SUBLINGUAL Q5M PRN PRN Reason: Chest Pain Gabapentin [Neurontin] 900 mg PO TID Carvedilol [Coreg] 3.125 mg PO BID Clopidogrel [Plavix] 75 mg PO DAILY Ipratropium-Albuterol Nebulize [Duoneb 0.5 mg-3 mg/3 ml Soln] 3 ml INHALATION RT-Q6H PRN PRN Reason: Shortness Of Breath Or Wheezing HYDROcodone/APAP 10-325MG [[place] 10-325] 1 tab PO QID PRN PRN Reason: Pain Lidocaine [Lidoderm 5% Patch] 1 patch TRANSDERM DAILY PRN PRN Reason: Pain Methocarbamol [Robaxin] 500 mg PO TID Furosemide [Lasix] 20 mg PO DAILY Budesonide/Formoterol Fumarate [Symbicort 160-4.5 Mcg Inhaler] 2 puff IN HALATION RT-BID Aspirin [Adult Low Dose Aspirin EC] 81 mg PO DAILY #30 tab Isosorbide Mononitrate ER [Imdur] 60 mg PO DAILY Atorvastatin [Lipitor] 80 mg PO HS Lisinopril [Zestril] 10 mg PO TID Pantoprazole [Protonix] 40 mg PO DAILY Ibuprofen [Motrin] 800 mg PO Q8H PRN PRN Reason: Pain OR INFLAMMATION INSULIN ASPART (NovoLOG) [NovoLOG (formulary)] 6 unit SQ AC-TID #0 valACYclovir HCL [Valtrex] 500 mg PO Q8HR #30 tab Insulin Glargine [Lantus] 26 units SQ HS Discontinued amLODIPine [Norvasc] 5 mg PO DAILY Discharge Medication List Nitroglycerin Sl Tabs [Nitrostat] 0.4 mg SUBLINGUAL Q5M PRN 07/05/14 [History] Gabapentin [Neurontin] 900 mg PO TID 06/07/16 [History] Carvedilol [Coreg] 3.125 mg PO BID 01/12/17 [History] Clopidogrel [Plavix] 75 mg PO DAILY 01/12/17 [History] Ipratropium-Albuterol Nebulize [Duoneb 0.5 mg-3 mg/3 ml Soln] 3 ml INHALATION RT-Q6H PRN 03/13/18 [History] Budesonide/Formoterol Fumarate [Symbicort 160-4.5 Mcg Inhaler] 2 puff INHALATION RT-BID 06/22/18 [History] Furosemide [Lasix] 20 mg PO DAILY 06/22/18 [History] HYDROcodone/APAP 10-325MG [[place] 10-325] 1 tab PO QID PRN 06/22/18 [History] Lidocaine [Lidoderm 5% Patch] 1 patch TRANSDERM DAILY PRN 06/22/18 [History] Methocarbamol [Robaxin] 500 mg PO TID 06/22/18 [History] Aspirin [Adult Low Dose Aspirin EC] 81 mg PO DAILY #30 tab 06/23/18 [Rx] Atorvastatin [Lipitor] 80 mg PO HS 07/30/18 [History] Isosorbide Mononitrate ER [Imdur] 60 mg PO DAILY 07/30/18 [History] Lisinopril [Zestril] 10 mg PO TID 10/05/18 [History] Pantoprazole [Protonix] 40 mg PO DAILY 10/05/18 [History] Ibuprofen [Motrin] 800 mg PO Q8H PRN 10/08/18 [History] INSULIN ASPART (NovoLOG) [NovoLOG (formulary)] 6 unit SQ AC-TID #0 10/09/18 [Rx] valACYclovir HCL [Valtrex] 500 mg PO Q8HR #30 tab 10/09/18 [Rx] Insulin Glargine [Lantus] 26 units SQ HS 10/11/18 [History] INSULIN ASPART (NovoLOG) [NovoLOG (formulary)] 8 unit SQ AC-TID vial 10/12/18 [Rx] Insulin Detemir (Levemir) [Levemir] 30 unit SQ HS syr 10/12/18 [Rx] Nortriptyline [Pamelor] 10 mg PO HS #30 capsule 10/12/18 [Rx] amLODIPine [Norvasc] 10 mg PO DAILY tab 10/12/18 [Rx] Follow up Appointment(s)/Referral(s): [facility],Clinic [Primary Care Provider] - 3 Days Discharge Disposition: HOME SELF-CARE
--- NOTE | 2018-10-12 12:53 | P.HPIM ---
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 Patient came in yesterday again with the complaints of left upper extremity weakness of although upon clinical exam patient doesn't have any weakness patient is also complaining of tingling and numbness in the left side ofthe CAT scan of the head did not show any significant abnormality patient is severely depressed he denied any suicidal ideations to me and in the ER physician noted was dictated as possible suicidal. Patient has a lot of issues going on at home including not getting along with his and the patient is quite depressed as he is not able to do what he was doing in the past. I had lengthy discussion with the patient as well as daughter. Patient is definitely worse At the with a history of CVA hyperlipidemia patient has highly elevated triglycerides his blood sugars are not well-controlled increased his insulin regimen. Patient once started on his home regimen his blood sugars have come down to 200 and increase the his home regimen even further up. Personally I do not believe patient has several vascular asked and patient does have severe depression some of her symptoms may be psychosomatic patient is also complaining of chest pain which is musculoskeletal in nature changes with the movement of the chest. I do not pain although adopted and the rest of troponin and EKG considering his risk factors and the previous history of carotid disease with stents in the past. If they're negative patient can be discharged to either home or psychiatric floor deconditioning depending on psychiatric evaluation I did discussed at length with neurologist no further recommendations from neurology patient is already on a high dose of statin and also on dual antiplatelet therapy patient triglycerides need to be repeated again as an outpatient, fasting lipid panel. I'm not starting him on any phenofibrate as patient is already in a high dose of statin both of which can cause severe myopathy. Review of Systems REVIEW OF SYSTEMS: CONSTITUTIONAL: No fever, no malaise, no fatigue. HEENT: No recent visual problems or hearing problems. Denied any sore throat. CARDIOVASCULAR: No chest pain, , no palpitations, no syncope. PULMONARY: No shortness of breath, no cough, no hemoptysis. GASTROINTESTINAL: No diarrhea, no nausea, no vomiting, no abdominal pain. NEUROLOGICAL: As mentioned in HPI HEMATOLOGICAL: Denies any bleeding or petechiae. GENITOURINARY: Denies any burning micturition, frequency, or urgency. MUSCULOSKELETAL/RHEUMATOLOGICAL: Denies any joint pain, swelling, or any muscle pain. ENDOCRINE: Denies any polyuria or polydipsia. The rest of the 14-point review of systems is negative. Past Medical History Past Medical History: Coronary Artery Disease (CAD), COPD, CVA/TIA, Diabetes Mellitus, Hyperlipidemia, Hypertension, Myocardial Infarction (MD), Osteoarthritis (OA), Sleep Apnea/CPAP/BIPAP, Vascular Disorder Additional Past Medical History / Comment(s): chronic back pain, no cpap, HX OF episodes of bloody stools-now resolved, pancreatic mass, was told benign, dr rodriguez, states MD post carotid sx,"lt carotid artery bkg 85%" Last Myocardial Infarction Date:: 2016 History of Any Multi-Drug Resistant Organisms: None Reported Past Surgical History: Back Surgery, Coronary Bypass/CABG, Heart Catheterization With Stent, Hernia Repair Additional Past Surgical History / Comment(s): rt carotid endartectomy,pt stated hadx3 cabg surguries: first one was 1 vessel 1999 and 2nd sx 2 2010 3rd bypass in 2014 -denies any valve repalcements, , back surgery x3, heart cath stent x1 (1994) Past Anesthesia/Blood Transfusion Reactions: Previous Problems w/ Anesthesia Additional Past Anesthesia/Blood Transfusion Reaction / Comment(s): states "feels like he has ants crawling on his face with anesthesia" Date of Last Stent Placement:: 1994 Smoking Status: Former smoker - Past Family History Father Family Medical History: Cancer Additional Family Medical History / Comment(s): in MVA Sister(s) Family Medical History: Cancer Additional Family Medical History / Comment(s): BONE Mother Family Medical History: Myocardial Infarction (MD) Additional Family Medical History / Comment(s): Mother of a staph infection at the age of 82 yrs. Medications and Allergies Home Medications Medication Instructions Recorded Confirmed Type Nitroglycerin Sl Tabs [Nitrostat] 0.4 mg SUBLINGUAL Q5M PRN 07/05/14 10/11/18 History Gabapentin [Neurontin] 900 mg PO TID 06/07/16 10/11/18 History Carvedilol [Coreg] 3.125 mg PO BID 01/12/17 10/11/18 History Clopidogrel [Plavix] 75 mg PO DAILY 01/12/17 10/11/18 History Ipratropium-Albuterol Nebulize 3 ml INHALATION RT-Q6H PRN 03/13/18 10/11/18 History [Duoneb 0.5 mg-3 mg/3 ml Soln] Budesonide/Formoterol Fumarate 2 puff INHALATION RT-BID 06/22/18 10/11/18 History [Symbicort 160-4.5 Mcg Inhaler] Furosemide [Lasix] 20 mg PO DAILY 06/22/18 10/11/18 History HYDROcodone/APAP 10-325MG [[place] 1 tab PO QID PRN 06/22/18 10/11/18 History 10-325] Lidocaine [Lidoderm 5% Patch] 1 patch TRANSDERM DAILY PRN 06/22/18 10/11/18 History Methocarbamol [Robaxin] 500 mg PO TID 06/22/18 10/11/18 History Aspirin [Adult Low Dose Aspirin EC] 81 mg PO DAILY #30 tab 06/23/18 10/11/18 Rx Atorvastatin [Lipitor] 80 mg PO HS 07/30/18 10/11/18 History Isosorbide Mononitrate ER [Imdur] 60 mg PO DAILY 07/30/18 10/11/18 History Lisinopril [Zestril] 10 mg PO TID 10/05/18 10/11/18 History Pantoprazole [Protonix] 40 mg PO DAILY 10/05/18 10/11/18 History Ibuprofen [Motrin] 800 mg PO Q8H PRN 10/08/18 10/11/18 History INSULIN ASPART (NovoLOG) [NovoLOG 6 unit SQ AC-TID #0 10/09/18 10/11/18 Rx (formulary)] valACYclovir HCL [Valtrex] 500 mg PO Q8HR #30 tab 10/09/18 10/11/18 Rx Insulin Glargine [Lantus] 26 units SQ HS 10/11/18 10/11/18 History INSULIN ASPART (NovoLOG) [NovoLOG 8 unit SQ AC-TID vial 10/12/18 Rx (formulary)] Insulin Detemir (Levemir) [Levemir] 30 unit SQ HS syr 10/12/18 Rx amLODIPine [Norvasc] 10 mg PO DAILY tab 10/12/18 Rx Allergies Allergy/AdvReac Type Severity Reaction Status Date / Time baclofen Allergy Unknown Verified 10/11/18 16:22 fenofibrate nanocrystallized Allergy muscle pain Verified 10/11/18 16:22 [From Tricor] fenofibrate,micronized Allergy Unknown Verified 10/11/18 16:22 [From Tricor] morphine Allergy Confusion Verified 10/11/18 16:22 rosuvastatin calcium Allergy muscle pain Verified 10/11/18 16:22 [From Crestor] sulfamethoxazole Allergy gi upset Verified 10/11/18 16:22 [From Bactrim] metformin AdvReac Nausea & Verified 10/11/18 16:22 Vomiting trimethoprim [From Bactrim] AdvReac Unknown Verified 10/11/18 16:22 rynatan Allergy Unknown Uncoded 10/08/18 13:54 Physical Exam Vitals: Vital Signs Temp Pulse Pulse Resp BP BP Pulse Ox 10/12/18 08:40 98.1 F 64 18 155/75 95 10/12/18 04:26 144/64 10/12/18 04:00 98.5 F 89 18 180/89 96 10/11/18 23:59 98.2 F 78 77 18 170/82 170/82 96 10/11/18 23:34 98.0 F 72 18 145/77 98 10/11/18 21:05 97.9 F 78 18 133/78 98 10/11/18 19:58 70 18 146/62 98 10/11/18 16:38 98.0 F 85 12 188/102 97 10/11/18 16:06 98.0 F 85 18 188/102 96 Intake and Output 10/11/18 10/12/18 10/12/18 22:59 06:59 14:59 Intake Total 720 Output Total 600 Balance -600 720 Intake: Oral 720 Output: Urine 600 Other: # Voids 1 1 Weight 103.419 kg 104.5 kg 104.5 kg PHYSICAL EXAMINATION: GENERAL: The patient is alert and oriented x3, not in any acute distress. Well developed, well nourished. HEENT: Pupils are round and equally reacting to light. EOMI. No scleral icterus. No conjunctival pallor. Normocephalic, atraumatic. No pharyngeal erythema. No thyromegaly. CARDIOVASCULAR: S1 and S2 present. No murmurs, rubs, or gallops. PULMONARY: Chest is clear to auscultation, no wheezing or crackles. ABDOMEN: Soft, nontender, nondistended, normoactive bowel sounds. No palpable organomegaly. MUSCULOSKELETAL: No joint swelling or deformity. EXTREMITIES: No cyanosis, clubbing, or pedal edema. NEUROLOGICAL: Gross neurological examination did not reveal any focal deficits. SKIN: No rashes. Results CBC & Chem 7: 10/11/18 16:50 10/11/18 16:50 Labs: Abnormal Lab Results - Last 24 Hours (Table) 10/11/18 10/11/18 10/11/18 Range/Units 16:50 16:50 16:50 WBC 11.4 H (3.8-10.6) k/uL Hct 38.2 L (39.0-53.0) % APTT 21.4 L (22.0-30.0) sec Sodium 135 L (137-145) mmol/L Carbon Dioxide 20 L (22-30) mmol/L BUN 22 H (9-20) mg/dL Glucose 389 H (74-99) mg/dL POC Glucose (mg/dL) (75-99) mg/dL Magnesium 1.4 L (1.6-2.3) mg/dL Total Protein 6.1 L (6.3-8.2) g/dL Triglycerides (<150) mg/dL HDL Cholesterol (40-60) mg/dL Urine Protein (Negative) Urine Glucose (UA) (Negative) Urine Opiates Screen (NotDetected) Ur Barbiturates Screen (NotDetected) 10/11/18 10/11/18 10/12/18 Range/Units 16:50 19: 06:58 WBC (3.8-10.6) k/uL Hct (39.0-53.0) % APTT (22.0-30.0) sec Sodium (137-145) mmol/L Carbon Dioxide (22-30) mmol/L BUN (9-20) mg/dL Glucose (74-99) mg/dL POC Glucose (mg/dL) 258 H (75-99) mg/dL Magnesium (1.6-2.3) mg/dL Total Protein (6.3-8.2) g/dL Triglycerides 599 H (<150) mg/dL HDL Cholesterol 32 L (40-60) mg/dL Urine Protein Trace H (Negative) Urine Glucose (UA) 4+ H (Negative) Urine Opiates Screen Detected H (NotDetected) Ur Barbiturates Screen Detected H (NotDetected) 10/12/18 Range/Units 11:48 WBC (3.8-10.6) k/uL Hct (39.0-53.0) % APTT (22.0-30.0) sec Sodium (137-145) mmol/L Carbon Dioxide (22-30) mmol/L BUN (9-20) mg/dL Glucose (74-99) mg/dL POC Glucose (mg/dL) 336 H (75-99) mg/dL Magnesium (1.6-2.3) mg/dL Total Protein (6.3-8.2) g/dL Triglycerides (<150) mg/dL HDL Cholesterol (40-60) mg/dL Urine Protein (Negative) Urine Glucose (UA) (Negative) Urine Opiates Screen (NotDetected) Ur Barbiturates Screen (NotDetected) Thrombosis Risk Factor Assmnt - Choose All That Apply Any of the Below Risk Factors Present?: Yes Each Factor Represents 1 point: Abnormal pulmonary function (COPD), Obesity (BMI >25) Other Risk Factors: Yes Each Risk Factor Represents 2 Points: Age 61-74 years Each Risk Factor Represents 5 Points: Stroke (< 1 month) Thrombosis Risk Factor Assessment Total Risk Factor Score: 9 Thrombosis Risk Factor Assessment Level: High Risk Assessment and Plan Plan: -Symptoms of weakness in the left arm, numbness on the left side of the face: Patient was recently evaluated for stroke all the workup is negative. Patient doesn't have any objective symptoms or weakness neurology evaluated the patient patient is already in dual antiplatelet therapy and statin which she will continue, his symptoms may be mostly psychosomatic. -Severe depression psychiatric was consulted depending on the recommendations either patient will be discharged to psychiatric floor at home. -Uncontrolled blood sugars probably noncompliance with medications elevated blood sugars type 2 diabetes mellitus patient insulin regimen was increased again -Hyper triglyceridemia further management as mentioned above -Hyperlipidemia -Coronary artery disease -Musculoskeletal chest pain -Diabetic nephropathy -Patient was recently treated for Arriaga's palsy still have some my facial droop on the left side significantly improved compared to the hospitalization. -Significant insomnia probably secondary to depression patient will be started on nortriptyline as recommended by neurology -Hypomagnesemia magnesium will be replaced -COPD without any acute exacerbation and quit smoking years ago Plan as mentioned above patient will be the discharge home or to psychiatric floor.
[2018-10-12] MEDS ORDERED: GABAPENTIN 300 MG CAP PO SCH (16:00)
[2018-10-12] MEDS ORDERED: SERTRALINE 50 MG TAB PO SCH (16:30)
--- NOTE | 2018-10-12 16:34 | P.CN ---
Psychiatric Consult - . Consult date: 10/12/18 Consult:: 10/12/18 16:18 DATE OF SERVICE: 10/12/18 IDENTIFYING DATA: This patient is a 68-year-old male, with a background and history of depression who presented with complaints of pain and weakness in his left arm left-sided numbness. HISTORY OF PRESENT ILLNESS: The patient presented after recently being admitted approximately 3 days ago and treated for Arriaga's palsy and work up extensively for CVA. [employer] spoke with patient's daughter in the hallway who was able to give a history of patient dealing with depression and stressor at home fighting with his and not being able to cope with his lack of ability to care for the house. Daughter states that patient has been emotional and crying at times since [facility]. She does state that she does go to the [facility] and speaks with a psychiatrist in [place] and it has been helping him gradually. Patient was interviewed at the bedside and was calm and quiet at times. Patient appeared to be tearful when speaking about his past as he served in the [employer] from [id number]. He states that he was in [facility] which is where he served. Patient states that he has been suffering from depression for oxalate 30 years and has tried different medications however has not helped him. He claims that his pain and left-sided numbness gets worse when he feels depressed. At this time he claims that he likes to stay busy and away from people at home and feels overwhelmed at times. Patient denies any anxiety at this time denies any PTSD symptoms denies any auditory or visual hallucinations. Patient denies any suicidal or homicidal ideations intent or plan. He denies any access to guns. PAST PSYCHIATRIC HISTORY: Has been on nortriptyline in the past. Claims to have been dealing with depression for 30 years. Follows up with the [place] psychiatrist. Denies any previous psychiatric hospitalizations and denies any previous suicide attempts. PAST MEDICAL HISTORY: Diabetes CAD HLP. ALLERGIES: As per EMR. CHEMICAL DEPENDENCY HISTORY: Occasional alcohol, no illicit drug use.. FAMILY PSYCHIATRIC HISTORY: Denies. FAMILY CHEMICAL DEPENDENCY HISTORY:[denies]. SOCIAL HISTORY: Grew up in [place] and moved to [place] completed the 10th grade and went to the service afterwards. Served in the [employer] in [facility] from MENTAL STATUS EXAM: General Appearance: [Patient appears to be stated age is alert, pleasant, and cooperative.] Patient appears to be tearful at times, fair hygiene and fair grooming Behavior: Patient is laying in bed comfortably Speech: Patient's speech is fluent and nonpressured. Mood/Affect: Patient reports their mood is depressed, affect is constricted Suicidality/Homicidality: Patient denies having any suicidal or homicidal ideation intent or plan. Perceptions: Patient denies any auditory or visual hallucinations. Though content/process: There is no evidence of any delusional thought content and thought process is linear and goal-directed. Memory and concentration: AOX3, grossly intact for the purposes of this session. Can spell "WORLD" backwards Judgment and insight: Superficial, fair IMPRESSIONS: Major depressive disorder PLAN: -[At this time patient patient does NOT meet criteria for inpatient psychiatric admission.] Patient is not a imminent risk to self and/or others at this time and has a supportive family at home. -Would recommend the following medication changes/additions: Trazodone 50 mg daily at bedtime for mood and insomnia, Zoloft 50 mg daily with 1 dose given now. Patient is advised to continue following up with a [facility] to have antidepressants titrated based on clinical symptoms. Zoloft will likely need to be titrated up in 1-2 weeks' time. Spoke with patient in great great detail about medications, alternatives, risks, benefits and side effects and patient verbally understood and agreed. -Informed daughter of plan who was encouraged to look after the patient and help him follow up with his appointments. -Will follow peripherally if patient remains in the hospital while being worked up/treated medically however if patient is stable for discharge would recommend patient continue following up with his outpatient psychiatrist. Thank you for the consult, please call with any questions. 10/12/18 16:28
[2018-10-12 17:16] LABS: Glucose,Whole Blood 323 mg/dL (75-99)
[2018-10-12 18:15] VITALS: BP 167/77; PULSE 68; TEMP 98
[2018-10-12] MEDS ORDERED: INSULIN DETEMIR (LEVEMIR) 100 UNIT/ML SYR SQ SCH (21:00)
[2018-10-12] MEDS ORDERED: traZODone HCL 50 MG TAB PO SCH (21:00)
--- NOTE | 2018-10-12 21:08 | P.CNNES ---
History of Present Illness Consult date: 10/12/18 Reason for Consult: Stroke rule out Chief complaint: L-sided weakness History of Present Illness: HISTORY OF PRESENT ILLNESS: Thank you for allowing me to evaluate Mr. Carroll Alex. Mr. Alex 68 year-old R-handed man with PMhx of HTN, DM, HLD, former heavy smoker (quit several years after his first MO), presenting with L-sided pain and weakness. Patient with daughter at bedside. Patient states that while he was sleeping last Thursday, he felt some pain in his L face, arm and leg. He slept it off, but Thursday morning, patient continued to have the same symptoms. Denies any nausea, vomiting, double/blurry vision, numbness or tingling, dysarthria, aphasia. Patient has had chronic headaches which he says is not migraines, but he endorses photophobia and phonophobia when he has his headaches. Patient just stays quiet in his bed when he has these headaches. Of note, patient was admitted to [facility] on 10/08 for L facial droop. At the time, Neurology consulted. CTA did not show large vessel occlusion but did show L ICA 60-70% stenosis. Patient also on dual antiplatelets and statin therapy. At the time, there was a question of solorzano's palsy as patient had both L upper and lower face weakness. PAST MEDICAL HISTORY: CAD s/p stents, COPD, DM, HLD, HTN, MO, osteoarthritis, sleep apnea PAST SURGICAL HISTORY: Back surgery, coronary bypass, heart catheterization with stent, henia repair, R caroid endarterctomy HOME MEDICATIONS: Nitroglycerin PRN, gabapentin 900mg TID, Coreg 3.125 BID, Plavix, Aspirin, Duoneb PRN, [place] PRN, Robaxin 500mg TID, lasix 20mg qday, amlodipine 5mg qday, Imdur 60mg qday, Atorvastatin 90mg qhs, lisinopril 10mg TID, Protonix 40mg qday, Insulin 6 u ac TID, Lantus 26u qhs ALLERGIES: Multiple. Refer to ALLERGIES list SOCIAL HISTORY: FAMILY HISTORY: Father with pancreatic cancer, mother with MO, sister with bone cancer, REVIEW OF SYSTEMS: The 14 systems are reviewed and no additional points are identified compared to the review of systems documented history and physical PHYSICAL EXAMINATION: VITAL SIGNS: Temperature 98.0 pulse rate 68 respiratory 18 pressure 167/77 O2 saturation 95% on room air GEN.: NAD, pleasant and cooperative HEENT: NCAT, sclera without icterus NECK: Supple SKIN AND EXTREMITIES: Warm to touch, no edema NEURO: MENTAL STATUS: Patient alert and oriented to self, place, time. Able to name current president. Speech fluent, able to name and repeat, following all commands readily. No gaze deviation. CRANIAL NERVES II THROUGH XII: II: Pupils are equal and reactive to light symmetrically. No afferent pupillary defect. No color desaturation. Visual flowers are intact. III, IV, : No ptosis. Extraocular movements full. No nystagmus. V: Facial sensation intact from V1-3. VII. Mild L facial droop VIII: Hearing intact to finger rub bilaterally. IX, X: Symmetric palate elevation. XII: Shoulder shrug intact. XII: Tongue midline without fasciculation or atrophy. MOTOR: Normal bulk/tone. 4+/5 in LUE. Otherwise, 5/5 throughout SENSORY: Intact to light touch and temperature in all 4 extremities. REFLEXES: 1 + throughout. Toes are downgoing. COORDINATION: Finger to nose. No dysmetria. DIAGNOSTIC TESTING: Laboratory: WBC 11.4 hemoglobin 13.1 platelets 237 PT 9.5 INR 0.9 sodium 135 potassium 4.4 chloride 105, CO2 20 BUN 22 creatinine 0.86 Glucose 389 AST 19 ALT 23 TC 160 LDL not calculated due to high TG HDL 32 TG 599 Imaging: MRI brain w/o contrast 10/08/18: No acute infarct, midline shift or mass effect. Proximal R vertebral artery occlusion. Mild burden nonspecific white matter change. ASSESSMENT and PLAN: Mr. Alex 68 year-old R-handed man with PMhx of HTN, DM, HLD, former heavy smoker (quit several years after his first MO), presenting with L-sided pain and weakness. Patient a couple of days ago underwent full stroke work up and man agement. MRI brain did not show any acute infarct. Showing possible proximal R vertebral artery occlusion. CTA showed L ICA stenosis of 60-70%. Patient is already on dual antiplatelets. Patient during time of admission noted with glucose 389. Hyperglycemia can mimic stroke. Pt needs tight control of his blood sugar. I would recommend keeping SBP in 130s-150s for this patient as vessel imaging appears to show stenosis in ICA and vertebral arteries. Patient may benefit from L ICA endarterectomy. Pt with hx of R ICA endarterectomy. Would consider outpatient referral to vascular surgery. At this time, no further inpatient work-up recommended. Patient also reporting migrainous symptoms with difficulty sleeping and significant lower back pain that requires patient to use a walker at home. Would consider starting TCA (nortriptyline) for migraine, difficulty with sleep and back pain but with caution as pt with significant CAD history and he's elderly. #L-sided weakness #Hyperglycemia #Lower back pain #Uncontrolled Diabetes Past Medical History Past Medical History: Coronary Artery Disease (CAD), COPD, CVA/TIA, Diabetes Mellitus, Hyperlipidemia, Hypertension, Myocardial Infarction ([place]), Osteoarthritis (OA), Sleep Apnea/CPAP/BIPAP, Vascular Disorder Additional Past Medical History / Comment(s): chronic back pain, no cpap, HX OF episodes of bloody stools-now resolved, pancreatic mass, was told benign, dr michael, states [place] post carotid sx,"lt carotid artery bkg 85%" Last Myocardial Infarction Date:: 2016 History of Any Multi-Drug Resistant Organisms: None Reported Past Surgical History: Back Surgery, Coronary Bypass/CABG, Heart Catheterization With Stent, Hernia Repair Additional Past Surgical History / Comment(s): rt carotid endartectomy,pt stated hadx3 cabg surguries: first one was 1 vessel 1999 and 2nd sx 2 2010 3rd bypass in 2014 -denies any valve repalcements, , back surgery x3, heart cath stent x1 (1994) Past Anesthesia/Blood Transfusion Reactions: Previous Problems w/ Anesthesia Additional Past Anesthesia/Blood Transfusion Reaction / Comment(s): states "feels like he has ants crawling on his face with anesthesia" Date of Last Stent Placement:: 1994 Smoking Status: Former smoker - Past Family History Father Family Medical History: Cancer Additional Family Medical History / Comment(s): in MVA Sister(s) Family Medical History: Cancer Additional Family Medical History / Comment(s): BONE Mother Family Medical History: Myocardial Infarction ([place]) Additional Family Medical History / Comment(s): Mother of a staph infection at the age of 82 yrs. Medications and Allergies Home Medications Medication Instructions Recorded Confirmed Type Nitroglycerin Sl Tabs [Nitrostat] 0.4 mg SUBLINGUAL Q5M PRN 07/05/14 10/11/18 History Gabapentin [Neurontin] 900 mg PO TID 06/07/16 10/11/18 History Carvedilol [Coreg] 3.125 mg PO BID 01/12/17 10/11/18 History Clopidogrel [Plavix] 75 mg PO DAILY 01/12/17 10/11/18 History Ipratropium-Albuterol Nebulize 3 ml INHALATION RT-Q6H PRN 03/13/18 10/11/18 History [Duoneb 0.5 mg-3 mg/3 ml Soln] Budesonide/Formoterol Fumarate 2 puff INHALATION RT-BID 06/22/18 10/11/18 History [Symbicort 160-4.5 Mcg Inhaler] Furosemide [Lasix] 20 mg PO DAILY 06/22/18 10/11/18 History HYDROcodone/APAP 10-325MG [[place] 1 tab PO QID PRN 06/22/18 10/11/18 History 10-325] Lidocaine [Lidoderm 5% Patch] 1 patch TRANSDERM DAILY PRN 06/22/18 10/11/18 History Methocarbamol [Robaxin] 500 mg PO TID 06/22/18 10/11/18 History Aspirin [Adult Low Dose Aspirin EC] 81 mg PO DAILY #30 tab 06/23/18 10/11/18 Rx Atorvastatin [Lipitor] 80 mg PO HS 07/30/18 10/11/18 History Isosorbide Mononitrate ER [Imdur] 60 mg PO DAILY 07/30/18 10/11/18 History Lisinopril [Zestril] 10 mg PO TID 10/05/18 10/11/18 History Pantoprazole [Protonix] 40 mg PO DAILY 10/05/18 10/11/18 History Ibuprofen [Motrin] 800 mg PO Q8H PRN 10/08/18 10/11/18 History INSULIN ASPART (NovoLOG) [NovoLOG 6 unit SQ AC-TID #0 10/09/18 10/11/18 Rx (formulary)] valACYclovir HCL [Valtrex] 500 mg PO Q8HR #30 tab 10/09/18 10/11/18 Rx Insulin Glargine [Lantus] 26 units SQ HS 10/11/18 10/11/18 History INSULIN ASPART (NovoLOG) [NovoLOG 8 unit SQ AC-TID vial 10/12/18 Rx (formulary)] Insulin Detemir (Levemir) [Levemir] 30 unit SQ HS syr 10/12/18 Rx Nortriptyline [Pamelor] 10 mg PO HS #30 capsule 10/12/18 Rx Sertraline [Zoloft] 50 mg PO DAILY #14 tab 10/12/18 Rx amLODIPine [Norvasc] 10 mg PO DAILY tab 10/12/18 Rx traZODone HCL 25 mg PO HS #30 tab 10/12/18 Rx Allergies Allergy/AdvReac Type Severity Reaction Status Date / Time baclofen Allergy Unknown Verified 10/11/18 16:22 fenofibrate nanocrystallized Allergy muscle pain Verified 10/11/18 16:22 [From Tricor] fenofibrate,micronized Allergy Unknown Verified 10/11/18 16:22 [From Tricor] morphine Allergy Confusion Verified 10/11/18 16:22 rosuvastatin calcium Allergy muscle pain Verified 10/11/18 16:22 [From Crestor] sulfamethoxazole Allergy gi upset Verified 10/11/18 16:22 [From Bactrim] metformin AdvReac Nausea & Verified 10/11/18 16:22 Vomiting trimethoprim [From Bactrim] AdvReac Unknown Verified 10/11/18 16:22 rynatan Allergy Unknown Uncoded 10/08/18 13:54 Physical Examination - Vital Signs Vital Signs: Vital Signs Temp Pulse Pulse Resp BP BP Pulse Ox 10/12/18 16:25 98.0 F 68 18 167/77 95 10/12/18 11:25 97.8 F 74 18 136/65 93 L 10/12/18 08:40 98.1 F 64 18 155/75 95 10/12/18 04:26 144/64 10/12/18 04:00 98.5 F 89 18 180/89 96 10/11/18 23:59 98.2 F 78 77 18 170/82 170/82 96 10/11/18 23:34 98.0 F 72 18 145/77 98 10/11/18 21:05 97.9 F 78 18 133/78 98 Intake and Output 10/12/18 10/12/18 10/12/18 06:59 14:59 22:59 Intake Total 900 240 Output Total 600 800 Balance -600 900 -560 Intake: Oral 900 240 Output: Urine 600 800 Other: # Voids 1 1 Weight 104.5 kg 104.5 kg Results - Laboratory Findings CBC and BMP: 10/11/18 16:50 10/11/18 16:50 Abnormal Lab Findings: Abnormal Labs 10/11/18 10/11/18 10/11/18 16:50 16:50 16:50 WBC 11.4 H Hct 38.2 L APTT 21.4 L Sodium 135 L Carbon Dioxide 20 L BUN 22 H Glucose 389 H POC Glucose (mg/dL) Magnesium 1.4 L Total Protein 6.1 L Triglycerides HDL Cholesterol Urine Protein Urine Glucose (UA) Urine Opiates Screen Ur Barbiturates Screen 10/11/18 10/11/18 10/12/18 16:50 19:19 06:58 WBC Hct APTT Sodium Carbon Dioxide BUN Glucose POC Glucose (mg/dL) 258 H Magnesium Total Protein Triglycerides 599 H HDL Cholesterol 32 L Urine Protein Trace H Urine Glucose (UA) 4+ H Urine Opiates Screen Detected H Ur Barbiturates Screen Detected H 10/12/18 10/12/18 11:48 17:15 WBC Hct APTT Sodium Carbon Dioxide BUN Glucose POC Glucose (mg/dL) 336 H 323 H Magnesium Total Protein Triglycerides HDL Cholesterol Urine Protein Urine Glucose (UA) Urine Opiates Screen Ur Barbiturates Screen
[2018-10-13] MEDS ORDERED: amLODIPine 10 MG TAB PO SCH (09:00)
== END 2018-10-12 18:11 | disposition home or self-care (01) | DRG 639 ==
LOC: EC 16:02 → 3SCARD 20:57
PROVIDERS: ADMIT Internal Medicine; ATTEND Internal Medicine
DX: E11.65 Type 2 diabetes mellitus with hyperglycemia (principal); E83.42 Hypomagnesemia; E78.1 Pure hyperglyceridemia; E78.5 Hyperlipidemia, unspecified; E86.0 Dehydration; F32.9 Major depressive disorder, single episode, unspecified; G47.00 Insomnia, unspecified; G47.30 Sleep apnea, unspecified; I10 Essential (primary) hypertension; I25.10 Atherosclerotic heart disease of native coronary artery without angina pectoris; I25.2 Old myocardial infarction; I65.22 Occlusion and stenosis of left carotid artery; J44.9 Chronic obstructive pulmonary disease, unspecified; R29.810 Facial weakness; Z79.02 Long term (current) use of antithrombotics/antiplatelets; Z79.4 Long term (current) use of insulin; Z79.51 Long term (current) use of inhaled steroids; Z79.82 Long term (current) use of aspirin; Z79.899 Other long term (current) drug therapy; Z80.0 Family history of malignant neoplasm of digestive organs; Z82.49 Family history of ischemic heart disease and other diseases of the circulatory system; Z86.73 Personal history of transient ischemic attack (TIA), and cerebral infarction without residual deficits; Z87.891 Personal history of nicotine dependence; T38.3X6A Underdosing of insulin and oral hypoglycemic [antidiabetic] drugs, initial encounter; Z91.128 Patient's intentional underdosing of medication regimen for other reason; Z95.1 Presence of aortocoronary bypass graft; Z95.5 Presence of coronary angioplasty implant and graft; E11.21 Type 2 diabetes mellitus with diabetic nephropathy; R07.89 Other chest pain; G89.29 Other chronic pain; M54.9 Dorsalgia, unspecified; Z88.8 Allergy status to other drugs, medicaments and biological substances; R53.1 Weakness
CPT/HCPCS: 36415; 70450; 71046; 80053; 80061; 80306; 80320; 81003; 82550; 83735; 84484; 85025; 85610; 85730; 93005; 94640; 96361; 96365; 96366; 96375; 99285

== ENCOUNTER → 2019-01-15 | Outpatient (CLI) | payer OTHER ==
--- NOTE | 2019-01-15 14:58 | MR ---
EXAMINATION TYPE: MR nolvia/lspine wo con DATE OF EXAM: 01/15/2019 COMPARISON: None HISTORY: Pain in thoracic spine / Low back pain TECHNIQUE: Multiplanar, multisequence imaging of the lumbar spine is performed without IV contrast. FINDINGS: Cervical vertebra have normal alignment. Thoracic and lumbar vertebra have normal alignment. Disc spa andres overall are fairly well-maintained. There is no lumbar or thoracic compression fracture. There is no thoracic paraspinal mass. There is no lumbar paraspinal mass. At T11-T12 there is a posterior disc herniation with narrowing of the spinal canal and flattening of the lower thoracic spinal cord. On the T2 images there is increased signal in the cord at the level o f disc herniation and spinal stenosis. Canal is narrowed to 5 mm. IMPRESSION: Moderate posterior T11-12 disc herniation with spinal stenosis measuring 5 mm and cord edema. Multilevel lumbar spinal stenosis related to developmentally small canal and short pedicles. Degenera tive disc narrowing at L5-S1. No fracture. I see no bony destructive process. There is developmentally small spinal canal throughout the lumbar spine. There is facet arthropathy and multilevel spinal stenosis and lateral recess stenosis. This is seen at L2-3 and L3-4 and L4-5. The lumbar neural foramina are fairly well-maintained. Sacroiliac carolyn ints appear intact. There is moderate narrowing of the L5-S1 disc space with some spurring of the end plates.
== END | disposition home or self-care (01) ==
LOC: RADMRIMAIN 10:12
DX: M48.061 Spinal stenosis, lumbar region without neurogenic claudication (principal); M51.36 Other intervertebral disc degeneration, lumbar region; M48.04 Spinal stenosis, thoracic region; M51.24 Other intervertebral disc displacement, thoracic region; Z88.2 Allergy status to sulfonamides; Z88.5 Allergy status to narcotic agent; Z88.8 Allergy status to other drugs, medicaments and biological substances; Z88.9 Allergy status to unspecified drugs, medicaments and biological substances
CPT/HCPCS: 72146; 72148

== ENCOUNTER 2019-03-20 17:19 | Emergency (ER) | payer MEDICARE, OTHER ==
[2019-03-20 17:23] VITALS: BP 192/67; PULSE 68; RESP 18; TEMP 97.2
[2019-03-20] MEDS ORDERED: PROPARACAINE 0.5% OPHTH DROPS 15 ML BTL LEFT EYE STA (17:29)
--- NOTE | 2019-03-20 18:07 | ED ---
General Adult HPI - General Chief complaint: Skin/Abscess/Foreign Body Stated complaint: Fb in eye Time Seen by Provider: 03/20/19 17:28 Source: patient Mode of arrival: ambulatory Limitations: no limitations - History of Present Illness Initial comments: Patient is a 69-year-old male presenting to emergency Department with complaints of left eye irritation. Patient states he believes he has something in his left eye. For the past week he has been having some mild drainage, mild irritation and waking up with crusting in his eye. And then today he believes some dust or piece of metal might have gotten into his left eye. Patient denies any headaches, blurry vision. He has no other complaints at this time. Upon arrival to ER, his vital signs are stable. - Related Data Home Medications Medication Instructions Recorded Confirmed Nitroglycerin Sl Tabs [Nitrostat] 0.4 mg SUBLINGUAL Q5M PRN 07/05/14 10/11/18 Gabapentin [Neurontin] 900 mg PO TID 06/07/16 10/11/18 Carvedilol [Coreg] 3.125 mg PO BID 01/12/17 10/11/18 Clopidogrel [Plavix] 75 mg PO DAILY 01/12/17 10/11/18 Ipratropium-Albuterol Nebulize 3 ml INHALATION RT-Q6H PRN 03/13/18 10/11/18 [Duoneb 0.5 mg-3 mg/3 ml Soln] Budesonide/Formoterol Fumarate 2 puff INHALATION RT-BID 06/22/18 10/11/18 [Symbicort 160-4.5 Mcg Inhaler] Furosemide [Lasix] 20 mg PO DAILY 06/22/18 10/11/18 HYDROcodone/APAP 10-325MG [[place] 1 tab PO QID PRN 06/22/18 10/11/18 10-325] Lidocaine [Lidoderm 5% Patch] 1 patch TRANSDERM DAILY PRN 06/22/18 10/11/18 Methocarbamol [Robaxin] 500 mg PO TID 06/22/18 10/11/18 Atorvastatin [Lipitor] 80 mg PO HS 07/30/18 10/11/18 Isosorbide Mononitrate ER [Imdur] 60 mg PO DAILY 07/30/18 10/11/18 Lisinopril [Zestril] 10 mg PO TID 10/05/18 10/11/18 Pantoprazole [Protonix] 40 mg PO DAILY 10/05/18 10/11/18 Ibuprofen [Motrin] 800 mg PO Q8H PRN 10/08/18 10/11/18 Insulin Glargine [Lantus] 26 units SQ HS 10/11/18 10/11/18 Previous Rx's Medication Instructions Recorded Aspirin [Adult Low Dose Aspirin EC] 81 mg PO DAILY #30 tab 06/23/18 INSULIN ASPART (NovoLOG) [[place]ovo[place] 6 unit SQ AC-TID #0 10/09/18 (formulary)] valACYclovir HCL [Valtrex] 500 mg PO Q8HR #30 tab 10/09/18 INSULIN ASPART (NovoLOG) [[place]ovo[place] 8 unit SQ AC-TID vial 10/12/18 (formulary)] Insulin Detemir (Levemir) [Levemir] 30 unit SQ HS syr 10/12/18 Nortriptyline [Pamelor] 10 mg PO HS #30 capsule 10/12/18 Sertraline [Zoloft] 50 mg PO DAILY #14 tab 10/12/18 amLODIPine [Norvasc] 10 mg PO DAILY tab 10/12/18 traZODone HCL 25 mg PO HS #30 tab 10/12/18 Erythromycin Ophth Oint [Romycin 1 applic LEFT EYE QID 5 Days #1 03/20/19 Ophth Oint] tube Allergies Allergy/AdvReac Type Severity Reaction Status Date / Time baclofen Allergy Unknown Verified 03/20/19 17:24 fenofibrate nanocrystallized Allergy muscle pain Verified 03/20/19 17:24 [From Tricor] fenofibrate,micronized Allergy Unknown Verified 03/20/19 17:24 [From Tricor] morphine Allergy Confusion Verified 03/20/19 17:24 rosuvastatin calcium Allergy muscle pain Verified 03/20/19 17:24 [From Crestor] sulfamethoxazole Allergy gi upset Verified 03/20/19 17:24 [From Bactrim] metformin AdvReac Nausea & Verified 03/20/19 17:24 Vomiting trimethoprim [From Bactrim] AdvReac Unknown Verified 03/20/19 17:24 rynatan Allergy Unknown Uncoded 03/20/19 17:24 Review of Systems ROS Statement: Those systems with pertinent positive or pertinent negative responses have been documented in the HPI. ROS Other: All systems not noted in ROS Statement are negative. Past Medical History Past Medical History: Coronary Artery Disease (CAD), COPD, CVA/TIA, Diabetes Mellitus, Hyperlipidemia, Hypertension, Myocardial Infarction ([place]), Osteoa rthritis (OA), Sleep Apnea/CPAP/BIPAP, Vascular Disorder Additional Past Medical History / Comment(s): chronic back pain, no cpap, HX OF episodes of bloody stools-now resolved, pancreatic mass, was told benign, dr rodriguez, states [place] post carotid sx,"lt carotid artery bkg 85%" Last Myocardial Infarction Date:: 2016 History of Any Multi-Drug Resistant Organisms: None Reported Past Surgical History: Back Surgery, Coronary Bypass/CABG, Heart Catheterization With Stent, Hernia Repair Additional Past Surgical History / Comment(s): rt carotid endartectomy,pt stated hadx3 cabg surguries: first one was 1 vessel 1999 and 2nd sx 2 2010 3rd bypass in 2014 -denies any valve repalcements, , back surgery x3, heart cath stent x1 (1994) Past Anesthesia/Blood Transfusion Reactions: Previous Problems w/ Anesthesia Additional Past Anesthesia/Blood Transfusion Reaction / Comment(s): states "feels like he has ants crawling on his face with anesthesia" Date of Last Stent Placement:: 1994 Past Psychological History: Anxiety, Depression Smoking Status: Former smoker Past Alcohol Use History: None Reported Past Drug Use History: None Reported - Past Family History Father Family Medical History: Cancer Additional Family Medical History / Comment(s): in MVA Sister(s) Family Medical History: Cancer Additional Family Medical History / Comment(s): BONE Mother Family Medical History: Myocardial Infarction ([place]) Additional Family Medical History / Comment(s): Mother of a staph infection at the age of 82 yrs. General Exam - General Exam Comments Initial Comments: GENERAL: Well-appearing, well-nourished and in no acute distress. HEAD: Atraumatic, normocephalic. EYES: Pupils equal round and reactive to light, extraocular movements intact, sclera anicteric, conjunctiva are normal. Left eye mildly irritated, slight clear drainage, no foreign body seen. Patient does have a very mild corneal abrasion on the lateral aspect. ENT: TMs normal, nares patent, oropharynx clear without exudates. Moist mucous membranes. NECK: Normal range of motion, supple without lymphadenopathy or JVD. LUNGS: Breath sounds clear to auscultation bilaterally and equal. No wheezes rales or rhonchi. HEART: Regular rate and rhythm without murmurs, rubs or gallops. EXTREMITIES: Normal range of motion, no pitting or edema. No clubbing or cyanosis. NEUROLOGICAL: Normal speech, normal gait. PSYCH: Normal mood, normal affect. SKIN: Warm, Dry, normal turgor, no rashes or lesions noted. Limitations: no limitations Course Vital Signs 03/20/19 17:20 Temperature 97.2 F L Pulse Rate 68 Respiratory 18 Rate Blood Pressure 192/67 O2 Sat by Pulse 98 Oximetry Medical Decision Making - Medical Decision Making Patient is 69-year-old male with a possible foreign body of the left eye. There is no foreign body seen, small abrasion to the lateral aspect. Patient will be started on erythromycin ointment. He'll follow up with his eye doctor. Patient is agreeable with this plan of care. Return parameters were discussed with the patient he verbalizes understanding. Disposition Clinical Impression: Corneal abrasion, left Disposition: HOME SELF-CARE Condition: Stable Instructions (If sedation given, give patient instructions): Corneal Abrasion (ED) Additional Instructions: Please return to the Emergency Department if symptoms worsen or any other concerns. Use antibiotic ointment as prescribed. Prescriptions: Erythromycin Ophth Oint [Romycin Ophth Oint] 1 applic LEFT EYE QID 5 Days #1 tube Is patient prescribed a controlled substance at d/c from ED?: No Referrals: [facility],Clinic [Primary Care Provider] - 1-2 days
== END 2019-03-20 18:11 | disposition home or self-care (01) ==
LOC: EC 17:19
DX: S05.02XA Injury of conjunctiva and corneal abrasion without foreign body, left eye, initial encounter (principal); I25.10 Atherosclerotic heart disease of native coronary artery without angina pectoris; E11.9 Type 2 diabetes mellitus without complications; I10 Essential (primary) hypertension; E78.5 Hyperlipidemia, unspecified; I25.2 Old myocardial infarction; G47.30 Sleep apnea, unspecified; Z79.4 Long term (current) use of insulin; Z79.02 Long term (current) use of antithrombotics/antiplatelets; Z79.51 Long term (current) use of inhaled steroids; Z79.899 Other long term (current) drug therapy; Z88.5 Allergy status to narcotic agent; Z88.8 Allergy status to other drugs, medicaments and biological substances; Z88.1 Allergy status to other antibiotic agents; Z88.2 Allergy status to sulfonamides; Z87.891 Personal history of nicotine dependence; Z95.1 Presence of aortocoronary bypass graft; Z86.73 Personal history of transient ischemic attack (TIA), and cerebral infarction without residual deficits; Z99.89 Dependence on other enabling machines and devices; X58.XXXA Exposure to other specified factors, initial encounter
CPT/HCPCS: 99283

== ENCOUNTER 2019-03-22 14:38 | Observation (INO) | payer OTHER, MEDICARE ==
[2019-03-22] MEDS ORDERED: ASPIRIN 81 MG PO STA (15:09)
--- NOTE | 2019-03-22 15:41 | ED ---
Chest Pain HPI - General Chief Complaint: Chest Pain Stated Complaint: Chest pain Time Seen by Provider: 03/22/19 14:58 Source: patient Mode of arrival: wheelchair Limitations: no limitations - History of Present Illness Initial Comments: Patient is a 69-year-old male, with multiple comorbidities including heart disease, diabetes, COPD, stroke, presenting to emergency Department with chest pain this morning. Patient states he went to the lab to get lab work done and cook pickled meat his medication when they asked if he's had chest pain and he said yes so they sent him to the ER. Patient states this morning he was doing his daily chores when he experienced chest pain for about an hour. Patient states he gets this pain in the front of his chest as well as the back. He's been getting this pain in the back for years now. Patient's mobile application engineer is Dr. Timmons. Patient had a heart cath performed in June which showed severe triple vessel coronary artery disease. He also has history of aortic bypass. He denies chest pain at this time. He also denies fever, chills, shortness of breath, nausea, vomiting. He has no other complaints at this time. Upon arrival to the ER, patient's BP is slightly elevated at 173/81, rest of vitals are normal. - Related Data Home Medications Medication Instructions Recorded Confirmed Nitroglycerin Sl Tabs [Nitrostat] 0.4 mg SUBLINGUAL Q5M PRN 07/05/14 03/22/19 Carvedilol [Coreg] 3.125 mg PO BID-W/MEALS 01/12/17 03/22/19 Ipratropium-Albuterol Nebulize 3 ml INHALATION RT-Q6H PRN 03/13/18 03/22/19 [Duoneb 0.5 mg-3 mg/3 ml Soln] Budesonide/Formoterol Fumarate 2 puff INHALATION RT-BID 06/22/18 03/22/19 [Symbicort 160-4.5 Mcg Inhaler] Furosemide [Lasix] 20 mg PO DAILY 06/22/18 03/22/19 HYDROcodone/APAP 10-325MG [[place] 1 tab PO QID PRN 06/22/18 03/22/19 10-325] Lidocaine [Lidoderm 5% Patch] 1 patch TRANSDERM DAILY PRN 06/22/18 03/22/19 Methocarbamol [Robaxin] 500 mg PO TID 06/22/18 03/22/19 Atorvastatin [Lipitor] 80 mg PO HS 07/30/18 03/22/19 Isosorbide Mononitrate ER [Imdur] 60 mg PO DAILY 07/30/18 03/22/19 Lisinopril [Zestril] 30 mg PO TID 10/05/18 03/22/19 Pantoprazole [Protonix] 40 mg PO DAILY 10/05/18 03/22/19 Ibuprofen [Motrin] 800 mg PO Q8H PRN 10/08/18 03/22/19 Insulin Glargine [Lantus] 30 units SQ HS 10/11/18 03/22/19 Amitriptyline HCl 25 mg PO DAILY 03/22/19 03/22/19 DULoxetine HCL [Cymbalta] 30 mg PO DAILY 03/22/19 03/22/19 Gabapentin [Neurontin] 400 mg PO TID 03/22/19 03/22/19 INSULIN ASPART (NovoLOG) [NovoLOG See Protocol SQ HS 03/22/19 03/22/19 (formulary)] Sertraline HCl [Zoloft] 100 mg PO DAILY 03/22/19 03/22/19 Previous Rx's Medication Instructions Recorded Aspirin [Adult Low Dose Aspirin EC] 81 mg PO DAILY #30 tab 06/23/18 INSULIN ASPART (NovoLOG) [NovoLOG 8 unit SQ AC-TID vial 10/12/18 (formulary)] amLODIPine [Norvasc] 10 mg PO DAILY tab 10/12/18 Allergies Allergy/AdvReac Type Severity Reaction Status Date / Time baclofen Allergy Unknown Verified 03/22/19 19:11 fenofibrate nanocrystallized Allergy muscle pain Verified 03/22/19 19:11 [From Tricor] fenofibrate,micronized Allergy Unknown Verified 03/22/19 19:11 [From Tricor] morphine Allergy Confusion Verified 03/22/19 19:11 rosuvastatin calcium Allergy muscle pain Verified 03/22/19 19:11 [From Crestor] sulfamethoxazole Allergy gi upset Verified 03/22/19 19:11 [From Bactrim] metformin AdvReac Nausea & Verified 03/22/19 19:11 Vomiting trimethoprim [From Bactrim] AdvReac Unknown Verified 03/22/19 19:11 rynatan Allergy Unknown Uncoded 03/22/19 14:41 Review of Systems ROS Statement: Those systems with pertinent positive or pertinent negative responses have been documented in the HPI. ROS Other: All systems not noted in ROS Statement are negative. EKG Findings - EKG Comments: EKG Findings:: Ventricular rate 63, MI interval 134, QTC 433. Normal sinus rhy thm. Normal ECG. No acute ST segment changes. Past Medical History Past Medical History: Coronary Artery Disease (CAD), COPD, CVA/TIA, Diabetes Mellitus, Hyperlipidemia, Hypertension, Myocardial Infarction ([place]), Osteoarthritis (OA), Sleep Apnea/CPAP/BIPAP, Vascular Disorder Additional Past Medical History / Comment(s): chronic back pain, no cpap, HX OF episodes of bloody stools-now resolved, pancreatic mass, was told benign, dr rodriguez, states [place] post carotid sx,"lt carotid artery bkg 85%" Last Myocardial Infarction Date:: 2016 History of Any Multi-Drug Resistant Organisms: None Reported Past Surgical History: Back Surgery, Coronary Bypass/CABG, Heart Catheterization With Stent, Hernia Repair Additional Past Surgical History / Comment(s): rt carotid endartectomy,pt stated hadx3 cabg surguries: first one was 1 vessel 1999 and 2nd sx 2 2010 3rd bypass in 2014 -denies any valve repalcements, , back surgery x3, heart cath stent x1 (1994) Past Anesthesia/Blood Transfusion Reactions: Previous Problems w/ Anesthesia Additional Past Anesthesia/Blood Transfusion Reaction / Comment(s): states "feels like he has ants crawling on his face with anesthesia" Date of Last Stent Placement:: 1994 Past Psychological History: Anxiety, Depression Smoking Status: Former smoker Past Alcohol Use History: None Reported Past Drug Use History: None Reported - Past Family History Father Family Medical History: Cancer Additional Family Medical History / Comment(s): in MVA Sister(s) Family Medical History: Cancer Additional Family Medical History / Comment(s): BONE Mother Family Medical History: Myocardial Infarction ([place]) Additional Family Medical History / Comment(s): Mother of a staph infection at the age of 82 yrs. General Exam - General Exam Comments Initial Comments: GENERAL: Well-appearing, well-nourished and in no acute distress. HEAD: Atraumatic, normocephalic. EYES: Pupils equal round and reactive to light, extraocular movements intact, sclera anicteric, conjunctiva are normal. ENT: TMs normal, nares patent, oropharynx clear without exudates. Moist mucous membranes. NECK: Normal range of motion, supple without lymphadenopathy or JVD. LUNGS: Breath sounds clear to auscultation bilaterally and equal. No wheezes rales or rhonchi. HEART: Regular rate and rhythm without murmurs, rubs or gallops. ABDOMEN: Soft, nontender, normoactive bowel sounds. No guarding, no rebound. No masses appreciated. : Deferred EXTREMITIES: Normal range of motion, no pitting or edema. No clubbing or cyanosis. NEUROLOGICAL: Cranial nerves II through XII grossly intact. Normal speech, normal gait. PSYCH: Normal mood, normal affect. SKIN: Warm, Dry, normal turgor, no rashes or lesions noted. Limitations: no limitations Course Vital Signs 03/22/19 03/22/19 03/22/19 14:39 15:50 15:53 Temperature 97.9 F Pulse Rate 69 Pulse Rate [ 65 Resident Services Coordinator ] Respiratory 20 16 Rate Blood Pressure 173/81 O2 Sat by Pulse 96 Oximetry 03/22/19 18:48 Temperature Pulse Rate 56 L Pulse Rate [ Resident Services Coordinator ] Respiratory 18 Rate Blood Pressure 152/48 O2 Sat by Pulse 93 L Oximetry Chest Pain [facility] Patient is a 69-year-old male presenting with chest pain this morning that lasted approximately 2 hours. Patient has multiple comorbidities. Patient's mobile application engineer is Dr. Timmons. EKG shows no acute abnormalities. Chest x-ray is normal. Lab work and UA shows no acute abnormalities. Troponin is normal. I discussed these findings with the patient. Patient has remained symptom-free. Given patient's heart history I recommended him staying for observation and cardiac consult. Patient is agreeable with this plan of care. Patient will be admitted and was accepted by Dr. Curry. Case discussed with Dr. Clements. Disposition Clinical Impression: Chest pain Disposition: ADMITTED IP TO THIS HOSP Condition: Good Is patient prescribed a controlled substance at d/c from ED?: No Decision Date: 03/22/19 Decision Time: 16:59
[2019-03-22 15:52] LABS: Basophils # (A) 0.2 k/uL (0-0.2); Basophils % (A) 2 %; Eosinophils # (A) 0.2 k/uL (0-0.7); Eosinophils % (A) 2 %; HCT 39.4 % (39.0-53.0); HGB 12.7 gm/dL (13.0-17.5); Lymphocytes # (A) 2.5 k/uL (1.0-4.8); Lymphocytes % (A) 23 %; MCH 27.7 pg (25.0-35.0); MCHC 32.2 g/dL (31.0-37.0); MCV 85.9 fL (80.0-100.0); Mean Platelet Volume 8.7; Monocytes # (A) 0.7 k/uL (0-1.0); Monocytes % (A) 6 %; Neutrophils # (A) 6.9 k/uL (1.3-7.7); Neutrophils % (A) 64 %; Platelet Count 206 k/uL (150-450); RBC 4.59 m/uL (4.30-5.90); RDW 13.5 % (11.5-15.5); WBC 10.7 k/uL (3.8-10.6)
[2019-03-22 16:02] LABS: ALT 18 U/L (4-49); AST 21 U/L (17-59); African American GFR (CKD) >90 (>60 ml/min/1.73 sqM); Albumin 3.6 g/dL (3.5-5.0); Alkaline Phosphatase 73 U/L (38-126); Anion Gap 5 mmol/L; Blood Urea Nitrogen 22 mg/dL (9-20); Calcium 9.3 mg/dL (8.4-10.2); Carbon Dioxide 31 mmol/L (22-30); Chloride 105 mmol/L (98-107); Glucose 151 mg/dL (74-99); Non-African American GFR(CKD) >90 (>60 ml/min/1.73 sqM); Potassium 4.7 mmol/L (3.5-5.1); Sodium 141 mmol/L (137-145); Total Bilirubin 0.5 mg/dL (0.2-1.3); Total Protein 5.9 g/dL (6.3-8.2)
[2019-03-22 16:12] LABS: Appearance,Urine Clear (Clear); Bilirubin,Urine Negative (Negative); Blood,Urine Negative (Negative); Color,Urine Yellow; Glucose,Urine (UA) Negative (Negative); Ketones,Urine Negative (Negative); Leukocyte Esterase,Urine Negative (Negative); Nitrite,Urine Negative (Negative); Protein,Urine Trace (Negative); Specific Gravity,Urine 1.025 (1.001-1.035); Urobilinogen,Urine <2.0 mg/dL (<2.0)
[2019-03-22 16:16] LABS: INR 0.9 (<1.2); Partial Thromboplastin Time 20.8 sec (22.0-30.0); Prothrombin Time 9.5 sec (9.0-12.0)
--- NOTE | 2019-03-22 16:22 | XR ---
EXAMINATION TYPE: XR chest 2V DATE OF EXAM: 03/22/2019 COMPARISON: Prior chest x-ray 10/11/2018 HISTORY: Chest pain and shortness of breath TECHNIQUE: Frontal and lateral views of the chest are obtained. FINDINGS: There is no focal air space opacity, pleural effusion, or pneumothorax seen. The cardiac silhouette size is stable. The osseous structures are intact. Patient is post median sternotomy. Th ere are overlying cardiac leads. There are coronary artery calcifications. IMPRESSION: No acute cardiopulmonary process. Stable cardiomegaly, coronary artery disease. Postop c tristan.
[2019-03-22] MEDS ORDERED: NITROGLYCERIN SL TABS 0.4 MG TAB SUBLINGUAL PRN (16:56)
[2019-03-22] MEDS: HYDROcodone/APAP 10-325MG 1 EACH TAB PO PRN ×2 (18:47→23:55)
[2019-03-22 21:42] LABS: Glucose,Whole Blood 258 mg/dL (75-99)
[2019-03-22] MEDS: INSULIN ASPART (NovoLOG) 100 UNIT/ML VIAL SQ SCH (22:07)
[2019-03-22] MEDS ORDERED: IPRATROPIUM-ALBUTEROL 3 ML NEB INHALATION PRN (23:39)
[2019-03-22] MEDS ORDERED: LIDOCAINE 5% PATCH TOPICAL PRN (23:39)
[2019-03-22] MEDS ORDERED: INSULIN DETEMIR (LEVEMIR) 100 UNIT/ML SYR SQ SCH (23:45)
[2019-03-22] MEDS ORDERED: ATORVASTATIN 80 MG TAB PO SCH (23:45)
[2019-03-22] MEDS: LISINOPRIL 10 MG TAB PO SCH (23:56)
[2019-03-22] MEDS: GABAPENTIN 400 MG CAP PO SCH (23:56)
[2019-03-22] MEDS: CARVEDILOL 3.125 MG TAB PO SCH (23:56)
[2019-03-23] MEDS: METHOCARBAMOL 500 MG TAB PO SCH ×2 (00:29→09:26)
[2019-03-23 04:25] LABS: Cholesterol 163 mg/dL (<200); HDL Cholesterol 37 mg/dL (40-60); LDL Cholesterol,Calculated 82 mg/dL (0-99); Triglycerides 222 mg/dL (<150)
[2019-03-23] MEDS: HYDROcodone/APAP 10-325MG 1 EACH TAB PO PRN ×2 (06:33→11:51)
[2019-03-23 07:01] LABS: Glucose,Whole Blood 205 mg/dL (75-99)
[2019-03-23] MEDS ORDERED: INSULIN ASPART (NovoLOG) 100 UNIT/ML VIAL SQ SCH (07:30)
[2019-03-23] MEDS ORDERED: SYMBICORT 160-4.5 MCG INHALER INHALATION SCH (08:00)
[2019-03-23 08:04] VITALS: RESP 18
[2019-03-23] MEDS ORDERED: PANTOPRAZOLE 40 MG TABLET PO SCH (09:00)
[2019-03-23] MEDS ORDERED: SERTRALINE 100 MG TAB PO SCH (09:00)
[2019-03-23] MEDS ORDERED: FUROSEMIDE 20 MG TAB PO SCH (09:00)
[2019-03-23] MEDS ORDERED: DULoxetine HCL 30 MG CAPSULE.DR PO SCH (09:00)
[2019-03-23] MEDS ORDERED: CARVEDILOL 6.25 MG TAB PO SCH (09:00)
[2019-03-23] MEDS ORDERED: ISOSORBIDE MONONITRATE ER 60 MG TAB.ER.24H PO SCH (09:00)
[2019-03-23] MEDS ORDERED: amLODIPine 10 MG TAB PO SCH (09:00)
[2019-03-23] MEDS ORDERED: AMITRIPTYLINE HCL 25 MG TAB PO SCH (09:00)
[2019-03-23] MEDS: INSULIN ASPART (NovoLOG) 100 UNIT/ML VIAL SQ SCH (09:25)
[2019-03-23] MEDS: GABAPENTIN 400 MG CAP PO SCH (09:26)
[2019-03-23] MEDS: LISINOPRIL 10 MG TAB PO SCH (09:26)
[2019-03-23] MEDS: CARVEDILOL 3.125 MG TAB PO SCH (09:29)
--- NOTE | 2019-03-23 11:34 | P.HPIM ---
History of Present Illness This is combined H&P and discharge summary This is a pleasant 69 years old male with past medical history of coronary artery disease, COPD, CVA/TIA, diabetes mellitus, hyperlipidemia, hypertension, a arthritis, sleep apnea, chronic back pain . Patient presents because of chest pain at the sternal angle area in the upper chest, that lasted for about 3 minutes, [facility] come to the [facility]. Cur rently patient denies chest pain. Denies any other symptoms. He denies dyspnea. No abdominal pain. No nausea vomiting. No change in urine or bowel habits. No fever. No coughing. Patient has been evaluated by flatwork finisher and cleared for discharge Vitals are stable. Labs are unremarkable except for mild WBC of 10.7k, , INR 0.9, BMP is unremarkable, BUN 22, creatinine 0.8. Sugar 205-258. Serial troponins are negative. Urinalysis not suspicious of infection. Chest x-ray no acute process. EKG: Normal sinus rhythm at [address]-T changes and QTC is 433 Review of systems CONSTITUTIONAL: No fever, no malaise, no fatigue. HEENT: No recent visual problems or hearing problems. Denied any sore throat. CARDIOVASCULAR: No orthopnea, PND, no palpitations, no syncope. PULMONARY: No shortness of breath, no cough, no hemoptysis. GASTROINTESTINAL: No diarrhea, no nausea, no vomiting, no abdominal pain. Normoactive bowel sounds. NEUROLOGICAL: No headaches, no weakness, no numbness. HEMATOLOGICAL: Denies any bleeding or petechiae. GENITOURINARY: Denies any burning micturition, frequency, or urgency. MUSCULOSKELETAL/RHEUMATOLOGICAL: Denies any joint pain, swelling, or any muscle pain. ENDOCRINE: Denies any polyuria or polydipsia. Physical exam GENERAL: The patient is alert and oriented x3, not in any acute distress. Well developed, well nourished. HEENT: Pupils are round and equally reacting to light. EOMI. No scleral icterus. No conjunctival pallor. Normocephalic, atraumatic. No pharyngeal erythema. No thyromegaly. CARDIOVASCULAR: S1 and S2 present. No murmurs, rubs, or gallops. PULMONARY: Chest is clear to auscultation, no wheezing or crackles. ABDOMEN: Soft, nontender, nondistended, normoactive bowel sounds. No palpable organomegaly. MUSCULOSKELETAL: No joint swelling or deformity. EXTREMITIES: No cyanosis, clubbing, or pedal edema. NEUROLOGICAL: Gross neurological examination did not reveal any focal deficits. SKIN: No rashes. No petechiae Assessment Chest pain, flatwork finisher evaluated the patient and cleared him for discharge. Resolved Diabetes mellitus Hyperlipidemia Hypertension history of coronary artery disease COPD, not in acute exacerbation History of CVA/TIA Osteoarthritis Sleep apnea on cpap chronic back pain Plan Patient chest pain is completely resolved and cartilages cleared him for discharge. Patient is back to his baseline with no other symptoms and is eager to be discharged today because he has appointment at [facility] for his prostate and back problems. Patient says that it is not going to be discharged today he is going to sign himself out leaving AMA. However patient is medically stable for discharge. Information Broker team recommended to increase his Coreg from 3.125 up to 6.25, his heart rate on the monitor currently is 63 and hysterectomy that will. Patient is advised about the change in his medication and possible side effects including but not limited to bradycardia and he agrees with it. Problems and management plan were discussed with the patient and he verbalized understanding and acceptance Patient was found stable and can be discharged home however he needs follow-up as an outpatient. Patient was instructed to follow up with PCP within one week and patient agrees. Patient also was instructed to follow up with flatwork finisher in 1-2 weeks and he agrees Time spent more than 35 minutes Past Medical History Past Medical History: Coronary Artery Disease (CAD), COPD, CVA/TIA, Diabetes Mellitus, Hyperlipidemia, Hypertension, Myocardial Infarction ([place]), Osteoarthritis (OA), Sleep Apnea/CPAP/BIPAP, Vascular Disorder Additional Past Medical History / Comment(s): chronic back pain, no cpap, HX OF episodes of bloody stools-now resolved, pancreatic mass, was told benign, dr rodriguez, states [place] post carotid sx,"lt carotid artery bkg 85%" Last Myocardial Infarction Date:: 2016 History of Any Multi-Drug Resistant Organisms: None Reported Past Surgical History: Back Surgery, Coronary Bypass/CABG, Heart Catheterization With Stent, Hernia Repair Additional Past Surgical History / Comment(s): rt carotid endartectomy,pt stated hadx3 cabg surguries: first one was 1 vessel 1999 and 2nd sx 2 2010 3rd bypass in 2015 -denies any valve repalcements, , back surgery x3, heart cath stent x1 (1994) Past Anesthesia/Blood Transfusion Reactions: Previous Problems w/ Anesthesia Additional Past Anesthesia/Blood Transfusion Reaction / Comment(s): states "feels like he has ants crawling on his face with anesthesia" Date of Last Stent Placement:: 1994 Past Psychological History: Anxiety, Depression Smoking Status: Former smoker Past Alcohol Use History: None Reported Past Drug Use History: None Reported - Past Family History Father Family Medical History: Cancer Additional Family Medical History / Comment(s): in MVA Sister(s) Family Medical History: Cancer Additional Family Medical History / Comment(s): BONE Mother Family Medical History: Myocardial Infarction ([place]) Additional Family Medical History / Comment(s): Mother of a staph infection at the age of 82 yrs. Medications and Allergies Home Medications Medication Instructions Recorded Confirmed Type Nitroglycerin Sl Tabs [Nitrostat] 0.4 mg SUBLINGUAL Q5M PRN 07/05/14 03/22/19 History Ipratropium-Albuterol Nebulize 3 ml INHALATION RT-Q6H PRN 03/13/18 03/22/19 History [Duoneb 0.5 mg-3 mg/3 ml Soln] Budesonide/Formoterol Fumarate 2 puff INHALATION RT-BID 06/22/18 03/22/19 History [Symbicort 160-4.5 Mcg Inhaler] Furosemide [Lasix] 20 mg PO DAILY 06/22/18 03/22/19 History HYDROcodone/APAP 10-325MG [[place] 1 tab PO QID PRN 06/22/18 03/22/19 History 10-325] Lidocaine [Lidoderm 5% Patch] 1 patch TRANSDERM DAILY PRN 06/22/18 03/22/19 History Methocarbamol [Robaxin] 500 mg PO TID 06/22/18 03/22/19 History Aspirin [Adult Low Dose Aspirin EC] 81 mg PO DAILY #30 tab 06/23/18 03/22/19 Rx Atorvastatin [Lipitor] 80 mg PO HS 07/30/18 03/22/19 History Isosorbide Mononitrate ER [Imdur] 60 mg PO DAILY 07/30/18 03/22/19 History Lisinopril [Zestril] 30 mg PO TID 10/05/18 03/22/19 History Pantoprazole [Protonix] 40 mg PO DAILY 10/05/18 03/22/19 History Insulin Glargine [Lantus] 30 units SQ HS 10/11/18 03/22/19 History INSULIN ASPART (NovoLOG) [NovoLOG 8 unit SQ AC-TID vial 10/12/18 03/22/19 Rx (formulary)] amLODIPine [Norvasc] 10 mg PO DAILY tab 10/12/18 03/22/19 Rx Amitriptyline HCl 25 mg PO DAILY 03/22/19 03/22/19 History DULoxetine HCL [Cymbalta] 30 mg PO DAILY 03/22/19 03/22/19 History Gabapentin [Neurontin] 400 mg PO TID 03/22/19 03/22/19 History INSULIN ASPART (NovoLOG) [NovoLOG See Protocol SQ HS 03/22/19 03/22/19 History (formulary)] Sertraline HCl [Zoloft] 100 mg PO DAILY 03/22/19 03/22/19 History Carvedilol [Coreg] 6.25 mg PO BID-W/MEALS 60 Days tab 03/23/19 Rx Allergies Allergy/AdvReac Type Severity Reaction Status Date / Time baclofen Allergy Unknown Verified 03/22/19 19:11 fenofibrate nanocrystallized Allergy muscle pain Verified 03/22/19 19:11 [From Tricor] fenofibrate,micronized Allergy Unknown Verified 03/22/19 19:11 [From Tricor] morphine Allergy Confusion Verified 03/22/19 19:11 rosuvastatin calcium Allergy muscle pain Verified 03/22/19 19:11 [From Crestor] sulfamethoxazole Allergy gi upset Verified 03/22/19 19:11 [From Bactrim] metformin AdvReac Nausea & Verified 03/22/19 19:11 Vomiting trimethoprim [From Bactrim] AdvReac Unknown Verified 03/22/19 19:11 rynatan Allergy Unknown Uncoded 03/22/19 14:41 Physical Exam Vitals: Vital Signs Temp Pulse Pulse Pulse Resp BP BP 03/23/19 07:59 98 F 53 L 18 156/67 03/23/19 04:00 98.0 F 77 16 152/74 03/23/19 03:17 17 03/23/19 00:00 17 01/14/20 23:43 97.8 F 73 17 204/68 03/22/19 19:40 58 L 18 03/22/19 19:29 97.9 F 58 L 18 182/70 03/22/19 19:10 97.9 F 56 L 18 152/48 03/22/19 18:48 56 L 18 152/48 03/22/19 15:53 16 03/22/19 15:50 65 03/22/19 14:39 97.9 F 69 20 173/81 Pulse Ox 03/23/19 07:59 95 03/23/19 04:00 98 03/23/19 03:17 03/23/19 00:00 03/22/19 23:43 98 03/22/19 19:40 03/22/19 19:29 95 03/22/19 19:10 93 L 03/22/19 18:48 93 L 03/22/19 15:53 03/22/19 15:50 03/22/19 14:39 96 Intake and Output 03/22/19 03/23/19 03/23/19 22:59 06:59 14:59 Intake Total 480 Balance 480 Intake: Oral 480 Other: # Voids 1 1 1 Weight 108.409 kg Results CBC & Chem 7: 03/22/19 15:39 03/22/19 15:39 Labs: Abnormal Lab Results - Last 24 Hours (Table) 03/22/19 03/22/19 03/22/19 Range/Units 15:39 15:39 15:39 WBC 10.7 H (3.8-10.6) k/uL Hgb 12.7 L (13.0-17.5) gm/dL APTT 20.8 L (22.0-30.0) sec Carbon Dioxide 31 H (22-30) mmol/L BUN 22 H (9-20) mg/dL Glucose 151 H (74-99) mg/dL POC Glucose (mg/dL) (75-99) mg/dL Total Protein 5.9 L (6.3-8.2) g/dL Triglycerides (<150) mg/dL HDL Cholesterol (40-60) mg/dL Urine Protein (Negative) 03/22/19 03/22/19 03/23/19 Range/Units 15:47 21:40 04:01 WBC (3.8-10.6) k/uL Hgb (13.0-17.5) gm/dL APTT (22.0-30.0) sec Carbon Dioxide (22-30) mmol/L BUN (9-20) mg/dL Glucose (74-99) mg/dL POC Glucose (mg/dL) 258 H (75-99) mg/dL Total Protein (6.3-8.2) g/dL Triglycerides 222 H (<150) mg/dL HDL Cholesterol 37 L (40-60) mg/dL Urine Protein Trace H (Negative) 03/23/19 Range/Units 06:54 WBC (3.8-10.6) k/uL Hgb (13.0-17.5) gm/dL APTT (22.0-30.0) sec Carbon Dioxide (22-30) mmol/L BUN (9-20) mg/dL Glucose (74-99) mg/dL POC Glucose (mg/dL) 205 H (75-99) mg/dL Total Protein (6.3-8.2) g/dL Triglycerides (<150) mg/dL HDL Cholesterol (40-60) mg/dL Urine Protein (Negative) Thrombosis Risk Factor Assmnt - Choose All That Apply Any of the Below Risk Factors Present?: Yes Each Factor Represents 1 point: Abnormal pulmonary function (COPD), Heart failure (<1month), Obesity (BMI >25), Swollen legs (current) Other Risk Factors: Yes (DM) Each Risk Factor Represents 2 Points: Age 61-74 years Other congenital or acquired thrombophilia - If yes, enter type in comment: No Thrombosis Risk Factor Assessment Total Risk Factor Score: 6 Thrombosis Risk Factor Assessment Level: High Risk
[2019-03-23 11:42] VITALS: BP 127/62; PULSE 60; TEMP 98.3
--- NOTE | 2019-03-23 11:49 | CONS ---
CONSULTATION Mr. Alex is a 69-year-old gentleman who is seen for cardiac evaluation. The patient's emergency room records were reviewed. This patient has a stable coronary artery disease with a prior history of coronary artery bypass surgery. The patient had a cardiac catheterization done last June, which showed all the grafts were to be patent. The patient is going to have a back surgery extensive back surgery in next 2-4 weeks. Patient was evaluated by Dr. Timmons in the office. He underwent the Lexiscan stress test and there was no evidence of any reversible ischemia. The patient is otherwise doing well. Only when he goes out in the cold weather he gets some chest tightness, otherwise routine exertion does not bother him. The patient is physically and functionally independent. HOME MEDICATIONS: Include Coreg and Nitrostat, Atrovent, Symbicort, Lasix, Robaxin, Lipitor, Zestril, Lantus, Cymbalta, and insulin. The patient's allergies include and CRESTOR. PAST MEDICAL HISTORY: Includes a history of prior myocardial infarction, hypertension, hyperlipidemia, sleep apnea, BiPAP, vascular disorder, chronic back pain, coronary artery bypass surgery. PHYSICAL EXAMINATION: Right carotid end arterectomy. At present reveals a 69-year-old, obesely-built gentleman who does not appear to be in any acute distress. Patient's blood pressure is 156/67 mmHg, heart rate is 60 per minute. HEENT: Examination is negative. Neck is supple. There is no increase in jugular venous pressure. Both the carotid pulses are felt, there is no bruit. Chest is symmetrical heart the PMI is not felt. First and second heart sounds are normal. There is no evidence of any murmur. Lungs are clinically clear to auscultation and percussion. Abdomen is negative. Extremities, peripheral pulsations are 2+ EKG shows normal sinus rhythm without any ischemic changes. Patient's cardiac enzymes were normal. Patient's blood sugars are not fairly well controlled, two sets of the troponins are normal. Patient's LDL level is 82. IMPRESSION: This patient has a stable CAD with recent cardiac catheterization showed patent grafts. Patient's recent stress test is normal. Patient is having mild chest discomfort when he gets exposed to the cold weather. It could be secondary to possible spasm or maybe cold induced angina. The patient is otherwise physically and functionally active. In view of the recent a normal stress test without any evidence of significant ischemia, patient is considered at acceptable risk for surgery. Patient was informed there is always a small risk of cardiac complications. He is recommended to take his medications in the perioperative. We will increase the dose of Coreg to 6.25 mg b.i.d. ADAN / KANDI: [id number] /
== END 2019-03-23 12:03 ==
LOC: EC 14:38 → 1SOBS 17:36
PROVIDERS: ADMIT Internal Medicine; ATTEND Internal Medicine
DX: R07.9 Chest pain, unspecified (principal); I25.10 Atherosclerotic heart disease of native coronary artery without angina pectoris; E11.9 Type 2 diabetes mellitus without complications; J44.9 Chronic obstructive pulmonary disease, unspecified; Z86.73 Personal history of transient ischemic attack (TIA), and cerebral infarction without residual deficits; M19.90 Unspecified osteoarthritis, unspecified site; E78.5 Hyperlipidemia, unspecified; I10 Essential (primary) hypertension; I25.2 Old myocardial infarction; Z87.891 Personal history of nicotine dependence; F41.9 Anxiety disorder, unspecified; F32.9 Major depressive disorder, single episode, unspecified; G47.30 Sleep apnea, unspecified; G89.29 Other chronic pain; M54.9 Dorsalgia, unspecified; Z99.89 Dependence on other enabling machines and devices; Z95.1 Presence of aortocoronary bypass graft; Z95.5 Presence of coronary angioplasty implant and graft; Z79.4 Long term (current) use of insulin; Z79.51 Long term (current) use of inhaled steroids; Z79.899 Other long term (current) drug therapy; Z79.891 Long term (current) use of opiate analgesic; Z79.82 Long term (current) use of aspirin; Z88.2 Allergy status to sulfonamides; Z88.5 Allergy status to narcotic agent; Z88.8 Allergy status to other drugs, medicaments and biological substances; Z80.8 Family history of malignant neoplasm of other organs or systems; Z82.49 Family history of ischemic heart disease and other diseases of the circulatory system
CPT/HCPCS: 93005 ×2; 99285; 36415; 80061; 80053; 83735; 84484 ×2; 85025; 85610; 85730; 81003; 71046; G0378 ×2

== ENCOUNTER → 2019-04-26 | Outpatient (CLI) | payer OTHER ==
[2019-04-26 13:08] LABS: African American GFR (CKD) >90 (>60 ml/min/1.73 sqM); Blood Urea Nitrogen 22 mg/dL (9-20); Non-African American GFR(CKD) >90 (>60 ml/min/1.73 sqM)
--- NOTE | 2019-04-26 15:55 | CT ---
EXAMINATION TYPE: CT abdomen wo/w con DATE OF EXAM: 04/26/2019 COMPARISON: CT 06/21/2018 HISTORY: disease of pancreas CT DLP: 2367.6 mGycm Automated exposure control for dose reduction was used. TECHNIQUE: Helical acquisition of images was performed from the lung bases through the top of iliac crest to include entire abdomen. CONTRAST: Performed with Oral Contrast and without and with IV Contrast, patient injected with 100 mL of Isovue 300. FINDINGS: LUNG BASES: No significant abnormality is appreciated. LIVER/GB: Liver shows low attenuation possibly due to hepatic steatosis, gallbladder is unremarkable PANCREAS: Tail the pancreas again shows heterogeneous mass measuring approximately 3.6 x 2.8 x 3.2 cm . SPLEEN: Enlarged ADRENALS: No significant abnormality is seen. KIDNEYS: No significant abnormality is seen. BOWEL: No significant abnormality is seen. LYMPH NODES: No significant abnormality is appreciated. OSSEOUS STRUCTURES: Degenerative disc changes are noted in the lower lumbar spine, there is facet ar thropathy and likely some spinal stenosis. FREE AIR: No Free Air visible ASCITES: None visible. RETROPERITONEAL ADENOPATHY: No Retroperitoneal Adenopathy visible. OTHER: Patient shows postop change to the aorta status post aorta femoral bypass graft. IMPRESSION: PANCREATIC TAIL MASS SHOWS A SIMILAR APPEARANCE. Splenomegaly and additional findings above.
== END | disposition home or self-care (01) ==
LOC: RADCTMAIN 11:59
PROVIDERS: ATTEND Physician Assistant Medical
DX: K86.89 Other specified diseases of pancreas (principal); R16.1 Splenomegaly, not elsewhere classified
CPT/HCPCS: 82565; 84520; 74170; 36415; Q9967

== ENCOUNTER 2019-09-20 16:50 | Observation (INO) | payer OTHER, MEDICARE ==
--- NOTE | 2019-09-20 17:14 | ED ---
General Adult HPI - General Chief complaint: Chest Pain Stated complaint: chest pain Time Seen by Provider: 09/20/19 16:57 Source: patient Mode of arrival: ambulatory Limitations: no limitations - History of Present Illness Initial comments: Dictation was produced using [employer] dictation software. please excuse any grammatical, word or spelling errors. This patient was cared for during a federal and state declared state of emergency secondary to Covid 19 Chief Complaint: 69-year-old male multiple cardiac comorbid is presents with ch est pain. History of Present Illness: This 69-year-old male who presents today with chest pain. Patient states that his symptoms have been ongoing for approximately 3 days. Patient reports that the pain originates in his bilateral anterior chest and radiates to his back. Does report some intermittent episodes of diaphoresis. Denies any radiation of sentences extremity or jaw. States that he does note a sharp sensation when he lies flat or leans back. He states his symptoms are improved with leaning forward. He called his cardiology office today and was instructed to come to the emergency department. Patient states he has history of coronary artery bypass. Most recently patient cardiac catheterization back in June 2018. There was severe disease however no intervention was pursued at that time. Patient states that the pain is severe however does appear comfortable at this time. The ROS documented in this emergency department record has been reviewed and confirmed by me. Those systems with pertinent positive or negative responses have been documented in the HPI. All other systems are other negative and/or noncontributory. PHYSICAL EXAM: General Impression: Alert and oriented x3, not in acute distress HEENT: Normocephalic atraumatic, extra-ocular movements intact, pupils equal and reactive to light bilaterally, mucous membranes moist. Cardiovascular: Heart regular rate and rhythm Chest: Able to complete full sentences, no retractions, no tachypnea Abdomen: abdomen soft, non-tender, non-distended, no organomegaly Musculoskeletal: Pulses present and equal in all extremities, no peripheral edema Motor: no focal deficits noted Neurological: CN II-XII grossly intact, no focal motor or sensory deficits noted Skin: Intact with no visualized rashes Psych: Normal affect and mood ED course: 69 y old male presents with atypical chest pain with typical features. He has multiple cardiac comorbidities. Signs upon arrival shows bradycardia of 59, worse vital signs within acceptable limits. Laboratory evaluation obtained. Mild leukocytosis 11.6. Hemoglobin 11.4 which is acceptable. Coag panel is unremarkable. D-dimer is 1.15. Metabolic panel is unremarkable. Troponin is negative. Brain natruretic peptide is 1700. Chest x-ray shows basilar atelectasis. Given elevated d-dimer and concern for dissection given this pain with radiation to the back CT angios the ureter was obtained. No evidence of dissection or pulmonary emboli. There is appeared to be some enlarged lymphadenopathy that radiology recommends follow-up. Patient reevaluated at bedside. Given patient's extensive history of cardiac disease we'll have patient admitted for suture troponins and cardiology consultation. Patient given aspirin and Percocet. Patient agreeable with disposition. Discussed patient case with Lisa Mann who is on-call for hospitalist group. She except patient's care on behalf of [facility] EKG interpretation: Ventricular rate 53, sinus bradycardia,. Interval 142, QRS 102, QTc 446. No MS prolongation, no QTC prolongation, no ST or T-wave changes noted. EKG compared to 03/22/2019 showing no changes. Overall, this EKG is unremarkable - Related Data Home Medications Medication Instructions Recorded Confirmed Nitroglycerin Sl Tabs [Nitrostat] 0.4 mg SUBLINGUAL Q5M PRN 07/05/14 09/20/19 Budesonide/Formoterol Fumarate 2 puff INHALATION RT-BID 06/22/18 09/20/19 [Symbicort 160-4.5 Mcg Inhaler] Furosemide [Lasix] 20 mg PO DAILY 06/22/18 09/20/19 HYDROcodone/APAP 10-325MG [[place] 1 tab PO QID PRN 06/22/18 09/20/19 10-325] Lidocaine [Lidoderm 5% Patch] 1 patch TRANSDERM DAILY PRN 06/22/18 09/20/19 Methocarbamol [Robaxin] 500 mg PO TID PRN 06/22/18 09/20/19 Atorvastatin [Lipitor] 80 mg PO HS 07/30/18 09/20/19 Isosorbide Mononitrate ER [Imdur] 60 mg PO DAILY 07/30/18 09/20/19 Lisinopril [Zestril] 30 mg PO TID 10/05/18 09/20/19 Pantoprazole [Protonix] 40 mg PO DAILY 10/05/18 09/20/19 Insulin Glargine [Lantus] 30 units SQ HS 10/11/18 09/20/19 Gabapentin [Neurontin] 800 mg PO TID 03/22/19 09/20/19 INSULIN ASPART (NovoLOG) [NovoLOG See Protocol SQ HS 03/22/19 09/20/19 (formulary)] Carvedilol [Coreg] 3.125 mg PO BID-W/MEALS 09/20/19 09/20/19 Clopidogrel Bisulfate [Plavix] 75 mg PO DAILY 09/20/19 09/20/19 DULoxetine HCL [Cymbalta] 60 mg PO DAILY 09/20/19 09/20/19 Ibuprofen [Motrin] 800 mg PO Q8H PRN 09/20/19 09/20/19 Naloxone HCl [Narcan] 4 mg NASAL ONCE PRN 09/20/19 09/20/19 Tamsulosin HCl [Flomax] 0.4 mg PO DAILY 09/20/19 09/20/19 Previous Rx's Medication Instructions Recorded Aspirin [Adult Low Dose Aspirin EC] 81 mg PO DAILY #30 tab 06/23/18 INSULIN ASPART (NovoLOG) [NovoLOG 8 unit SQ AC-TID vial 10/12/18 (formulary)] amLODIPine [Norvasc] 10 mg PO DAILY tab 10/12/18 Allergies Allergy/AdvReac Type Severity Reaction Status Date / Time baclofen Allergy Unknown Verified 09/20/19 18:41 fenofibrate nanocrystallized Allergy muscle pain Verified 09/20/19 18:41 [From Tricor] fenofibrate,micronized Allergy Unknown Verified 09/20/19 18:41 [From Tricor] morphine Allergy Confusion Verified 09/20/19 18:41 rosuvastatin calcium Allergy muscle pain Verified 09/20/19 18:41 [From Crestor] sulfamethoxazole Allergy gi upset Verified 09/20/19 18:41 [From Bactrim] metformin AdvReac Nausea & Verified 09/20/19 18:41 Vomiting trimethoprim [From Bactrim] AdvReac Unknown Verified 09/20/19 18:41 rynatan Allergy Unknown Uncoded 09/20/19 16:56 Review of Systems ROS Statement: Those systems with pertinent positive or pertinent negative responses have been documented in the HPI. ROS Other: All systems not noted in ROS Statement are negative. 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, dr monitoring, states [place] post carotid sx,"lt carotid artery bkg 85%" Last Myocardial Infarction Date:: 2016 History of Any Multi-Drug Resistant Organisms: None Reported Past Surgical History: Back Surgery, Coronary Bypass/CABG, Heart Catheterization With Stent, Hernia Repair Additional Past Surgical History / Comment(s): rt carotid endartectomy,pt stated hadx3 cabg surguries: first one was 1 vessel 1999 and 2nd sx 2 2009 3rd bypass in 2014 -denies any valve repalcements, , back surgery x3, heart cath stent x1 (1994) Past Anesthesia/Blood Transfusion Reactions: Previous Problems w/ Anesthesia Additional Past Anesthesia/Blood Transfusion Reaction / Comment(s): states "feels like he has ants crawling on his face with anesthesia" Date of Last Stent Placement:: 1994 Past Psychological History: Anxiety, Depression Past Alcohol Use History: None Reported Past Drug Use History: None Reported - Past Family History Father Family Medical History: Cancer Additional Family Medical History / Comment(s): in MVA Sister(s) Family Medical History: Cancer Additional Family Medical History / Comment(s): BONE Mother Family Medical History: Myocardial Infarction ([place]) Additional Family Medical History / Comment(s): Mother of a staph infection at the age of 82 yrs. General Exam Limitations: no limitations Course Vital Signs 09/20/19 09/20/19 16:53 19:10 Temperature 97.6 F Pulse Rate 59 L 61 Respiratory 18 18 Rate Blood Pressure 146/66 146/65 O2 Sat by Pulse 96 Oximetry Medical Decision Making - Lab Data Result diagrams: 09/20/19 17:16 09/20/19 17:16 Lab Results 09/20/19 09/20/19 09/20/19 Range/Units 17:16 17:16 17:16 WBC 11.6 H (3.8-10.6) k/uL RBC 3.98 L (4.30-5.90) m/uL Hgb 11.4 L (13.0-17.5) gm/dL Hct 34.0 L (39.0-53.0) % MCV 85.3 (80.0-100.0) fL MCH 28.7 (25.0-35.0) pg MCHC 33.6 (31.0-37.0) g/dL RDW 13.9 (11.5-15.5) % Plt Count 229 (150-450) k/uL Neutrophils % 71 % Lymphocytes % 18 % Monocytes % 5 % Eosinophils % 2 % Basophils % 1 % Neutrophils # 8.2 H (1.3-7.7) k/uL Lymphocytes # 2.1 (1.0-4.8) k/uL Monocytes # 0.6 (0-1.0) k/uL Eosinophils # 0.3 (0-0.7) k/uL Basophils # 0.1 (0-0.2) k/uL PT 10.0 (9.0-12.0) sec INR 1.0 (<1.2) APTT 21.3 L (22.0-30.0) sec D-Dimer 1.15 H (<0.60) mg/L FEU Sodium 138 (137-145) mmol/L Potassium 3.9 (3.5-5.1) mmol/L Chloride 106 (98-107) mmol/L Carbon Dioxide 28 (22-30) mmol/L Anion Gap 4 mmol/L BUN 16 (9-20) mg/dL Creatinine 0.59 L (0.66-1.25) mg/dL Est GFR (CKD-EPI)AfAm >90 (>60 ml/min/1.73 sqM) Est GFR (CKD-EPI)NonAf >90 (>60 ml/min/1.73 sqM) Glucose 156 H (74-99) mg/dL Calcium 9.0 (8.4-10.2) mg/dL Magnesium 1.6 (1.6-2.3) mg/dL Total Bilirubin 0.5 (0.2-1.3) mg/dL AST 23 (17-59) U/L ALT 25 (4-49) U/L Alkaline Phosphatase 84 (38-126) U/L Troponin I (0.000-0.034) ng/mL NT-Pro-B Natriuret Pep pg/mL Total Protein 5.8 L (6.3-8.2) g/dL Albumin 3.5 (3.5-5.0) g/dL Lipase 32 (23-300) U/L 09/20/19 09/20/19 Range/Units 17:16 17:16 WBC (3.8-10.6) k/uL RBC (4.30-5.90) m/uL Hgb (13.0-17.5) gm/dL Hct (39.0-53.0) % MCV (80.0-100.0) fL MCH (25.0-35.0) pg MCHC (31.0-37.0) g/dL RDW (11.5-15.5) % Plt Count (150-450) k/uL Neutrophils % % Lymphocytes % % Monocytes % % Eosinophils % % Basophils % % Neutrophils # (1.3-7.7) k/uL Lymphocytes # (1.0-4.8) k/uL Monocytes # (0-1.0) k/uL Eosinophils # (0-0.7) k/uL Basophils # (0-0.2) k/uL PT (9.0-12.0) sec INR (<1.2) APTT (22.0-30.0) sec D-Dimer (<0.60) mg/L FEU Sodium (137-145) mmol/L Potassium (3.5-5.1) mmol/L Chloride (98-107) mmol/L Carbon Dioxide (22-30) mmol/L Anion Gap mmol/L BUN (9-20) mg/dL Creatinine (0.66-1.25) mg/dL Est GFR (CKD-EPI)AfAm (>60 ml/min/1.73 sqM) Est GFR (CKD-EPI)NonAf (>60 ml/min/1.73 sqM) Glucose (74-99) mg/dL Calcium (8.4-10.2) mg/dL Magnesium (1.6-2.3) mg/dL Total Bilirubin (0.2-1.3) mg/dL AST (17-59) U/L ALT (4-49) U/L Alkaline Phosphatase (38-126) U/L Troponin I <0.012 (0.000-0.034) ng/mL NT-Pro-B Natriuret Pep 1700 pg/mL Total Protein (6.3-8.2) g/dL Albumin (3.5-5.0) g/dL Lipase (23-300) U/L Disposition Clinical Impression: Chest pain Disposition: ADMITTED IP TO THIS HOSP Condition: Fair Referrals: [facility],Clinic [Primary Care Provider] - 1-2 days Decision Time: 19:46
[2019-09-20 17:30] LABS: Basophils # (A) 0.1 k/uL (0-0.2); Basophils % (A) 1 %; Eosinophils # (A) 0.3 k/uL (0-0.7); Eosinophils % (A) 2 %; HGB 11.4 gm/dL (13.0-17.5); Lymphocytes # (A) 2.1 k/uL (1.0-4.8); Lymphocytes % (A) 18 %; MCH 28.7 pg (25.0-35.0); MCHC 33.6 g/dL (31.0-37.0); MCV 85.3 fL (80.0-100.0); Mean Platelet Volume 9.2; Monocytes # (A) 0.6 k/uL (0-1.0); Monocytes % (A) 5 %; Neutrophils # (A) 8.2 k/uL (1.3-7.7); Neutrophils % (A) 71 %; Platelet Count 229 k/uL (150-450); RBC 3.98 m/uL (4.30-5.90); RDW 13.9 % (11.5-15.5); WBC 11.6 k/uL (3.8-10.6)
--- NOTE | 2019-09-20 17:34 | XR ---
EXAMINATION TYPE: XR chest 2V DATE OF EXAM: 09/20/2019 COMPARISON: 03/22/2019 INDICATION: Chest pain TECHNIQUE: Frontal and lateral views of the chest are obtained. FINDINGS: The heart size is normal. The pulmonary vasculature is normal. Minimal bibasilar subsegmental atelectasis may be present.. IMPRESSION: 1. Suggestion of mild bibasilar subsegmental atelectasis.
[2019-09-20 17:43] LABS: ALT 25 U/L (4-49); AST 23 U/L (17-59); African American GFR (CKD) >90 (>60 ml/min/1.73 sqM); Albumin 3.5 g/dL (3.5-5.0); Alkaline Phosphatase 84 U/L (38-126); Anion Gap 4 mmol/L; Blood Urea Nitrogen 16 mg/dL (9-20); Carbon Dioxide 28 mmol/L (22-30); Chloride 106 mmol/L (98-107); Glucose 156 mg/dL (74-99); Magnesium 1.6 mg/dL (1.6-2.3); Non-African American GFR(CKD) >90 (>60 ml/min/1.73 sqM); Potassium 3.9 mmol/L (3.5-5.1); Sodium 138 mmol/L (137-145); Total Bilirubin 0.5 mg/dL (0.2-1.3); Total Protein 5.8 g/dL (6.3-8.2)
[2019-09-20 17:50] LABS: Partial Thromboplastin Time 21.3 sec (22.0-30.0)
[2019-09-20 17:52] LABS: D-Dimer 1.15 mg/L FEU (<0.60)
--- NOTE | 2019-09-20 19:37 | CT ---
EXAMINATION TYPE: CT angio thor/abd pel aorta DATE OF EXAM: 09/20/2019 COMPARISON: 04/26/2019 CT abdomen HISTORY: Chest pain and SOB CT DLP: 2229.1 mGycm, Automated exposure control for dose reduction was used. CONTRAST: Performed injected with 100 mL of Isovue 370. TECHNIQUE: Axial images were obtained at 5 mm thick sections. Reconstructed images are reviewed on [employer] computer in the coronal plane. FINDINGS: There is some hypodensity within the right lobe thyroid. This could be further evaluated wi ultrasound. There is a small right pleural effusion. Minimal left pleural effusion is present. There is an enlarged 1.1 cm lymph node in the pretracheal space. There are a few small lymph nodes i n the right paratracheal region. A 1.4 cm subcarinal lymph node is present. The ascending aorta diame ter at the level of the main pulmonary artery is 3.5 cm. The main pulmonary artery diameter at the b ifurcation is 3.5 cm. The aorta tapers normally through its visualized course. No dissection is evid ent. Vascular calcifications within the aorta is evident. Coronary artery calcification is noted. Limited CT sections are obtained through the upper abdomen. Abdomen is essentially unremarkable. IMPRESSIONS: 1. Pretracheal and subcarinal enlarged lymphadenopathy with additional shotty lymphadenopathy. Follow -up is recommended. 2. Aorta appears normal without evidence of aneurysm or dissection. 3. No acute pulmonary emboli are identified at this phase of contrast.
[2019-09-20] MEDS ORDERED: ASPIRIN 81 MG PO STA (19:44)
[2019-09-20] MEDS ORDERED: oxyCODONE-APAP 10-325MG 1 EACH TAB PO STA (19:44)
[2019-09-20] MEDS ORDERED: NITROGLYCERIN SL TABS 0.4 MG TAB SUBLINGUAL PRN (19:47)
[2019-09-20] MEDS ORDERED: LIDOCAINE 5% PATCH TOPICAL PRN (22:43)
[2019-09-20] MEDS ORDERED: METHOCARBAMOL 500 MG TAB PO PRN (22:43)
[2019-09-20] MEDS ORDERED: INSULIN DETEMIR (LEVEMIR) 100 UNIT/ML SYR SQ SCH (22:45)
[2019-09-20 23:39] LABS: Glucose,Whole Blood 193 mg/dL (75-99)
[2019-09-21] MEDS: HYDROcodone/APAP 5-325MG 1 EACH TAB PO PRN ×2 (01:35→09:10)
[2019-09-21] MEDS ORDERED: CARVEDILOL 3.125 MG TAB PO SCH (07:30)
[2019-09-21 07:37] LABS: Glucose,Whole Blood 151 mg/dL (75-99)
[2019-09-21 07:53] LABS: Cholesterol 107 mg/dL (<200); HDL Cholesterol 29 mg/dL (40-60); LDL Cholesterol,Calculated 52 mg/dL (0-99); Triglycerides 132 mg/dL (<150)
[2019-09-21] MEDS ORDERED: SYMBICORT 160-4.5 MCG INHALER INHALATION SCH (08:00)
[2019-09-21] MEDS: INSULIN ASPART (NovoLOG) 100 UNIT/ML VIAL SQ SCH ×2 (08:01→13:08)
[2019-09-21 08:52] VITALS: TEMP 98.5
[2019-09-21] MEDS ORDERED: ASPIRIN 81 MG PO SCH (09:00)
[2019-09-21] MEDS ORDERED: TAMSULOSIN 0.4 MG CAP.ER.24H PO SCH (09:00)
[2019-09-21] MEDS ORDERED: CLOPIDOGREL 75 MG TAB PO SCH (09:00)
[2019-09-21] MEDS ORDERED: ASPIRIN 325 MG TAB PO SCH (09:00)
[2019-09-21] MEDS ORDERED: PANTOPRAZOLE 40 MG TABLET PO SCH (09:00)
[2019-09-21] MEDS ORDERED: amLODIPine 10 MG TAB PO SCH (09:00)
[2019-09-21] MEDS ORDERED: hydrALAZINE HCL 25 MG TAB PO SCH (09:00)
[2019-09-21] MEDS ORDERED: ISOSORBIDE MONONITRATE ER 60 MG TAB.ER.24H PO SCH (09:00)
[2019-09-21] MEDS ORDERED: GABAPENTIN 400 MG CAP PO SCH (09:00)
[2019-09-21] MEDS ORDERED: DULoxetine HCL 60 MG CAPSULE.DR PO SCH (09:00)
[2019-09-21] MEDS ORDERED: LISINOPRIL 10 MG TAB PO SCH ×2 (09:00)
--- NOTE | 2019-09-21 09:23 | P.CRDCN ---
History of Present Illness History of present illness: HISTORY OF PRESENTING ILLNESS This is a pleasant 69-year-old male past medical history significant for artery artery disease status post bypass grafting, peripheral vascular disease with carotid stenosis, hypertension, dyslipidemia, diabetes mellitus, chronic pain and former heavy nicotine use. He follows in the office with Dr. Timmons. We have been asked to see in consultation for chest pain. He describes a discomfort in the mid to upper back between his shoulder blades. He states the discomfort is described as a tight sensation. There is no radiation through to the chest, down the arms, into the neck or jaw. He has some associated shortness of breath. There is no nausea, vomiting, diaphoresis or palpitations. The discomfort is exacerbated by sitting for too long or laying down on his back. It is not related to exertion or activity. He states this pain has been intermittent and ongoing for the previous 3 years. He underwent cardiac catheterization in 2019 revealing severe triple vessel disease with patent SVG to RCA, SVG to circumflex and ALAN to LAD. DIAGNOSTICS EKG reveals sinus bradycardia heart rate of 53. Chest xray mild bibasilar atelectasis. CT of the thoracic aorta was negative for pulmonary embolism or aortic dissection with small bilateral pleural effusions and lymph node enlargement. Laboratory reviewed, WBC 11.6, hemoglobin 11.4, platelets 229, d-dimer 1.15, sodium 138, potassium 3.9, creatinine 0.59, magnesium 1.6, cardiac enzymes ne gative 3, NT proBNP 1700, LDL 52, HDL 29 and total cholesterol 107. Current cardiac medications include amlodipine 10 mg daily, aspirin 81 mg daily, atorvastatin 80 mg daily, carvedilol 3.125 milligrams twice a day, Plavix 75 mg daily, hydralazine 25 mg twice a day, Imdur 60 mg daily, lisinopril 30 mg 3 times a day and Lasix 20 mg daily. Most recent echocardiogram obtained in 2019 revealed mildly impaired LV systolic function with ejection fraction 45-50%, basal inferior LV wall motion hypokin esia, mild MR and mild TR. REVIEW OF SYSTEMS At the time of my exam: CONSTITUTIONAL: Denies fever or chills. CARDIOVASCULAR: Denies chest pain, shortness of breath, orthopnea, PND or palpitations. RESPIRATORY: Denies cough. GASTROINTESTINAL: Denies abdominal pain, diarrhea, constipation, nausea or vomiting. MUSCULOSKELETAL: Denies myalgias. NEUROLOGIC: Denies numbness, tingling or weakness. ENDOCRINE: Denies fatigue, weight change, polydipsia or polyurina. GENITOURINARY: Denies burning, hematuria or urgency with micturation. HEMATOLOGIC: Denies history of anemia or bleeding. PHYSICAL EXAMINATION Blood pressure 172/73 heart rate 63 afebrile and maintaining oxygen saturation on nasal cannula. CONSTITUTIONAL: No apparent distress. HEENT: Head is normocephalic. Pupils are equal, round. Sclerae anicteric. Mucous membranes of the mouth are moist. No JVD. No carotid bruit. CHEST EXAMINATION: Lungs are clear to auscultation. No chest wall tenderness is noted on palpation or with deep breathing. HEART EXAMINATION: Regular rate and rhythm. S1, S2 heard. Systolic ejection murmur at the left sternal border, no gallops or rub. ABDOMEN: Soft, nontender. Positive bowel sounds. EXTREMITIES: 2+ peripheral pulses, no lower extremity edema and no calf tenderness. NEUROLOGIC EXAMINATION: Patient is awake, alert and oriented x3. ASSESSMENT Chest pain, atypical. An acute coronary event has been ruled out. History of coronary artery disease status post bypass grafting with recent catheterization revealing patent grafts Ischemic cardiomyopathy Peripheral vascular disease Hypertension Dyslipidemia Diabetes mellitus Former nicotine dependence PLAN An acute coronary event has been ruled out. Pain is atypical and seems to possibly related to musculoskeletal injury. Obtain 2-D echocardiogram and Doppler study to assess cardiac structure and function. Decrease lisinopril to 30 mg twice a day and add hydralazine 25 mg twice a day. Resume Lasix. Increase activity and ambulation. Can be discharged later this afternoon after echocardiogram, follow up with Dr. Timmons in 2 weeks. Thank you kindly for this consultation. Nurse Practitioner note has been reviewed, I agree with a documented findings and plan of care. Patient was seen and examined. Past Medical History Past Medical History: Coronary Artery Disease (CAD), COPD, CVA/TIA, Diabetes Mellitus, Hyperlipidemia, Hypertension, Myocardial Infarction ([place]), Osteoarthritis (OA), Sleep Apnea/CPAP/BIPAP, Vascular Disorder Additional Past Medical History / Comment(s): chronic back pain. Last Myocardial Infarction Date:: 2016 History of Any Multi-Drug Resistant Organisms: None Reported Past Surgical History: Back Surgery, Coronary Bypass/CABG, Heart Catheterization With Stent, Hernia Repair Additional Past Surgical History / Comment(s): rt carotid endartectomy,pt stated hadx3 cabg surguries: first one was 1 vessel 1999 and 2nd sx 2 2010 3rd bypass in 2014 -denies any valve repalcements, , back surgery x3, heart cath stent x1 (1994) Past Anesthesia/Blood Transfusion Reactions: Previous Problems w/ Anesthesia Additional Past Anesthesia/Blood Transfusion Reaction / Comment(s): Patient states he broke out in hives. Date of Last Stent Placement:: 1994 Past Psychological History: Anxiety, Depression Additional Psychological History / Comment(s): Patient states he was taken off his depression medications and denies any thoughts of suicide. Patient states he has been depressed this week and feeling anxious. Smoking Status: Former smoker Past Alcohol Use History: None Reported Additional Past Alcohol Use History / Comment(s): quit smoking 2009, smoked 2-3 packs per day from 1964 Past Drug Use History: None Reported - Past Family History Father Family Medical History: Cancer Additional Family Medical History / Comment(s): in MVA Sister(s) Family Medical History: Cancer Additional Family Medical History / Comment(s): BONE Mother Family Medical History: Myocardial Infarction ([place]) Additional Family Medical History / Comment(s): Mother of a staph infection at the age of 82 yrs. Medications and Allergies Home Medications Medication Instructions Recorded Confirmed Type Nitroglycerin Sl Tabs [Nitrostat] 0.4 mg SUBLINGUAL Q5M PRN 07/05/14 09/20/19 History Budesonide/Formoterol Fumarate 2 puff INHALATION RT-BID 06/22/18 09/20/19 History [Symbicort 160-4.5 Mcg Inhaler] Furosemide [Lasix] 20 mg PO DAILY 06/22/18 09/20/19 History HYDROcodone/APAP 10-325MG [[place] 1 tab PO QID PRN 06/22/18 09/20/19 History 10-325] Lidocaine [Lidoderm 5% Patch] 1 patch TRANSDERM DAILY PRN 06/22/18 09/20/19 History Methocarbamol [Robaxin] 500 mg PO TID PRN 06/22/18 09/20/19 History Aspirin [Adult Low Dose Aspirin EC] 81 mg PO DAILY #30 tab 06/23/18 09/20/19 Rx Atorvastatin [Lipitor] 80 mg PO HS 07/30/18 09/20/19 History Isosorbide Mononitrate ER [Imdur] 60 mg PO DAILY 07/30/18 09/20/19 History Lisinopril [Zestril] 30 mg PO TID 10/05/18 09/20/19 History Pantoprazole [Protonix] 40 mg PO DAILY 10/05/18 09/20/19 History Insulin Glargine [Lantus] 30 units SQ HS 10/11/18 09/20/19 History INSULIN ASPART (NovoLOG) [NovoLOG 8 unit SQ AC-TID vial 10/12/18 09/20/19 Rx (formulary)] amLODIPine [Norvasc] 10 mg PO DAILY tab 10/12/18 09/20/19 Rx Gabapentin [Neurontin] 800 mg PO TID 03/22/19 09/20/19 History INSULIN ASPART (NovoLOG) [NovoLOG See Protocol SQ HS 03/22/19 09/20/19 History (formulary)] Carvedilol [Coreg] 3.125 mg PO BID-W/MEALS 09/20/19 09/20/19 History Clopidogrel Bisulfate [Plavix] 75 mg PO DAILY 09/20/19 09/20/19 History DULoxetine HCL [Cymbalta] 60 mg PO DAILY 09/20/19 09/20/19 History Ibuprofen [Motrin] 800 mg PO Q8H PRN 09/20/19 09/20/19 History Naloxone HCl [Narcan] 4 mg NASAL ONCE PRN 09/20/19 09/20/19 History Tamsulosin HCl [Flomax] 0.4 mg PO DAILY 09/20/19 09/20/19 History Allergies Allergy/AdvReac Type Severity Reaction Status Date / Time baclofen Allergy Unknown Verified 09/20/19 18:41 fenofibrate nanocrystallized Allergy muscle pain Verified 09/20/19 18:41 [From Tricor] fenofibrate,micronized Allergy Unknown Verified 09/20/19 18:41 [From Tricor] morphine Allergy Confusion Verified 09/20/19 18:41 rosuvastatin calcium Allergy muscle pain Verified 09/20/19 18:41 [From Crestor] sulfamethoxazole Allergy gi upset Verified 09/20/19 18:41 [From Bactrim] metformin AdvReac Nausea & Verified 09/20/19 18:41 Vomiting trimethoprim [From Bactrim] AdvReac Unknown Verified 09/20/19 18:41 rynatan Allergy Unknown Uncoded 09/20/19 16:56 Physical Exam Vitals: Vital Signs Temp Pulse Pulse Resp BP BP Pulse Ox 09/21/19 08:51 98.5 F 63 16 172/73 96 09/21/19 08:49 69 18 09/21/19 03:30 160/76 09/21/19 01:45 97.8 F 69 18 173/75 96 09/20/19 23:34 95 09/20/19 21:00 98 F 55 L 16 156/66 92 L 09/20/19 20:21 56 L 18 156/68 97 09/20/19 19:10 61 18 146/65 09/20/19 16:53 97.6 F 59 L 18 146/66 96 Intake and Output 09/20/19 09/21/19 09/21/19 22:59 06:59 14:59 Intake Total 75 Output Total 350 Balance 75 -350 Intake: Oral 75 Output: Urine 350 Other: Voiding Method Toilet Toilet Toilet Bedside Commode Bedside Commode Bedside Commode Weight 110.223 kg Results 09/20/19 17:16 09/20/19 17:16 Cardiac Enzymes 09/20/19 09/20/19 09/20/19 Range/Units 17:16 17:16 20:25 AST 23 (17-59) U/L Troponin I <0.012 <0.012 (0.000-0.034) ng/mL 09/20/19 Range/Units 22:49 AST (17-59) U/L Troponin I <0.012 (0.000-0.034) ng/mL Coagulation 09/20/19 Range/Units 17:16 PT 10.0 (9.0-12.0) sec APTT 21.3 L (22.0-30.0) sec Lipids 09/21/19 Range/Units 07:06 Triglycerides 132 (<150) mg/dL Cholesterol 107 (<200) mg/dL HDL Cholesterol 29 L (40-60) mg/dL CBC 09/20/19 Range/Units 17:16 WBC 11.6 H (3.8-10.6) k/uL RBC 3.98 L (4.30-5.90) m/uL Hgb 11.4 L (13.0-17.5) gm/dL Hct 34.0 L (39.0-53.0) % Plt Count 229 (150-450) k/uL Comprehensive Metabolic Panel 09/20/19 Range/Units 17:16 Sodium 138 (137-145) mmol/L Potassium 3.9 (3.5-5.1) mmol/L Chloride 106 (98-107) mmol/L Carbon Dioxide 28 (22-30) mmol/L BUN 16 (9-20) mg/dL Creatinine 0.59 L (0.66-1.25) mg/dL Glucose 156 H (74-99) mg/dL Calcium 9.0 (8.4-10.2) mg/dL AST 23 (17-59) U/L ALT 25 (4-49) U/L Alkaline Phosphatase 84 (38-126) U/L Total Protein 5.8 L (6.3-8.2) g/dL Albumin 3.5 (3.5-5.0) g/dL Current Medications Generic Name Dose Route Start Last Admin Trade Name Freq PRN Reason Stop Dose Admin Hydrocodone Bitart/Acetaminophen 1 each 09/20/19 22:47 09/21/19 09:10 [place] 5-325 PO 1 each Q6HR PRN Administration Pain Amlodipine Besylate 10 mg 09/21/19 09:00 09/21/19 08:46 Norvasc PO 10 mg DAILY [facility]AW Administration Aspirin 81 mg 09/21/19 09:00 09/21/19 08:45 Aspirin PO 81 mg DAILY [facility]AW Administration Atorvastatin Calcium 80 mg 09/21/19 21:00 Lipitor PO HS COUNTS INCLUDE 234 BEDS AT [facility] Budesonide/Formoterol Fumarate 2 puff 09/21/19 08:00 Symbicort 160-4.5 Mcg Inhaler INHALATION RT-BID KYAW Carvedilol 3.125 mg 09/21/19 07:30 09/21/19 08:02 Coreg PO 3.125 mg BID-W/MEALS [facility]AW Administration Clopidogrel Bisulfate 75 mg 09/21/19 09:00 09/21/19 08:46 Plavix PO 75 mg DAILY [facility]AW Administration Duloxetine HCl 60 mg 09/21/19 09:00 09/21/19 08:45 Cymbalta PO 60 mg DAILY [facility] Administration Gabapentin 800 mg 09/21/19 09:00 09/21/19 08:46 Neurontin PO 800 mg TID [facility] Administration Hydralazine HCl 25 mg 09/21/19 09:00 09/21/19 08:45 Apresoline PO 25 mg BID [facility] Administration Insulin Aspart 8 unit 09/21/19 07:30 09/21/19 08:01 Novolog SQ 8 unit AC-TID [facility] Administration Insulin Detemir 30 unit 09/20/19 22:45 09/20/19 23:40 Levemir SQ 30 unit HS [facility] Administration Isosorbide Mononitrate 60 mg 09/21/19 09:00 09/21/19 08:45 Imdur PO 60 mg DAILY [facility] Administration Lidocaine 1 patch 09/20/19 22:43 Lidoderm TOPICAL DAILY PRN Pain Lisinopril 30 mg 09/21/19 09:00 09/21/19 08:46 Zestril PO 30 mg BID [facility] Administration Methocarbamol 500 mg 09/20/19 22:43 09/21/19 01:35 Robaxin PO 500 mg TID PRN Administration Muscle Spasm Nitroglycerin 0.4 mg 09/20/19 19:47 Nitrostat SUBLINGUAL Q5M PRN Chest Pain Pantoprazole Sodium 40 mg 09/21/19 09:00 09/21/19 08:46 Protonix PO 40 mg DAILY [facility] Administration Tamsulosin HCl 0.4 mg 09/21/19 09:00 09/21/19 08:45 Flomax PO 0.4 mg DAILY [facility] Administration Intake and Output 09/20/19 09/21/19 09/21/19 22:59 06:59 14:59 Intake Total 75 Output Total 350 Balance 75 -350 Intake: Oral 75 Output: Urine 350 Other: Voiding Method Toilet Toilet Toilet Bedside Commode Bedside Commode Bedside Commode Weight 110.223 kg 09/20/19 17:16 09/20/19 17:16
--- NOTE | 2019-09-21 09:26 | P.HPIM ---
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 Patient presents because of chest pain and back pain which has been going on for about 2 years on and off every 3-6 months, he follows up with Dr. Timmons in the office. This time he decided to come to the hospital. His chest pain is sharp, about 6/10 in severity with no associated cough or palpitation or dizziness. However he has little dyspnea. His chest pain is better today Vitals looks stable, blood pressure on the has had 172/73. Serial troponins are negative with less than 0.0122, sugars controlled. Mild leukocytosis of 11.6 K . D-dimer is elevated at 1.15. BMP and liver enzymes are unremarkable. EKG showing sinus bradycardia at 58 with occasional PVCs, QTC is [address]-T changes Chest x-ray: No acute process, atelectasis Thoracic aortic CAT scan showing a large pretracheal and subcarinal lymphadenopathy with follow-up is recommended, no PE, aorta appears normal. In the emergency room he got aspirin 25 mg I called the office and I spoke with the nurse associated for Dr. Ayaan Gunderson who confirms to me she is his PCP as she was not available in the office at that time. I spoke with her nurse Bertha and I told her about his pretracheal and subcarinal lymphadenopathy in the need for outpatient follow-up and pulmonary pleural and she took note of this and told me she is going to tell (Patient provided the number for the past [phone]) Review of Systems CONSTITUTIONAL: No fever, no malaise, no fatigue. HEENT: No recent visual problems or hearing problems. Denied any sore throat. CARDIOVASCULAR: No orthopnea, PND, no palpitations, no syncope. PULMONARY: No shortness of breath, no cough, no hemoptysis. GASTROINTESTINAL: No diarrhea, no nausea, no vomiting, no abdominal pain. Normoactive bowel sounds. NEUROLOGICAL: No headaches, no weakness, no numbness. HEMATOLOGICAL: Denies any bleeding or petechiae. GENITOURINARY: Denies any burning micturition, frequency, or urgency. MUSCULOSKELETAL/RHEUMATOLOGICAL: Denies any joint pain, swelling, or any muscle pain. ENDOCRINE: Denies any polyuria or polydipsia. Past Medical History Past Medical History: Coronary Artery Disease (CAD), COPD, CVA/TIA, Diabetes Mellitus, Hyperlipidemia, Hypertension, Myocardial Infarction ([place]), Osteoart hritis (OA), Sleep Apnea/CPAP/BIPAP, Vascular Disorder Additional Past Medical History / Comment(s): chronic back pain. Last Myocardial Infarction Date:: 2016 History of Any Multi-Drug Resistant Organisms: None Reported Past Surgical History: Back Surgery, Coronary Bypass/CABG, Heart Catheterization With Stent, Hernia Repair Additional Past Surgical History / Comment(s): rt carotid endartectomy,pt stated hadx3 cabg surguries: first one was 1 vessel 1999 and 2nd sx 2 2009 3rd bypass in 2014 -denies any valve repalcements, , back surgery x3, heart cath stent x1 (1994) Past Anesthesia/Blood Transfusion Reactions: Previous Problems w/ Anesthesia Additional Past Anesthesia/Blood Transfusion Reaction / Comment(s): Patient states he broke out in hives. Date of Last Stent Placement:: 1994 Past Psychological History: Anxiety, Depression Additional Psychological History / Comment(s): Patient states he was taken off his depression medications and denies any thoughts of suicide. Patient states he has been depressed this week and feeling anxious. Smoking Status: Former smoker Past Alcohol Use History: None Reported Additional Past Alcohol Use History / Comment(s): quit smoking 2009, smoked 2-3 packs per day from 1965 Past Drug Use History: None Reported - Past Family History Father Family Medical History: Cancer Additional Family Medical History / Comment(s): in MVA Sister(s) Family Medical History: Cancer Additional Family Medical History / Comment(s): BONE Mother Family Medical History: Myocardial Infarction ([place]) Additional Family Medical History / Comment(s): Mother of a staph infection at the age of 82 yrs. Medications and Allergies Home Medications Medication Instructions Recorded Confirmed Type Nitroglycerin Sl Tabs [Nitrostat] 0.4 mg SUBLINGUAL Q5M PRN 07/05/14 09/20/19 History Budesonide/Formoterol Fumarate 2 puff INHALATION RT-BID 06/22/18 09/20/19 History [Symbicort 160-4.5 Mcg Inhaler] Furosemide [Lasix] 20 mg PO DAILY 06/22/18 09/20/19 History HYDROcodone/APAP 10-325MG [[address] 1 tab PO QID PRN 06/22/18 09/20/19 History 10-325] Lidocaine [Lidoderm 5% Patch] 1 patch TRANSDERM DAILY PRN 06/22/18 09/20/19 History Methocarbamol [Robaxin] 500 mg PO TID PRN 06/22/18 09/20/19 History Aspirin [Adult Low Dose Aspirin EC] 81 mg PO DAILY #30 tab 06/23/18 09/20/19 Rx Atorvastatin [Lipitor] 80 mg PO HS 07/30/18 09/20/19 History Isosorbide Mononitrate ER [Imdur] 60 mg PO DAILY 07/30/18 09/20/19 History Lisinopril [Zestril] 30 mg PO TID 10/05/18 09/20/19 History Pantoprazole [Protonix] 40 mg PO DAILY 10/05/18 09/20/19 History Insulin Glargine [Lantus] 30 units SQ HS 10/11/18 09/20/19 History INSULIN ASPART (NovoLOG) [Novo[place] 8 unit SQ AC-TID vial 10/12/18 09/20/19 Rx (formulary)] amLODIPine [Norvasc] 10 mg PO DAILY tab 10/12/18 09/20/19 Rx Gabapentin [Neurontin] 800 mg PO TID 03/22/19 09/20/19 History INSULIN ASPART (NovoLOG) [NovoLOG See Protocol SQ HS 03/22/19 09/20/19 History (formulary)] Carvedilol [Coreg] 3.125 mg PO BID-W/MEALS 09/20/19 09/20/19 History Clopidogrel Bisulfate [Plavix] 75 mg PO DAILY 09/20/19 09/20/19 History DULoxetine HCL [Cymbalta] 60 mg PO DAILY 09/20/19 09/20/19 History Ibuprofen [Motrin] 800 mg PO Q8H PRN 09/20/19 09/20/19 History Naloxone HCl [Narcan] 4 mg NASAL ONCE PRN 09/20/19 09/20/19 History Tamsulosin HCl [Flomax] 0.4 mg PO DAILY 09/20/19 09/20/19 History Allergies Allergy/AdvReac Type Severity Reaction Status Date / Time baclofen Allergy Unknown Verified 09/20/19 18:41 fenofibrate nanocrystallized Allergy muscle pain Verified 09/20/19 18:41 [From Tricor] fenofibrate,micronized Allergy Unknown Verified 09/20/19 18:41 [From Tricor] morphine Allergy Confusion Verified 09/20/19 18:41 rosuvastatin calcium Allergy muscle pain Verified 09/20/19 18:41 [From Crestor] sulfamethoxazole Allergy gi upset Verified 09/20/19 18:41 [From Bactrim] metformin AdvReac Nausea & Verified 09/20/19 18:41 Vomiting trimethoprim [From Bactrim] AdvReac Unknown Verified 09/20/19 18:41 rynatan Allergy Unknown Uncoded 09/20/19 16:56 Physical Exam Vitals: Vital Signs Temp Pulse Pulse Resp BP BP Pulse Ox 09/21/19 08:51 98.5 F 63 16 172/73 96 09/21/19 08:49 69 18 09/21/19 03:30 160/76 09/21/19 01:45 97.8 F 69 18 173/75 96 09/20/19 23:34 95 09/20/19 21:00 98 F 55 L 16 156/66 92 L 09/20/19 20:21 56 L 18 156/68 97 09/20/19 19:10 61 18 146/65 09/20/19 16:53 97.6 F 59 L 18 146/66 96 Intake and Output 09/20/19 09/21/19 09/21/19 22:59 06:59 14:59 Intake Total 75 Output Total 350 Balance 75 -350 Intake: Oral 75 Output: Urine 350 Other: Voiding Method Toilet Toilet Toilet Bedside Commode Bedside Commode Bedside Commode Weight 110.223 kg GENERAL: The patient is alert and oriented x3, not in any acute distress. Well developed, well nourished. HEENT: Pupils are round and equally reacting to light. EOMI. No scleral icterus. No conjunctival pallor. Normocephalic, atraumatic. No pharyngeal erythema. No thyromegaly. CARDIOVASCULAR: S1 and S2 present. No murmurs, rubs, or gallops. PULMONARY: Chest is clear to auscultation, no wheezing or crackles. ABDOMEN: Soft, nontender, nondistended, normoactive bowel sounds. No palpable organomegaly. MUSCULOSKELETAL: No joint swelling or deformity. EXTREMITIES: No cyanosis, clubbing, or pedal edema. NEUROLOGICAL: Gross neurological examination did not reveal any focal deficits. SKIN: No rashes. No petechiae Results CBC & Chem 7: 09/20/19 17:16 09/20/19 17:16 Labs: Abnormal Lab Results - Last 24 Hours (Table) 09/20/19 09/20/19 09/20/19 Range/Units 17:16 17:16 17:16 WBC 11.6 H (3.8-10.6) k/uL RBC 3.98 L (4.30-5.90) m/uL Hgb 11.4 L (13.0-17.5) gm/dL Hct 34.0 L (39.0-53.0) % Neutrophils # 8.2 H (1.3-7.7) k/uL APTT 21.3 L (22.0-30.0) sec D-Dimer 1.15 H (<0.60) mg/L FEU Creatinine 0.59 L (0.66-1.25) mg/dL Glucose 156 H (74-99) mg/dL POC Glucose (mg/dL) (75-99) mg/dL Total Protein 5.8 L (6.3-8.2) g/dL HDL Cholesterol (40-60) mg/dL 09/20/19 09/21/19 09/21/19 Range/Units 23:37 07:06 07:36 WBC (3.8-10.6) k/uL RBC (4.30-5.90) m/uL Hgb (13.0-17.5) gm/dL Hct (39.0-53.0) % Neutrophils # (1.3-7.7) k/uL APTT (22.0-30.0) sec D-Dimer (<0.60) mg/L FEU Creatinine (0.66-1.25) mg/dL Glucose (74-99) mg/dL POC Glucose (mg/dL) 193 H 151 H (75-99) mg/dL Total Protein (6.3-8.2) g/dL HDL Cholesterol 29 L (40-60) mg/dL Thrombosis Risk Factor Assmnt - Choose All That Apply Each Factor Represents 1 point: Abnormal pulmonary function (COPD) Each Risk Factor Represents 2 Points: Age 61-74 years Thrombosis Risk Factor Assessment Total Risk Factor Score: 3 Thrombosis Risk Factor Assessment Level: Moderate Risk Assessment and Plan Assessment: Chest pain, rule out cardiac causes pretracheal and subcarinal lymphadenopathy with follow-up is recommended Elevated d-dimer was negative CTA of the chest. 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 Ryan Pineda as per patient COPD, not an active fissure History of CVA/TIA Sleep apnea on CPAP/BiPAP Plan: this is a 69 years old male who presents with chest pain, we'll do serial troponins, EKG, cardiology consult. Continue with aspirin Also I discussed the case with Bertha the nurse practitioner for Dr. Mary Gunderson, he has an appointment with her on October 02 at 1 PM and patient agrees with this appointment, I told Betrha about his subcarinal and pretracheal lymphadenopathy with recommendation for outpatient follow-up and referral to a plastic surgery nurse and she currently took note of these Labs and medication were reviewed.. Continue same treatment. Continue with symptomatic treatment. Resume home medication. Monitor lytes and vitals. DVT and GI prophylaxis. Further recommendations of the clinical course of the patient DVT prophylaxis: Subcutaneous heparin GI Prophylaxis: Pepcid Prognosis is guarded
[2019-09-21] MEDS ORDERED: FUROSEMIDE 20 MG TAB PO SCH (09:30)
--- NOTE | 2019-09-21 12:00 | ECHOF ---
Referral Reason:cp and shortness of breath MEASUREMENTS -------- HEIGHT: 185.4 cm WEIGHT: 110.2 kg BP: 160/76 RVIDd: 4.6 cm (< 3.3) IVSd: 1.5 cm (0.6 - 1.1) LVIDd: 5.2 cm (3.9 - 5.3) LVPWd: 1.6 cm (0.6 - 1.1) IVSs: 2.1 cm LVIDs: 3.9 cm LVPWs: 2.0 cm LA Diam: 5.4 cm (2.7 - 3.8) LAESV Index (A-L): 42.92 ml/m Ao Diam: 3.2 cm (2.0 - 3.7) AV Cusp: 1.9 cm (1.5 - 2.6) MV EXCURSION: 17.838 mm (> 18.000) MV EF SLOPE: 113 mm/s (70 - 150) EPSS: 0.8 cm MV E Tacos: 1.36 m/s MV DecT: 209 ms MV A Tacos: 0.50 m/s MV E/A Ratio: 2.71 RAP: 5.00 mmHg RVSP: 28.14 mmHg FINDINGS -------- Sinus rhythm. This was a technically difficult study with suboptimal views. The left ventricular size is normal. There is moderate concentric left ventricular hypertrophy. O verall left ventricular systolic function is mildly impaired with, an EF between 45 - 50 %. Basal i nferior LV wall motion is hypokinetic. Basal inferoseptal LV wall motion is hypokinetic. Mid in ferior LV wall motion is hypokinetic. The right ventricle is severely enlarged. LA is severely dilated >40 ml/m2 The right atrium was not well visualized. 5.0mg of Lumason was utilized for enhancement of images The aortic valve was not well visualized. The mitral valve is normal. [id number] mitral regurgitation is present. Mild tricuspid regurgitation present. Right ventricular systolic pressure is normal at < 35 mmHg. The right ventricular systolic pressure, as measured by Doppler, is 28.14mmHg. There is no pulmonic regurgitation present. The aortic root size is normal. IVC Not well visulized. There is no pericardial effusion. CONCLUSIONS -------- 1. This was a technically difficult study with suboptimal views. 2. There is moderate concentric left ventricular hypertrophy. 3. Overall left ventricular systolic function is mildly impaired with, an EF between 45 - 50 %. 4. Basal inferior LV wall motion is hypokinetic. 5. Basal inferoseptal LV wall motion is hypokinetic. 6. Mid inferior LV wall motion is hypokinetic. 7. The right ventricle is severely enlarged. 8. LA is severely dilated >40 ml/m2 9. 5.0mg of Lumason was utilized for enhancement of images 10. The aortic valve was not well visualized. 11. [id number] mitral regurgitation is present. 12. Mild tricuspid regurgitation present. 13. There is no pericardial effusion. NURSE OUTREACH CASE MANAGER: Veronica Mark RDCS
[2019-09-21 13:05] LABS: Glucose,Whole Blood 259 mg/dL (75-99)
[2019-09-21 15:07] VITALS: BP 147/60; PULSE 65; RESP 20
[2019-09-21] MEDS ORDERED: ATORVASTATIN 80 MG TAB PO SCH (21:00)
== END 2019-09-21 15:24 | disposition home or self-care (01) ==
LOC: EC 16:50 → 3NCARDOBS 19:47
PROVIDERS: ADMIT Hospitalist; ATTEND Hospitalist
DX: I49.3 Ventricular premature depolarization (principal); R07.89 Other chest pain; R61 Generalized hyperhidrosis; D72.829 Elevated white blood cell count, unspecified; R59.1 Generalized enlarged lymph nodes; R79.1 Abnormal coagulation profile; I25.10 Atherosclerotic heart disease of native coronary artery without angina pectoris; I10 Essential (primary) hypertension; Z87.891 Personal history of nicotine dependence; J44.9 Chronic obstructive pulmonary disease, unspecified; E78.5 Hyperlipidemia, unspecified; M19.90 Unspecified osteoarthritis, unspecified site; G47.30 Sleep apnea, unspecified; Z99.89 Dependence on other enabling machines and devices; I25.5 Ischemic cardiomyopathy; J98.11 Atelectasis; E11.51 Type 2 diabetes mellitus with diabetic peripheral angiopathy without gangrene; G89.29 Other chronic pain; M54.9 Dorsalgia, unspecified; K86.9 Disease of pancreas, unspecified; F41.9 Anxiety disorder, unspecified; F32.9 Major depressive disorder, single episode, unspecified; Z86.73 Personal history of transient ischemic attack (TIA), and cerebral infarction without residual deficits; I25.2 Old myocardial infarction; Z80.8 Family history of malignant neoplasm of other organs or systems; Z80.9 Family history of malignant neoplasm, unspecified; Z82.49 Family history of ischemic heart disease and other diseases of the circulatory system; Z95.1 Presence of aortocoronary bypass graft; Z95.5 Presence of coronary angioplasty implant and graft; Z98.890 Other specified postprocedural states; Z79.02 Long term (current) use of antithrombotics/antiplatelets; Z79.82 Long term (current) use of aspirin; Z79.4 Long term (current) use of insulin; Z79.51 Long term (current) use of inhaled steroids; Z79.899 Other long term (current) drug therapy; Z88.5 Allergy status to narcotic agent; Z88.2 Allergy status to sulfonamides; Z88.8 Allergy status to other drugs, medicaments and biological substances
CPT/HCPCS: 93005 ×2; 99285; 36415; 93306; 85379; 83880; 80061; 80053; 83690; 83735; 84484; 85025; 85610; 85730; 71046; 71275; 74174; G0378 ×2; U0003; Q9950; Q9967

== ENCOUNTER 2019-12-03 22:20 | Inpatient (IN) | payer OTHER, MEDICARE ==
[2019-12-03] MEDS ORDERED: NITROGLYCERIN OINT 1 INCH/GM PACKET TOPICAL STA (22:30)
[2019-12-03 22:45] LABS: Glucose,Whole Blood 337 mg/dL (75-99)
[2019-12-03 22:47] LABS: Basophils # (A) 0.1 k/uL (0-0.2); Basophils % (A) 1 %; Eosinophils # (A) 0.3 k/uL (0-0.7); Eosinophils % (A) 2 %; HCT 39.4 % (39.0-53.0); HGB 12.9 gm/dL (13.0-17.5); Lymphocytes # (A) 2.8 k/uL (1.0-4.8); Lymphocytes % (A) 23 %; MCH 27.7 pg (25.0-35.0); MCHC 32.7 g/dL (31.0-37.0); MCV 84.6 fL (80.0-100.0); Monocytes # (A) 0.6 k/uL (0-1.0); Monocytes % (A) 5 %; Neutrophils # (A) 8.1 k/uL (1.3-7.7); Neutrophils % (A) 67 %; Platelet Count 231 k/uL (150-450); RBC 4.66 m/uL (4.30-5.90); RDW 14.4 % (11.5-15.5); WBC 12.2 k/uL (3.8-10.6)
--- NOTE | 2019-12-03 22:52 | ED ---
Chest Pain HPI - General Chief Complaint: Chest Pain Stated Complaint: CHEST PAIN Time Seen by Provider: 12/03/19 22:30 Source: patient, EMS Mode of arrival: EMS Limitations: no limitations - History of Present Illness Initial Comments: Carroll is a 69-year-old male with a known history of coronary artery disease status post CABG, peripheral vascular disease, carotid stenosis, insulin- dependent diabetes, hypertension and hyperlipidemia. Patient presents to ER today via ambulance for evaluation of sudden onset of severe retrosternal chest pain that began while he was driving. Forced him to gum puller while they called 911 and allow his to drive to [place] the ambulance. Patient reports that the pain came on suddenly without provocation. Was associated diaphoresis and shortness of breath. EMS reportedly found patient sitting in the vehicle, he was pale and diaphoretic and in significant pain. He was given 324 of aspirin and 2 sublingual nitro. He reports his pain improved from a 10 out of 10 to a 5 out of 10. Diaphoresis resolved. He was noted to be profoundly hypertensive. - Related Data Home Medications Medication Instructions Recorded Confirmed Nitroglycerin Sl Tabs [Nitrostat] 0.4 mg SUBLINGUAL Q5M PRN 07/05/14 09/20/19 Budesonide/Formoterol Fumarate 2 puff INHALATION RT-BID 06/22/18 09/20/19 [Symbicort 160-4.5 Mcg Inhaler] Furosemide [Lasix] 20 mg PO DAILY 06/22/18 09/20/19 HYDROcodone/APAP 10-325MG [[place] 1 tab PO QID PRN 06/22/18 09/20/19 10-325] Lidocaine [Lidoderm 5% Patch] 1 patch TRANSDERM DAILY PRN 06/22/18 09/20/19 methocarbamoL [Robaxin] 500 mg PO TID PRN 06/22/18 09/20/19 Atorvastatin [Lipitor] 80 mg PO HS 07/30/18 09/20/19 Isosorbide Mononitrate ER [Imdur] 60 mg PO DAILY 07/30/18 09/20/19 Pantoprazole [Protonix] 40 mg PO DAILY 10/05/18 09/20/19 Insulin Glargine [Lantus] 30 units SQ HS 10/11/18 09/20/19 Gabapentin [Neurontin] 800 mg PO TID 03/22/19 09/20/19 INSULIN ASPART (NovoLOG) [NovoLOG See Protocol SQ HS 03/22/19 09/20/19 (formulary)] Clopidogrel Bisulfate [Plavix] 75 mg PO DAILY 09/20/19 09/20/19 DULoxetine HCL [Cymbalta] 60 mg PO DAILY 09/20/19 09/20/19 Naloxone HCl [Narcan] 4 mg NASAL ONCE PRN 09/20/19 09/20/19 Tamsulosin HCl [Flomax] 0.4 mg PO DAILY 09/20/19 09/20/19 carvediloL [Coreg] 3.125 mg PO BID-W/MEALS 09/20/19 09/20/19 Previous Rx's Medication Instructions Recorded Aspirin [Adult Low Dose Aspirin EC] 81 mg PO DAILY #30 tab 06/23/18 INSULIN ASPART (NovoLOG) [NovoLOG 8 unit SQ AC-TID vial 10/12/18 (formulary)] amLODIPine [Norvasc] 10 mg PO DAILY tab 10/12/18 hydrALAZINE HCL [Apresoline] 25 mg PO BID #60 tab 09/21/19 lisinopriL [Zestril] 30 mg PO BID #180 tab 09/21/19 Allergies Allergy/AdvReac Type Severity Reaction Status Date / Time baclofen Allergy Unknown Verified 12/03/19 22:36 fenofibrate nanocrystallized Allergy muscle pain Verified 12/03/19 22:36 [From Tricor] fenofibrate,micronized Allergy Unknown Verified 12/03/19 22:36 [From Tricor] morphine Allergy Confusion Verified 12/03/19 22:36 rosuvastatin calcium Allergy muscle pain Verified 12/03/19 22:36 [From Crestor] sulfamethoxazole Allergy gi upset Verified 12/03/19 22:36 [From Bactrim] metformin AdvReac Nausea & Verified 12/03/19 22:36 Vomiting trimethoprim [From Bactrim] AdvReac Unknown Verified 12/03/19 22:36 rynatan Allergy Unknown Uncoded 12/03/19 22:36 Review of Systems ROS Statement: Those systems with pertinent positive or pertinent negative responses have been documented in the HPI. ROS Other: All systems not noted in ROS Statement are negative. EKG Findings - EKG Comments: EKG Findings:: An EKG was obtained due to complaint of chest pain, EKG was obtained at 2229, rate is 74 rhythm is sinus with frequent PACs, [place] 140, QRS 106, QTC is 4:30 in her no acute ST elevations or depressions no evidence of acute ischemia or infarction. Past Medical History Past Medical History: Coronary Artery Disease (CAD), COPD, CVA/TIA, Diabetes Mellitus, Hyperlipidemia, Hypertension, Myocardial Infarction ([place]), Osteoarthritis (OA), Sleep Apnea/CPAP/BIPAP, Vascular Disorder Additional Past Medical History / Comment(s): chronic back pain. Last Myocardial Infarction Date:: 2016 History of Any Multi-Drug Resistant Organisms: None Reported Past Surgical History: Back Surgery, Coronary Bypass/CABG, Heart Catheterization With Stent, Hernia Repair Additional Past Surgical History / Comment(s): rt carotid endartectomy,pt stated hadx3 cabg surguries: first one was 1 vessel 1999 and 2nd sx 2 2010 3rd bypass in 2014 -denies any valve repalcements, , back surgery x3, heart cath stent x1 (1994) Past Anesthesia/Blood Transfusion Reactions: Previous Problems w/ Anesthesia Additional Past Anesthesia/Blood Transfusion Reaction / Comment(s): Patient states he broke out in hives. Date of Last Stent Placement:: 1994 Past Psychological History: Anxiety, Depression Smoking Status: Former smoker Past Alcohol Use History: None Reported Past Drug Use History: None Reported - Past Family History Father Family Medical History: Cancer Additional Family Medical History / Comment(s): in MVA Sister(s) Family Medical History: Cancer Additional Family Medical History / Comment(s): BONE Mother Family Medical History: Myocardial Infarction ([place]) Additional Family Medical History / Comment(s): Mother of a staph infection at the age of 82 yrs. General Exam - General Exam Comments Initial Comments: Physical Exam GENERAL: Patient is well-developed and well-nourished. Patient is nontoxic and well- hydrated and is in no distress. HENT: Normocephalic, Atraumatic. EYES: PERRL, EOMI PULMONARY: Unlabored respirations. No audible rales rhonchi or wheezing was noted. CARDIOVASCULAR: There is a regular rate and rhythm without any murmurs gallops or rubs. Well-healed midsternal incision consistent with history of CABG ABDOMEN: Soft and nontender with normal bowel sounds. SKIN: Skin is clear with no lesions or rashes and otherwise unremarkable. : Deferred NEUROLOGIC: Patient is alert and oriented x3. Moving all extremities spontaneously MUSCULOSKELETAL: Normal extremities with adequate strength and full range of motion. No lower extremity swelling or edema. No calf tenderness. PSYCHIATRIC: Normal psychiatric evaluation. Limitations: no limitations Course Vital Signs 12/03/19 12/04/19 22:32 00:00 Temperature 98.1 F Pulse Rate 77 74 Respiratory 18 16 Rate Blood Pressure 148/73 147/65 O2 Sat by Pulse 96 94 L Oximetry Chest Pain MDM - MDM The patient was seen and evaluated history is obtained from the patient and review of medical record mix and 69-year-old male with known CAD presenting to the ER today for evaluation of sudden onset of chest pain that happened while he was driving Patient does admit that because he is currently in the process of moving he did not take any of his home medications today including any of his antihypertensives Workup was initiated Nitro paste and heparin were ordered EKG appears nonischemic Labs resulted with initial troponin is detectable but not elevated, we will plan to keep the patient and the hospital, trend his troponins, have consult with cardiology The patient's home medications were ordered Patient admitted to the hospital for acute coronary syndrome, unstable angina Disposition Clinical Impression: Chest pain due to CAD, Nonadherence to medication, HTN (hypertension), Chronic pain Disposition: ADMITTED IP TO THIS HOSP Condition: Serious
[2019-12-03 23:01] LABS: ALT 19 U/L (4-49); AST 26 U/L (17-59); African American GFR (CKD) >90 (>60 ml/min/1.73 sqM); Albumin 3.9 g/dL (3.5-5.0); Alkaline Phosphatase 80 U/L (38-126); Anion Gap 7 mmol/L; Blood Urea Nitrogen 29 mg/dL (9-20); Calcium 9.5 mg/dL (8.4-10.2); Carbon Dioxide 23 mmol/L (22-30); Chloride 106 mmol/L (98-107); Glucose 346 mg/dL (74-99); Magnesium 1.4 mg/dL (1.6-2.3); Non-African American GFR(CKD) >90 (>60 ml/min/1.73 sqM); Sodium 136 mmol/L (137-145); Total Bilirubin 0.5 mg/dL (0.2-1.3); Total Protein 6.3 g/dL (6.3-8.2)
[2019-12-03 23:08] LABS: INR 0.9 (<1.2); Prothrombin Time 9.5 sec (9.0-12.0)
[2019-12-03 23:10] LABS: Partial Thromboplastin Time 21.1 sec (22.0-30.0)
[2019-12-03] MEDS ORDERED: INSULIN ASPART (NovoLOG) 100 UNIT/ML VIAL SQ STA (23:15)
[2019-12-03] MEDS ORDERED: HEPARIN SODIUM,PORCINE 5,000 UNIT/ML 1 ML VIAL IV ONE (23:22)
[2019-12-03] MEDS ORDERED: HEPARIN SODIUM,PORCINE 5,000 UNIT/ML 1 ML VIAL IV PRN (23:22)
[2019-12-03] MEDS ORDERED: NITROGLYCERIN SL TABS 0.4 MG TAB SUBLINGUAL PRN (23:23)
[2019-12-03] MEDS ORDERED: HEPARIN SOD,PORK IN 0.45% NACL 25,000 UNIT in 0.45% NACL 1 250ML.BAG IV SCH (23:30)
--- NOTE | 2019-12-03 23:40 | XR ---
EXAMINATION TYPE: XR chest 2V DATE OF EXAM: 12/03/2019 COMPARISON: 11/17/2019 HISTORY: Chest pain TECHNIQUE: FINDINGS: There is some mild infiltrate at the right lung base. There is no heart failure. Heart is b orderline enlarged. There are sternal wires. IMPRESSION: There is a new mild airspace infiltrate right lung base compared to recent exam and consi stent with pneumonia. No obvious heart failure.
[2019-12-04] MEDS: GABAPENTIN 400 MG CAP PO SCH ×2 (00:01→08:30)
[2019-12-04] MEDS: ATORVASTATIN 80 MG TAB PO SCH ×2 (00:01→08:29)
[2019-12-04] MEDS: carvediloL 3.125 MG TAB PO SCH ×2 (00:02→08:31)
[2019-12-04] MEDS: hydrALAZINE HCL 25 MG TAB PO SCH ×2 (00:02→08:31)
[2019-12-04] MEDS ORDERED: methocarbamoL 500 MG TAB PO PRN (00:59)
[2019-12-04] MEDS: HYDROcodone/APAP 10-325MG 1 EACH TAB PO PRN ×2 (01:20→12:40)
[2019-12-04 05:45] LABS: Basophils # (A) 0.1 k/uL (0-0.2); Basophils % (A) 1 %; Eosinophils # (A) 0.3 k/uL (0-0.7); Eosinophils % (A) 3 %; HCT 40.9 % (39.0-53.0); Lymphocytes # (A) 2.9 k/uL (1.0-4.8); Lymphocytes % (A) 27 %; MCH 26.5 pg (25.0-35.0); MCHC 31.8 g/dL (31.0-37.0); MCV 83.4 fL (80.0-100.0); Monocytes # (A) 0.6 k/uL (0-1.0); Monocytes % (A) 6 %; Neutrophils # (A) 6.6 k/uL (1.3-7.7); Neutrophils % (A) 61 %; Platelet Count 220 k/uL (150-450); RDW 14.3 % (11.5-15.5); WBC 10.9 k/uL (3.8-10.6)
[2019-12-04 05:53] LABS: Cholesterol 153 mg/dL (<200); HDL Cholesterol 33 mg/dL (40-60); Triglycerides 407 mg/dL (<150)
[2019-12-04 05:55] LABS: INR 0.9 (<1.2); Partial Thromboplastin Time 26.9 sec (22.0-30.0); Prothrombin Time 9.7 sec (9.0-12.0)
[2019-12-04 07:59] LABS: Glucose,Whole Blood 207 mg/dL (75-99)
[2019-12-04] MEDS ORDERED: SYMBICORT 160-4.5 MCG INHALER INHALATION SCH (08:00)
--- NOTE | 2019-12-04 08:18 | P.CRDCN ---
History of Present Illness Consult date: 12/04/19 Chief complaint: Chest pain History of present illness: This is a very pleasant 69-year-old gentleman who I see in the office as an outpatient with coronary artery disease and status post coronary artery bypass grafting with the last heart catheterization was performed in 2019 showing severe triple-vessel coronary artery disease with patent ALAN to LAD and patent SVG to LCx as well as patent SVG to RCA. Beside that the patient does have per ipheral arterial disease, carotid disease, diabetes as well as hypertension and dyslipidemia. He was in his usual state of health until yesterday when he was driving his car and suddenly started experiencing discomfort in the mid of the chest without any radiation to the arms or neck or shoulders and without associated symptoms. The discomfort lasted for about 15 minutes he was brought to the hospital by ambulance and he was restarted on heparin drip. He has been chest pain-free throughout his hospital stay. The EKG showed sinus rhythm without any significant ST or T-wave abnormalities. The first set of troponin came in to be slightly abnormal. The chest x-ray did not show any acute ab normalities. The rest of his blood work in the overall unremarkable. I had a long discussion with the patient got That I advised the patient to undergo a heart catheterization to rule out severe coronary artery disease. The patient is somewhat reluctant to undergo the heart catheterization because he is in process of moving out of his house today different house. I asked the patient to contact his and speak with her as well as speak with his family about this situation and he is in process of talking to them. Meanwhile I would continue the current medical regimen including anticoagulation was heparin as well as antiplatelet and anti-ischemic medications. We'll continue following up with the patient. Past Medical History Past Medical History: Coronary Artery Disease (CAD), COPD, CVA/TIA, Diabetes Mellitus, Hyperlipidemia, Hypertension, Myocardial Infarction ([place]), Osteoarthritis (OA), Sleep Apnea/CPAP/BIPAP, Vascular Disorder Additional Past Medical History / Comment(s): chronic back pain. Last Myocardial Infarction Date:: 2016 History of Any Multi-Drug Resistant Organisms: None Reported Past Surgical History: Back Surgery, Coronary Bypass/CABG, Heart Catheterization With Stent, Hernia Repair Additional Past Surgical History / Comment(s): rt carotid endartectomy,pt stated hadx3 cabg surguries: first one was 1 vessel 1999 and 2nd sx 2 2010 3rd bypass in 2015 -denies any valve repalcements, , back surgery x3, heart cath stent x1 (1994) Past Anesthesia/Blood Transfusion Reactions: Previous Problems w/ Anesthesia Additional Past Anesthesia/Blood Transfusion Reaction / Comment(s): Patient states he broke out in hives. Date of Last Stent Placement:: 1994 Past Psychological History: Anxiety, Depression Smoking Status: Former smoker Past Alcohol Use History: None Reported Past Drug Use History: None Reported - Past Family History Father Family Medical History: Cancer Additional Family Medical History / Comment(s): in MVA Sister(s) Family Medical History: Cancer Additional Family Medical History / Comment(s): BONE Mother Family Medical History: Myocardial Infarction ([place]) Additional Family Medical History / Comment(s): Mother of a staph infection at the age of 82 yrs. Medications and Allergies Home Medications Medication Instructions Recorded Confirmed Type Nitroglycerin Sl Tabs [Nitrostat] 0.4 mg SUBLINGUAL Q5M PRN 07/05/14 09/20/19 History Budesonide/Formoterol Fumarate 2 puff INHALATION RT-BID 06/22/18 09/20/19 History [Symbicort 160-4.5 Mcg Inhaler] Furosemide [Lasix] 20 mg PO DAILY 06/22/18 09/20/19 History HYDROcodone/APAP 10-325MG [[place] 1 tab PO QID PRN 06/22/18 09/20/19 History 10-325] Lidocaine [Lidoderm 5% Patch] 1 patch TRANSDERM DAILY PRN 06/22/18 09/20/19 History methocarbamoL [Robaxin] 500 mg PO TID PRN 06/22/18 09/20/19 History Aspirin [Adult Low Dose Aspirin EC] 81 mg PO DAILY #30 tab 06/23/18 09/20/19 Rx Atorvastatin [Lipitor] 80 mg PO HS 07/30/18 09/20/19 History Isosorbide Mononitrate ER [Imdur] 60 mg PO DAILY 07/30/18 09/20/19 History Pantoprazole [Protonix] 40 mg PO DAILY 10/05/18 09/20/19 History Insulin Glargine [Lantus] 30 units SQ HS 10/11/18 09/20/19 History INSULIN ASPART (NovoLOG) [NovoLOG 8 unit SQ AC-TID vial 10/12/18 09/20/19 Rx (formulary)] amLODIPine [Norvasc] 10 mg PO DAILY tab 10/12/18 09/20/19 Rx Gabapentin [Neurontin] 800 mg PO TID 03/22/19 09/20/19 History INSULIN ASPART (NovoLOG) [NovoLOG See Protocol SQ HS 03/22/19 09/20/19 History (formulary)] Clopidogrel Bisulfate [Plavix] 75 mg PO DAILY 09/20/19 09/20/19 History DULoxetine HCL [Cymbalta] 60 mg PO DAILY 09/20/19 09/20/19 History Naloxone HCl [Narcan] 4 mg NASAL ONCE PRN 09/20/19 09/20/19 History Tamsulosin HCl [Flomax] 0.4 mg PO DAILY 09/20/19 09/20/19 History carvediloL [Coreg] 3.125 mg PO BID-W/MEALS 09/20/19 09/20/19 History hydrALAZINE HCL [Apresoline] 25 mg PO BID #60 tab 09/21/19 Rx lisinopriL [Zestril] 30 mg PO BID #180 tab 09/21/19 Rx Allergies Allergy/AdvReac Type Severity Reaction Status Date / Time baclofen Allergy Unknown Verified 12/03/19 22:36 fenofibrate nanocrystallized Allergy muscle pain Verified 12/03/19 22:36 [From Tricor] fenofibrate,micronized Allergy Unknown Verified 12/03/19 22:36 [From Tricor] morphine Allergy Confusion Verified 12/03/19 22:36 rosuvastatin calcium Allergy muscle pain Verified 12/03/19 22:36 [From Crestor] sulfamethoxazole Allergy gi upset Verified 12/03/19 22:36 [From Bactrim] metformin AdvReac Nausea & Verified 12/03/19 22:36 Vomiting trimethoprim [From Bactrim] AdvReac Unknown Verified 12/03/19 22:36 rynatan Allergy Unknown Uncoded 12/03/19 22:36 Physical Exam Vitals: Vital Signs Temp Pulse Resp BP Pulse Ox 12/04/19 06:41 98.2 F 61 18 147/75 97 12/04/19 01:22 69 18 153/64 95 12/04/19 00:00 74 16 147/65 94 L 12/03/19 22:32 98.1 F 77 18 148/73 96 Intake and Output 12/03/19 12/04/19 12/04/19 22:59 06:59 14:59 Intake Total 64.214 Balance 64.214 Intake: Intake, IV Titration 64.214 Amount Heparin Sod,Pork in 0.45% 64.214 NaCl 25,000 unit In 0.45 % NaCl 1 250ml.bag @ 9 UNITS/KG/HR 9.879 mls/hr IV .Q24H [facility] Rx#: [id number] Other: Weight 109.769 kg - Constitutional General appearance: no acute distress - Respiratory Respiratory: bilateral: CTA - Cardiovascular Rhythm: regular Heart sounds: normal: S1, S2 Results 12/04/19 05:23 12/03/19 22:30 Cardiac Enzymes 12/03/19 12/03/19 12/04/19 Range/Units 22:30 22:30 01:16 AST 26 (17-59) U/L Troponin I 0.016 0.106 H* (0.000-0.034) ng/mL 12/04/19 Range/Units 05:23 AST (17-59) U/L Troponin I 0.099 H* (0.000-0.034) ng/mL Coagulation 12/03/19 12/04/19 Range/Units 22:30 05:23 PT 9.5 9.7 (9.0-12.0) sec APTT 21.1 L 26.9 (22.0-30.0) sec Lipids 12/04/19 Range/Units 05:23 Triglycerides 407 H (<150) mg/dL Cholesterol 153 (<200) mg/dL HDL Cholesterol 33 L (40-60) mg/dL CBC 12/03/19 12/04/19 Range/Units 22:30 05:23 WBC 12.2 H 10.9 H (3.8-10.6) k/uL RBC 4.66 4.90 (4.30-5.90) m/uL Hgb 12.9 L 13.0 (13.0-17.5) gm/dL Hct 39.4 40.9 (39.0-53.0) % Plt Count 231 220 (150-450) k/uL Comprehensive Metabolic Panel 12/03/19 Range/Units 22:30 Sodium 136 L (137-145) mmol/L Potassium 4.0 (3.5-5.1) mmol/L Chloride 106 (98-107) mmol/L Carbon Dioxide 23 (22-30) mmol/L BUN 29 H (9-20) mg/dL Creatinine 0.78 (0.66-1.25) mg/dL Glucose 346 H (74-99) mg/dL Calcium 9.5 (8.4-10.2) mg/dL AST 26 (17-59) U/L ALT 19 (4-49) U/L Alkaline Phosphatase 80 (38-126) U/L Total Protein 6.3 (6.3-8.2) g/dL Albumin 3.9 (3.5-5.0) g/dL Current Medications Generic Name Dose Route Start Last Admin Trade Name Freq PRN Reason Stop Dose Admin Hydrocodone Bitart/Acetaminophen 1 each 12/04/19 00:59 12/04/19 01:20 Hydrocodone/Apap 10-325mg 1 Each Tab PO 1 each QID PRN Administration Pain Amlodipine Besylate 10 mg 12/04/19 09:00 Amlodipine 10 Mg Tab PO DAILY [facility] Aspirin 325 mg 12/04/19 09:00 Aspirin 325 Mg Tab PO DAILY [facility] Atorvastatin Calcium 80 mg 12/03/19 23:30 12/04/19 00:01 Atorvastatin 80 Mg Tab PO 80 mg HS [facility] Administration Budesonide/Formoterol Fumarate 2 puff 12/04/19 08:00 12/04/19 07:19 Symbicort 160-4.5 Mcg Inhaler INHALATION 2 puff RT-BID [facility] Administration Carvedilol 3.125 mg 12/03/19 23:30 12/04/19 00:02 Carvedilol 3.125 Mg Tab PO 3.125 mg BID-W/MEALS [facility] Administration Duloxetine HCl 60 mg 12/04/19 09:00 Duloxetine Hcl 60 Mg Capsule.Dr PO DAILY [facility] Furosemide 20 mg 12/04/19 09:00 Furosemide 20 Mg Tab PO DAILY [facility] Gabapentin 800 mg 12/03/19 23:30 12/04/19 00:01 Gabapentin 400 Mg Cap PO 800 mg TID [facility] Administration Heparin Sodium (Porcine) 0 unit 12/03/19 23:22 12/04/19 06:36 Heparin Sodium,Porcine 5,000 Unit/Ml 1 Ml Vial IV 4,000 unit PER PROTOCOL PRN Administration Low PTT Protocol Hydralazine HCl 25 mg 12/03/19 23:30 12/04/19 00:02 Hydralazine Hcl 25 Mg Tab PO 25 mg BID [facility] Administration Heparin Sodium/Sodium Chloride 250 mls @ 9.879 mls/hr 12/03/19 23:30 12/04/19 06:39 25,000 unit/ Sodium Chloride IV 12 units/kg/hr .Q24H [facility] 13.172 mls/hr Titration Protocol 9 UNITS/KG/HR Insulin Aspart 0 unit 12/04/19 07:30 Insulin Aspart (Novolog) 100 Unit/Ml Vial SQ ACHS [facility] Protocol Lisinopril 30 mg 12/04/19 09:00 Lisinopril 10 Mg Tab PO BID [facility] Methocarbamol 500 mg 12/04/19 00:59 Methocarbamol 500 Mg Tab PO TID PRN Muscle Spasm Nitroglycerin 0.4 mg 12/03/19 23:23 Nitroglycerin Sl Tabs 0.4 Mg Tab SUBLINGUAL Q5M PRN Chest Pain Intake and Output 12/03/19 12/04/19 12/04/19 22:59 06:59 14:59 Intake Total 64.214 Balance 64.214 Intake: Intake, IV Titration 64.214 Amount Heparin Sod,Pork in 0.45% 64.214 NaCl 25,000 unit In 0.45 % NaCl 1 250ml.bag @ 9 UNITS/KG/HR 9.879 mls/hr IV .Q24H [facility] Rx#: [id number] Other: Weight 109.769 kg 12/04/19 05:23 12/03/19 22:30 Assessment and Plan Assessment: Assessment #1 acute non-ST elevation myocardial infarction #2 severe triple-vessel coronary artery disease and status post CABG #3 peripheral arterial disease #4 carotid disease #5 multiple risk factors including diabetes and hypertension and dyslipidemia Plan #1 continue heparin IV at this point #2 continue aspirin as well as high intensity statin #3 obtain an echocardiogram was Doppler #4 I recommended proceeding with coronary angiogram #5 follow-up with the patient
[2019-12-04] MEDS: INSULIN ASPART (NovoLOG) 100 UNIT/ML VIAL SQ SCH ×2 (08:31→13:30)
[2019-12-04] MEDS ORDERED: DULoxetine HCL 60 MG CAPSULE.DR PO SCH (09:00)
[2019-12-04] MEDS ORDERED: ASPIRIN 325 MG TAB PO SCH (09:00)
[2019-12-04] MEDS ORDERED: FUROSEMIDE 20 MG TAB PO SCH (09:00)
[2019-12-04] MEDS ORDERED: ASPIRIN 81 MG PO SCH (09:00)
[2019-12-04] MEDS ORDERED: lisinopriL 10 MG TAB PO SCH (09:00)
[2019-12-04] MEDS ORDERED: amLODIPine 10 MG TAB PO SCH (09:00)
[2019-12-04] MEDS ORDERED: IV FLUID CONTINUATION 1,000 ML IV ONE (09:47)
[2019-12-04] MEDS ORDERED: SODIUM CHLORIDE 0.9% 500 ML 500 ML IV ONE ×2 (10:03→10:04)
[2019-12-04 10:05] VITALS: RESP 18
[2019-12-04] MEDS ORDERED: fentaNYL (PF) 50 MCG/ML 2 ML AMP ONE (10:21)
[2019-12-04] MEDS ORDERED: LIDOCAINE 1% INJ 10MG/ML (20 ML MDV) ONE (10:23)
[2019-12-04] MEDS: fentaNYL (PF) 50 MCG/ML 2 ML AMP IV ONE ×2 (10:31→11:02)
[2019-12-04] MEDS: MIDAZOLAM 2 MG/2 ML VIAL IV ONE ×2 (10:34→10:41)
[2019-12-04] MEDS ORDERED: LIDOCAINE 1% INJ 10MG/ML (20 ML MDV) SQ ONE (10:35)
[2019-12-04] MEDS ORDERED: IOPAMIDOL-370 125ML BTL INJ ONE (10:54)
--- NOTE | 2019-12-04 11:00 | P.EN ---
I came to see the patient and he wasn't cardiac cath This morning I got called by the nurse that the patient's wants to leave AMA because he has moved worse at home and he is going to lose $3000 if he will not be there. I explained to the patient extensively the need to stay in the hospital, I explained to the risk of heart attack he has currently and risks including but not limited to , he was still arguing with me when Dr. Rees came in to the room and start examining the patient. Later on I was told by the staff that patient has been taken to cardiac cath. We will keep follow-up with the patient
[2019-12-04] MEDS ORDERED: RX INFO: IV CONTRAST WAS GIVEN 1 EACH MISC MISCELLANE PRN (11:06)
[2019-12-04] MEDS ORDERED: SODIUM CHLORIDE 0.9% 1,000 ML IV SCH (11:15)
--- NOTE | 2019-12-04 12:18 | CC ---
CARDIAC CATHETERIZATION REPORT DATE OF SERVICE: December 04, 2019 PERFORMING PHYSICIAN: Umesh Timmons MD. PROCEDURE PERFORMED: 1. Selective left and right coronary angiogram. 2. ALAN to LAD angiogram. 3. SVG to OM angiogram. 4. SVG to RCA angiogram. 5. Left heart catheterization. INDICATIONS: This is a 69-year-old gentleman with coronary artery disease and prior coronary artery bypass grafting with the last heart catheterization in 2019 showing severe triple- vessel CAD with patent ALAN to LAD and patent SVG to RCA, as well as left circumflex and also known carotid disease and peripheral arterial disease and diabetes, presented to the hospital complaining of chest discomfort and ruled in for acute [id number] myocardial infarction. Because of that, heart catheterization was advised. APPROACH: Right common femoral artery. COMPLICATION: None. LEVEL OF SEDATION: Moderate with sedation length of 22 minutes. PROCEDURE DESCRIPTION: After obtaining informed consent, the patient was brought to the cardiac medical lab assistant. The right common femoral artery was cannulated using micropuncture technique and a micropuncture wire passed easily. Then I placed a 6-[place] sheath. I did selective left and right coronary angiogram with JR4 and JR4 catheters. ALAN to LAD angiogram and SVG to left circumflex angiogram were performed using the JR4 catheter. SVG to RCA angiogram was performed using a multi-purpose catheter. Left heart catheterization was performed using 6-[place] pigtail catheter. SELECTIVE CORONARY ANGIOGRAM: 1. The left main is a moderate to large caliber vessel with mild to moderate disease. Bifurcates into LCX and LAD. 2. The LCX is a moderate caliber vessel with mild to moderate diffuse disease as well. 3. The LAD is occluded in the proximal portion from the left main. 4. The right coronary artery is 100% occluded in the proximal portion. CORONARY BYPASSES ANGIOGRAM: 1. ALAN to LAD is patent. 2. The SVG to OM is patent. 3. The SVG to RCA is patent. HEMODYNAMICS: The LVEDP was about 10 to 12 mmHg without significant gradient across aortic valve. CONCLUSION: 1. Severe triple-vessel coronary artery disease. 2. Patent ALAN to LAD. 3. Patent SVG to left circumflex. 4. Patent SVG to RCA. 5. Normal LVEDP. POSTPROCEDURE MANAGEMENT: 1. Maximize medical treatment. 2. Standard groin care. 3. Possible discharge home in the next 12 to 24 hours. MMODL / IJN: [id number] /
[2019-12-04 13:01] LABS: Glucose,Whole Blood 276 mg/dL (75-99)
[2019-12-04 15:45] VITALS: BP 144/77; PULSE 69; TEMP 98.4
--- NOTE | 2019-12-04 20:18 | P.HPIM ---
History of Present Illness for documentation purpose: Please consider this note as combined H&P and discharge summary please note the patient was not discharge but he left AMA This is a 69 years old male who presents with chest pain. The morning patient opted to leave AMA despite he was on heparin drip for elevated troponin. 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 Rees walked into the room and as per bedside nurse who told me later when I walked in to the emergency room to see him this morning that eventually he ag marnie to undergo cardiac cath under Dr. Rees care. I went into cardiac cath to locate him however I could not find him. Later on I found out that the patient left AGAINST MEDICAL ADVICE. Based upon my conversation with him, It looks like patient has capacity to make medical decision as he is aware of his diagnosis that he has a heart attack and he told me back the risk of leaving AMA including but not limited to , after I explained these risks to him. He wanted to leave because he told me he has movers coming into his house today and if he will not be there was about $3000. As per cardiac cath report looks like patient has triple-vessel disease, pipe fitter supervisor maintenance recommended maximizing medical therapy. Please refer to cardiology notes for further details. Please refer to the nurse note for more details Please note that I have not met the patient or examine him, I only talked him on the phone this morning Past Medical History Past Medical History: Coronary Artery Disease (CAD), COPD, CVA/TIA, Diabetes Mellitus, Hyperlipidemia, Hypertension, Myocardial Infarction (PR), Osteoarthritis (OA), Sleep Apnea/CPAP/BIPAP, Vascular Disorder Additional Past Medical History / Comment(s): chronic back pain. Last Myocardial Infarction Date:: 2016 History of Any Multi-Drug Resistant Organisms: None Reported Past Surgical History: Back Surgery, Coronary Bypass/CABG, Heart Catheterization With Stent, Hernia Repair Additional Past Surgical History / Comment(s): rt carotid endartectomy,pt stated hadx3 cabg surguries: first one was 1 vessel 1999 and 2nd sx 2 2010 3rd bypass in 2014 -denies any valve repalcements, , back surgery x3, heart cath stent x1 (1994) Past Anesthesia/Blood Transfusion Reactions: Previous Problems w/ Anesthesia Additional Past Anesthesia/Blood Transfusion Reaction / Comment(s): Patient states he broke out in hives. Date of Last Stent Placement:: 1994 Past Psychological History: Anxiety, Depression Additional Psychological History / Comment(s): Patient states he was taken off his depression medications and denies any thoughts of suicide. Patient states he has been depressed this week and feeling anxious. Smoking Status: Former smoker Past Alcohol Use History: None Reported Additional Past Alcohol Use History / Comment(s): quit smoking 2009, smoked 2-3 packs per day from 1965 Past Drug Use History: None Reported - Past Family History Father Family Medical History: Cancer Additional Family Medical History / Comment(s): in MVA Sister(s) Family Medical History: Cancer Additional Family Medical History / Comment(s): BONE Mother Family Medical History: Myocardial Infarction (PR) Additional Family Medical History / Comment(s): Mother of a staph infection at the age of 82 yrs. Medications and Allergies Home Medications Medication Instructions Recorded Confirmed Type Nitroglycerin Sl Tabs [Nitrostat] 0.4 mg SUBLINGUAL Q5M PRN 07/05/14 12/04/19 History Budesonide/Formoterol Fumarate 2 puff INHALATION RT-BID 06/22/18 12/04/19 History [Symbicort 160-4.5 Mcg Inhaler] Furosemide [Lasix] 20 mg PO DAILY 06/22/18 12/04/19 History HYDROcodone/APAP 10-325MG [[place] 1 tab PO QID PRN 06/22/18 12/04/19 History 10-325] Lidocaine [Lidoderm 5% Patch] 1 patch TRANSDERM DAILY PRN 06/22/18 12/04/19 History methocarbamoL [Robaxin] 500 mg PO TID PRN 06/22/18 12/04/19 History Aspirin [Adult Low Dose Aspirin EC] 81 mg PO DAILY #30 tab 06/23/18 12/04/19 Rx Atorvastatin [Lipitor] 80 mg PO HS 07/30/18 12/04/19 History Isosorbide Mononitrate ER [Imdur] 60 mg PO DAILY 07/30/18 12/04/19 History Pantoprazole [Protonix] 40 mg PO DAILY 10/05/18 12/04/19 History Insulin Glargine [Lantus] 30 units SQ HS 10/11/18 12/04/19 History INSULIN ASPART (NovoLOG) [NovoLOG 8 unit SQ AC-TID vial 08/06/19 09/27/20 Rx (formulary)] amLODIPine [Norvasc] 10 mg PO DAILY tab 10/12/18 12/04/19 Rx Gabapentin [Neurontin] 800 mg PO TID 03/22/19 12/04/19 History INSULIN ASPART (NovoLOG) [NovoLOG See Protocol SQ HS 03/22/19 12/04/19 History (formulary)] Clopidogrel Bisulfate [Plavix] 75 mg PO DAILY 09/20/19 12/04/19 History DULoxetine HCL [Cymbalta] 60 mg PO DAILY 09/20/19 12/04/19 History Naloxone HCl [Narcan] 4 mg NASAL ONCE PRN 09/20/19 12/04/19 History Tamsulosin HCl [Flomax] 0.4 mg PO DAILY 09/20/19 12/04/19 History carvediloL [Coreg] 3.125 mg PO BID-W/MEALS 09/20/19 12/04/19 History hydrALAZINE HCL [Apresoline] 25 mg PO BID #60 tab 09/21/19 12/04/19 Rx Ibuprofen [Motrin] 800 mg PO TID 12/04/19 12/04/19 History lisinopriL [Zestril] 30 mg PO DAILY 12/04/19 12/04/19 History traZODone HCL 100 mg PO HS 12/04/19 12/04/19 History Allergies Allergy/AdvReac Type Severity Reaction Status Date / Time baclofen Allergy Unknown Verified 12/04/19 15:23 fenofibrate nanocrystallized Allergy muscle pain Verified 12/04/19 15:23 [From Tricor] fenofibrate,micronized Allergy Unknown Verified 12/04/19 15:23 [From Tricor] morphine Allergy Confusion Verified 12/04/19 15:23 rosuvastatin calcium Allergy muscle pain Verified 12/04/19 15:23 [From Crestor] sulfamethoxazole Allergy gi upset Verified 12/04/19 15:23 [From Bactrim] metformin AdvReac Nausea & Verified 12/04/19 15:23 Vomiting trimethoprim [From Bactrim] AdvReac Unknown Verified 12/04/19 15:23 rynatan Allergy Unknown Uncoded 12/03/19 22:36 Physical Exam Vitals: Vital Signs Temp Pulse Pulse Resp BP BP Pulse Ox 12/04/19 15:44 98.4 F 69 18 144/77 98 12/04/19 13:19 70 18 137/73 96 12/04/19 12:49 65 18 133/68 93 L 12/04/19 12:19 68 18 134/76 93 L 12/04/19 12:04 74 18 134/76 90 L 12/04/19 12:00 65 18 12/04/19 11:49 78 18 161/83 96 12/04/19 11:34 65 18 143/83 95 12/04/19 10:07 98.2 F 66 18 165/78 95 12/04/19 09:00 18 165/78 95 12/04/19 08:00 66 20 180/82 95 12/04/19 06:41 98.2 F 61 18 147/75 97 12/04/19 01:22 69 18 153/64 95 12/04/19 00:00 74 16 147/65 94 L 12/03/19 22:32 98.1 F 77 18 148/73 96 Intake and Output 12/04/19 12/04/19 12/04/19 06:59 14:59 22:59 Intake Total 64.214 200 Output Total 1025 Balance 64.214 -825 Intake: IV 200 Intake, IV Titration 64.214 Amount Heparin Sod,Pork in 0.45% 64.214 NaCl 25,000 unit In 0.45 % NaCl 1 250ml.bag @ 9 UNITS/KG/HR 9.879 mls/hr IV .[facility] Rx#: [id number] Output: Urine 1025 Other: Voiding Method Urinal Weight 109.769 kg Results CBC & Chem 7: 12/04/19 05:23 12/03/19 22:30 Labs: Abnormal Lab Results - Last 24 Hours (Table) 12/03/19 12/03/19 12/03/19 Range/Units 22:30 22:30 22:30 WBC 12.2 H (3.8-10.6) k/uL Hgb 12.9 L (13.0-17.5) gm/dL Neutrophils # 8.1 H (1.3-7.7) k/uL APTT 21.1 L (22.0-30.0) sec Sodium 136 L (137-145) mmol/L BUN 29 H (9-20) mg/dL Glucose 346 H (74-99) mg/dL POC Glucose (mg/dL) (75-99) mg/dL Magnesium 1.4 L (1.6-2.3) mg/dL Troponin I (0.000-0.034) ng/mL Triglycerides (<150) mg/dL HDL Cholesterol (40-60) mg/dL 12/03/19 12/04/19 12/04/19 Range/Units 22:44 01:16 05:23 WBC 10.9 H (3.8-10.6) k/uL Hgb (13.0-17.5) gm/dL Neutrophils # (1.3-7.7) k/uL APTT (22.0-30.0) sec Sodium (137-145) mmol/L BUN (9-20) mg/dL Glucose (74-99) mg/dL POC Glucose (mg/dL) 337 H (75-99) mg/dL Magnesium (1.6-2.3) mg/dL Troponin I 0.106 H* (0.000-0.034) ng/mL Triglycerides (<150) mg/dL HDL Cholesterol (40-60) mg/dL 12/04/19 12/04/19 12/04/19 Range/Units 05:23 05:23 07:55 WBC (3.8-10.6) k/uL Hgb (13.0-17.5) gm/dL Neutrophils # (1.3-7.7) k/uL APTT (22.0-30.0) sec Sodium (137-145) mmol/L BUN (9-20) mg/dL Glucose (74-99) mg/dL POC Glucose (mg/dL) 207 H (75-99) mg/dL Magnesium (1.6-2.3) mg/dL Troponin I 0.099 H* (0.000-0.034) ng/mL Triglycerides 407 H (<150) mg/dL HDL Cholesterol 33 L (40-60) mg/dL 12/04/19 Range/Units 12:59 WBC (3.8-10.6) k/uL Hgb (13.0-17.5) gm/dL Neutrophils # (1.3-7.7) k/uL APTT (22.0-30.0) sec Sodium (137-145) mmol/L BUN (9-20) mg/dL Glucose (74-99) mg/dL POC Glucose (mg/dL) 276 H (75-99) mg/dL Magnesium (1.6-2.3) mg/dL Troponin I (0.000-0.034) ng/mL Triglycerides (<150) mg/dL HDL Cholesterol (40-60) mg/dL Thrombosis Risk Factor Assmnt - Choose All That Apply Any of the Below Risk Factors Present?: Yes Each Factor Represents 1 point: Abnormal pulmonary function (COPD), Obesity (BMI >25) Other Risk Factors: Yes Each Risk Factor Represents 2 Points: Age 61-74 years Other congenital or acquired thrombophilia - If yes, enter type in comment: No Thrombosis Risk Factor Assessment Total Risk Factor Score: 4 Thrombosis Risk Factor Assessment Level: Moderate Risk
== END 2019-12-04 18:10 | disposition left against medical advice (07) | DRG 282 ==
LOC: EC 22:20 → 3SCARD 12-04 00:02 → 3NCARDOBS 12-04 11:20 → 3SCARD 12-04 12:19 → OBSVTOIN 12-04 15:34
PROVIDERS: ADMIT Internal Medicine; ATTEND Internal Medicine
PROC: 4A023N7 Measurement of Cardiac Sampling and Pressure, Left Heart, Percutaneous Approach (ICD-10-PCS; principal; 2019-12-04 09:40)
PROC: B2111ZZ Fluoroscopy of Multiple Coronary Arteries using Low Osmolar Contrast (ICD-10-PCS; principal; 2019-12-04 09:40)
PROC: B2131ZZ Fluoroscopy of Multiple Coronary Artery Bypass Grafts using Low Osmolar Contrast (ICD-10-PCS; principal; 2019-12-04 09:40)
DX: I21.4 Non-ST elevation (NSTEMI) myocardial infarction (principal); E11.51 Type 2 diabetes mellitus with diabetic peripheral angiopathy without gangrene; E78.5 Hyperlipidemia, unspecified; F32.9 Major depressive disorder, single episode, unspecified; F41.9 Anxiety disorder, unspecified; G89.29 Other chronic pain; M54.9 Dorsalgia, unspecified; I25.10 Atherosclerotic heart disease of native coronary artery without angina pectoris; I10 Essential (primary) hypertension; I25.2 Old myocardial infarction; J44.9 Chronic obstructive pulmonary disease, unspecified; I65.29 Occlusion and stenosis of unspecified carotid artery; M19.90 Unspecified osteoarthritis, unspecified site; G47.30 Sleep apnea, unspecified; Z99.89 Dependence on other enabling machines and devices; Z86.73 Personal history of transient ischemic attack (TIA), and cerebral infarction without residual deficits; Z79.02 Long term (current) use of antithrombotics/antiplatelets; Z79.4 Long term (current) use of insulin; Z79.51 Long term (current) use of inhaled steroids; Z79.82 Long term (current) use of aspirin; Z79.899 Other long term (current) drug therapy; Z82.49 Family history of ischemic heart disease and other diseases of the circulatory system; Z80.8 Family history of malignant neoplasm of other organs or systems; Z87.891 Personal history of nicotine dependence; Z91.14 Patient's other noncompliance with medication regimen; Z95.1 Presence of aortocoronary bypass graft; Z95.5 Presence of coronary angioplasty implant and graft; E66.9 Obesity, unspecified; Z68.31 Body mass index [BMI] 31.0-31.9, adult; Z88.5 Allergy status to narcotic agent; Z88.2 Allergy status to sulfonamides; Z88.8 Allergy status to other drugs, medicaments and biological substances; Z79.1 Long term (current) use of non-steroidal anti-inflammatories (NSAID)
CPT/HCPCS: 36415; 71046; 80053; 80061; 83735; 84484; 85025; 85610; 85730; 93005; 93459; 94640; 96365; 96366; 96376; 99285